=== PATIENT | male | born 1935 | race Caucasian/White ===

== ENCOUNTER 2016-11-05 15:43 | Inpatient (IN) | payer MEDICARE, BC ==
[2016-11-05] MEDS: Aztreonam/Dextrose-Water 1 GM in Premix Bag 1 BAG IV SCH (17:08)
[2016-11-05] MEDS: Pantoprazole 40 MG Vial IV SCH (17:43)
[2016-11-05] MEDS: Ampicillin/Sulbactam Na 3 GM in Sodium Chloride 0.9% 100 ML IV SCH (17:44)
[2016-11-05] MEDS ORDERED: Potassium Phosphates 20 MMOLE in Sodium Chloride 0.9% 250 ML IV SCH ×2 (18:45→21:45)
[2016-11-05] MEDS ORDERED: Doxazosin 4 MG Tab PO ONE (19:33)
[2016-11-05] MEDS ORDERED: Furosemide 20 MG/2 ML VIAL IVPUSH ONE (19:33)
[2016-11-05] MEDS: Donepezil 10 MG Tab PO SCH ×2 (20:01→21:16)
[2016-11-05] MEDS: Potassium Phosphates 20 MMOLE in Sodium Chloride 0.9% 250 ML IV SCH (21:05)
[2016-11-05] MEDS: Carbidopa/Levodopa 50-200 MG Tab.ER PO SCH (21:14)
[2016-11-05] MEDS: Potassium Chloride 20 MEQ Tab.ER PO SCH (21:15)
[2016-11-05] MEDS: Rosuvastatin 10 MG Tab PO SCH (21:17)
[2016-11-05] MEDS ORDERED: LORazepam 2 MG/ML MDV IVPUSH ONE ×2 (21:31→22:00)
[2016-11-05] MEDS: Morphine 2 MG/ML Syringe IVPUSH PRN (22:13)
[2016-11-06] MEDS: Ampicillin/Sulbactam Na 3 GM in Sodium Chloride 0.9% 100 ML IV SCH ×5 (00:06→23:46)
[2016-11-06] MEDS: Aztreonam/Dextrose-Water 1 GM in Premix Bag 1 BAG IV SCH ×3 (00:36→16:09)
[2016-11-06] MEDS ORDERED: Potassium Phosphates 20 MMOLE in Sodium Chloride 0.9% 250 ML IV SCH (00:45)
[2016-11-06] MEDS: Potassium Phosphates 20 MMOLE in Sodium Chloride 0.9% 250 ML IV SCH ×2 (01:16→04:20)
[2016-11-06] MEDS: Morphine 2 MG/ML Syringe IVPUSH PRN (05:03)
[2016-11-06] MEDS: Potassium Chloride 20 MEQ Tab.ER PO SCH ×4 (06:22→22:29)
[2016-11-06] MEDS ORDERED: Bupivacaine 0.5%/EPINEPHrine 1:200,000 50 ML MDV ONE (06:53)
[2016-11-06] MEDS ORDERED: Propofol 200 MG/20 ML SDV ONE (07:11)
[2016-11-06] MEDS ORDERED: fentaNYL 100 MCG/2 ML SDV ONE (07:11)
[2016-11-06] MEDS ORDERED: Rocuronium 50 MG/5 ML Vial ONE (07:11)
[2016-11-06] MEDS ORDERED: Ondansetron 4 MG/2 ML SDV ONE (07:11)
[2016-11-06] MEDS ORDERED: Neostigmine Methylsulfate 1 MG/ML 5 ML Syringe ONE (07:11)
[2016-11-06] MEDS ORDERED: Dexamethasone 4 MG/ML SDV ONE (07:11)
[2016-11-06] MEDS ORDERED: Glycopyrrolate 0.2 MG/ML 5 ML MDV ONE (07:11)
[2016-11-06] MEDS ORDERED: Succinylcholine 200 MG/10 ML MDV ONE (07:11)
[2016-11-06] MEDS ORDERED: HYDROmorphone/Normal Saline 15 MG/30 ML PCA IV PRN (08:01)
[2016-11-06] MEDS ORDERED: Naloxone 0.4 MG/ML SDV IV PRN (08:04)
--- NOTE | 2016-11-06 08:38 | HP ---
HISTORY OF PRESENT ILLNESS: Angelo is an 81-year-old male, who comes in because of abdominal pain. He said the abdominal pain started yesterday. It started as a vague type sensation in his lower right quadrant, and he did have an appetite. He has not had any surgery on the appendix. I saw him in the office this morning and then sent him over for a CT, which showed an acute appendicitis without rupture. I called Dr. Nixon Raphael, and he is going to perform surgery. REVIEW OF SYSTEMS: This gentleman has had increasing worsening weakness and trouble speaking. He suffers from parkinsonism, which has been an acute and progressive problem. He is seeing a Parkinson specialist in [place]. ALLERGIES: DONEPEZIL. CURRENT MEDICATIONS: 1. Amlodipine 5 mg once a day. 2. He has been taking aspirin 81 mg daily. 3. Benazepril 40 mg a day. 4. Carbidopa and levodopa CR taking 1 or 2 every night. 5. He has also been taking carbidopa and levodopa 25/100, takes 2 tablets by mouth 3 times a day. 6. Taking vitamin D 1 capsule a day. 7. Coenzyme Q10, 1 per day. 8. Vitamin B12, a 1000 mcg daily. 9. Doxazosin 8 mg q. day. 10.Started furosemide today at 20 mg. 11.Hydrochlorothiazide and spironolactone 25 mg daily. 12.One multivitamin per day. 13.[place]-3 fatty acid or fish oil, takes 1 capsule a day. 14.He is supposed to be taking potassium chloride 20 mEq 4 times a day. He was only taking it once a day. 15.He is also taking Azilect 1 mg q. day. 16.Taking Exelon 4.6 mg/24 hours transdermal patch. This was recently decreased, as he was not doing well when he was on a heavier dose. 17.Taking rosuvastatin or Crestor 5 mg a day. 18.Saw palmetto 160 mg daily. PAST MEDICAL HISTORY: He has a history of fatigue, constipation, Parkinson's disease, low back pain, hypertension, hyperlipidemia, depressive disorder, kidney stones, atherosclerotic heart disease, urinary incontinence recently, and he has also had episodes of hypotension, but recently hypertensive. SOCIAL HISTORY: He is . Does not smoke. Does not use tobacco or caffeine. He wears a seat belt. PAST SURGICAL HISTORY: He has had gallbladder and prostate surgery, and hernia repair. He has had the cataract extraction. FAMILY HISTORY: His mother at age 63. She had heart failure and she had cerebrovascular accidents. His father at age 49 from a brain tumor. He had a negative colonoscopy 10 years ago. PHYSICAL EXAMINATION: VITAL SIGNS: His blood pressure is 192/93 with a temperature of 97.9. He is 69 inches tall and weighs 189 pounds, and BMI is 27.9. HEENT: Reveals no acute pathology. NECK: Supple in all directions. HEART: Regular rate and rhythm. No thrills, no rubs, no murmurs. LUNGS: Clear to auscultation bilaterally. No rales, rhonchi, wheezes, or rubs. No dullness to percussion. ABDOMEN: Liver and spleen are not enlarged. Active bowel sounds. There is pain to palpation in the lower right quadrant area. No masses are found. EXTREMITIES: Femoral pulses are intact. LYMPHATICS: There are no cervical, axillary, or inguinal lymphadenopathy. IMPRESSION: 1. Acute appendix. 2. Parkinsonism. 3. Hypertension. 4. Hypokalemia. PLAN: CT of the abdomen was done this morning, which showed an acute appendicitis without rupture. The laboratory analysis done in the office showed sodium 146, potassium 2.9, and creatinine 1.2. His hemoglobin is 11.9. He is supposed to be taking 4 potassium a day. He was taking it once a day only. He does have significant edema in his lower extremities, as we had recently increased his medicine, allopurinol from 5 to 10 mg per day, which is what caused the edema. I did give him a prescription for Lasix this morning, and then we found out that he had acute appendicitis. Unfortunately, they went home and ate before we can get a hold of him to have them come back. Now he is admitted. I spoke with Dr. Nixon Raphael, and he will perform surgery. He does need special care, so I have admitted him to the ICU. Hesham Ann MD /[id number]
[2016-11-06] MEDS: DEXTROSE 5% IV SCH ×6 (09:49→14:54)
[2016-11-06] MEDS: POTASSIUM ACETATE IV SCH ×6 (09:49→14:54)
[2016-11-06] MEDS: WATER IV SCH ×6 (09:49→14:54)
[2016-11-06] MEDS: Dextrose 5%-Lactated Ringers 1,000 ML IV SCH ×2 (09:52→20:14)
[2016-11-06] MEDS ORDERED: Potassium Acetate 20 MEQ, Lidocaine 1% 2 ML in Sodium Chloride 0.9% 100 ML IV SCH (10:00)
[2016-11-06] MEDS: Labetalol 20 MG/4 ML Syringe IVPUSH PRN (10:56)
[2016-11-06] MEDS: Carbidopa/Levodopa 25-100 MG Tab PO SCH ×3 (13:14→19:28)
[2016-11-06] MEDS: RASAGILINE 1 MG PO SCH (15:13)
[2016-11-06] MEDS: Hydrochlorothiazide 25 MG Tab PO SCH (15:15)
[2016-11-06] MEDS: Spironolactone 25 MG Tab PO SCH (15:17)
[2016-11-06] MEDS: amLODIPine 5 MG Tab PO SCH (15:19)
[2016-11-06] MEDS: Doxazosin 4 MG Tab PO SCH (15:30)
[2016-11-06] MEDS: Pantoprazole 40 MG Vial IV SCH (16:48)
[2016-11-06] MEDS: Rosuvastatin 10 MG Tab PO SCH (20:16)
[2016-11-06] MEDS: Donepezil 10 MG Tab PO SCH (20:17)
[2016-11-06] MEDS: Carbidopa/Levodopa 50-200 MG Tab.ER PO SCH (22:29)
[2016-11-07] MEDS: Aztreonam/Dextrose-Water 1 GM in Premix Bag 1 BAG IV SCH ×3 (00:39→16:27)
[2016-11-07] MEDS: Ampicillin/Sulbactam Na 3 GM in Sodium Chloride 0.9% 100 ML IV SCH ×4 (05:13→23:34)
[2016-11-07] MEDS: Potassium Chloride 20 MEQ Tab.ER PO SCH ×4 (05:13→21:07)
[2016-11-07] MEDS: Labetalol 20 MG/4 ML Syringe IVPUSH PRN ×2 (06:16→16:19)
[2016-11-07] MEDS: Dextrose 5%-Lactated Ringers 1,000 ML IV SCH (07:29)
[2016-11-07] MEDS: Spironolactone 25 MG Tab PO SCH (08:17)
[2016-11-07] MEDS: Carbidopa/Levodopa 25-100 MG Tab PO SCH ×3 (08:17→18:09)
[2016-11-07] MEDS: RASAGILINE 1 MG PO SCH (08:17)
[2016-11-07] MEDS: Doxazosin 4 MG Tab PO SCH ×2 (08:17→17:15)
[2016-11-07] MEDS: amLODIPine 5 MG Tab PO SCH (08:18)
[2016-11-07] MEDS: Hydrochlorothiazide 25 MG Tab PO SCH (08:18)
[2016-11-07] MEDS: Potassium Phosphates 25 MMOLE in Sodium Chloride 0.9% 500 ML IV SCH ×3 (09:43→17:18)
[2016-11-07] MEDS: Ondansetron 4 MG/2 ML SDV IV PRN ×2 (09:53→15:54)
[2016-11-07] MEDS ORDERED: Magnesium Sulfate/Water 2 GM in Premix Bag 1 BAG IV SCH (10:00)
[2016-11-07] MEDS ORDERED: Furosemide 20 MG/2 ML VIAL IVPUSH ONE (10:15)
[2016-11-07] MEDS ORDERED: Dextrose 5%-Lactated Ringers 1,000 ML IV SCH (10:15)
--- NOTE | 2016-11-07 13:42 | OR ---
DATE OF PROCEDURE: 11/06/2016 PREOPERATIVE DIAGNOSIS: Acute appendicitis. POSTOPERATIVE DIAGNOSES: 1. Acute appendicitis with inflammation and edema extending onto the cecum. 2. Pericecal inflammatory fluid collection (possibly infected). OPERATIVE PROCEDURES: Diagnostic laparoscopy with: 1. Partial cecectomy with excision of attached overlying appendix (51605). 2. Drainage of pericecal inflammatory fluid collection, associated with localized peritonitis (87770). ANESTHESIA: General. NURSE CASE MANAGEMENT: Meri Long PA-C. INDICATION FOR PROCEDURE: This is an 81-year-old male presenting with an acute appendicitis based on clinical and CT findings. He has advanced Parkinson's disease, but the diagnosis nonetheless appears to be reasonably well established. The plan is to proceed with a laparoscopic or if necessary open appendectomy. The potential risks of the procedure including bleeding, infection, injury to underlying viscera, problems with leak from GI tract closures such as appendectomy stump, need for additional surgery beyond an appendectomy, depending on operative findings, as well as possibility of cardiopulmonary, septic, or hemorrhagic complications leading to were discussed, and the patient wishes to proceed. DETAILS OF PROCEDURE: The patient was taken to the operating room and placed in a supine position. After general endotracheal anesthesia was induced, the abdomen was prepped and draped. He does have a large amount of urine output, and I think there is incontinence; a Walton catheter had been placed in the hospital room site. Three fingerbreadths superior and to the left of xiphoid process, a transverse incision was made and the peritoneal cavity entered under direct vision with an Optiview trocar and inflated to 30 mmHg pressure with CO2. Laparoscope was then reinserted. No underlying trocar insertion site injuries were seen. Following this, a 12 mm trocar was placed in the left lower quadrant, as well as right upper quadrant, and the right lower quadrant examined. As the cecum was identified, the infundibulum was mobilized upward. The patient was noted to have an obvious acute appendicitis; photo documentation of this was obtained. It was notable that the degree of redness and edema extended perhaps a centimeter to a centimeter and a half on to the cecum. Based on that, it was felt best to proceed with a partial cecectomy to apply the florence in a nonedematous and minimally inflamed area. The mesoappendix was then initially divided with Harmonic scalpel down to the level of the junction with the cecum. Endo-ARIADNA faulkner load was then used, the cecum was pulled up to within the stapler, and the cecum was then excised in addition to the overlying appendix with a ARIADNA faulkner load. The specimen was then delivered through the left lower quadrant site. As one entered into the abdomen, there was a pericecal fluid collection. This ran along the pericolic gutter and somewhat into the pelvis. This was thinly purulent but was associated with a fairly marked peritonitis in that area with peritoneum being reddened and initially some petechiae with minimal manipulation. This had been evacuated and cultures obtained. At that point, no further problems were noted. The trocars were sequentially removed. The fascia at each of the sites was closed with 0 Vicryl stitch and the skin with 4-0 Vicryl skin stitch. Dressing applied. The patient was taken to the recovery room in satisfactory condition. Physician assistant cook, Meri Long played an essential role in assisting in this case, helping to position the patient, retract structures as needed, as well as suturing and cutting sutures as indicated. Her presence improved patient's safety and decreased the operative time. Nixon Raphael MD /[id number]
--- NOTE | 2016-11-07 14:42 | PN ---
DATE OF SERVICE: 11/07/2016 The patient has been afebrile with stable vital signs. Level of alertness is roughly status quo with the Parkinson's disease. His blood pressure has been quite high, and I will restart the Lotensin, which he had been off, and otherwise, he will go up to a regular diet today. IV will continue at 100 mL/hr. We will leave the Walton catheter in place, because he simply wets the bed, and from a management standpoint, it will be more satisfactory to keep that in for another day or so. Will continue the present antibiotics. Nixon Raphael MD /[id number]
[2016-11-07] MEDS ORDERED: Scopolamine 1.5 MG Transdermal Patch TRDERM PRN (16:41)
[2016-11-07] MEDS ORDERED: Metoclopramide 10 MG/2 ML SDV IVPUSH SCH (16:45)
[2016-11-07] MEDS: Pantoprazole 40 MG Vial IV SCH (16:55)
[2016-11-07] MEDS ORDERED: Prochlorperazine 10 MG in Sodium Chloride 0.9% 50 ML IV PRN (17:07)
[2016-11-07] MEDS ORDERED: hydrOXYzine HCl 100 MG/2 ML SDV IM PRN (17:09)
[2016-11-07] MEDS ORDERED: Prochlorperazine 10 MG/2 ML SDV IV PRN (17:12)
[2016-11-07] MEDS: Donepezil 10 MG Tab PO SCH (21:07)
[2016-11-07] MEDS: Rosuvastatin 10 MG Tab PO SCH (21:08)
[2016-11-07] MEDS: Carbidopa/Levodopa 50-200 MG Tab.ER PO SCH (21:08)
--- NOTE | 2016-11-07 21:36 | PCM.PN ---
- General Info Date of Service: 11/07/16 Functional Status: Reports: Pain Controlled - Review of Systems General: Reports: Weakness Pulmonary: Reports: No Symptoms Cardiovascular: Reports: No Symptoms Gastrointestinal: Reports: No Symptoms Psychiatric: Reports: Other (Hallucinations at night continuing.) - Patient Data Vitals - Most Recent: Last Vital Signs Temp 97.8 F 11/07/16 20:00 Pulse 70 11/07/16 05:00 Resp 17 11/07/16 20:00 BP 160/74 H 11/07/16 20:00 Pulse Ox 95 11/07/16 20:00 Weight - Most Recent: 187 lb 6.287 oz I&O - Last 24 Hours: Intake & Output 11/07/16 11/07/16 11/07/16 06:59 14:59 22:59 Intake Total 0388 453 5596 Output Total 800 1850 1000 Balance 464 -1450 1204 Lab Results Last 24 Hours: Laboratory Results - last 24 hr 11/07/16 11/07/16 Range/Units 04:30 04:30 WBC 9.2 (4.5-11.0) K/uL RBC 3.85 L (4.30-5.90) M/uL Hgb 12.7 (12.0-15.0) g/dL Hct 37.8 L (40.0-54.0) % MCV 98 (80-98) fL MCH 33 H (27-31) pg MCHC 34 (32-36) % Plt Count 165 (150-400) K/uL Sodium 148 (140-148) mmol/L Potassium 2.8 L* (3.6-5.2) mmol/L Chloride 110 H (100-108) mmol/L Carbon Dioxide 31 (21-32) mmol/L Anion Gap 9.8 (5.0-14.0) mmol/L BUN 15 (7-18) mg/dL Creatinine 1.3 (0.8-1.3) mg/dL Est Cr Clr Drug Dosing 45.35 mL/min Estimated GFR (MDRD) 53 L (>60) Glucose 117 H (74-106) mg/dL Calcium 8.6 (8.5-10.1) mg/dL Phosphorus 2.8 (2.5-4.9) mg/dL Magnesium 1.6 L (1.8-2.4) mg/dL Total Bilirubin 1.4 H (0.2-1.0) mg/dL AST 17 (15-37) U/L ALT 12 (12-78) U/L Alkaline Phosphatase 45 L (46-116) U/L Total Protein 6.2 L (6.4-8.2) g/dL Albumin 2.9 L (3.4-5.0) g/dL Globulin 3.3 (2.3-3.5) g/dL Albumin/Globulin Ratio 0.9 L (1.2-2.2) Thompson Results Last 24 Hours: Microbiology 11/06/16 08:00 Anaerobic Culture - Preliminary Appendix NO GROWTH AFTER 1 DAY 11/06/16 08:00 Gram Stain - Final Appendix Wound Culture - Preliminary Med Orders - Current: Current Medications Amlodipine Besylate (Norvasc) 5 mg PO DAILY REPLACED BY [facility] Last Admin: 11/07/16 08:18 Dose: 5 mg Benazepril HCl (Lotensin) 20 mg PO BID REPLACED BY [facility] Last Admin: 11/07/16 08:18 Dose: 20 mg Carbidopa/Levodopa (Sinemet 25-100 Mg) 2 tab PO 0800,1200,1700 REPLACED BY [facility] Last Admin: 11/07/16 18:09 Dose: 2 tab Carbidopa/Levodopa (Sinemet Cr 50-200 Mg) 1 tab PO BEDTIME REPLACED BY [facility] Last Admin: 11/06/16 22:29 Dose: 1 tab Donepezil HCl (Aricept) 10 mg PO BEDTIME REPLACED BY [facility] Last Admin: 11/06/16 20:17 Dose: 10 mg Doxazosin Mesylate (Cardura) 8 mg PO BID REPLACED BY [facility] Last Admin: 11/07/16 17:15 Dose: 8 mg Hydrochlorothiazide (Hydrochlorothiazide) 25 mg PO DAILY REPLACED BY [facility] Last Admin: 11/07/16 08:18 Dose: 25 mg Hydromorphone HCl (Dilaudid Basket Sorter 15 Mg In Ns 30 Ml) 0 mg IV ASDIRECTED PRN; Protocol PRN Reason: Pain Last Admin: 11/06/16 08:09 Dose: 15 mg Hydroxyzine HCl (Vistaril) 50 mg IM Q4H PRN PRN Reason: Nausea/Vomiting Aztreonam/Dextrose 1 gm/ (Premix) 50 mls @ 100 mls/hr IV Q8H REPLACED BY [facility] Last Admin: 11/07/16 16:27 Dose: 100 mls/hr Ampicillin Sodium/Sulbactam (Sodium 3 gm/ Sodium Chloride) 100 mls @ 200 mls/ hr IV Q6H REPLACED BY [facility] Last Admin: 11/07/16 17:38 Dose: 200 mls/hr Magnesium Sulfate 2 gm/ Sodium (Chloride) 54 mls @ 27 mls/hr IV Q6H REPLACED BY [facility] Stop: 11/09/16 05:59 Last Admin: 11/07/16 15:54 Dose: 27 mls/hr Dextrose/Lactated Ringer's (Dextrose 5%-Lactated Ringers) 1,000 mls @ 25 mls/ hr IV ASDIRECTED REPLACED BY [facility] Last Admin: 11/07/16 10:17 Dose: 25 mls/hr Labetalol HCl (Normodyne) 5 - 10 mg IVPUSH Q1H PRN; Protocol PRN Reason: Hypertension Last Admin: 11/07/16 16:19 Dose: 10 mg Naloxone HCl (Narcan) 0.1 mg IV ASDIRECTED PRN PRN Reason: decreased respiratory rate Verify Scop Patch 0 each TOP DAILY REPLACED BY [facility] Ondansetron HCl (Zofran) 4 mg IV Q4H PRN PRN Reason: N/V Last Admin: 11/07/16 15:54 Dose: 4 mg Pantoprazole Sodium (Protonix Iv) 40 mg IV Q24H REPLACED BY [facility] Last Admin: 11/07/16 16:55 Dose: 40 mg Potassium Chloride (Klor-Con M20) 20 meq PO QID REPLACED BY [facility] Last Admin: 11/07/16 16:17 Dose: Not Given Prochlorperazine Edisylate (Compazine) 10 mg IV Q6H PRN PRN Reason: N/V Rasagiline (Azilect) 1 mg PO DAILY REPLACED BY [facility] Last Admin: 11/07/16 08:17 Dose: 1 mg Rivastigmine (Exelon) 4.5 mg PO DAILY REPLACED BY [facility] Last Admin: 11/07/16 08:17 Dose: 4.5 mg Rosuvastatin Calcium (Crestor) 5 mg PO BEDTIME REPLACED BY [facility] Last Admin: 11/06/16 20:16 Dose: 5 mg Scopolamine (Transderm-Scop) 1.5 mg TRDERM Q72H PRN PRN Reason: Nausea/Vomiting Last Admin: 11/07/16 16:54 Dose: 1.5 mg Spironolactone (Aldactone) 25 mg PO DAILY REPLACED BY [facility] Last Admin: 11/07/16 08:17 Dose: 25 mg Discontinued Medications Bupivacaine HCl/Epinephrine Bitart (Marcaine 0.5%/Epinephrine 1:200,000) Confirm Administered Dose 50 ml .ROUTE .STK-MED ONE Stop: 11/06/16 06:54 Last Admin: 11/06/16 08:20 Dose: 15 ml Dexamethasone (Dexamethasone) Confirm Administered Dose 4 mg .ROUTE .STK-MED ONE Stop: 11/06/16 07:12 Doxazosin Mesylate (Cardura) 4 mg PO ONETIME ONE Stop: 11/05/16 19:34 Last Admin: 11/05/16 20:25 Dose: 4 mg Doxazosin Mesylate (Cardura) 8 mg PO DAILY REPLACED BY [facility] Last Admin: 11/07/16 08:17 Dose: 8 mg Fentanyl (Sublimaze) Confirm Administered Dose 200 mcg .ROUTE .STK-MED ONE Stop: 11/06/16 07:12 Furosemide (Lasix) 20 mg IVPUSH ONETIME ONE Stop: 11/05/16 19:34 Last Admin: 11/05/16 20:25 Dose: 20 mg Furosemide (Lasix) 20 mg IVPUSH ONETIME ONE Stop: 11/07/16 10:16 Last Admin: 11/07/16 10:17 Dose: 20 mg Glycopyrrolate (Robinul) Confirm Administered Dose 1 mg .ROUTE .STK-MED ONE Stop: 11/06/16 07:12 Dextrose/Lactated Ringer's (Dextrose 5%-Lactated Ringers) 1,000 mls @ 100 mls/ hr IV ASDIRECTED REPLACED BY [facility] Last Admin: 11/07/16 07:29 Dose: 100 mls/hr Potassium Phosphate 20 mmole/ (Sodium Chloride) 256.6667 mls @ 85.556 mls/hr IV ONETIME DANY Potassium Phosphate 20 mmole/ (Sodium Chloride) 256.6667 mls @ 85.556 mls/hr IV ONETIME DANY Potassium Phosphate 20 mmole/ (Sodium Chloride) 256.6667 mls @ 85.556 mls/hr IV ONETIME DANY Potassium Phosphate 20 mmole/ (Sodium Chloride) 256.6667 mls @ 85.556 mls/hr IV Q3H REPLACED BY [facility] Stop: 11/06/16 05:29 Last Admin: 11/06/16 04:20 Dose: 85.556 mls/hr Potassium Acetate 20 meq/ (Dextrose/Water) 260 mls @ 127 mls/hr IV Q2H REPLACED BY [facility] Stop: 11/06/16 16:29 Last Admin: 11/06/16 14:54 Dose: 127 mls/hr Magnesium Sulfate 2 gm/ Sodium (Chloride) 54 mls @ 27 mls/hr IV Q6H REPLACED BY [facility] Stop: 11/09/16 05:59 Potassium Phosphate 25 mmole/ (Sodium Chloride) 508.3333 mls @ 127 mls/hr IV Q4H REPLACED BY [facility] Stop: 11/07/16 21:29 Last Admin: 11/07/16 17:18 Dose: 127 mls/hr Magnesium Sulfate 2 gm/ Premix 50 mls @ 25 mls/hr IV Q6H REPLACED BY [facility] Stop: 11/09/16 05:59 Lorazepam (Ativan) 0.5 mg IVPUSH ONETIME ONE Stop: 11/05/16 21:32 Last Admin: 11/05/16 21:46 Dose: 0.5 mg Lorazepam (Ativan) 0.5 mg IVPUSH ONETIME ONE Stop: 11/05/16 22:01 Last Admin: 11/05/16 23:48 Dose: Not Given Morphine Sulfate (Morphine) 2 mg IVPUSH Q2H PRN PRN Reason: Pain Last Admin: 11/06/16 05:03 Dose: 2 mg Neostigmine Methylsulfate (Neostigmine) Confirm Administered Dose 5 mg .ROUTE .STK-MED ONE Stop: 11/06/16 07:12 Ondansetron HCl (Zofran) Confirm Administered Dose 4 mg .ROUTE .STK-MED ONE Stop: 11/06/16 07:12 Propofol (Diprivan 20 Ml) Confirm Administered Dose 200 mg .ROUTE .STK-MED ONE Stop: 11/06/16 07:12 Rocuronium [place] (Zemuron) Confirm Administered Dose 50 mg .ROUTE .STK-MED ONE Stop: 11/06/16 07:12 Succinylcholine Chloride (Quelicin) Confirm Administered Dose 200 mg .ROUTE .STK -MED ONE Stop: 11/06/16 07:12 - Exam General: Cooperative, Mild Distress Neck: Supple Lungs: Clear to Auscultation, Normal Respiratory Effort Cardiovascular: Regular Rate, Regular Rhythm Extremities: Pedal Edema Skin: Warm Neurological: No New Focal Deficit Psy/Mental Status: Hallucinations - Problem List Review Problem List Initiated/Reviewed/Updated: Yes - My Orders Last 24 Hours: My Active Orders 11/07/16 17:00 Doxazosin [Cardura] 8 mg PO BID - Assessment Assessment:: Assessment/Plan: #1. Hypertension: BP is not good control. Have increased Cardura to maximum dose #2. Hallucinations at night. This was a problem at home recently. #3. Parkinsonism: This has been a gradual progressive problem. Will need to continue with the Meds. He was on increased Exelon but was unable to tolerate the increased dosage so I decreased this the day before admission.
--- NOTE | 2016-11-07 21:42 | PCM.PN ---
- General Info Date of Service: 11/06/16 Functional Status: Reports: Pain Controlled - Review of Systems General: Reports: Weakness Pulmonary: Reports: No Symptoms Cardiovascular: Reports: No Symptoms Psychiatric: Reports: Confusion, Hallucinations - Patient Data Vitals - Most Recent: Last Vital Signs Temp 97.8 F 11/07/16 20:00 Pulse 70 11/07/16 05:00 Resp 17 11/07/16 20:00 BP 160/74 H 11/07/16 20:00 Pulse Ox 95 11/07/16 20:00 Weight - Most Recent: 187 lb 6.287 oz I&O - Last 24 Hours: Intake & Output 11/07/16 11/07/16 11/07/16 06:59 14:59 22:59 Intake Total 1655 615 0334 Output Total 800 1850 1000 Balance 464 -1450 1204 Lab Results Last 24 Hours: Laboratory Results - last 24 hr 11/07/16 11/07/16 Range/Units 04:30 04:30 WBC 9.2 (4.5-11.0) K/uL RBC 3.85 L (4.30-5.90) M/uL Hgb 12.7 (12.0-15.0) g/dL Hct 37.8 L (40.0-54.0) % MCV 98 (80-98) fL MCH 33 H (27-31) pg MCHC 34 (32-36) % Plt Count 165 (150-400) K/uL Sodium 148 (140-148) mmol/L Potassium 2.8 L* (3.6-5.2) mmol/L Chloride 110 H (100-108) mmol/L Carbon Dioxide 31 (21-32) mmol/L Anion Gap 9.8 (5.0-14.0) mmol/L BUN 15 (7-18) mg/dL Creatinine 1.3 (0.8-1.3) mg/dL Est Cr Clr Drug Dosing 45.35 mL/min Estimated GFR (MDRD) 53 L (>60) Glucose 117 H (74-106) mg/dL Calcium 8.6 (8.5-10.1) mg/dL Phosphorus 2.8 (2.5-4.9) mg/dL Magnesium 1.6 L (1.8-2.4) mg/dL Total Bilirubin 1.4 H (0.2-1.0) mg/dL AST 17 (15-37) U/L ALT 12 (12-78) U/L Alkaline Phosphatase 45 L (46-116) U/L Total Protein 6.2 L (6.4-8.2) g/dL Albumin 2.9 L (3.4-5.0) g/dL Globulin 3.3 (2.3-3.5) g/dL Albumin/Globulin Ratio 0.9 L (1.2-2.2) Thompson Results Last 24 Hours: Microbiology 11/06/16 08:00 Anaerobic Culture - Preliminary Appendix NO GROWTH AFTER 1 DAY 11/06/16 08:00 Gram Stain - Final Appendix Wound Culture - Preliminary Med Orders - Current: Current Medications Amlodipine Besylate (Norvasc) 5 mg PO DAILY [facility] Last Admin: 11/07/16 08:18 Dose: 5 mg Benazepril HCl (Lotensin) 20 mg PO BID [facility] Last Admin: 11/07/16 08:18 Dose: 20 mg Carbidopa/Levodopa (Sinemet 25-100 Mg) 2 tab PO 0800,1200,1700 [facility] Last Admin: 11/07/16 18:09 Dose: 2 tab Carbidopa/Levodopa (Sinemet Cr 50-200 Mg) 1 tab PO BEDTIME [facility] Last Admin: 11/06/16 22:29 Dose: 1 tab Donepezil HCl (Aricept) 10 mg PO BEDTIME [facility] Last Admin: 11/06/16 20:17 Dose: 10 mg Doxazosin Mesylate (Cardura) 8 mg PO BID [facility] Last Admin: 11/07/16 17:15 Dose: 8 mg Hydrochlorothiazide (Hydrochlorothiazide) 25 mg PO DAILY [facility] Last Admin: 11/07/16 08:18 Dose: 25 mg Hydromorphone HCl (Dilaudid Instructor Dancing 15 Mg In Ns 30 Ml) 0 mg IV ASDIRECTED PRN; Protocol PRN Reason: Pain Last Admin: 11/06/16 08:09 Dose: 15 mg Hydroxyzine HCl (Vistaril) 50 mg IM Q4H PRN PRN Reason: Nausea/Vomiting Aztreonam/Dextrose 1 gm/ (Premix) 50 mls @ 100 mls/hr IV Q8H [facility] Last Admin: 11/07/16 16:27 Dose: 100 mls/hr Ampicillin Sodium/Sulbactam (Sodium 3 gm/ Sodium Chloride) 100 mls @ 200 mls/ hr IV Q6H [facility] Last Admin: 11/07/16 17:38 Dose: 200 mls/hr Magnesium Sulfate 2 gm/ Sodium (Chloride) 54 mls @ 27 mls/hr IV Q6H [facility] Stop: 11/09/16 05:59 Last Admin: 11/07/16 15:54 Dose: 27 mls/hr Dextrose/Lactated Ringer's (Dextrose 5%-Lactated Ringers) 1,000 mls @ 25 mls/ hr IV ASDIRECTED [facility] Last Admin: 11/07/16 10:17 Dose: 25 mls/hr Labetalol HCl (Normodyne) 5 - 10 mg IVPUSH Q1H PRN; Protocol PRN Reason: Hypertension Last Admin: 11/07/16 16:19 Dose: 10 mg Naloxone HCl (Narcan) 0.1 mg IV ASDIRECTED PRN PRN Reason: decreased respiratory rate Verify Scop Patch 0 each TOP DAILY [facility] Ondansetron HCl (Zofran) 4 mg IV Q4H PRN PRN Reason: N/V Last Admin: 11/07/16 15:54 Dose: 4 mg Pantoprazole Sodium (Protonix Iv) 40 mg IV Q24H [facility] Last Admin: 11/07/16 16:55 Dose: 40 mg Potassium Chloride (Klor-Con M20) 20 meq PO QID [facility] Last Admin: 11/07/16 16:17 Dose: Not Given Prochlorperazine Edisylate (Compazine) 10 mg IV Q6H PRN PRN Reason: N/V Rasagiline (Azilect) 1 mg PO DAILY [facility] Last Admin: 11/07/16 08:17 Dose: 1 mg Rivastigmine (Exelon) 4.5 mg PO DAILY [facility] Last Admin: 11/07/16 08:17 Dose: 4.5 mg Rosuvastatin Calcium (Crestor) 5 mg PO BEDTIME [facility] Last Admin: 11/06/16 20:16 Dose: 5 mg Scopolamine (Transderm-Scop) 1.5 mg TRDERM Q72H PRN PRN Reason: Nausea/Vomiting Last Admin: 11/07/16 16:54 Dose: 1.5 mg Spironolactone (Aldactone) 25 mg PO DAILY [facility] Last Admin: 11/07/16 08:17 Dose: 25 mg Discontinued Medications Bupivacaine HCl/Epinephrine Bitart (Marcaine 0.5%/Epinephrine 1:200,000) Confirm Administered Dose 50 ml .ROUTE .STK-MED ONE Stop: 11/06/16 06:54 Last Admin: 11/06/16 08:20 Dose: 15 ml Dexamethasone (Dexamethasone) Confirm Administered Dose 4 mg .ROUTE .STK-MED ONE Stop: 11/06/16 07:12 Doxazosin Mesylate (Cardura) 4 mg PO ONETIME ONE Stop: 11/05/16 19:34 Last Admin: 11/05/16 20:25 Dose: 4 mg Doxazosin Mesylate (Cardura) 8 mg PO DAILY [facility] Last Admin: 11/07/16 08:17 Dose: 8 mg Fentanyl (Sublimaze) Confirm Administered Dose 200 mcg .ROUTE .STK-MED ONE Stop: 11/06/16 07:12 Furosemide (Lasix) 20 mg IVPUSH ONETIME ONE Stop: 11/05/16 19:34 Last Admin: 11/05/16 20:25 Dose: 20 mg Furosemide (Lasix) 20 mg IVPUSH ONETIME ONE Stop: 11/07/16 10:16 Last Admin: 11/07/16 10:17 Dose: 20 mg Glycopyrrolate (Robinul) Confirm Administered Dose 1 mg .ROUTE .STK-MED ONE Stop: 11/06/16 07:12 Dextrose/Lactated Ringer's (Dextrose 5%-Lactated Ringers) 1,000 mls @ 100 mls/ hr IV ASDIRECTED [facility] Last Admin: 11/07/16 07:29 Dose: 100 mls/hr Potassium Phosphate 20 mmole/ (Sodium Chloride) 256.6667 mls @ 85.556 mls/hr IV ONETIME [facility] Potassium Phosphate 20 mmole/ (Sodium Chloride) 256.6667 mls @ 85.556 mls/hr IV ONETIME [facility] Potassium Phosphate 20 mmole/ (Sodium Chloride) 256.6667 mls @ 85.556 mls/hr IV ONETIME [facility] Potassium Phosphate 20 mmole/ (Sodium Chloride) 256.6667 mls @ 85.556 mls/hr IV Q3H [facility] Stop: 11/06/16 05:29 Last Admin: 11/06/16 04:20 Dose: 85.556 mls/hr Potassium Acetate 20 meq/ (Dextrose/Water) 260 mls @ 127 mls/hr IV Q2H [facility] Stop: 11/06/16 16:29 Last Admin: 11/06/16 14:54 Dose: 127 mls/hr Magnesium Sulfate 2 gm/ Sodium (Chloride) 54 mls @ 27 mls/hr IV Q6H [facility] Stop: 11/09/16 05:59 Potassium Phosphate 25 mmole/ (Sodium Chloride) 508.3333 mls @ 127 mls/hr IV Q4H [facility] Stop: 11/07/16 21:29 Last Admin: 11/07/16 17:18 Dose: 127 mls/hr Magnesium Sulfate 2 gm/ Premix 50 mls @ 25 mls/hr IV Q6H [facility] Stop: 11/09/16 05:59 Lorazepam (Ativan) 0.5 mg IVPUSH ONETIME ONE Stop: 11/05/16 21:32 Last Admin: 11/05/16 21:46 Dose: 0.5 mg Lorazepam (Ativan) 0.5 mg IVPUSH ONETIME ONE Stop: 11/05/16 22:01 Last Admin: 11/05/16 23:48 Dose: Not Given Morphine Sulfate (Morphine) 2 mg IVPUSH Q2H PRN PRN Reason: Pain Last Admin: 11/06/16 05:03 Dose: 2 mg Neostigmine Methylsulfate (Neostigmine) Confirm Administered Dose 5 mg .ROUTE .STK-MED ONE Stop: 11/06/16 07:12 Ondansetron HCl (Zofran) Confirm Administered Dose 4 mg .ROUTE .STK-MED ONE Stop: 11/06/16 07:12 Propofol (Diprivan 20 Ml) Confirm Administered Dose 200 mg .ROUTE .STK-MED ONE Stop: 11/06/16 07:12 Rocuronium [place] (Zemuron) Confirm Administered Dose 50 mg .ROUTE .STK-MED ONE Stop: 11/06/16 07:12 Succinylcholine Chloride (Quelicin) Confirm Administered Dose 200 mg .ROUTE .STK -MED ONE Stop: 11/06/16 07:12 - Exam General: Cooperative, Moderate Distress Lungs: Clear to Auscultation, Normal Respiratory Effort Cardiovascular: Regular Rate, Regular Rhythm GI/Abdominal Exam: Normal Bowel Sounds, Soft, Non-Tender, No Organomegaly, No Distention, No Abnormal Bruit, No Mass, Pelvis Stable - Problem List Review Problem List Initiated/Reviewed/Updated: Yes - My Orders Last 24 Hours: My Active Orders 11/07/16 17:00 Doxazosin [Cardura] 8 mg PO BID - Assessment Assessment:: Assessment/Plan: #1. Confusion: Last night he because confused and responded to Ativan and Morphine. #2. Hypertension: BP is not good control. Have restarted all his medicine. #3. Hallucinations at night. This was a problem at home recently. #3. Parkinsonism: This has been a gradual progressive problem. Will need to continue with the Meds. He was on increased Exelon which I feel caused increase confusion. Have decreased the dosage.
[2016-11-07] MEDS ORDERED: VERIFY SCOP PATCH TOP SCH (22:00)
[2016-11-08] MEDS: Aztreonam/Dextrose-Water 1 GM in Premix Bag 1 BAG IV SCH (01:20)
[2016-11-08] MEDS: Ampicillin/Sulbactam Na 3 GM in Sodium Chloride 0.9% 100 ML IV SCH (05:21)
[2016-11-08] MEDS ORDERED: Potassium Chloride 20 MEQ, Lidocaine 1% 2 ML in Sodium Chloride 0.9% 100 ML IV SCH (06:30)
[2016-11-08] MEDS: Potassium Chloride 20 MEQ Tab.ER PO SCH ×4 (07:31→22:21)
[2016-11-08] MEDS: Carbidopa/Levodopa 25-100 MG Tab PO SCH ×3 (07:35→17:33)
[2016-11-08] MEDS: Potassium Chloride 20 MEQ, Lidocaine 1% 2 ML in Sodium Chloride 0.9% 100 ML IV SCH ×3 (07:50→12:49)
[2016-11-08] MEDS ORDERED: Acetaminophen 325 MG Tab PO PRN (07:59)
[2016-11-08] MEDS: RASAGILINE 1 MG PO SCH (08:50)
[2016-11-08] MEDS: Spironolactone 25 MG Tab PO SCH (08:50)
[2016-11-08] MEDS: Doxazosin 4 MG Tab PO SCH ×3 (08:51→22:45)
[2016-11-08] MEDS: Hydrochlorothiazide 25 MG Tab PO SCH (08:55)
[2016-11-08] MEDS: amLODIPine 5 MG Tab PO SCH (08:56)
[2016-11-08] MEDS ORDERED: Metoprolol Succinate 50 MG Tab.ER PO SCH (09:30)
--- NOTE | 2016-11-08 09:45 | PN ---
DATE OF SERVICE: 11/08/2016 SUBJECTIVE: Angelo is postop day 2 following an acute appendicitis. He had a diagnostic laparoscopy on 11/06/2016. He was admitted through the emergency room. Potassium this morning is 2.9, temp max 99.7, oral intake 900, urine output via Walton catheter was 3025. He did have a 200 mL emesis yesterday, was on IV Zofran and Compazine was added along with Vistaril and to give p.r.n. for nausea and this did resolve. He has had no further episodes of nausea since that time. He has been awake since 0200 hours and has been up sitting in a Nichelle chair, has been somewhat confused which nursing states is his normal status. He is comfortable and has had 2 bumps of his INDEPENDENT JEWELER from nursing staff to see if this would help him sleep and the pain was causing the issue of his wakefulness. REVIEW OF SYSTEMS: Remainder of review of systems negative for any pertinent positives and negatives. OBJECTIVE: GENERAL: Angelo Greenfield is an 81-year-old male. He is sitting in the Nichelle chair. VITAL SIGNS: TPR is 98.6, 76, 16, blood pressure 157/95. HEENT: Negative. NECK: Supple. HEART: Regular rate and rhythm. LUNGS: Clear. ABDOMEN: Dressings dry and intact. EXTREMITIES: Without peripheral edema and Walton catheter intact. ASSESSMENT: Diagnostic laparoscopy with partial cecectomy with excision of attached overlying appendix and drainage of pericecal inflammatory fluid collection associated with localized peritonitis. Date of surgery 11/06/2016. Postoperative diagnosis is acute appendicitis with inflammation and edema extending into the cecum and pericecal inflammatory fluid collection possibly infected. Date of surgery 11/06/2016. Surgeon Nixon Raphael MD. PLAN: 1. Transfer to [facility]. 2. Discontinue Walton catheter. 3. Discontinue IV antibiotics. 4. Discontinue telemetry, continuous pulse ox. 5. Discontinue INDEPENDENT JEWELER. 6. [place] 5/325 mg 1 tablet every 4 hours p.r.n. pain. 7. Tylenol 650 mg q.4 hours p.r.n. lesser pain. 8. Good pulmonary toilet encouraged. 9. We will evaluate p.r.n. or in a.m. 10.Check CBC and CMP in a.m. Meri Long PA-C /[id number]
[2016-11-08] MEDS: Pantoprazole 40 MG Tab.CR PO SCH (12:31)
[2016-11-08] MEDS: Acetaminophen/HYDROcodone 325-5 MG Tab PO PRN (15:03)
[2016-11-08] MEDS ORDERED: Docusate Sodium 100 MG Cap PO PRN (15:05)
--- NOTE | 2016-11-08 19:11 | PCM.PN ---
- General Info Date of Service: 11/08/16 Functional Status: Reports: Pain Controlled - Review of Systems General: Reports: Weakness HEENT: Reports: No Symptoms Pulmonary: Reports: No Symptoms Cardiovascular: Reports: No Symptoms Gastrointestinal: Reports: No Symptoms Genitourinary: Reports: No Symptoms Musculoskeletal: Reports: No Symptoms Skin: Reports: No Symptoms Neurological: Reports: Weakness - Patient Data Vitals - Most Recent: Last Vital Signs Temp 99.0 F 11/08/16 14:52 Pulse 80 11/08/16 14:52 Resp 16 11/08/16 14:52 BP 146/80 H 11/08/16 14:52 Pulse Ox 95 11/08/16 14:52 Weight - Most Recent: 187 lb 6.287 oz I&O - Last 24 Hours: Intake & Output 11/08/16 11/08/16 11/08/16 06:59 14:59 22:59 Intake Total 462 1212 625 Output Total 375 215 Balance 87 997 625 Lab Results Last 24 Hours: Laboratory Results - last 24 hr 11/08/16 Range/Units 04:39 Sodium 148 (140-148) mmol/L Potassium 2.9 L* (3.6-5.2) mmol/L Chloride 109 H (100-108) mmol/L Carbon Dioxide 33 H (21-32) mmol/L Anion Gap 8.9 (5.0-14.0) mmol/L BUN 13 (7-18) mg/dL Creatinine 1.1 (0.8-1.3) mg/dL Est Cr Clr Drug Dosing 53.59 mL/min Estimated GFR (MDRD) > 60 (>60) Glucose 100 (74-106) mg/dL Calcium 8.4 L (8.5-10.1) mg/dL Phosphorus 3.0 (2.5-4.9) mg/dL Thompson Results Last 24 Hours: Microbiology 11/06/16 08:00 Gram Stain - Final Appendix Wound Culture - Preliminary 11/06/16 08:00 Anaerobic Culture - Preliminary Appendix NO GROWTH AFTER 2 DAYS Med Orders - Current: Current Medications Acetaminophen (Tylenol) 650 mg PO Q4H PRN PRN Reason: Pain Hydrocodone Bitart/Acetaminophen ([place] 325-5 Mg) 1 tab PO Q4H PRN PRN Reason: Pain Last Admin: 11/08/16 15:03 Dose: 1 tab Amlodipine Besylate (Norvasc) 5 mg PO DAILY [facility] Last Admin: 11/08/16 08:56 Dose: 5 mg Benazepril HCl (Lotensin) 20 mg PO BID [facility] Last Admin: 11/08/16 08:55 Dose: 20 mg Carbidopa/Levodopa (Sinemet 25-100 Mg) 2 tab PO 0800,1200,1700 [facility] Last Admin: 11/08/16 17:33 Dose: 2 tab Carbidopa/Levodopa (Sinemet Cr 50-200 Mg) 1 tab PO BEDTIME [facility] Last Admin: 11/07/16 21:08 Dose: 1 tab Docusate Sodium (Colace) 100 mg PO BID PRN PRN Reason: Constipation Last Admin: 11/08/16 17:33 Dose: 100 mg Donepezil HCl (Aricept) 10 mg PO BEDTIME [facility] Last Admin: 11/07/16 21:07 Dose: 10 mg Doxazosin Mesylate (Cardura) 8 mg PO BID [facility] Last Admin: 11/08/16 08:54 Dose: 8 mg Hydrochlorothiazide (Hydrochlorothiazide) 25 mg PO DAILY [facility] Last Admin: 11/08/16 08:55 Dose: 25 mg Hydroxyzine HCl (Vistaril) 50 mg IM Q4H PRN PRN Reason: Nausea/Vomiting Magnesium Sulfate 2 gm/ Sodium (Chloride) 54 mls @ 27 mls/hr IV Q6H [facility] Stop: 11/09/16 05:59 Last Admin: 11/08/16 15:06 Dose: 27 mls/hr Dextrose/Lactated Ringer's (Dextrose 5%-Lactated Ringers) 1,000 mls @ 25 mls/ hr IV ASDIRECTED [facility] Last Admin: 11/07/16 10:17 Dose: 25 mls/hr Naloxone HCl (Narcan) 0.1 mg IV ASDIRECTED PRN PRN Reason: decreased respiratory rate Ondansetron HCl (Zofran) 4 mg IV Q4H PRN PRN Reason: N/V Last Admin: 11/07/16 15:54 Dose: 4 mg Pantoprazole Sodium (Protonix) 40 mg PO ACBREAKFAST [facility] Last Admin: 11/08/16 12:31 Dose: 40 mg Potassium Chloride (Klor-Con M20) 20 meq PO QID [facility] Last Admin: 11/08/16 15:06 Dose: 20 meq Prochlorperazine Edisylate (Compazine) 10 mg IV Q6H PRN PRN Reason: N/V Rasagiline (Azilect) 1 mg PO DAILY [facility] Last Admin: 11/08/16 08:50 Dose: 1 mg Rivastigmine (Exelon) 4.5 mg PO DAILY [facility] Last Admin: 11/08/16 08:54 Dose: 4.5 mg Rosuvastatin Calcium (Crestor) 5 mg PO BEDTIME [facility] Last Admin: 11/07/16 21:08 Dose: 5 mg Spironolactone (Aldactone) 25 mg PO DAILY [facility] Last Admin: 11/08/16 08:50 Dose: 25 mg Discontinued Medications Bupivacaine HCl/Epinephrine Bitart (Marcaine 0.5%/Epinephrine 1:200,000) Confirm Administered Dose 50 ml .ROUTE .STK-MED ONE Stop: 11/06/16 06:54 Last Admin: 11/06/16 08:20 Dose: 15 ml Dexamethasone (Dexamethasone) Confirm Administered Dose 4 mg .ROUTE .STK-MED ONE Stop: 11/06/16 07:12 Doxazosin Mesylate (Cardura) 4 mg PO ONETIME ONE Stop: 11/05/16 19:34 Last Admin: 11/05/16 20:25 Dose: 4 mg Doxazosin Mesylate (Cardura) 8 mg PO DAILY [facility] Last Admin: 11/08/16 08:51 Dose: 8 mg Fentanyl (Sublimaze) Confirm Administered Dose 200 mcg .ROUTE .STK-MED ONE Stop: 11/06/16 07:12 Furosemide (Lasix) 20 mg IVPUSH ONETIME ONE Stop: 11/05/16 19:34 Last Admin: 11/05/16 20:25 Dose: 20 mg Furosemide (Lasix) 20 mg IVPUSH ONETIME ONE Stop: 11/07/16 10:16 Last Admin: 11/07/16 10:17 Dose: 20 mg Glycopyrrolate (Robinul) Confirm Administered Dose 1 mg .ROUTE .STK-MED ONE Stop: 11/06/16 07:12 Hydromorphone HCl (Dilaudid Keyseater Operator 15 Mg In Ns 30 Ml) 0 mg IV ASDIRECTED PRN; Protocol PRN Reason: Pain Last Admin: 11/06/16 08:09 Dose: 15 mg Dextrose/Lactated Ringer's (Dextrose 5%-Lactated Ringers) 1,000 mls @ 100 mls/ hr IV ASDIRECTED [facility] Last Admin: 11/07/16 07:29 Dose: 100 mls/hr Aztreonam/Dextrose 1 gm/ (Premix) 50 mls @ 100 mls/hr IV Q8H [facility] Last Admin: 11/08/16 01:20 Dose: 100 mls/hr Ampicillin Sodium/Sulbactam (Sodium 3 gm/ Sodium Chloride) 100 mls @ 200 mls/ hr IV Q6H [facility] Last Admin: 11/08/16 05:21 Dose: 200 mls/hr Potassium Phosphate 20 mmole/ (Sodium Chloride) 256.6667 mls @ 85.556 mls/hr IV ONETIME [facility] Potassium Phosphate 20 mmole/ (Sodium Chloride) 256.6667 mls @ 85.556 mls/hr IV ONETIME [facility] Potassium Phosphate 20 mmole/ (Sodium Chloride) 256.6667 mls @ 85.556 mls/hr IV ONETIME [facility] Potassium Phosphate 20 mmole/ (Sodium Chloride) 256.6667 mls @ 85.556 mls/hr IV Q3H [facility] Stop: 11/06/16 05:29 Last Admin: 11/06/16 04:20 Dose: 85.556 mls/hr Potassium Acetate 20 meq/ (Dextrose/Water) 260 mls @ 127 mls/hr IV Q2H [facility] Stop: 11/06/16 16:29 Last Admin: 11/06/16 14:54 Dose: 127 mls/hr Magnesium Sulfate 2 gm/ Sodium (Chloride) 54 mls @ 27 mls/hr IV Q6H [facility] Stop: 11/09/16 05:59 Potassium Phosphate 25 mmole/ (Sodium Chloride) 508.3333 mls @ 127 mls/hr IV Q4H [facility] Stop: 11/07/16 21:29 Last Admin: 11/07/16 17:18 Dose: 127 mls/hr Magnesium Sulfate 2 gm/ Premix 50 mls @ 25 mls/hr IV Q6H [facility] Stop: 11/09/16 05:59 Potassium Chloride 20 meq/Lidocaine HCl 2 ml/ Sodium Chloride 112 mls @ 56 mls/ hr IV Q2H [facility] Stop: 11/08/16 14:29 Last Admin: 11/08/16 12:49 Dose: 56 mls/hr Labetalol HCl (Normodyne) 5 - 10 mg IVPUSH Q1H PRN; Protocol PRN Reason: Hypertension Last Admin: 11/07/16 16:19 Dose: 10 mg Lorazepam (Ativan) 0.5 mg IVPUSH ONETIME ONE Stop: 11/05/16 21:32 Last Admin: 11/05/16 21:46 Dose: 0.5 mg Lorazepam (Ativan) 0.5 mg IVPUSH ONETIME ONE Stop: 11/05/16 22:01 Last Admin: 11/05/16 23:48 Dose: Not Given Metoprolol Succinate (Toprol Xl) 50 mg PO DAILY [facility] Last Admin: 11/08/16 10:43 Dose: 50 mg Morphine Sulfate (Morphine) 2 mg IVPUSH Q2H PRN PRN Reason: Pain Last Admin: 11/06/16 05:03 Dose: 2 mg Neostigmine Methylsulfate (Neostigmine) Confirm Administered Dose 5 mg .ROUTE .STK-MED ONE Stop: 11/06/16 07:12 Verify Scop Patch 0 each TOP DAILY [facility] Last Admin: 11/07/16 23:35 Dose: Not Given Ondansetron HCl (Zofran) Confirm Administered Dose 4 mg .ROUTE .STK-MED ONE Stop: 11/06/16 07:12 Pantoprazole Sodium (Protonix Iv) 40 mg IV Q24H [facility] Last Admin: 11/07/16 16:55 Dose: 40 mg Propofol (Diprivan 20 Ml) Confirm Administered Dose 200 mg .ROUTE .STK-MED ONE Stop: 11/06/16 07:12 Rocuronium [place] (Zemuron) Confirm Administered Dose 50 mg .ROUTE .STK-MED ONE Stop: 11/06/16 07:12 Scopolamine (Transderm-Scop) 1.5 mg TRDERM Q72H PRN PRN Reason: Nausea/Vomiting Last Admin: 11/07/16 16:54 Dose: 1.5 mg Succinylcholine Chloride (Quelicin) Confirm Administered Dose 200 mg .ROUTE .STK -MED ONE Stop: 11/06/16 07:12 - Exam General: Cooperative Neck: Supple Lungs: Clear to Auscultation, Normal Respiratory Effort Cardiovascular: Regular Rate, Regular Rhythm Peripheral Pulses: 1+: Radial (L), Radial (R) Neurological: Other (No recent change) - Problem List Review Problem List Initiated/Reviewed/Updated: Yes - My Orders Last 24 Hours: My Active Orders 11/09/16 09:00 Metoprolol Succinate [Toprol XL] 100 mg PO DAILY - Assessment Assessment:: Assessment/Plan: #1. Confusion: confused responded to Ativan and Morphine. #2. Hypertension: BP is not good control. Have increased Metoprolol to 100mg daily. #3. Hallucinations at night. This was a problem at home recently. #3. Parkinsonism: This has been a gradual progressive problem. Will need to continue with the Meds. He was on increased Exelon which I feel caused increase confusion. Have decreased the dosage.
[2016-11-08] MEDS ORDERED: Haloperidol Lactate 5 MG/ML SDV IM PRN (21:04)
[2016-11-08] MEDS ORDERED: Haloperidol Lactate 5 MG/ML SDV IVPUSH PRN (21:44)
[2016-11-08] MEDS: Rosuvastatin 10 MG Tab PO SCH (22:21)
[2016-11-08] MEDS: Carbidopa/Levodopa 50-200 MG Tab.ER PO SCH (22:21)
[2016-11-08] MEDS: Donepezil 10 MG Tab PO SCH (22:45)
[2016-11-09] MEDS ORDERED: Ondansetron 4 MG Tab.DIS PO PRN (07:37)
[2016-11-09] MEDS: Carbidopa/Levodopa 25-100 MG Tab PO SCH ×4 (08:28→17:42)
[2016-11-09] MEDS: RASAGILINE 1 MG PO SCH ×2 (08:32→10:05)
[2016-11-09] MEDS: Metoprolol Succinate 50 MG Tab.ER PO SCH ×2 (08:33→09:57)
[2016-11-09] MEDS: Spironolactone 25 MG Tab PO SCH (08:44)
[2016-11-09] MEDS: Potassium Chloride 20 MEQ Tab.ER PO SCH ×5 (08:44→20:47)
[2016-11-09] MEDS: Pantoprazole 40 MG Tab.CR PO SCH (08:44)
[2016-11-09] MEDS: Hydrochlorothiazide 25 MG Tab PO SCH ×2 (08:45→10:03)
[2016-11-09] MEDS: amLODIPine 5 MG Tab PO SCH ×2 (08:45→10:04)
[2016-11-09] MEDS: Doxazosin 4 MG Tab PO SCH ×3 (08:45→20:46)
--- NOTE | 2016-11-09 08:50 | PN ---
DATE OF SERVICE: 11/09/2016 SUBJECTIVE: Angelo was transferred to [address] [place] [address] yesterday. He has become quite confused. Temp max of 100.4, incontinent of urine. Potassium this morning is 3.5, oral intake 900. He has had 100% of lunch and dinner. REVIEW OF SYSTEMS: Remainder of review of systems negative for any pertinent positives or negatives. OBJECTIVE: GENERAL: Angelo Greenfield is an 81-year-old male. He is quite confused. VITAL SIGNS: TPR a 98.6, 60, 18, blood pressure 172/86. HEENT: Negative. NECK: Supple. HEART: Regular rate and rhythm. LUNGS: Clear. ABDOMEN: He does have his abdominal binders on. He is in a Nichelle chair. Binder was not taken off. He was up most of the night, so I do not want to disturb him right now. EXTREMITIES: Without peripheral edema. ASSESSMENT: 1. Marked confusion. 2. Diagnostic laparoscopy with partial cecectomy with excision of attached overlying appendix and drainage of pericecal inflammatory fluid collection associated with localized peritonitis. Date of surgery 11/06/2016. 3. Acute appendicitis with inflammation and edema extending to the cecum and pericecal inflammatory fluid, possible infected. Date of surgery 11/06/2016. Surgeon Nixon Raphael MD. PLAN: 1. Discharge planning involved he does live at home and his takes care of him but with state of dementia and Parkinson's, discharge planning will assist in his discharge plans. 2. Discontinue IV and IV medications. Potassium was 3.5, so he will get 40 mEq of KCl today. We will evaluate p.r.n. or in a.m. Meri Long PA-C /[id number]
[2016-11-09] MEDS ORDERED: Potassium Chloride 20 MEQ Tab.ER PO ONE (09:00)
[2016-11-09] MEDS ORDERED: Potassium Chloride 10% 20 MEQ/15 ML Soln 15 ML UD Cup PO ONE (09:00)
--- NOTE | 2016-11-09 09:50 | PCM.PN ---
- General Info Date of Service: 11/09/16 Subjective Update: He wouldn't take his pills this morning. Last night he was confused and needed Haldol to control him. Functional Status: Reports: Pain Controlled - Review of Systems General: Reports: Weakness HEENT: Reports: No Symptoms Pulmonary: Reports: No Symptoms Cardiovascular: Reports: No Symptoms Gastrointestinal: Reports: No Symptoms Musculoskeletal: Reports: No Symptoms Skin: Reports: No Symptoms Neurological: Reports: No Symptoms Psychiatric: Reports: Confusion - Patient Data Vitals - Most Recent: Last Vital Signs Temp 98.6 F 11/09/16 07:00 Pulse 57 L 11/09/16 08:33 Resp 18 11/09/16 07:00 BP 172/86 H 11/09/16 08:33 Pulse Ox 93 L 11/09/16 07:00 Weight - Most Recent: 187 lb 6.287 oz I&O - Last 24 Hours: Intake & Output 11/08/16 11/09/16 11/09/16 22:59 06:59 14:59 Intake Total 625 50 Balance 625 50 Lab Results Last 24 Hours: Laboratory Results - last 24 hr 11/09/16 11/09/16 Range/Units 04:36 04:36 WBC 9.1 (4.5-11.0) K/uL RBC 3.87 L (4.30-5.90) M/uL Hgb 12.7 (12.0-15.0) g/dL Hct 38.3 L (40.0-54.0) % MCV 99 H (80-98) fL MCH 33 H (27-31) pg MCHC 33 (32-36) % Plt Count 158 (150-400) K/uL Sodium 145 (140-148) mmol/L Potassium 3.5 L (3.6-5.2) mmol/L Chloride 108 (100-108) mmol/L Carbon Dioxide 32 (21-32) mmol/L Anion Gap 8.5 (5.0-14.0) mmol/L BUN 24 H D (7-18) mg/dL Creatinine 1.1 (0.8-1.3) mg/dL Est Cr Clr Drug Dosing 53.59 mL/min Estimated GFR (MDRD) > 60 (>60) Glucose 88 (74-106) mg/dL Calcium 8.7 (8.5-10.1) mg/dL Total Bilirubin 1.5 H (0.2-1.0) mg/dL AST 19 (15-37) U/L ALT 14 (12-78) U/L Alkaline Phosphatase 53 (46-116) U/L Total Protein 6.5 (6.4-8.2) g/dL Albumin 3.1 L (3.4-5.0) g/dL Globulin 3.4 (2.3-3.5) g/dL Albumin/Globulin Ratio 0.9 L (1.2-2.2) Thompson Results Last 24 Hours: Microbiology 11/06/16 08:00 Anaerobic Culture - Final Appendix NO GROWTH AFTER 3 DAYS 11/06/16 08:00 Gram Stain - Final Appendix Wound Culture - Final Escherichia Coli Med Orders - Current: Current Medications Acetaminophen (Tylenol) 650 mg PO Q4H PRN PRN Reason: Pain Hydrocodone Bitart/Acetaminophen (Alborn 325-5 Mg) 1 tab PO Q4H PRN PRN Reason: Pain Last Admin: 11/08/16 15:03 Dose: 1 tab Amlodipine Besylate (Norvasc) 5 mg PO DAILY [facility] Last Admin: 11/09/16 08:45 Dose: Not Given Benazepril HCl (Lotensin) 20 mg PO BID [facility] Last Admin: 11/09/16 08:45 Dose: Not Given Carbidopa/Levodopa (Sinemet 25-100 Mg) 2 tab PO 0800,1200,1700 [facility] Last Admin: 11/09/16 08:28 Dose: Not Given Carbidopa/Levodopa (Sinemet Cr 50-200 Mg) 1 tab PO BEDTIME [facility] Last Admin: 11/08/16 22:21 Dose: Not Given Docusate Sodium (Colace) 100 mg PO BID PRN PRN Reason: Constipation Last Admin: 11/08/16 17:33 Dose: 100 mg Donepezil HCl (Aricept) 10 mg PO BEDTIME [facility] Last Admin: 11/08/16 22:45 Dose: Not Given Doxazosin Mesylate (Cardura) 8 mg PO BID [facility] Last Admin: 11/09/16 08:45 Dose: Not Given Haloperidol Lactate (Haldol) 2 mg IVPUSH Q4H PRN PRN Reason: Agitation Last Admin: 11/08/16 21:30 Dose: 2 mg Hydrochlorothiazide (Hydrochlorothiazide) 25 mg PO DAILY [facility] Last Admin: 11/09/16 08:45 Dose: Not Given Hydroxyzine HCl (Vistaril) 50 mg IM Q4H PRN PRN Reason: Nausea/Vomiting Metoprolol Succinate (Toprol Xl) 100 mg PO DAILY [facility] Last Admin: 11/09/16 08:33 Dose: Not Given Ondansetron HCl (Zofran Odt) 4 mg PO Q4H PRN PRN Reason: Nausea/Vomiting Pantoprazole Sodium (Protonix) 40 mg PO ACBREAKFAST [facility] Last Admin: 11/09/16 08:44 Dose: Not Given Potassium Chloride (Klor-Con M20) 20 meq PO WITHMEALSANDBED [facility] Last Admin: 11/09/16 08:44 Dose: Not Given Rasagiline (Azilect) 1 mg PO DAILY [facility] Last Admin: 11/09/16 08:32 Dose: Not Given Rivastigmine (Exelon) 4.5 mg PO DAILY [facility] Last Admin: 11/09/16 08:35 Dose: Not Given Rosuvastatin Calcium (Crestor) 5 mg PO BEDTIME [facility] Last Admin: 11/08/16 22:21 Dose: Not Given Spironolactone (Aldactone) 25 mg PO DAILY [facility] Last Admin: 11/09/16 08:44 Dose: Not Given Discontinued Medications Bupivacaine HCl/Epinephrine Bitart (Marcaine 0.5%/Epinephrine 1:200,000) Confirm Administered Dose 50 ml .ROUTE .STK-MED ONE Stop: 11/06/16 06:54 Last Admin: 11/06/16 08:20 Dose: 15 ml Dexamethasone (Dexamethasone) Confirm Administered Dose 4 mg .ROUTE .STK-MED ONE Stop: 11/06/16 07:12 Doxazosin Mesylate (Cardura) 4 mg PO ONETIME ONE Stop: 11/05/16 19:34 Last Admin: 11/05/16 20:25 Dose: 4 mg Doxazosin Mesylate (Cardura) 8 mg PO DAILY [facility] Last Admin: 11/08/16 08:51 Dose: 8 mg Fentanyl (Sublimaze) Confirm Administered Dose 200 mcg .ROUTE .STK-MED ONE Stop: 11/06/16 07:12 Furosemide (Lasix) 20 mg IVPUSH ONETIME ONE Stop: 11/05/16 19:34 Last Admin: 11/05/16 20:25 Dose: 20 mg Furosemide (Lasix) 20 mg IVPUSH ONETIME ONE Stop: 11/07/16 10:16 Last Admin: 11/07/16 10:17 Dose: 20 mg Glycopyrrolate (Robinul) Confirm Administered Dose 1 mg .ROUTE .STK-MED ONE Stop: 11/06/16 07:12 Haloperidol Lactate (Haldol) 2 mg IM Q4H PRN PRN Reason: Agitation Hydromorphone HCl (Dilaudid Bread Jockey 15 Mg In Ns 30 Ml) 0 mg IV ASDIRECTED PRN; Protocol PRN Reason: Pain Last Admin: 11/06/16 08:09 Dose: 15 mg Dextrose/Lactated Ringer's (Dextrose 5%-Lactated Ringers) 1,000 mls @ 100 mls/ hr IV ASDIRECTED DANY Last Admin: 11/07/16 07:29 Dose: 100 mls/hr Aztreonam/Dextrose 1 gm/ (Premix) 50 mls @ 100 mls/hr IV Q8H [facility] Last Admin: 11/08/16 01:20 Dose: 100 mls/hr Ampicillin Sodium/Sulbactam (Sodium 3 gm/ Sodium Chloride) 100 mls @ 200 mls/ hr IV Q6H [facility] Last Admin: 11/08/16 05:21 Dose: 200 mls/hr Potassium Phosphate 20 mmole/ (Sodium Chloride) 256.6667 mls @ 85.556 mls/hr IV ONETIME DANY Potassium Phosphate 20 mmole/ (Sodium Chloride) 256.6667 mls @ 85.556 mls/hr IV ONETIME DANY Potassium Phosphate 20 mmole/ (Sodium Chloride) 256.6667 mls @ 85.556 mls/hr IV ONETIME DANY Potassium Phosphate 20 mmole/ (Sodium Chloride) 256.6667 mls @ 85.556 mls/hr IV Q3H DANY Stop: 11/06/16 05:29 Last Admin: 11/06/16 04:20 Dose: 85.556 mls/hr Potassium Acetate 20 meq/ (Dextrose/Water) 260 mls @ 127 mls/hr IV Q2H [facility] Stop: 11/06/16 16:29 Last Admin: 11/06/16 14:54 Dose: 127 mls/hr Magnesium Sulfate 2 gm/ Sodium (Chloride) 54 mls @ 27 mls/hr IV Q6H [facility] Stop: 11/09/16 05:59 Potassium Phosphate 25 mmole/ (Sodium Chloride) 508.3333 mls @ 127 mls/hr IV Q4H [facility] Stop: 11/07/16 21:29 Last Admin: 11/07/16 17:18 Dose: 127 mls/hr Magnesium Sulfate 2 gm/ Premix 50 mls @ 25 mls/hr IV Q6H [facility] Stop: 11/09/16 05:59 Magnesium Sulfate 2 gm/ Sodium (Chloride) 54 mls @ 27 mls/hr IV Q6H [facility] Stop: 11/09/16 05:59 Last Admin: 11/09/16 04:31 Dose: 27 mls/hr Dextrose/Lactated Ringer's (Dextrose 5%-Lactated Ringers) 1,000 mls @ 25 mls/ hr IV ASDIRECTED [facility] Last Admin: 11/07/16 10:17 Dose: 25 mls/hr Potassium Chloride 20 meq/Lidocaine HCl 2 ml/ Sodium Chloride 112 mls @ 56 mls/ hr IV Q2H [facility] Stop: 11/08/16 14:29 Last Admin: 11/08/16 12:49 Dose: 56 mls/hr Labetalol HCl (Normodyne) 5 - 10 mg IVPUSH Q1H PRN; Protocol PRN Reason: Hypertension Last Admin: 11/07/16 16:19 Dose: 10 mg Lorazepam (Ativan) 0.5 mg IVPUSH ONETIME ONE Stop: 11/05/16 21:32 Last Admin: 11/05/16 21:46 Dose: 0.5 mg Lorazepam (Ativan) 0.5 mg IVPUSH ONETIME ONE Stop: 11/05/16 22:01 Last Admin: 11/05/16 23:48 Dose: Not Given Metoprolol Succinate (Toprol Xl) 50 mg PO DAILY [facility] Last Admin: 11/08/16 10:43 Dose: 50 mg Morphine Sulfate (Morphine) 2 mg IVPUSH Q2H PRN PRN Reason: Pain Last Admin: 11/06/16 05:03 Dose: 2 mg Naloxone HCl (Narcan) 0.1 mg IV ASDIRECTED PRN PRN Reason: decreased respiratory rate Neostigmine Methylsulfate (Neostigmine) Confirm Administered Dose 5 mg .ROUTE .STK-MED ONE Stop: 11/06/16 07:12 Verify Scop Patch 0 each TOP DAILY [facility] Last Admin: 11/07/16 23:35 Dose: Not Given Ondansetron HCl (Zofran) 4 mg IV Q4H PRN PRN Reason: N/V Last Admin: 11/07/16 15:54 Dose: 4 mg Ondansetron HCl (Zofran) Confirm Administered Dose 4 mg .ROUTE .STK-MED ONE Stop: 11/06/16 07:12 Pantoprazole Sodium (Protonix Iv) 40 mg IV Q24H [facility] Last Admin: 11/07/16 16:55 Dose: 40 mg Potassium Chloride (Klor-Con M20) 20 meq PO QID [facility] Last Admin: 11/08/16 22:21 Dose: Not Given Potassium Chloride (Potassium Chloride Solution) 40 meq PO ONETIME ONE Stop: 11/09/16 09:01 Potassium Chloride (Klor-Con M20) 40 meq PO ONETIME ONE Stop: 11/09/16 09:01 Last Admin: 11/09/16 08:45 Dose: Not Given Prochlorperazine Edisylate (Compazine) 10 mg IV Q6H PRN PRN Reason: N/V Propofol (Diprivan 20 Ml) Confirm Administered Dose 200 mg .ROUTE .STK-MED ONE Stop: 11/06/16 07:12 Rocuronium [place] (Zemuron) Confirm Administered Dose 50 mg .ROUTE .STK-MED ONE Stop: 11/06/16 07:12 Scopolamine (Transderm-Scop) 1.5 mg TRDERM Q72H PRN PRN Reason: Nausea/Vomiting Last Admin: 11/07/16 16:54 Dose: 1.5 mg Succinylcholine Chloride (Quelicin) Confirm Administered Dose 200 mg .ROUTE .STK -MED ONE Stop: 11/06/16 07:12 - Exam General: No Acute Distress, Lethargic Neck: Supple Lungs: Clear to Auscultation Cardiovascular: Regular Rate, Regular Rhythm GI/Abdominal Exam: Normal Bowel Sounds, Soft Peripheral Pulses: 1+: Radial (L), Radial (R) Skin: Warm, Dry, Intact - Problem List Review Problem List Initiated/Reviewed/Updated: Yes - My Orders Last 24 Hours: My Active Orders 11/09/16 08:00 Potassium Chloride [Klor-Con M20] 20 meq PO WITHMEALSANDBED 11/09/16 09:00 Metoprolol Succinate [Toprol XL] 100 mg PO DAILY - Assessment Assessment:: Assessment/Plan: #1. Confusion: Last night had haldol to control him. This morning he will not eat or take medicine. #2. Hypertension: BP is not good control. Have increased Metoprolol to 100mg daily. Not given as he refuses it. #3. Hallucinations at night. This was a problem at home recently. #3. Parkinsonism: This has been a gradual progressive problem. Will need to continue with the Meds.
[2016-11-09] MEDS ORDERED: Magnesium Hydroxide 400 MG/5 ML Susp 30 ML Cup PO ONE (10:30)
[2016-11-09] MEDS: Amoxicillin/Clavulanate K 400-57 MG/5 ML Susp 100 ML Bottle PO SCH ×2 (12:40→20:58)
[2016-11-09] MEDS: Acetaminophen/HYDROcodone 325-5 MG Tab PO PRN (14:19)
[2016-11-09] MEDS ORDERED: Haloperidol 1 MG Tab PO PRN (18:02)
[2016-11-09] MEDS: Donepezil 10 MG Tab PO SCH (20:46)
[2016-11-09] MEDS: Rosuvastatin 10 MG Tab PO SCH (20:47)
[2016-11-09] MEDS: Carbidopa/Levodopa 50-200 MG Tab.ER PO SCH (20:48)
[2016-11-09] MEDS: Melatonin 3 MG Tab PO SCH (20:57)
--- NOTE | 2016-11-10 08:41 | PN ---
DATE OF SERVICE: 11/10/2016 SUBJECTIVE: Angelo was more alert during the day. Yesterday, he did have a small bowel movement. Oral intake, 50% breakfast, 10% dinner; total oral intake 620. Potassium this morning was 3.1 and hemoglobin was 11.5. Bilirubin is 1.3, which is down from 1.4 and 1.5 respectively. Cultures did come back E. coli. He was started on Augmentin 875 mg b.i.d. yesterday. Melatonin 9 mg was given at bedtime and he slept well during the night. He did have per nursing staff 1 dose of Haldol earlier in the day. REVIEW OF SYSTEMS: Remainder of review of systems is negative for any pertinent positives or negatives. Of note, he was able to take his medications intact yesterday. Right now, he is sleeping soundly and I will not wake him during rounds. OBJECTIVE: GENERAL: Angelo Greenfield is an 81-year-old male, very soundly sleeping. VITAL SIGNS: TPR is 98.3, 56, 16. Blood pressure 152/77. HEART: Regular rate and rhythm. LUNGS: Clear. SKIN: In order not to wake him, staff states his incisions look good and sutures intact. ASSESSMENT: 1. Parkinson's. 2. Dementia. 3. Postoperative confusion but clearing. 4. Diagnostic laparoscopy with partial cecectomy with excision of attached overlying appendix and drainage of pericecal inflammatory fluid collection associated with localized peritonitis. Date of surgery 11/06/2016. 5. Acute appendicitis with inflammation and edema extending to the cecum and pericecal inflammatory fluid, possibly infected. Surgeon, Nixon Raphael M.D. PLAN: Increase potassium to 40 mEq p.o. b.i.d. Check labs in the a.m. Discharge per discharge planning. Vikki Escalona RN, case furnace caretaker is sending profiles to local alf for placement. We will evaluate p.r.n. or in the a.m. Meri Long PA-C /[id number]
--- NOTE | 2016-11-10 09:02 | PCM.PN ---
- General Info Date of Service: 11/10/16 Functional Status: Reports: Pain Controlled - Review of Systems General: Reports: Weakness HEENT: Reports: No Symptoms, Other (loss of hearing which is chronic.) Pulmonary: Reports: No Symptoms Cardiovascular: Reports: No Symptoms Gastrointestinal: Reports: No Symptoms Genitourinary: Reports: No Symptoms Musculoskeletal: Reports: Other (ambulation is difficult needs help.) Neurological: Reports: Difficulty Walking, Gait Disturbance Psychiatric: Reports: Confusion - Patient Data Vitals - Most Recent: Last Vital Signs Temp 98.2 F 11/10/16 08:32 Pulse 59 L 11/10/16 08:32 Resp 18 11/10/16 08:32 BP 168/76 H 11/10/16 08:32 Pulse Ox 95 11/10/16 08:32 Weight - Most Recent: 187 lb 6.287 oz I&O - Last 24 Hours: Intake & Output 11/09/16 11/10/16 11/10/16 22:59 06:59 14:59 Intake Total 500 Output Total 200 Balance 300 Lab Results Last 24 Hours: Laboratory Results - last 24 hr 11/10/16 11/10/16 Range/Units 05:15 05:15 WBC 7.8 (4.5-11.0) K/uL RBC 3.55 L (4.30-5.90) M/uL Hgb 11.5 L (12.0-15.0) g/dL Hct 34.9 L (40.0-54.0) % MCV 98 (80-98) fL MCH 32 H (27-31) pg MCHC 33 (32-36) % Plt Count 156 (150-400) K/uL Sodium 146 (140-148) mmol/L Potassium 3.1 L (3.6-5.2) mmol/L Chloride 110 H (100-108) mmol/L Carbon Dioxide 29 (21-32) mmol/L Anion Gap 10.1 (5.0-14.0) mmol/L BUN 28 H (7-18) mg/dL Creatinine 1.1 (0.8-1.3) mg/dL Est Cr Clr Drug Dosing 53.59 mL/min Estimated GFR (MDRD) > 60 (>60) Glucose 85 (74-106) mg/dL Calcium 8.5 (8.5-10.1) mg/dL Magnesium 1.9 (1.8-2.4) mg/dL Total Bilirubin 1.3 H (0.2-1.0) mg/dL AST 21 (15-37) U/L ALT 10 L (12-78) U/L Alkaline Phosphatase 47 (46-116) U/L Total Protein 5.9 L (6.4-8.2) g/dL Albumin 2.7 L (3.4-5.0) g/dL Globulin 3.2 (2.3-3.5) g/dL Albumin/Globulin Ratio 0.8 L (1.2-2.2) Thompson Results Last 24 Hours: Microbiology 11/06/16 08:00 Anaerobic Culture - Final Appendix NO GROWTH AFTER 3 DAYS 11/06/16 08:00 Gram Stain - Final Appendix Wound Culture - Final Escherichia Coli Med Orders - Current: Current Medications Acetaminophen (Tylenol) 650 mg PO Q4H PRN PRN Reason: Pain Hydrocodone Bitart/Acetaminophen ([place] 325-5 Mg) 1 tab PO Q4H PRN PRN Reason: Pain Last Admin: 11/09/16 14:19 Dose: 1 tab Amlodipine Besylate (Norvasc) 5 mg PO DAILY [facility] Last Admin: 11/09/16 10:04 Dose: 5 mg Amoxicillin/Clavulanate Potassium (Augmentin 400 Mg/5 Ml Susp) 875 mg PO BID [facility] Last Admin: 11/09/16 20:58 Dose: 875 mg Benazepril HCl (Lotensin) 20 mg PO BID [facility] Last Admin: 11/09/16 20:48 Dose: 20 mg Carbidopa/Levodopa (Sinemet 25-100 Mg) 2 tab PO 0800,1200,1700 DANY Last Admin: 11/09/16 17:42 Dose: 2 tab Carbidopa/Levodopa (Sinemet Cr 50-200 Mg) 1 tab PO BEDTIME [facility] Last Admin: 11/09/16 20:48 Dose: 1 tab Docusate Sodium (Colace) 100 mg PO BID PRN PRN Reason: Constipation Last Admin: 11/08/16 17:33 Dose: 100 mg Donepezil HCl (Aricept) 10 mg PO BEDTIME [facility] Last Admin: 11/09/16 20:46 Dose: 10 mg Doxazosin Mesylate (Cardura) 8 mg PO BID [facility] Last Admin: 11/09/16 20:46 Dose: 8 mg Haloperidol (Haldol) 2 mg PO Q12H PRN PRN Reason: Agitation Last Admin: 11/09/16 18:34 Dose: 2 mg Haloperidol Lactate (Haldol) 2 mg IVPUSH Q4H PRN PRN Reason: Agitation Last Admin: 11/08/16 21:30 Dose: 2 mg Hydrochlorothiazide (Hydrochlorothiazide) 25 mg PO DAILY [facility] Last Admin: 11/09/16 10:03 Dose: 25 mg Hydroxyzine HCl (Vistaril) 50 mg IM Q4H PRN PRN Reason: Nausea/Vomiting Melatonin (Melatonin) 9 mg PO BEDTIME [facility] Last Admin: 11/09/16 20:57 Dose: 9 mg Metoprolol Succinate (Toprol Xl) 100 mg PO DAILY [facility] Last Admin: 11/09/16 09:57 Dose: 100 mg Ondansetron HCl (Zofran Odt) 4 mg PO Q4H PRN PRN Reason: Nausea/Vomiting Pantoprazole Sodium (Protonix) 40 mg PO ACBREAKFAST [facility] Last Admin: 11/09/16 08:44 Dose: Not Given Potassium Chloride (Klor-Con M20) 40 meq PO WITHMEALSANDBED [facility] Rasagiline (Azilect) 1 mg PO DAILY [facility] Last Admin: 11/09/16 10:05 Dose: 1 mg Rivastigmine (Exelon) 4.5 mg PO DAILY [facility] Last Admin: 11/09/16 08:35 Dose: Not Given Rosuvastatin Calcium (Crestor) 5 mg PO BEDTIME [facility] Last Admin: 11/09/16 20:47 Dose: 5 mg Spironolactone (Aldactone) 25 mg PO DAILY [facility] Last Admin: 11/09/16 08:44 Dose: Not Given Discontinued Medications Bupivacaine HCl/Epinephrine Bitart (Marcaine 0.5%/Epinephrine 1:200,000) Confirm Administered Dose 50 ml .ROUTE .STK-MED ONE Stop: 11/06/16 06:54 Last Admin: 11/06/16 08:20 Dose: 15 ml Dexamethasone (Dexamethasone) Confirm Administered Dose 4 mg .ROUTE .STK-MED ONE Stop: 11/06/16 07:12 Doxazosin Mesylate (Cardura) 4 mg PO ONETIME ONE Stop: 11/05/16 19:34 Last Admin: 11/05/16 20:25 Dose: 4 mg Doxazosin Mesylate (Cardura) 8 mg PO DAILY [facility] Last Admin: 11/08/16 08:51 Dose: 8 mg Fentanyl (Sublimaze) Confirm Administered Dose 200 mcg .ROUTE .STK-MED ONE Stop: 11/06/16 07:12 Furosemide (Lasix) 20 mg IVPUSH ONETIME ONE Stop: 11/05/16 19:34 Last Admin: 11/05/16 20:25 Dose: 20 mg Furosemide (Lasix) 20 mg IVPUSH ONETIME ONE Stop: 11/07/16 10:16 Last Admin: 11/07/16 10:17 Dose: 20 mg Glycopyrrolate (Robinul) Confirm Administered Dose 1 mg .ROUTE .STK-MED ONE Stop: 11/06/16 07:12 Haloperidol Lactate (Haldol) 2 mg IM Q4H PRN PRN Reason: Agitation Hydromorphone HCl (Dilaudid Certified Veterinary Technician 15 Mg In Ns 30 Ml) 0 mg IV ASDIRECTED PRN; Protocol PRN Reason: Pain Last Admin: 11/06/16 08:09 Dose: 15 mg Dextrose/Lactated Ringer's (Dextrose 5%-Lactated Ringers) 1,000 mls @ 100 mls/ hr IV ASDIRECTED [facility] Last Admin: 11/07/16 07:29 Dose: 100 mls/hr Aztreonam/Dextrose 1 gm/ (Premix) 50 mls @ 100 mls/hr IV Q8H [facility] Last Admin: 11/08/16 01:20 Dose: 100 mls/hr Ampicillin Sodium/Sulbactam (Sodium 3 gm/ Sodium Chloride) 100 mls @ 200 mls/ hr IV Q6H [facility] Last Admin: 11/08/16 05:21 Dose: 200 mls/hr Potassium Phosphate 20 mmole/ (Sodium Chloride) 256.6667 mls @ 85.556 mls/hr IV ONETIME DANY Potassium Phosphate 20 mmole/ (Sodium Chloride) 256.6667 mls @ 85.556 mls/hr IV ONETIME DANY Potassium Phosphate 20 mmole/ (Sodium Chloride) 256.6667 mls @ 85.556 mls/hr IV ONETIME DANY Potassium Phosphate 20 mmole/ (Sodium Chloride) 256.6667 mls @ 85.556 mls/hr IV Q3H [facility] Stop: 11/06/16 05:29 Last Admin: 11/06/16 04:20 Dose: 85.556 mls/hr Potassium Acetate 20 meq/ (Dextrose/Water) 260 mls @ 127 mls/hr IV Q2H [facility] Stop: 11/06/16 16:29 Last Admin: 11/06/16 14:54 Dose: 127 mls/hr Magnesium Sulfate 2 gm/ Sodium (Chloride) 54 mls @ 27 mls/hr IV Q6H [facility] Stop: 11/09/16 05:59 Potassium Phosphate 25 mmole/ (Sodium Chloride) 508.3333 mls @ 127 mls/hr IV Q4H [facility] Stop: 11/07/16 21:29 Last Admin: 11/07/16 17:18 Dose: 127 mls/hr Magnesium Sulfate 2 gm/ Premix 50 mls @ 25 mls/hr IV Q6H [facility] Stop: 11/09/16 05:59 Magnesium Sulfate 2 gm/ Sodium (Chloride) 54 mls @ 27 mls/hr IV Q6H [facility] Stop: 11/09/16 05:59 Last Admin: 11/09/16 04:31 Dose: 27 mls/hr Dextrose/Lactated Ringer's (Dextrose 5%-Lactated Ringers) 1,000 mls @ 25 mls/ hr IV ASDIRECTED [facility] Last Admin: 11/07/16 10:17 Dose: 25 mls/hr Potassium Chloride 20 meq/Lidocaine HCl 2 ml/ Sodium Chloride 112 mls @ 56 mls/ hr IV Q2H [facility] Stop: 11/08/16 14:29 Last Admin: 11/08/16 12:49 Dose: 56 mls/hr Labetalol HCl (Normodyne) 5 - 10 mg IVPUSH Q1H PRN; Protocol PRN Reason: Hypertension Last Admin: 11/07/16 16:19 Dose: 10 mg Lorazepam (Ativan) 0.5 mg IVPUSH ONETIME ONE Stop: 11/05/16 21:32 Last Admin: 11/05/16 21:46 Dose: 0.5 mg Lorazepam (Ativan) 0.5 mg IVPUSH ONETIME ONE Stop: 11/05/16 22:01 Last Admin: 11/05/16 23:48 Dose: Not Given Magnesium Hydroxide (Milk Of Magnesia) 30 ml PO ONETIME ONE Stop: 11/09/16 10:31 Last Admin: 11/09/16 10:15 Dose: 30 ml Metoprolol Succinate (Toprol Xl) 50 mg PO DAILY [facility] Last Admin: 11/08/16 10:43 Dose: 50 mg Morphine Sulfate (Morphine) 2 mg IVPUSH Q2H PRN PRN Reason: Pain Last Admin: 11/06/16 05:03 Dose: 2 mg Naloxone HCl (Narcan) 0.1 mg IV ASDIRECTED PRN PRN Reason: decreased respiratory rate Neostigmine Methylsulfate (Neostigmine) Confirm Administered Dose 5 mg .ROUTE .STK-MED ONE Stop: 11/06/16 07:12 Verify Scop Patch 0 each TOP DAILY [facility] Last Admin: 11/07/16 23:35 Dose: Not Given Ondansetron HCl (Zofran) 4 mg IV Q4H PRN PRN Reason: N/V Last Admin: 11/07/16 15:54 Dose: 4 mg Ondansetron HCl (Zofran) Confirm Administered Dose 4 mg .ROUTE .STK-MED ONE Stop: 11/06/16 07:12 Pantoprazole Sodium (Protonix Iv) 40 mg IV Q24H [facility] Last Admin: 11/07/16 16:55 Dose: 40 mg Potassium Chloride (Klor-Con M20) 20 meq PO QID [facility] Last Admin: 11/08/16 22:21 Dose: Not Given Potassium Chloride (Klor-Con M20) 20 meq PO WITHMEALSANDBED [facility] Last Admin: 11/09/16 20:47 Dose: 20 meq Potassium Chloride (Potassium Chloride Solution) 40 meq PO ONETIME ONE Stop: 11/09/16 09:01 Potassium Chloride (Klor-Con M20) 40 meq PO ONETIME ONE Stop: 11/09/16 09:01 Last Admin: 11/09/16 08:45 Dose: Not Given Prochlorperazine Edisylate (Compazine) 10 mg IV Q6H PRN PRN Reason: N/V Propofol (Diprivan 20 Ml) Confirm Administered Dose 200 mg .ROUTE .STK-MED ONE Stop: 11/06/16 07:12 Rocuronium [place] (Zemuron) Confirm Administered Dose 50 mg .ROUTE .STK-MED ONE Stop: 11/06/16 07:12 Scopolamine (Transderm-Scop) 1.5 mg TRDERM Q72H PRN PRN Reason: Nausea/Vomiting Last Admin: 11/07/16 16:54 Dose: 1.5 mg Succinylcholine Chloride (Quelicin) Confirm Administered Dose 200 mg .ROUTE .STK -MED ONE Stop: 11/06/16 07:12 - Exam General: Alert, Oriented HEENT: Pupils Equal, Pupils Reactive, EOMI, Mucous Membr. Moist/Streeter Neck: Supple Lungs: Clear to Auscultation, Normal Respiratory Effort Cardiovascular: Regular Rate, Regular Rhythm GI/Abdominal Exam: Soft Extremities: Normal Inspection Peripheral Pulses: 1+: Radial (L), Radial (R) Skin: Warm, Dry Neurological: Other (lethergic) - Problem List Review Problem List Initiated/Reviewed/Updated: Yes - My Orders Last 24 Hours: My Active Orders 11/09/16 09:00 Metoprolol Succinate [Toprol XL] 100 mg PO DAILY 11/09/16 09:59 PT Evaluation and Treatment [CONS] Routine 11/09/16 18:02 Haloperidol [Haldol] 2 mg PO Q12H PRN 11/09/16 21:00 Melatonin 9 mg PO BEDTIME - Assessment Assessment:: Assessment/Plan: #1. Confusion: Last night had haldol to control him. This morning he will not eat or take medicine. I woke him up and he took his meds which he wouldn't do before. #2. Hypertension: BP is not good control. Have increased Metoprolol to 100mg daily. He jusdt took his meds. #3. Hallucinations at night. This was a problem at home recently. #3. Parkinsonism: This has been a gradual progressive problem. Will need to continue with the Meds.
[2016-11-10] MEDS: Potassium Chloride 20 MEQ Tab.ER PO SCH ×4 (10:04→20:01)
[2016-11-10] MEDS: Pantoprazole 40 MG Tab.CR PO SCH (10:04)
[2016-11-10] MEDS: Spironolactone 25 MG Tab PO SCH (10:05)
[2016-11-10] MEDS: Carbidopa/Levodopa 25-100 MG Tab PO SCH ×3 (10:05→17:19)
[2016-11-10] MEDS: RASAGILINE 1 MG PO SCH (10:06)
[2016-11-10] MEDS: Doxazosin 4 MG Tab PO SCH ×2 (10:07→20:00)
[2016-11-10] MEDS: Hydrochlorothiazide 25 MG Tab PO SCH (10:08)
[2016-11-10] MEDS: amLODIPine 5 MG Tab PO SCH (10:09)
[2016-11-10] MEDS: Metoprolol Succinate 50 MG Tab.ER PO SCH (10:09)
[2016-11-10] MEDS: Amoxicillin/Clavulanate K 400-57 MG/5 ML Susp 100 ML Bottle PO SCH ×2 (10:11→19:59)
[2016-11-10] MEDS: Melatonin 3 MG Tab PO SCH ×2 (19:36→22:35)
[2016-11-10] MEDS: Rosuvastatin 10 MG Tab PO SCH (20:00)
[2016-11-10] MEDS: Carbidopa/Levodopa 50-200 MG Tab.ER PO SCH (20:01)
[2016-11-10] MEDS: Donepezil 10 MG Tab PO SCH (20:01)
[2016-11-11] MEDS: Pantoprazole 40 MG Tab.CR PO SCH (07:22)
[2016-11-11] MEDS: Potassium Chloride 20 MEQ Tab.ER PO SCH ×4 (07:23→20:01)
[2016-11-11] MEDS: Carbidopa/Levodopa 25-100 MG Tab PO SCH ×3 (07:23→17:21)
--- NOTE | 2016-11-11 08:04 | PN ---
DATE OF SERVICE: 11/11/2016 SUBJECTIVE: Angelo is less confused. Magnesium this morning was 1.6. He ate 75% of his breakfast, 0 lunch, and nothing was documented for his supper. He slept well during the night. He is less confused as stated above. He can use his nurse's call lights when he needs something. He had 3 bowel movements. Temp max of 98.7. REVIEW OF SYSTEMS: Remainder of review of systems negative for any pertinent positives and negatives. OBJECTIVE: GENERAL: Angelo Greenfield is an 81-year-old male. He is sleeping soundly. TPR is 97.9, 55, 18. Blood pressure 178/83. HEART: Regular rate and rhythm. LUNGS: Clear. EXTREMITIES: Trace peripheral edema. ASSESSMENT: 1. Parkinson disease. 2. Dementia. 3. Diagnostic laparoscopy with partial cecectomy with excision of attached overlying appendix and drainage of pericecal inflammatory fluid collection associated with localized peritonitis. 4. Acute appendicitis with inflammation and edema extending to the cecum and pericecal inflammatory fluid. Date of surgery 11/06/2016, and surgeon is Nixon Raphael MD. 5. Wound culture, Escherichia coli. PLAN: Rx magnesium oxide 400 p.o. daily. Good pulmonary toilet. Maybe discharged pending discharge placement. Meri Long PA-C /[id number]
[2016-11-11] MEDS: Spironolactone 25 MG Tab PO SCH (09:14)
[2016-11-11] MEDS: amLODIPine 5 MG Tab PO SCH (09:14)
[2016-11-11] MEDS: Metoprolol Succinate 50 MG Tab.ER PO SCH (09:16)
[2016-11-11] MEDS: Hydrochlorothiazide 25 MG Tab PO SCH (09:17)
[2016-11-11] MEDS: Magnesium Oxide 400 MG Tab PO SCH (09:17)
[2016-11-11] MEDS: Doxazosin 4 MG Tab PO SCH ×2 (09:18→20:02)
[2016-11-11] MEDS: RASAGILINE 1 MG PO SCH (09:18)
[2016-11-11] MEDS: Amoxicillin/Clavulanate K 400-57 MG/5 ML Susp 100 ML Bottle PO SCH ×2 (09:23→20:00)
--- NOTE | 2016-11-11 13:07 | PCM.PN ---
- General Info Date of Service: 11/11/16 Functional Status: Reports: Pain Controlled - Review of Systems General: Reports: Weakness HEENT: Reports: No Symptoms Pulmonary: Reports: No Symptoms Cardiovascular: Reports: No Symptoms Gastrointestinal: Reports: No Symptoms Genitourinary: Reports: No Symptoms Musculoskeletal: Reports: No Symptoms Skin: Reports: No Symptoms Neurological: Reports: Confusion, Difficulty Walking, Gait Disturbance Psychiatric: Reports: Confusion - Patient Data Vitals - Most Recent: Last Vital Signs Temp 98.8 F 11/11/16 11:00 Pulse 57 L 11/11/16 11:00 Resp 18 11/11/16 11:00 BP 186/83 H 11/11/16 11:00 Pulse Ox 96 11/11/16 11:00 Weight - Most Recent: 187 lb 6.287 oz I&O - Last 24 Hours: Intake & Output 11/10/16 11/11/16 11/11/16 22:59 06:59 14:59 Intake Total 300 Output Total 100 Balance 200 Lab Results Last 24 Hours: Laboratory Results - last 24 hr 11/11/16 11/11/16 Range/Units 04:00 04:00 WBC 10.3 (4.5-11.0) K/uL RBC 3.75 L (4.30-5.90) M/uL Hgb 12.2 (12.0-15.0) g/dL Hct 36.5 L (40.0-54.0) % MCV 97 (80-98) fL MCH 33 H (27-31) pg MCHC 33 (32-36) % Plt Count 164 (150-400) K/uL Sodium 146 (140-148) mmol/L Potassium 3.7 (3.6-5.2) mmol/L Chloride 110 H (100-108) mmol/L Carbon Dioxide 28 (21-32) mmol/L Anion Gap 11.7 (5.0-14.0) mmol/L BUN 26 H (7-18) mg/dL Creatinine 1.0 (0.8-1.3) mg/dL Est Cr Clr Drug Dosing 58.95 mL/min Estimated GFR (MDRD) > 60 (>60) Glucose 98 (74-106) mg/dL Calcium 8.6 (8.5-10.1) mg/dL Phosphorus 2.5 (2.5-4.9) mg/dL Magnesium 1.6 L (1.8-2.4) mg/dL Total Bilirubin 1.1 H (0.2-1.0) mg/dL AST 18 (15-37) U/L ALT 9 L (12-78) U/L Alkaline Phosphatase 54 (46-116) U/L Total Protein 6.1 L (6.4-8.2) g/dL Albumin 2.7 L (3.4-5.0) g/dL Globulin 3.4 (2.3-3.5) g/dL Albumin/Globulin Ratio 0.8 L (1.2-2.2) Med Orders - Current: Current Medications Acetaminophen (Tylenol) 650 mg PO Q4H PRN PRN Reason: Pain Hydrocodone Bitart/Acetaminophen ([place] 325-5 Mg) 1 tab PO Q4H PRN PRN Reason: Pain Last Admin: 11/09/16 14:19 Dose: 1 tab Amlodipine Besylate (Norvasc) 5 mg PO DAILY [facility] Last Admin: 11/11/16 09:14 Dose: 5 mg Amoxicillin/Clavulanate Potassium (Augmentin 400 Mg/5 Ml Susp) 875 mg PO BID [facility] Last Admin: 11/11/16 09:23 Dose: 875 mg Benazepril HCl (Lotensin) 20 mg PO BID [facility] Last Admin: 11/11/16 09:14 Dose: 20 mg Carbidopa/Levodopa (Sinemet 25-100 Mg) 2 tab PO 0800,1200,1700 [facility] Last Admin: 11/11/16 12:56 Dose: 2 tab Carbidopa/Levodopa (Sinemet Cr 50-200 Mg) 1 tab PO BEDTIME [facility] Last Admin: 11/10/16 20:01 Dose: 1 tab Docusate Sodium (Colace) 100 mg PO BID PRN PRN Reason: Constipation Last Admin: 11/08/16 17:33 Dose: 100 mg Donepezil HCl (Aricept) 10 mg PO BEDTIME [facility] Last Admin: 11/10/16 20:01 Dose: 10 mg Doxazosin Mesylate (Cardura) 8 mg PO BID [facility] Last Admin: 11/11/16 09:18 Dose: 8 mg Haloperidol (Haldol) 2 mg PO Q12H PRN PRN Reason: Agitation Last Admin: 11/09/16 18:34 Dose: 2 mg Haloperidol Lactate (Haldol) 2 mg IVPUSH Q4H PRN PRN Reason: Agitation Last Admin: 11/08/16 21:30 Dose: 2 mg Hydrochlorothiazide (Hydrochlorothiazide) 25 mg PO DAILY [facility] Last Admin: 11/11/16 09:17 Dose: 25 mg Hydroxyzine HCl (Vistaril) 50 mg IM Q4H PRN PRN Reason: Nausea/Vomiting Magnesium Oxide (Magnesium Oxide) 400 mg PO DAILY [facility] Last Admin: 11/11/16 09:17 Dose: 400 mg Melatonin (Melatonin) 9 mg PO BEDTIME [facility] Last Admin: 11/10/16 22:35 Dose: Not Given Metoprolol Succinate (Toprol Xl) 200 mg PO DAILY [facility] Metoprolol Succinate (Toprol Xl) 100 mg PO ONETIME ONE Stop: 11/11/16 13:31 Ondansetron HCl (Zofran Odt) 4 mg PO Q4H PRN PRN Reason: Nausea/Vomiting Pantoprazole Sodium (Protonix) 40 mg PO ACBREAKFAST [facility] Last Admin: 11/11/16 07:22 Dose: 40 mg Potassium Chloride (Klor-Con M20) 40 meq PO WITHMEALSANDBED [facility] Last Admin: 11/11/16 12:55 Dose: 40 meq Rasagiline (Azilect) 1 mg PO DAILY [facility] Last Admin: 11/11/16 09:18 Dose: 1 mg Rivastigmine (Exelon) 4.5 mg PO DAILY [facility] Last Admin: 11/11/16 09:15 Dose: 4.5 mg Rosuvastatin Calcium (Crestor) 5 mg PO BEDTIME [facility] Last Admin: 11/10/16 20:00 Dose: 5 mg Spironolactone (Aldactone) 25 mg PO DAILY [facility] Last Admin: 11/11/16 09:14 Dose: 25 mg Discontinued Medications Bupivacaine HCl/Epinephrine Bitart ([place] 0.5%/Epinephrine 1:200,000) Confirm Administered Dose 50 ml .ROUTE .STK-MED ONE Stop: 11/06/16 06:54 Last Admin: 11/06/16 08:20 Dose: 15 ml Dexamethasone (Dexamethasone) Confirm Administered Dose 4 mg .ROUTE .STK-MED ONE Stop: 11/06/16 07:12 Doxazosin Mesylate (Cardura) 4 mg PO ONETIME ONE Stop: 11/05/16 19:34 Last Admin: 11/05/16 20:25 Dose: 4 mg Doxazosin Mesylate (Cardura) 8 mg PO DAILY [facility] Last Admin: 11/08/16 08:51 Dose: 8 mg Fentanyl (Sublimaze) Confirm Administered Dose 200 mcg .ROUTE .STK-MED ONE Stop: 11/06/16 07:12 Furosemide (Lasix) 20 mg IVPUSH ONETIME ONE Stop: 11/05/16 19:34 Last Admin: 11/05/16 20:25 Dose: 20 mg Furosemide (Lasix) 20 mg IVPUSH ONETIME ONE Stop: 11/07/16 10:16 Last Admin: 11/07/16 10:17 Dose: 20 mg Glycopyrrolate (Robinul) Confirm Administered Dose 1 mg .ROUTE .STK-MED ONE Stop: 11/06/16 07:12 Haloperidol Lactate (Haldol) 2 mg IM Q4H PRN PRN Reason: Agitation Hydromorphone HCl (Dilaudid Algebra Teacher 15 Mg In Ns 30 Ml) 0 mg IV ASDIRECTED PRN; Protocol PRN Reason: Pain Last Admin: 11/06/16 08:09 Dose: 15 mg Dextrose/Lactated Ringer's (Dextrose 5%-Lactated Ringers) 1,000 mls @ 100 mls/ hr IV ASDIRECTED [facility] Last Admin: 11/07/16 07:29 Dose: 100 mls/hr Aztreonam/Dextrose 1 gm/ (Premix) 50 mls @ 100 mls/hr IV Q8H [facility] Last Admin: 11/08/16 01:20 Dose: 100 mls/hr Ampicillin Sodium/Sulbactam (Sodium 3 gm/ Sodium Chloride) 100 mls @ 200 mls/ hr IV Q6H [facility] Last Admin: 11/08/16 05:21 Dose: 200 mls/hr Potassium Phosphate 20 mmole/ (Sodium Chloride) 256.6667 mls @ 85.556 mls/hr IV ONETIME [facility] Potassium Phosphate 20 mmole/ (Sodium Chloride) 256.6667 mls @ 85.556 mls/hr IV ONETIME [facility] Potassium Phosphate 20 mmole/ (Sodium Chloride) 256.6667 mls @ 85.556 mls/hr IV ONETIME [facility] Potassium Phosphate 20 mmole/ (Sodium Chloride) 256.6667 mls @ 85.556 mls/hr IV Q3H [facility] Stop: 11/06/16 05:29 Last Admin: 11/06/16 04:20 Dose: 85.556 mls/hr Potassium Acetate 20 meq/ (Dextrose/Water) 260 mls @ 127 mls/hr IV Q2H [facility] Stop: 11/06/16 16:29 Last Admin: 11/06/16 14:54 Dose: 127 mls/hr Magnesium Sulfate 2 gm/ Sodium (Chloride) 54 mls @ 27 mls/hr IV Q6H [facility] Stop: 11/09/16 05:59 Potassium Phosphate 25 mmole/ (Sodium Chloride) 508.3333 mls @ 127 mls/hr IV Q4H [facility] Stop: 11/07/16 21:29 Last Admin: 11/07/16 17:18 Dose: 127 mls/hr Magnesium Sulfate 2 gm/ Premix 50 mls @ 25 mls/hr IV Q6H [facility] Stop: 11/09/16 05:59 Magnesium Sulfate 2 gm/ Sodium (Chloride) 54 mls @ 27 mls/hr IV Q6H [facility] Stop: 11/09/16 05:59 Last Admin: 11/09/16 04:31 Dose: 27 mls/hr Dextrose/Lactated Ringer's (Dextrose 5%-Lactated Ringers) 1,000 mls @ 25 mls/ hr IV ASDIRECTED [facility] Last Admin: 11/07/16 10:17 Dose: 25 mls/hr Potassium Chloride 20 meq/Lidocaine HCl 2 ml/ Sodium Chloride 112 mls @ 56 mls/ hr IV Q2H [facility] Stop: 11/08/16 14:29 Last Admin: 11/08/16 12:49 Dose: 56 mls/hr Labetalol HCl (Normodyne) 5 - 10 mg IVPUSH Q1H PRN; Protocol PRN Reason: Hypertension Last Admin: 11/07/16 16:19 Dose: 10 mg Lorazepam (Ativan) 0.5 mg IVPUSH ONETIME ONE Stop: 11/05/16 21:32 Last Admin: 11/05/16 21:46 Dose: 0.5 mg Lorazepam (Ativan) 0.5 mg IVPUSH ONETIME ONE Stop: 11/05/16 22:01 Last Admin: 11/05/16 23:48 Dose: Not Given Magnesium Hydroxide (Milk Of Magnesia) 30 ml PO ONETIME ONE Stop: 11/09/16 10:31 Last Admin: 11/09/16 10:15 Dose: 30 ml Metoprolol Succinate (Toprol Xl) 50 mg PO DAILY [facility] Last Admin: 11/08/16 10:43 Dose: 50 mg Metoprolol Succinate (Toprol Xl) 100 mg PO DAILY [facility] Last Admin: 11/11/16 09:16 Dose: 100 mg Morphine Sulfate (Morphine) 2 mg IVPUSH Q2H PRN PRN Reason: Pain Last Admin: 11/06/16 05:03 Dose: 2 mg Naloxone HCl (Narcan) 0.1 mg IV ASDIRECTED PRN PRN Reason: decreased respiratory rate Neostigmine Methylsulfate (Neostigmine) Confirm Administered Dose 5 mg .ROUTE .STK-MED ONE Stop: 11/06/16 07:12 Verify Scop Patch 0 each TOP DAILY [facility] Last Admin: 11/07/16 23:35 Dose: Not Given Ondansetron HCl (Zofran) 4 mg IV Q4H PRN PRN Reason: N/V Last Admin: 11/07/16 15:54 Dose: 4 mg Ondansetron HCl (Zofran) Confirm Administered Dose 4 mg .ROUTE .STK-MED ONE Stop: 11/06/16 07:12 Pantoprazole Sodium (Protonix Iv) 40 mg IV Q24H [facility] Last Admin: 11/07/16 16:55 Dose: 40 mg Potassium Chloride (Klor-Con M20) 20 meq PO QID [facility] Last Admin: 11/08/16 22:21 Dose: Not Given Potassium Chloride (Klor-Con M20) 20 meq PO WITHMEALSANDBED [facility] Last Admin: 11/09/16 20:47 Dose: 20 meq Potassium Chloride (Potassium Chloride Solution) 40 meq PO ONETIME ONE Stop: 11/09/16 09:01 Potassium Chloride (Klor-Con M20) 40 meq PO ONETIME ONE Stop: 11/09/16 09:01 Last Admin: 11/09/16 08:45 Dose: Not Given Prochlorperazine Edisylate (Compazine) 10 mg IV Q6H PRN PRN Reason: N/V Propofol (Diprivan 20 Ml) Confirm Administered Dose 200 mg .ROUTE .STK-MED ONE Stop: 11/06/16 07:12 Rocuronium [place] (Zemuron) Confirm Administered Dose 50 mg .ROUTE .STK-MED ONE Stop: 11/06/16 07:12 Scopolamine (Transderm-Scop) 1.5 mg TRDERM Q72H PRN PRN Reason: Nausea/Vomiting Last Admin: 11/07/16 16:54 Dose: 1.5 mg Succinylcholine Chloride (Quelicin) Confirm Administered Dose 200 mg .ROUTE .STK -MED ONE Stop: 11/06/16 07:12 - Exam General: Cooperative, No Acute Distress HEENT: Pupils Equal, Pupils Reactive, EOMI, Mucous Membr. Moist/[place] Neck: Supple Lungs: Clear to Auscultation, Normal Respiratory Effort Cardiovascular: Regular Rate, Regular Rhythm GI/Abdominal Exam: Normal Bowel Sounds, Soft Extremities: Non-Tender Peripheral Pulses: 1+: Radial (L), Radial (R) Skin: Warm, Dry, Intact Psy/Mental Status: Hallucinations - Problem List Review Problem List Initiated/Reviewed/Updated: Yes - My Orders Last 24 Hours: My Active Orders 11/11/16 12:49 Metoprolol Succinate [Toprol XL] 200 mg PO DAILY 11/11/16 13:30 Metoprolol Succinate [Toprol XL] 100 mg PO ONETIME ONE - Assessment Assessment:: Assessment/Plan: #1. Confusion: Last night had haldol to control him. He is confused this morning not knowing where he is and talking about a bus ride that his said happened years ago. #2. Hypertension: BP is not good control. Have increased Metoprolol to 200mg daily. #3. Hallucinations at night. This was a problem at home recently. #3. Parkinsonism: This has been a gradual progressive problem. Will need to continue with the Meds. I got him up and watched him walk with a walker and he is not safe without a 2 person assess. He will be going to a residential tomorrow.
[2016-11-11] MEDS ORDERED: Metoprolol Succinate 50 MG Tab.ER PO ONE (13:30)
[2016-11-11] MEDS: Carbidopa/Levodopa 50-200 MG Tab.ER PO SCH (20:01)
[2016-11-11] MEDS: Rosuvastatin 10 MG Tab PO SCH (20:01)
[2016-11-11] MEDS: Melatonin 3 MG Tab PO SCH (20:01)
[2016-11-11] MEDS: Donepezil 10 MG Tab PO SCH (20:02)
[2016-11-12] MEDS: Potassium Chloride 20 MEQ Tab.ER PO SCH ×4 (08:44→20:34)
[2016-11-12] MEDS: Hydrochlorothiazide 25 MG Tab PO SCH (08:44)
[2016-11-12] MEDS: Pantoprazole 40 MG Tab.CR PO SCH (08:44)
[2016-11-12] MEDS: Spironolactone 25 MG Tab PO SCH (08:45)
[2016-11-12] MEDS: Carbidopa/Levodopa 25-100 MG Tab PO SCH ×3 (08:45→17:05)
[2016-11-12] MEDS: Magnesium Oxide 400 MG Tab PO SCH (08:48)
[2016-11-12] MEDS: Doxazosin 4 MG Tab PO SCH ×2 (08:48→20:39)
[2016-11-12] MEDS: amLODIPine 5 MG Tab PO SCH (08:48)
[2016-11-12] MEDS: RASAGILINE 1 MG PO SCH (08:49)
[2016-11-12] MEDS: Metoprolol Succinate 50 MG Tab.ER PO SCH (08:51)
[2016-11-12] MEDS: Amoxicillin/Clavulanate K 400-57 MG/5 ML Susp 100 ML Bottle PO SCH ×2 (09:02→21:26)
[2016-11-12] MEDS ORDERED: Spironolactone 25 MG Tab PO SCH (09:25)
[2016-11-12] MEDS ORDERED: Spironolactone 25 MG Tab PO ONE (09:25)
--- NOTE | 2016-11-12 10:35 | PN ---
DATE OF SERVICE: 11/12/2016 SUBJECTIVE: Angelo was more confused during the night. He sat up at the nurses' desk between 0300 to 0400. Oral intake was 400. He did have an emesis of 125 mL, thought to be the broth that he had eaten earlier. Otherwise, he has not been nauseated and no other associated signs and symptoms. REVIEW OF SYSTEMS: Remainder of review of systems negative for any pertinent positives and negatives. OBJECTIVE: GENERAL: Angelo Greenfield is an 81-year-old male. He is sleeping. He did open up his eyes, while I was listening to his heart. VITAL SIGNS: TPR is 97.3, 55, 14. Blood pressure 161/80. HEENT: Negative. NECK: Negative. HEART: Regular rate and rhythm. Remainder of exam deferred; nursing staff, with lack of sleep and confusion, requested that he not be awaken. ASSESSMENT: 1. Parkinson's disease. 2. Dementia. 3. Diagnostic laparoscopy with partial cecectomy with excision of attached overlying appendix and drainage of pericecal inflammatory fluid collection associated with local peritonitis for acute appendicitis with inflammation and edema extending to the cecum and pericecal inflammatory fluid, date of surgery 11/06/2016, surgeon, Nixon Raphael MD. PLAN: Continue to evaluate. Continue same orders. To be discharged when a custodial will be able to take him. Meri Long PA-C /[id number]
[2016-11-12] MEDS: Diltiazem 180 MG Cap.CD PO SCH ×2 (11:25→20:33)
--- NOTE | 2016-11-12 20:27 | PCM.PN ---
- General Info Date of Service: 11/12/16 Functional Status: Reports: Pain Controlled - Review of Systems General: Reports: Weakness HEENT: Reports: No Symptoms Pulmonary: Reports: No Symptoms Cardiovascular: Reports: No Symptoms Gastrointestinal: Reports: No Symptoms Genitourinary: Reports: No Symptoms Musculoskeletal: Reports: No Symptoms Skin: Reports: No Symptoms Neurological: Reports: Confusion, Difficulty Walking, Weakness Psychiatric: Reports: Confusion - Patient Data Vitals - Most Recent: Last Vital Signs Temp 99.0 F 11/12/16 15:25 Pulse 53 L 11/12/16 15:25 Resp 20 11/12/16 15:25 BP 144/77 H 11/12/16 15:25 Pulse Ox 95 11/12/16 15:25 Weight - Most Recent: 187 lb 6.287 oz I&O - Last 24 Hours: Intake & Output 11/12/16 11/12/16 11/12/16 06:59 14:59 22:59 Intake Total 1100 Balance 1100 Med Orders - Current: Current Medications Acetaminophen (Tylenol) 650 mg PO Q4H PRN PRN Reason: Pain Hydrocodone Bitart/Acetaminophen ([place] 325-5 Mg) 1 tab PO Q4H PRN PRN Reason: Pain Last Admin: 11/09/16 14:19 Dose: 1 tab Amoxicillin/Clavulanate Potassium (Augmentin 400 Mg/5 Ml Susp) 875 mg PO BID [facility] Last Admin: 11/12/16 09:02 Dose: 875 mg Benazepril HCl (Lotensin) 20 mg PO BID [facility] Last Admin: 11/12/16 08:45 Dose: 20 mg Carbidopa/Levodopa (Sinemet 25-100 Mg) 2 tab PO 0800,1200,1700 [facility] Last Admin: 11/12/16 17:05 Dose: 2 tab Carbidopa/Levodopa (Sinemet Cr 50-200 Mg) 1 tab PO BEDTIME [facility] Last Admin: 11/11/16 20:01 Dose: 1 tab Diltiazem HCl (Cardizem Cd) 180 mg PO BID [facility] Last Admin: 11/12/16 11:25 Dose: 180 mg Docusate Sodium (Colace) 100 mg PO BID PRN PRN Reason: Constipation Last Admin: 11/08/16 17:33 Dose: 100 mg Donepezil HCl (Aricept) 10 mg PO BEDTIME [facility] Last Admin: 11/11/16 20:02 Dose: 10 mg Doxazosin Mesylate (Cardura) 8 mg PO BID [facility] Last Admin: 11/12/16 08:48 Dose: 8 mg Haloperidol (Haldol) 2 mg PO Q12H PRN PRN Reason: Agitation Last Admin: 11/09/16 18:34 Dose: 2 mg Haloperidol Lactate (Haldol) 2 mg IVPUSH Q4H PRN PRN Reason: Agitation Last Admin: 11/08/16 21:30 Dose: 2 mg Hydrochlorothiazide (Hydrochlorothiazide) 25 mg PO DAILY [facility] Last Admin: 11/12/16 08:44 Dose: 25 mg Hydroxyzine HCl (Vistaril) 50 mg IM Q4H PRN PRN Reason: Nausea/Vomiting Magnesium Oxide (Magnesium Oxide) 400 mg PO DAILY [facility] Last Admin: 11/12/16 08:48 Dose: 400 mg Melatonin (Melatonin) 9 mg PO BEDTIME [facility] Last Admin: 11/11/16 20:01 Dose: 9 mg Metoprolol Succinate (Toprol Xl) 200 mg PO DAILY [facility] Last Admin: 11/12/16 08:51 Dose: 200 mg Ondansetron HCl (Zofran Odt) 4 mg PO Q4H PRN PRN Reason: Nausea/Vomiting Last Admin: 11/11/16 16:40 Dose: 4 mg Pantoprazole Sodium (Protonix) 40 mg PO ACBREAKFAST [facility] Last Admin: 11/12/16 08:44 Dose: 40 mg Potassium Chloride (Klor-Con M20) 40 meq PO WITHMEALSANDBED [facility] Last Admin: 11/12/16 17:05 Dose: 40 meq Rasagiline (Azilect) 1 mg PO DAILY [facility] Last Admin: 11/12/16 08:49 Dose: 1 mg Rivastigmine (Exelon) 4.5 mg PO DAILY [facility] Last Admin: 11/12/16 08:46 Dose: 4.5 mg Rosuvastatin Calcium (Crestor) 5 mg PO BEDTIME [facility] Last Admin: 11/11/16 20:01 Dose: 5 mg Spironolactone (Aldactone) 50 mg PO DAILY [facility] Discontinued Medications Amlodipine Besylate (Norvasc) 5 mg PO DAILY [facility] Last Admin: 11/12/16 08:48 Dose: 5 mg Bupivacaine HCl/Epinephrine Bitart (Marcaine 0.5%/Epinephrine 1:200,000) Confirm Administered Dose 50 ml .ROUTE .STK-MED ONE Stop: 11/06/16 06:54 Last Admin: 11/06/16 08:20 Dose: 15 ml Dexamethasone (Dexamethasone) Confirm Administered Dose 4 mg .ROUTE .STK-MED ONE Stop: 11/06/16 07:12 Doxazosin Mesylate (Cardura) 4 mg PO ONETIME ONE Stop: 11/05/16 19:34 Last Admin: 11/05/16 20:25 Dose: 4 mg Doxazosin Mesylate (Cardura) 8 mg PO DAILY [facility] Last Admin: 11/08/16 08:51 Dose: 8 mg Fentanyl (Sublimaze) Confirm Administered Dose 200 mcg .ROUTE .STK-MED ONE Stop: 11/06/16 07:12 Furosemide (Lasix) 20 mg IVPUSH ONETIME ONE Stop: 11/05/16 19:34 Last Admin: 11/05/16 20:25 Dose: 20 mg Furosemide (Lasix) 20 mg IVPUSH ONETIME ONE Stop: 11/07/16 10:16 Last Admin: 11/07/16 10:17 Dose: 20 mg Glycopyrrolate (Robinul) Confirm Administered Dose 1 mg .ROUTE .STK-MED ONE Stop: 11/06/16 07:12 Haloperidol Lactate (Haldol) 2 mg IM Q4H PRN PRN Reason: Agitation Hydromorphone HCl (Dilaudid Oil Pipeline Operator 15 Mg In Ns 30 Ml) 0 mg IV ASDIRECTED PRN; Protocol PRN Reason: Pain Last Admin: 11/06/16 08:09 Dose: 15 mg Dextrose/Lactated Ringer's (Dextrose 5%-Lactated Ringers) 1,000 mls @ 100 mls/ hr IV ASDIRECTED [facility] Last Admin: 11/07/16 07:29 Dose: 100 mls/hr Aztreonam/Dextrose 1 gm/ (Premix) 50 mls @ 100 mls/hr IV Q8H [facility] Last Admin: 11/08/16 01:20 Dose: 100 mls/hr Ampicillin Sodium/Sulbactam (Sodium 3 gm/ Sodium Chloride) 100 mls @ 200 mls/ hr IV Q6H [facility] Last Admin: 11/08/16 05:21 Dose: 200 mls/hr Potassium Phosphate 20 mmole/ (Sodium Chloride) 256.6667 mls @ 85.556 mls/hr IV ONETIME [facility] Potassium Phosphate 20 mmole/ (Sodium Chloride) 256.6667 mls @ 85.556 mls/hr IV ONETIME [facility] Potassium Phosphate 20 mmole/ (Sodium Chloride) 256.6667 mls @ 85.556 mls/hr IV ONETIME [facility] Potassium Phosphate 20 mmole/ (Sodium Chloride) 256.6667 mls @ 85.556 mls/hr IV Q3H [facility] Stop: 11/06/16 05:29 Last Admin: 11/06/16 04:20 Dose: 85.556 mls/hr Potassium Acetate 20 meq/ (Dextrose/Water) 260 mls @ 127 mls/hr IV Q2H [facility] Stop: 11/06/16 16:29 Last Admin: 11/06/16 14:54 Dose: 127 mls/hr Magnesium Sulfate 2 gm/ Sodium (Chloride) 54 mls @ 27 mls/hr IV Q6H [facility] Stop: 11/09/16 05:59 Potassium Phosphate 25 mmole/ (Sodium Chloride) 508.3333 mls @ 127 mls/hr IV Q4H [facility] Stop: 11/07/16 21:29 Last Admin: 11/07/16 17:18 Dose: 127 mls/hr Magnesium Sulfate 2 gm/ Premix 50 mls @ 25 mls/hr IV Q6H [facility] Stop: 11/09/16 05:59 Magnesium Sulfate 2 gm/ Sodium (Chloride) 54 mls @ 27 mls/hr IV Q6H [facility] Stop: 11/09/16 05:59 Last Admin: 11/09/16 04:31 Dose: 27 mls/hr Dextrose/Lactated Ringer's (Dextrose 5%-Lactated Ringers) 1,000 mls @ 25 mls/ hr IV ASDIRECTED [facility] Last Admin: 11/07/16 10:17 Dose: 25 mls/hr Potassium Chloride 20 meq/Lidocaine HCl 2 ml/ Sodium Chloride 112 mls @ 56 mls/ hr IV Q2H [facility] Stop: 11/08/16 14:29 Last Admin: 11/08/16 12:49 Dose: 56 mls/hr Labetalol HCl (Normodyne) 5 - 10 mg IVPUSH Q1H PRN; Protocol PRN Reason: Hypertension Last Admin: 11/07/16 16:19 Dose: 10 mg Lorazepam (Ativan) 0.5 mg IVPUSH ONETIME ONE Stop: 11/05/16 21:32 Last Admin: 11/05/16 21:46 Dose: 0.5 mg Lorazepam (Ativan) 0.5 mg IVPUSH ONETIME ONE Stop: 11/05/16 22:01 Last Admin: 11/05/16 23:48 Dose: Not Given Magnesium Hydroxide (Milk Of Magnesia) 30 ml PO ONETIME ONE Stop: 11/09/16 10:31 Last Admin: 11/09/16 10:15 Dose: 30 ml Metoprolol Succinate (Toprol Xl) 50 mg PO DAILY [facility] Last Admin: 11/08/16 10:43 Dose: 50 mg Metoprolol Succinate (Toprol Xl) 100 mg PO DAILY [facility] Last Admin: 11/11/16 09:16 Dose: 100 mg Metoprolol Succinate (Toprol Xl) 100 mg PO ONETIME ONE Stop: 11/11/16 13:31 Last Admin: 11/11/16 13:57 Dose: 100 mg Morphine Sulfate (Morphine) 2 mg IVPUSH Q2H PRN PRN Reason: Pain Last Admin: 11/06/16 05:03 Dose: 2 mg Naloxone HCl (Narcan) 0.1 mg IV ASDIRECTED PRN PRN Reason: decreased respiratory rate Neostigmine Methylsulfate (Neostigmine) Confirm Administered Dose 5 mg .ROUTE .STK-MED ONE Stop: 11/06/16 07:12 Verify Scop Patch 0 each TOP DAILY [facility] Last Admin: 11/07/16 23:35 Dose: Not Given Ondansetron HCl (Zofran) 4 mg IV Q4H PRN PRN Reason: N/V Last Admin: 11/07/16 15:54 Dose: 4 mg Ondansetron HCl (Zofran) Confirm Administered Dose 4 mg .ROUTE .STK-MED ONE Stop: 11/06/16 07:12 Pantoprazole Sodium (Protonix Iv) 40 mg IV Q24H [facility] Last Admin: 11/07/16 16:55 Dose: 40 mg Potassium Chloride (Klor-Con M20) 20 meq PO QID [facility] Last Admin: 11/08/16 22:21 Dose: Not Given Potassium Chloride (Klor-Con M20) 20 meq PO WITHMEALSANDBED [facility] Last Admin: 11/09/16 20:47 Dose: 20 meq Potassium Chloride (Potassium Chloride Solution) 40 meq PO ONETIME ONE Stop: 11/09/16 09:01 Potassium Chloride (Klor-Con M20) 40 meq PO ONETIME ONE Stop: 11/09/16 09:01 Last Admin: 11/09/16 08:45 Dose: Not Given Prochlorperazine Edisylate (Compazine) 10 mg IV Q6H PRN PRN Reason: N/V Propofol (Diprivan 20 Ml) Confirm Administered Dose 200 mg .ROUTE .STK-MED ONE Stop: 11/06/16 07:12 Rocuronium [place] (Zemuron) Confirm Administered Dose 50 mg .ROUTE .STK-MED ONE Stop: 11/06/16 07:12 Scopolamine (Transderm-Scop) 1.5 mg TRDERM Q72H PRN PRN Reason: Nausea/Vomiting Last Admin: 11/07/16 16:54 Dose: 1.5 mg Spironolactone (Aldactone) 25 mg PO DAILY [facility] Last Admin: 11/12/16 08:45 Dose: 25 mg Spironolactone (Aldactone) 50 mg PO DAILY [facility] Spironolactone (Aldactone) 25 mg PO ONETIME ONE Stop: 11/12/16 09:26 Last Admin: 11/12/16 11:26 Dose: 25 mg Succinylcholine Chloride (Quelicin) Confirm Administered Dose 200 mg .ROUTE .STK -MED ONE Stop: 11/06/16 07:12 - Exam General: Cooperative, Mild Distress HEENT: Pupils Equal, Pupils Reactive, EOMI, Mucous Membr. Moist/[place] Neck: Supple Lungs: Clear to Auscultation, Normal Respiratory Effort Cardiovascular: Regular Rate, Regular Rhythm GI/Abdominal Exam: Soft Peripheral Pulses: 1+: Radial (L), Radial (R) Skin: Warm, Dry, Intact Neurological: No New Focal Deficit Psy/Mental Status: Anxious - Problem List Review Problem List Initiated/Reviewed/Updated: Yes - My Orders Last 24 Hours: My Active Orders 11/12/16 09:00 Metoprolol Succinate [Toprol XL] 200 mg PO DAILY 11/12/16 09:30 Diltiazem [Cardizem CD] 180 mg PO BID 11/13/16 09:00 Spironolactone [Aldactone] 50 mg PO DAILY - Assessment Assessment:: Assessment/Plan: #1. Confusion: Last night had haldol to control him. Haldol has been working well. #2. Hypertension: BP is not good control. Have increased DC'd the Amlodipine and changed to Cardizam and will adjust according to the BP control. Have also increased the spironolactone. He still has edema in the legs.K has improved. #3. Hallucinations at night. This was a problem at home recently. #3. Parkinsonism: This has been a gradual progressive problem. Will need to continue with the Meds. He is walking a little better but still needs assistance.
[2016-11-12] MEDS: Donepezil 10 MG Tab PO SCH (20:32)
[2016-11-12] MEDS: Rosuvastatin 10 MG Tab PO SCH (20:33)
[2016-11-12] MEDS: Melatonin 3 MG Tab PO SCH (20:35)
[2016-11-12] MEDS: Carbidopa/Levodopa 50-200 MG Tab.ER PO SCH (20:36)
[2016-11-13 08:04] VITALS: BP 102/52
[2016-11-13] MEDS: Carbidopa/Levodopa 25-100 MG Tab PO SCH (08:06)
[2016-11-13] MEDS: Potassium Chloride 20 MEQ Tab.ER PO SCH (08:07)
[2016-11-13] MEDS: Pantoprazole 40 MG Tab.CR PO SCH (08:07)
[2016-11-13] MEDS: RASAGILINE 1 MG PO SCH (08:08)
[2016-11-13] MEDS ORDERED: Spironolactone 25 MG Tab PO SCH (09:00)
--- NOTE | 2016-11-13 09:21 | PCM.PN ---
- General Info Date of Service: 11/13/16 Functional Status: Reports: Pain Controlled - Review of Systems General: Reports: Weakness HEENT: Reports: No Symptoms Pulmonary: Reports: No Symptoms Cardiovascular: Reports: No Symptoms Gastrointestinal: Reports: No Symptoms Genitourinary: Reports: No Symptoms Musculoskeletal: Reports: No Symptoms Skin: Reports: No Symptoms Neurological: Reports: Difficulty Walking, Weakness - Patient Data Vitals - Most Recent: Last Vital Signs Temp 98.6 F 11/13/16 08:01 Pulse 49 L 11/13/16 08:01 Resp 16 11/13/16 08:01 BP 102/52 L 11/13/16 08:01 Pulse Ox 95 11/13/16 08:01 Weight - Most Recent: 187 lb 6.287 oz Med Orders - Current: Current Medications Acetaminophen (Tylenol) 650 mg PO Q4H PRN PRN Reason: Pain Hydrocodone Bitart/Acetaminophen ([place] 325-5 Mg) 1 tab PO Q4H PRN PRN Reason: Pain Last Admin: 11/09/16 14:19 Dose: 1 tab Amoxicillin/Clavulanate Potassium (Augmentin 400 Mg/5 Ml Susp) 875 mg PO BID [facility] Last Admin: 11/12/16 21:26 Dose: 875 mg Benazepril HCl (Lotensin) 20 mg PO BID [facility] Last Admin: 11/12/16 20:39 Dose: 20 mg Carbidopa/Levodopa (Sinemet 25-100 Mg) 2 tab PO 0800,1200,1700 [facility] Last Admin: 11/13/16 08:06 Dose: 2 tab Carbidopa/Levodopa (Sinemet Cr 50-200 Mg) 1 tab PO BEDTIME [facility] Last Admin: 11/12/16 20:36 Dose: 1 tab Diltiazem HCl (Cardizem Cd) 180 mg PO BID [facility] Last Admin: 11/12/16 20:33 Dose: 180 mg Docusate Sodium (Colace) 100 mg PO BID PRN PRN Reason: Constipation Last Admin: 11/08/16 17:33 Dose: 100 mg Donepezil HCl (Aricept) 10 mg PO BEDTIME [facility] Last Admin: 11/12/16 20:32 Dose: 10 mg Doxazosin Mesylate (Cardura) 8 mg PO BID [facility] Last Admin: 11/12/16 20:39 Dose: 8 mg Haloperidol (Haldol) 2 mg PO Q12H PRN PRN Reason: Agitation Last Admin: 11/09/16 18:34 Dose: 2 mg Haloperidol Lactate (Haldol) 2 mg IVPUSH Q4H PRN PRN Reason: Agitation Last Admin: 11/08/16 21:30 Dose: 2 mg Hydrochlorothiazide (Hydrochlorothiazide) 25 mg PO DAILY [facility] Last Admin: 11/12/16 08:44 Dose: 25 mg Hydroxyzine HCl (Vistaril) 50 mg IM Q4H PRN PRN Reason: Nausea/Vomiting Magnesium Oxide (Magnesium Oxide) 400 mg PO DAILY [facility] Last Admin: 11/12/16 08:48 Dose: 400 mg Melatonin (Melatonin) 9 mg PO BEDTIME [facility] Last Admin: 11/12/16 20:35 Dose: 9 mg Metoprolol Succinate (Toprol Xl) 200 mg PO DAILY [facility] Last Admin: 11/12/16 08:51 Dose: 200 mg Ondansetron HCl (Zofran Odt) 4 mg PO Q4H PRN PRN Reason: Nausea/Vomiting Last Admin: 11/11/16 16:40 Dose: 4 mg Pantoprazole Sodium (Protonix) 40 mg PO ACBREAKFAST [facility] Last Admin: 11/13/16 08:07 Dose: 40 mg Potassium Chloride (Klor-Con M20) 40 meq PO WITHMEALSANDBED [facility] Last Admin: 11/13/16 08:07 Dose: 40 meq Rasagiline (Azilect) 1 mg PO DAILY [facility] Last Admin: 11/13/16 08:08 Dose: 1 mg Rivastigmine (Exelon) 4.5 mg PO DAILY [facility] Last Admin: 11/13/16 08:05 Dose: 4.5 mg Rosuvastatin Calcium (Crestor) 5 mg PO BEDTIME [facility] Last Admin: 11/12/16 20:33 Dose: 5 mg Spironolactone (Aldactone) 50 mg PO DAILY [facility] Discontinued Medications Amlodipine Besylate (Norvasc) 5 mg PO DAILY [facility] Last Admin: 11/12/16 08:48 Dose: 5 mg Bupivacaine HCl/Epinephrine Bitart (Marcaine 0.5%/Epinephrine 1:200,000) Confirm Administered Dose 50 ml .ROUTE .[facility]-MED ONE Stop: 11/06/16 06:54 Last Admin: 11/06/16 08:20 Dose: 15 ml Dexamethasone (Dexamethasone) Confirm Administered Dose 4 mg .ROUTE .ST[facility]-MED ONE Stop: 11/06/16 07:12 Doxazosin Mesylate (Cardura) 4 mg PO ONETIME ONE Stop: 11/05/16 19:34 Last Admin: 11/05/16 20:25 Dose: 4 mg Doxazosin Mesylate (Cardura) 8 mg PO DAILY [facility] Last Admin: 11/08/16 08:51 Dose: 8 mg Fentanyl (Sublimaze) Confirm Administered Dose 200 mcg .ROUTE .STK-MED ONE Stop: 11/06/16 07:12 Furosemide (Lasix) 20 mg IVPUSH ONETIME ONE Stop: 11/05/16 19:34 Last Admin: 11/05/16 20:25 Dose: 20 mg Furosemide (Lasix) 20 mg IVPUSH ONETIME ONE Stop: 11/07/16 10:16 Last Admin: 11/07/16 10:17 Dose: 20 mg Glycopyrrolate (Robinul) Confirm Administered Dose 1 mg .ROUTE .STK-MED ONE Stop: 11/06/16 07:12 Haloperidol Lactate (Haldol) 2 mg IM Q4H PRN PRN Reason: Agitation Hydromorphone HCl (Dilaudid Handling Tech 15 Mg In Ns 30 Ml) 0 mg IV ASDIRECTED PRN; Protocol PRN Reason: Pain Last Admin: 11/06/16 08:09 Dose: 15 mg Dextrose/Lactated Ringer's (Dextrose 5%-Lactated Ringers) 1,000 mls @ 100 mls/ hr IV ASDIRECTED [facility] Last Admin: 11/07/16 07:29 Dose: 100 mls/hr Aztreonam/Dextrose 1 gm/ (Premix) 50 mls @ 100 mls/hr IV Q8H [facility] Last Admin: 11/08/16 01:20 Dose: 100 mls/hr Ampicillin Sodium/Sulbactam (Sodium 3 gm/ Sodium Chloride) 100 mls @ 200 mls/ hr IV Q6H [facility] Last Admin: 11/08/16 05:21 Dose: 200 mls/hr Potassium Phosphate 20 mmole/ (Sodium Chloride) 256.6667 mls @ 85.556 mls/hr IV ONETIME [facility] Potassium Phosphate 20 mmole/ (Sodium Chloride) 256.6667 mls @ 85.556 mls/hr IV ONETIME [facility] Potassium Phosphate 20 mmole/ (Sodium Chloride) 256.6667 mls @ 85.556 mls/hr IV ONETIME [facility] Potassium Phosphate 20 mmole/ (Sodium Chloride) 256.6667 mls @ 85.556 mls/hr IV Q3H [facility] Stop: 11/06/16 05:29 Last Admin: 11/06/16 04:20 Dose: 85.556 mls/hr Potassium Acetate 20 meq/ (Dextrose/Water) 260 mls @ 127 mls/hr IV Q2H [facility] Stop: 11/06/16 16:29 Last Admin: 11/06/16 14:54 Dose: 127 mls/hr Magnesium Sulfate 2 gm/ Sodium (Chloride) 54 mls @ 27 mls/hr IV Q6H [facility] Stop: 11/09/16 05:59 Potassium Phosphate 25 mmole/ (Sodium Chloride) 508.3333 mls @ 127 mls/hr IV Q4H [facility] Stop: 11/07/16 21:29 Last Admin: 11/07/16 17:18 Dose: 127 mls/hr Magnesium Sulfate 2 gm/ Premix 50 mls @ 25 mls/hr IV Q6H [facility] Stop: 11/09/16 05:59 Magnesium Sulfate 2 gm/ Sodium (Chloride) 54 mls @ 27 mls/hr IV Q6H [facility] Stop: 11/09/16 05:59 Last Admin: 11/09/16 04:31 Dose: 27 mls/hr Dextrose/Lactated Ringer's (Dextrose 5%-Lactated Ringers) 1,000 mls @ 25 mls/ hr IV ASDIRECTED [facility] Last Admin: 11/07/16 10:17 Dose: 25 mls/hr Potassium Chloride 20 meq/Lidocaine HCl 2 ml/ Sodium Chloride 112 mls @ 56 mls/ hr IV Q2H [facility] Stop: 11/08/16 14:29 Last Admin: 11/08/16 12:49 Dose: 56 mls/hr Labetalol HCl (Normodyne) 5 - 10 mg IVPUSH Q1H PRN; Protocol PRN Reason: Hypertension Last Admin: 11/07/16 16:19 Dose: 10 mg Lorazepam (Ativan) 0.5 mg IVPUSH ONETIME ONE Stop: 11/05/16 21:32 Last Admin: 11/05/16 21:46 Dose: 0.5 mg Lorazepam (Ativan) 0.5 mg IVPUSH ONETIME ONE Stop: 11/05/16 22:01 Last Admin: 11/05/16 23:48 Dose: Not Given Magnesium Hydroxide (Milk Of Magnesia) 30 ml PO ONETIME ONE Stop: 11/09/16 10:31 Last Admin: 11/09/16 10:15 Dose: 30 ml Metoprolol Succinate (Toprol Xl) 50 mg PO DAILY [facility] Last Admin: 11/08/16 10:43 Dose: 50 mg Metoprolol Succinate (Toprol Xl) 100 mg PO DAILY [facility] Last Admin: 11/11/16 09:16 Dose: 100 mg Metoprolol Succinate (Toprol Xl) 100 mg PO ONETIME ONE Stop: 11/11/16 13:31 Last Admin: 11/11/16 13:57 Dose: 100 mg Morphine Sulfate (Morphine) 2 mg IVPUSH Q2H PRN PRN Reason: Pain Last Admin: 11/06/16 05:03 Dose: 2 mg Naloxone HCl (Narcan) 0.1 mg IV ASDIRECTED PRN PRN Reason: decreased respiratory rate Neostigmine Methylsulfate (Neostigmine) Confirm Administered Dose 5 mg .ROUTE .STK-MED ONE Stop: 11/06/16 07:12 Verify Scop Patch 0 each TOP DAILY [facility] Last Admin: 11/07/16 23:35 Dose: Not Given Ondansetron HCl (Zofran) 4 mg IV Q4H PRN PRN Reason: N/V Last Admin: 11/07/16 15:54 Dose: 4 mg Ondansetron HCl (Zofran) Confirm Administered Dose 4 mg .ROUTE .STK-MED ONE Stop: 11/06/16 07:12 Pantoprazole Sodium (Protonix Iv) 40 mg IV Q24H [facility] Last Admin: 11/07/16 16:55 Dose: 40 mg Potassium Chloride (Klor-Con M20) 20 meq PO QID [facility] Last Admin: 11/08/16 22:21 Dose: Not Given Potassium Chloride (Klor-Con M20) 20 meq PO WITHMEALSANDBED [facility] Last Admin: 11/09/16 20:47 Dose: 20 meq Potassium Chloride (Potassium Chloride Solution) 40 meq PO ONETIME ONE Stop: 11/09/16 09:01 Potassium Chloride (Klor-Con M20) 40 meq PO ONETIME ONE Stop: 11/09/16 09:01 Last Admin: 11/09/16 08:45 Dose: Not Given Prochlorperazine Edisylate (Compazine) 10 mg IV Q6H PRN PRN Reason: N/V Propofol (Diprivan 20 Ml) Confirm Administered Dose 200 mg .ROUTE .STK-MED ONE Stop: 11/06/16 07:12 Rocuronium [place] (Zemuron) Confirm Administered Dose 50 mg .ROUTE .STK-MED ONE Stop: 11/06/16 07:12 Scopolamine (Transderm-Scop) 1.5 mg TRDERM Q72H PRN PRN Reason: Nausea/Vomiting Last Admin: 11/07/16 16:54 Dose: 1.5 mg Spironolactone (Aldactone) 25 mg PO DAILY [facility] Last Admin: 11/12/16 08:45 Dose: 25 mg Spironolactone (Aldactone) 50 mg PO DAILY [facility] Spironolactone (Aldactone) 25 mg PO ONETIME ONE Stop: 11/12/16 09:26 Last Admin: 11/12/16 11:26 Dose: 25 mg Succinylcholine Chloride (Quelicin) Confirm Administered Dose 200 mg .ROUTE .STK -MED ONE Stop: 11/06/16 07:12 - Exam General: Cooperative, No Acute Distress HEENT: Pupils Equal, Pupils Reactive, EOMI, Mucous Membr. Moist/[place] Neck: Supple Lungs: Clear to Auscultation, Normal Respiratory Effort Cardiovascular: Regular Rate, Regular Rhythm GI/Abdominal Exam: Normal Bowel Sounds, Soft, Non-Tender, No Organomegaly, No Distention, No Abnormal Bruit, No Mass, Pelvis Stable Extremities: Pedal Edema Peripheral Pulses: 1+: Radial (L), Radial (R) Skin: Warm, Dry, Intact Psy/Mental Status: Labile Mood - Problem List Review Problem List Initiated/Reviewed/Updated: Yes - My Orders Last 24 Hours: My Active Orders 11/12/16 09:00 Metoprolol Succinate [Toprol XL] 200 mg PO DAILY 11/12/16 09:30 Diltiazem [Cardizem CD] 180 mg PO BID 11/13/16 09:00 Spironolactone [Aldactone] 50 mg PO DAILY - Assessment Assessment:: Assessment/Plan: #1. Confusion: Last night had haldol to control him. Haldol has been working well. #2. Hypertension: BP is good control. Will go back with his admission meds and change as needed according to his BP's #3. Hallucinations at night. This was a problem at home recently. #3. Parkinsonism: This has been a gradual progressive problem. Will need to continue with the Meds. He is walking a little better but still needs assistance. Will be going to the NH today.
[2016-11-13] MEDS: Metoprolol Succinate 50 MG Tab.ER PO SCH (10:11)
[2016-11-13] MEDS: Magnesium Oxide 400 MG Tab PO SCH (10:12)
[2016-11-13] MEDS: Diltiazem 180 MG Cap.CD PO SCH (10:13)
[2016-11-13] MEDS: Hydrochlorothiazide 25 MG Tab PO SCH (10:13)
[2016-11-13] MEDS: Doxazosin 4 MG Tab PO SCH (10:13)
--- NOTE | 2016-12-11 19:21 | PCM.DCSUM1 ---
Discharge Summary - Hospital Course Brief History: Admitted from the office with an acute apendix diag. ny CT of the Abd. He had been having pain forn>12 hrs without an appetite. - Discharge Data Discharge Date: 11/13/16 Discharge Disposition: DC/Tfer to [facility] Condition: Stable - Patient Summary/Data Consults: Consultations 11/09/16 09:59 PT Evaluation and Treatment [CONS] Routine Please Evaluate and Treat. PT Reason for Consult: Strengthening Pending Discharge: Yes This query below is only for informational purposes and is not editable. Hospital Course: He had surgery and the appendix was not ruptured. While in the hospital was initially confused but that cleared. He suffers from Parkinsonism and has been progressive. He is be going to a prison as his is unable to care for him and he needs care. - Patient Instructions Diet: Usual Diet as Tolerated, Drink 8-10+ Glasses/Day, GI Soft/Low Residue/Low Fiber Activity: As Tolerated, No Lifting Over 10 Pounds Driving: Do Not Drive Showering/Bathing: May Shower Wound/Incision Care: Keep Operative Site/Wound Site Clean and Dry Notify Provider of: Fever, Increased Pain, Nausea and/or Vomiting Other/Special Instructions: Use Incentive Inspirometer 10 times in a row every hour while awake for 1 week. - Discharge Plan Home Medications: Home Meds Benazepril [Lotensin] 20 mg PO BID 11/05/16 [History] Carbidopa/Levodopa [Carbidopa-Levo ER 50-200] 1 tab PO BEDTIME 11/05/16 [History ] Carbidopa/Levodopa [Carbidopa-Levodopa 25-100 Tab] 2 tab PO TID 11/05/16 [ History] Donepezil HCl [Aricept] 10 mg PO BEDTIME 11/05/16 [History] Doxazosin Mesylate [Cardura] 4 mg PO DAILY 11/05/16 [History] Potassium Chloride [Klor-Con M20] 20 meq PO QID 11/05/16 [History] Rasagiline [Azilect] 1 mg PO DAILY 11/05/16 [History] Rivastigmine [Exelon] 4.6 mg TD DAILY 11/05/16 [History] Rosuvastatin [Crestor] 5 mg PO BEDTIME 11/05/16 [History] Spironolact/Hydrochlorothiazid [Aldactazide 25-25] 1 tab PO DAILY 11/05/16 [ History] amLODIPine [Norvasc] 5 mg PO DAILY 11/05/16 [History] Patient Handouts: Preventing Constipation After Surgery Referrals: Meri Long PA-C [Physician Circulation Representative] - 11/16/16 11:00 am - Discharge Summary/Plan Comment Discharge Summary/Plan Comment: Parkinson disease, HTN - Patient Data Vitals - Most Recent: Last Vital Signs Temp 98.6 F 11/13/16 08:01 Pulse 49 L 11/13/16 10:11 Resp 16 11/13/16 08:01 BP 102/52 L 11/13/16 10:13 Pulse Ox 95 11/13/16 08:01 Weight - Most Recent: 187 lb 6.287 oz Med Orders - Current: Current Medications Discontinued Medications Acetaminophen (Tylenol) 650 mg PO Q4H PRN PRN Reason: Pain Hydrocodone Bitart/Acetaminophen ([place] 325-5 Mg) 1 tab PO Q4H PRN PRN Reason: Pain Last Admin: 11/09/16 14:19 Dose: 1 tab Amlodipine Besylate (Norvasc) 5 mg PO DAILY [facility] Last Admin: 11/12/16 08:48 Dose: 5 mg Amoxicillin/Clavulanate Potassium (Augmentin 400 Mg/5 Ml Susp) 875 mg PO BID [facility] Last Admin: 11/12/16 21:26 Dose: 875 mg Benazepril HCl (Lotensin) 20 mg PO BID [facility] Last Admin: 11/13/16 10:12 Dose: Not Given Bupivacaine HCl/Epinephrine Bitart (Marcaine 0.5%/Epinephrine 1:200,000) Confirm Administered Dose 50 ml .ROUTE .STK-MED ONE Stop: 11/06/16 06:54 Last Admin: 11/06/16 08:20 Dose: 15 ml Carbidopa/Levodopa (Sinemet 25-100 Mg) 2 tab PO 0800,1200,1700 [facility] Last Admin: 11/13/16 08:06 Dose: 2 tab Carbidopa/Levodopa (Sinemet Cr 50-200 Mg) 1 tab PO BEDTIME [facility] Last Admin: 11/12/16 20:36 Dose: 1 tab Dexamethasone (Dexamethasone) Confirm Administered Dose 4 mg .ROUTE .STK-MED ONE Stop: 11/06/16 07:12 Diltiazem HCl (Cardizem Cd) 180 mg PO BID [facility] Last Admin: 11/13/16 10:13 Dose: Not Given Docusate Sodium (Colace) 100 mg PO BID PRN PRN Reason: Constipation Last Admin: 11/08/16 17:33 Dose: 100 mg Donepezil HCl (Aricept) 10 mg PO BEDTIME [facility] Last Admin: 11/12/16 20:32 Dose: 10 mg Doxazosin Mesylate (Cardura) 4 mg PO ONETIME ONE Stop: 11/05/16 19:34 Last Admin: 11/05/16 20:25 Dose: 4 mg Doxazosin Mesylate (Cardura) 8 mg PO DAILY [facility] Last Admin: 11/08/16 08:51 Dose: 8 mg Doxazosin Mesylate (Cardura) 8 mg PO BID [facility] Last Admin: 11/13/16 10:13 Dose: Not Given Fentanyl (Sublimaze) Confirm Administered Dose 200 mcg .ROUTE .STK-MED ONE Stop: 11/06/16 07:12 Furosemide (Lasix) 20 mg IVPUSH ONETIME ONE Stop: 11/05/16 19:34 Last Admin: 11/05/16 20:25 Dose: 20 mg Furosemide (Lasix) 20 mg IVPUSH ONETIME ONE Stop: 11/07/16 10:16 Last Admin: 11/07/16 10:17 Dose: 20 mg Glycopyrrolate (Robinul) Confirm Administered Dose 1 mg .ROUTE .STK-MED ONE Stop: 11/06/16 07:12 Haloperidol (Haldol) 2 mg PO Q12H PRN PRN Reason: Agitation Last Admin: 11/09/16 18:34 Dose: 2 mg Haloperidol Lactate (Haldol) 2 mg IM Q4H PRN PRN Reason: Agitation Haloperidol Lactate (Haldol) 2 mg IVPUSH Q4H PRN PRN Reason: Agitation Last Admin: 11/08/16 21:30 Dose: 2 mg Hydrochlorothiazide (Hydrochlorothiazide) 25 mg PO DAILY [facility] Last Admin: 11/13/16 10:13 Dose: Not Given Hydromorphone HCl (Dilaudid Director Of Public Works 15 Mg In Ns 30 Ml) 0 mg IV ASDIRECTED PRN; Protocol PRN Reason: Pain Last Admin: 11/06/16 08:09 Dose: 15 mg Hydroxyzine HCl (Vistaril) 50 mg IM Q4H PRN PRN Reason: Nausea/Vomiting Dextrose/Lactated Ringer's (Dextrose 5%-Lactated Ringers) 1,000 mls @ 100 mls/ hr IV ASDIRECTED [facility] Last Admin: 11/07/16 07:29 Dose: 100 mls/hr Aztreonam/Dextrose 1 gm/ (Premix) 50 mls @ 100 mls/hr IV Q8H [facility] Last Admin: 11/08/16 01:20 Dose: 100 mls/hr Ampicillin Sodium/Sulbactam (Sodium 3 gm/ Sodium Chloride) 100 mls @ 200 mls/ hr IV Q6H [facility] Last Admin: 11/08/16 05:21 Dose: 200 mls/hr Potassium Phosphate 20 mmole/ (Sodium Chloride) 256.6667 mls @ 85.556 mls/hr IV ONETIME [facility] Potassium Phosphate 20 mmole/ (Sodium Chloride) 256.6667 mls @ 85.556 mls/hr IV ONETIME [facility] Potassium Phosphate 20 mmole/ (Sodium Chloride) 256.6667 mls @ 85.556 mls/hr IV ONETIME [facility] Potassium Phosphate 20 mmole/ (Sodium Chloride) 256.6667 mls @ 85.556 mls/hr IV Q3H [facility] Stop: 11/06/16 05:29 Last Admin: 11/06/16 04:20 Dose: 85.556 mls/hr Potassium Acetate 20 meq/ (Dextrose/Water) 260 mls @ 127 mls/hr IV Q2H [facility] Stop: 11/06/16 16:29 Last Admin: 11/06/16 14:54 Dose: 127 mls/hr Magnesium Sulfate 2 gm/ Sodium (Chloride) 54 mls @ 27 mls/hr IV Q6H [facility] Stop: 11/09/16 05:59 Potassium Phosphate 25 mmole/ (Sodium Chloride) 508.3333 mls @ 127 mls/hr IV Q4H [facility] Stop: 11/07/16 21:29 Last Admin: 11/07/16 17:18 Dose: 127 mls/hr Magnesium Sulfate 2 gm/ Premix 50 mls @ 25 mls/hr IV Q6H [facility] Stop: 11/09/16 05:59 Magnesium Sulfate 2 gm/ Sodium (Chloride) 54 mls @ 27 mls/hr IV Q6H [facility] Stop: 11/09/16 05:59 Last Admin: 11/09/16 04:31 Dose: 27 mls/hr Dextrose/Lactated Ringer's (Dextrose 5%-Lactated Ringers) 1,000 mls @ 25 mls/ hr IV ASDIRECTED [facility] Last Admin: 11/07/16 10:17 Dose: 25 mls/hr Potassium Chloride 20 meq/Lidocaine HCl 2 ml/ Sodium Chloride 112 mls @ 56 mls/ hr IV Q2H [facility] Stop: 11/08/16 14:29 Last Admin: 11/08/16 12:49 Dose: 56 mls/hr Labetalol HCl (Normodyne) 5 - 10 mg IVPUSH Q1H PRN; Protocol PRN Reason: Hypertension Last Admin: 11/07/16 16:19 Dose: 10 mg Lorazepam (Ativan) 0.5 mg IVPUSH ONETIME ONE Stop: 11/05/16 21:32 Last Admin: 11/05/16 21:46 Dose: 0.5 mg Lorazepam (Ativan) 0.5 mg IVPUSH ONETIME ONE Stop: 11/05/16 22:01 Last Admin: 11/05/16 23:48 Dose: Not Given Magnesium Hydroxide (Milk Of Magnesia) 30 ml PO ONETIME ONE Stop: 11/09/16 10:31 Last Admin: 11/09/16 10:15 Dose: 30 ml Magnesium Oxide (Magnesium Oxide) 400 mg PO DAILY [facility] Last Admin: 11/13/16 10:12 Dose: Not Given Melatonin (Melatonin) 9 mg PO BEDTIME [facility] Last Admin: 11/12/16 20:35 Dose: 9 mg Metoprolol Succinate (Toprol Xl) 50 mg PO DAILY [facility] Last Admin: 11/08/16 10:43 Dose: 50 mg Metoprolol Succinate (Toprol Xl) 100 mg PO DAILY [facility] Last Admin: 11/11/16 09:16 Dose: 100 mg Metoprolol Succinate (Toprol Xl) 200 mg PO DAILY [facility] Last Admin: 11/13/16 10:11 Dose: Not Given Metoprolol Succinate (Toprol Xl) 100 mg PO ONETIME ONE Stop: 11/11/16 13:31 Last Admin: 11/11/16 13:57 Dose: 100 mg Morphine Sulfate (Morphine) 2 mg IVPUSH Q2H PRN PRN Reason: Pain Last Admin: 11/06/16 05:03 Dose: 2 mg Naloxone HCl (Narcan) 0.1 mg IV ASDIRECTED PRN PRN Reason: decreased respiratory rate Neostigmine Methylsulfate (Neostigmine) Confirm Administered Dose 5 mg .ROUTE .STK-MED ONE Stop: 11/06/16 07:12 Verify Scop Patch 0 each TOP DAILY [facility] Last Admin: 11/07/16 23:35 Dose: Not Given Ondansetron HCl (Zofran) 4 mg IV Q4H PRN PRN Reason: N/V Last Admin: 11/07/16 15:54 Dose: 4 mg Ondansetron HCl (Zofran) Confirm Administered Dose 4 mg .ROUTE .STK-MED ONE Stop: 11/06/16 07:12 Ondansetron HCl (Zofran Odt) 4 mg PO Q4H PRN PRN Reason: Nausea/Vomiting Last Admin: 11/11/16 16:40 Dose: 4 mg Pantoprazole Sodium (Protonix Iv) 40 mg IV Q24H [facility] Last Admin: 11/07/16 16:55 Dose: 40 mg Pantoprazole Sodium (Protonix) 40 mg PO ACBREAKFAST [facility] Last Admin: 11/13/16 08:07 Dose: 40 mg Potassium Chloride (Klor-Con M20) 20 meq PO QID [facility] Last Admin: 11/08/16 22:21 Dose: Not Given Potassium Chloride (Klor-Con M20) 20 meq PO WITHMEALSANDBED [facility] Last Admin: 11/09/16 20:47 Dose: 20 meq Potassium Chloride (Potassium Chloride Solution) 40 meq PO ONETIME ONE Stop: 11/09/16 09:01 Potassium Chloride (Klor-Con M20) 40 meq PO ONETIME ONE Stop: 11/09/16 09:01 Last Admin: 11/09/16 08:45 Dose: Not Given Potassium Chloride (Klor-Con M20) 40 meq PO WITHMEALSANDBED [facility] Last Admin: 11/13/16 08:07 Dose: 40 meq Prochlorperazine Edisylate (Compazine) 10 mg IV Q6H PRN PRN Reason: N/V Propofol (Diprivan 20 Ml) Confirm Administered Dose 200 mg .ROUTE .STK-MED ONE Stop: 11/06/16 07:12 Rasagiline (Azilect) 1 mg PO DAILY [facility] Last Admin: 11/13/16 08:08 Dose: 1 mg Rivastigmine (Exelon) 4.5 mg PO DAILY [facility] Last Admin: 11/13/16 08:05 Dose: 4.5 mg Rocuronium [place] (Zemuron) Confirm Administered Dose 50 mg .ROUTE .STK-MED ONE Stop: 11/06/16 07:12 Rosuvastatin Calcium (Crestor) 5 mg PO BEDTIME [facility] Last Admin: 11/12/16 20:33 Dose: 5 mg Scopolamine (Transderm-Scop) 1.5 mg TRDERM Q72H PRN PRN Reason: Nausea/Vomiting Last Admin: 11/07/16 16:54 Dose: 1.5 mg Spironolactone (Aldactone) 25 mg PO DAILY [facility] Last Admin: 11/12/16 08:45 Dose: 25 mg Spironolactone (Aldactone) 50 mg PO DAILY [facility] Spironolactone (Aldactone) 25 mg PO ONETIME ONE Stop: 11/12/16 09:26 Last Admin: 11/12/16 11:26 Dose: 25 mg Spironolactone (Aldactone) 50 mg PO DAILY [facility] Last Admin: 11/13/16 10:13 Dose: Not Given Succinylcholine Chloride (Quelicin) Confirm Administered Dose 200 mg .ROUTE .STK -MED ONE Stop: 11/06/16 07:12 *Q Meaningful Use (DIS) - VTE *Q VTE Criteria *Q: - Stroke *Q Stroke Criteria *Q: - AMI *Q AMI Criteria *Q:
== END 2016-11-13 11:10 | DRG 330 ==
LOC: JP.ICU 15:43 → JP.MS 11-08 09:59
PROVIDERS: ADMIT Internal Medicine; ATTEND Surgery
PROC: 0DTJ4ZZ Resection of Appendix, Percutaneous Endoscopic Approach (ICD-10-PCS; principal; 2016-11-06)
PROC: 0DBH4ZZ Excision of Cecum, Percutaneous Endoscopic Approach (ICD-10-PCS; principal; 2016-11-06)
PROC: 0D9W4ZX Drainage of Peritoneum, Percutaneous Endoscopic Approach, Diagnostic (ICD-10-PCS; principal; 2016-11-06)
DX: K35.3 Acute appendicitis with localized peritonitis (principal); R44.3 Hallucinations, unspecified; I10 Essential (primary) hypertension; E87.6 Hypokalemia; E78.5 Hyperlipidemia, unspecified; I25.10 Atherosclerotic heart disease of native coronary artery without angina pectoris; R32 Unspecified urinary incontinence; G20 Parkinson's disease; F02.80 Dementia in other diseases classified elsewhere, unspecified severity, without behavioral disturbance, psychotic disturbance, mood disturbance, and anxiety; R41.0 Disorientation, unspecified
CPT/HCPCS: 36415; 80048; 80053; 83735; 83880; 84100; 85025; 85027; 87070; 87075; 87077; 87186; 87205; 88304; 97110-GP; 97116-GP; 97162-GP; 97530-GP; A9270-GY; C9113; J0295; J0330; J1100; J1170; J1630; J1940; J2060; J2270; J2405; J2704; J2710; J3010; J3475; J3480; J3490; J7030; J7040; J7042; J7050; J7060

== ENCOUNTER 2017-04-13 16:40 | Emergency (ER) | payer MEDICARE, BC ==
[2017-04-13 19:07] VITALS: BP 179/105
--- NOTE | 2017-04-13 19:59 | EDM.PDOC ---
ED HPI GENERAL MEDICAL PROBLEM - General Chief Complaint: Behavioral/Psych Stated Complaint: SENT BY [facility] Time Seen by Provider: 04/13/17 19:19 Source of Information: Reports: Family, Other (Dr. Ann) History Limitations: Reports: Altered Mental Status - History of Present Illness INITIAL COMMENTS - FREE TEXT/NARRATIVE: This patient is brought in by his for some problems with hallucination and confusion and so forth at the request of Dr. Ann. says that has Parkinson's disease and he has some hallucinations and delusions about people who aren't there and so forth and suddenly has progressed. Earlier today he apparently walked out of the house and that was unusual for him he's also been incontinent of urine for a long time. Overall it seems to be a a pretty rapid deterioration over just a few days. Dr. Ann said that just a week or so ago he was able to drive a car. There's been no history of any head injuries Hip Pain Score (Numeric/FACES): 5 - Related Data Allergies Allergy/AdvReac Type Severity Reaction Status Date / Time No Known Allergies Allergy Verified 04/13/17 19:09 Home Meds: Home Meds Benazepril [Lotensin] 20 mg PO BID 11/05/16 [History] Carbidopa/Levodopa [Carbidopa-Levo ER 50-200] 1 tab PO BEDTIME 11/05/16 [History ] Carbidopa/Levodopa [Carbidopa-Levodopa 25-100 Tab] 2 tab PO TID 11/05/16 [ History] Donepezil HCl [Aricept] 10 mg PO BEDTIME 11/05/16 [History] Doxazosin Mesylate [Cardura] 4 mg PO DAILY 11/05/16 [History] Potassium Chloride [Klor-Con M20] 20 meq PO QID 11/05/16 [History] Rasagiline [Azilect] 1 mg PO DAILY 11/05/16 [History] Rivastigmine [Exelon] 4.5 mg TD DAILY 11/05/16 [History] Rosuvastatin [Crestor] 5 mg PO BEDTIME 11/05/16 [History] Spironolact/Hydrochlorothiazid [Aldactazide 25-25] 25 mg PO DAILY 11/05/16 [ History] amLODIPine [Norvasc] 5 mg PO DAILY 11/05/16 [History] Aspirin 81 mg PO DAILY 04/13/17 [History] Benazepril HCl [Lotensin] 20 mg PO BID 04/13/17 [History] Calcium Carbonate [Tums] 300 mg PO Q4H PRN 04/13/17 [History] Cholecalciferol (Vitamin D3) [Vitamin D3] 1,000 unit PO DAILY 04/13/17 [History] Ondansetron HCl [Zofran] 4 mg PO Q6H PRN 04/13/17 [History] Ranitidine HCl [Zantac] 150 mg PO DAILY 04/13/17 [History] Temazepam [Restoril] 15 mg PO BEDTIME PRN 04/13/17 [History] Past Medical History HEENT History: Reports: Other (See Below) Other HEENT History: LIME Cardiovascular History: Reports: Hypertension Neurological History: Reports: Parkinson's Oncologic (Cancer) History: Reports: Malignant Melanoma Other Oncologic History: 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 - Infectious Disease History Infectious Disease History: Reports: Chicken Pox, Measles - Past Surgical History HEENT Surgical History: Reports: Tonsillectomy GI Surgical History: Reports: Hernia Repair/Other Social & Family History - Tobacco Use Smoking Status *Q: Never Smoker Second Hand Smoke Exposure: No - Caffeine Use Caffeine Use: Reports: Coffee - Recreational Drug Use Recreational Drug Use: No ED ROS GENERAL - Review of Systems Review Of Systems: See Below Constitutional: Reports: No Symptoms HEENT: Reports: No Symptoms Respiratory: Reports: No Symptoms Cardiovascular: Reports: No Symptoms Endocrine: Reports: No Symptoms GI/Abdominal: Reports: No Symptoms : Reports: Incontinence (Chronic) Musculoskeletal: Reports: No Symptoms Skin: Reports: No Symptoms Neurological: Reports: Confusion Psychiatric: Reports: Hallucinations ( says these hallucinations are just a variety of things) Hematologic/Lymphatic: Reports: No Symptoms Immunologic: Reports: No Symptoms ED EXAM, NEURO - Physical Exam Exam: See Below Exam Limited By: Altered Mental Status General Appearance: Other (Initially he is asleep but awakens easily. I really couldn't get much history from him TO is given by his ) Eye Exam: Bilateral Eye: PERRL Throat/Mouth: Normal Inspection Head Exam: Atraumatic Respiratory/Chest: Lungs Clear Cardiovascular: Regular Rate, Rhythm GI/Abdominal: Non-Tender Course - Vital Signs Last Recorded V/S: Last Vital Signs Temp 37.1 C 04/13/17 19:04 Pulse 81 04/13/17 19:04 Resp 16 04/13/17 19:04 BP 179/105 H 04/13/17 19:04 Pulse Ox 99 04/13/17 19:04 - Orders/Labs/Meds Orders: Active Orders 24 hr Category Date Time Status Head wo Cont [CT] Stat Exams 04/13/17 19:55 Taken Labs: Laboratory Tests 04/13/17 04/13/17 04/13/17 Range/Units 20:07 20:07 21:51 WBC 8.9 (4.5-11.0) K/uL RBC 4.14 L (4.30-5.90) M/uL Hgb 13.2 (12.0-15.0) g/dL Hct 39.8 L (40.0-54.0) % MCV 96 (80-98) fL MCH 32 H (27-31) pg MCHC 33 (32-36) % Plt Count 192 (150-400) K/uL Neut % (Auto) 65 (36-66) % Lymph % (Auto) 22 L (24-44) % [place] % (Auto) 12 H (2-6) % Eos % (Auto) 2 (2-4) % Baso % (Auto) 0 (0-1) % Sodium 143 (140-148) mmol/L Potassium 3.2 L (3.6-5.2) mmol/L Chloride 106 (100-108) mmol/L Carbon Dioxide 29 (21-32) mmol/L Anion Gap 11.2 (5.0-14.0) mmol/L BUN 32 H (7-18) mg/dL Creatinine 1.5 H (0.8-1.3) mg/dL Est Cr Clr Drug Dosing 39.20 mL/min Estimated GFR (MDRD) 45 L (>60) Glucose 101 (74-106) mg/dL Calcium 9.2 (8.5-10.1) mg/dL Total Bilirubin 1.4 H (0.2-1.0) mg/dL AST 20 (15-37) U/L ALT 9 L (12-78) U/L Alkaline Phosphatase 53 (46-116) U/L Total Protein 6.0 L (6.4-8.2) g/dL Albumin 3.5 (3.4-5.0) g/dL Globulin 2.5 (2.3-3.5) g/dL Albumin/Globulin Ratio 1.4 (1.2-2.2) Urine Color Yellow Urine Appearance Clear Urine pH 6.0 (4.5-8.0) Ur Specific [place] 1.015 (1.008-1.030) Urine Protein Negative (NEGATIVE) mg/dL Urine Glucose (UA) Normal (NEGATIVE) mg/dL Urine Ketones Negative (NEGATIVE) mg/dL Urine Occult Blood Negative (NEGATIVE) Urine Nitrite Negative (NEGAITVE) Urine Bilirubin Negative (NEGATIVE) Urine Urobilinogen Normal (NORMAL) mg/dL Ur Leukocyte Esterase Negative (NEGATIVE) Urine RBC 0-5 (0-5) Urine WBC 0-5 (0-5) Ur Epithelial Cells Rare Amorphous Sediment Not seen Urine Bacteria Few Urine Mucus Few - Radiology Interpretation Free Text/Narrative:: Head CT showed no acute intracranial abnormality - Re-Assessments/Exams Free Text/Narrative Re-Assessment/Exam: 04/13/17 22:28 Labs were reviewed with his his potassium was a little bit low but that's been a problem in the past and he's on 40 correction 80 mEq of potassium daily. They have an appointment with Dr. Ann on Saturday and they will discuss that with him. On the final exam patient is fairly awake and alert and converses with me a little bit about potassium and follow-up and so forth Departure - Departure Time of Disposition: 22:30 Disposition: Home, Self-Care 01 Condition: Fair Clinical Impression: Hallucinations, Parkinsons disease - Discharge Information Referrals: Hesham Ann Sr, MD [Primary Care Provider] - Forms: ED Department Discharge Additional Instructions: Continue the same medications. Follow-up with Dr. Ann on Saturday as planned. Feel free to return to the ER at any time if needed - My Orders Last 24 Hours: My Active Orders 04/13/17 19:55 Head wo Cont [CT] Stat - Assessment/Plan Last 24 Hours: My Active Orders 04/13/17 19:55 Head wo Cont [CT] Stat
== END 2017-04-13 22:47 | disposition home or self-care (01) ==
LOC: JP.ED 16:40
DX: R44.3 Hallucinations, unspecified (principal); G20 Parkinson's disease; I10 Essential (primary) hypertension; Z79.899 Other long term (current) drug therapy; Z79.82 Long term (current) use of aspirin
CPT/HCPCS: 36415; 70450; 80053; 81001; 85025; 99284; 99285-25

== ENCOUNTER 2017-04-18 22:09 | Observation (INO) | payer MEDICARE, BC ==
--- NOTE | 2017-04-18 23:00 | EDM.PDOC ---
ED HPI GENERAL MEDICAL PROBLEM - General Chief Complaint: Behavioral/Psych Stated Complaint: MEDICAL Time Seen by Provider: 04/18/17 22:55 Source of Information: Reports: Provider, RN Notes Reviewed History Limitations: Reports: Physical Impairment - History of Present Illness INITIAL COMMENTS - FREE TEXT/NARRATIVE: 81-year-old gentleman presents via EMS services today or behavioral issues, he has a known history of Parkinson's disease recently he has developed some delusion with hallucinations and aggressive behavior was recently placed in the [place] [facility] new medication of Seroquel was started he has received 2 doses. By report from EMS staff he became aggressive at the [place] had soiled himself and threatened nursing staff. EMS was called because of his agitated behavior they gave 2 mg Ativan, 50 mg Benadryl and 5 mg Haldol IV by the time he arrives to the emergency department he is heavily sedated but arousable minimally therefore no history or review of systems is obtained the majority this is taken from discussion with his primary care provider and chart review - Related Data Allergies Allergy/AdvReac Type Severity Reaction Status Date / Time No Known Allergies Allergy Verified 04/13/17 19:09 Home Meds: Home Meds Carbidopa/Levodopa [Carbidopa-Levo ER 50-200] 1 tab PO BEDTIME 11/05/16 [History ] Doxazosin Mesylate [Cardura] 4 mg PO DAILY 11/05/16 [History] Potassium Chloride [Klor-Con M20] 20 meq PO QID 11/05/16 [History] Rasagiline [Azilect] 1 mg PO DAILY 11/05/16 [History] Rosuvastatin [Crestor] 5 mg PO BEDTIME 11/05/16 [History] Spironolact/Hydrochlorothiazid [Aldactazide 25-25] 25 mg PO DAILY 11/05/16 [ History] amLODIPine [Norvasc] 5 mg PO DAILY 11/05/16 [History] Aspirin 81 mg PO DAILY 04/13/17 [History] Benazepril HCl [Lotensin] 20 mg PO BID 04/13/17 [History] Calcium Carbonate [Tums] 300 mg PO Q4H PRN 04/13/17 [History] Cholecalciferol (Vitamin D3) [Vitamin D3] 1,000 unit PO DAILY 04/13/17 [History] Ondansetron HCl [Zofran] 4 mg PO Q6H PRN 04/13/17 [History] Ranitidine HCl [Zantac] 150 mg PO DAILY 04/13/17 [History] Dextromethorphan/guaiFENesin [Robitussin DM] 10 ml PO Q4H PRN 04/18/17 [History] Magnesium Hydroxide [Milk of Magnesia] 30 ml PO ASDIRECTED PRN 04/18/17 [History ] QUEtiapine Fumarate [Quetiapine Fumarate] 12.5 mg PO BEDTIME 04/18/17 [History] Rivastigmine Tartrate [Rivastigmine] 4.5 mg PO BID 04/18/17 [History] Past Medical History HEENT History: Reports: Other (See Below) Other HEENT History: [place] Cardiovascular History: Reports: Hypertension Neurological History: Reports: Parkinson's, Other (See Below) Other Neuro History: dementia Psychiatric History: Reports: Dementia Oncologic (Cancer) History: Reports: Malignant Melanoma Other Oncologic History: 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 - Infectious Disease History Infectious Disease History: Reports: Chicken Pox, Measles - Past Surgical History HEENT Surgical History: Reports: Tonsillectomy GI Surgical History: Reports: Hernia Repair/Other Social & Family History - Family History Family Medical History: Noncontributory - Tobacco Use Smoking Status *Q: Unknown Ever Smoked Second Hand Smoke Exposure: No - Caffeine Use Caffeine Use: Reports: None - Recreational Drug Use Recreational Drug Use: No ED ROS PEDIATRIC - Review of Systems Review Of Systems: Unable To Obtain ED EXAM, GENERAL (PEDS) - Physical Exam Exam: See Below Exam Limited By: Physical Impairment General Appearance: Other (Heavily sedated) Eyes: Bilateral: Normal Appearance Respiratory/Chest: No Respiratory Distress, Lungs Clear, Normal Breath Sounds, No Accessory Muscle Use Cardiovascular: Regular Rate, Rhythm, No Murmur Course - Vital Signs Last Recorded V/S: Last Vital Signs Temp 98.8 F 04/18/17 22:15 Pulse 87 04/18/17 22:15 Resp 17 04/18/17 22:15 BP 123/68 04/18/17 22:15 Pulse Ox 95 04/18/17 22:15 Departure - Departure Time of Disposition: 22:59 Disposition: Admitted As Inpatient 65 Condition: Poor Clinical Impression: Hallucinations, Parkinson disease - Discharge Information Referrals: Hesham Ann Sr, MD [Primary Care Provider] - - Assessment/Plan Plan: Assessment Acuity = acute Site and laterality = hallucinations, delusions, aggressive behavior complicated patient with known history of Parkinson's syndrome including dementia Etiology = probable progression of disease Manifestations = none Location of injury = Home Lab values = recently was in the emergency department 5 days prior extensive blood work and CT scan performed no new evaluation studies were performed today Plan Discussed case with his primary care Dr. Ann elected to admit to the hospital and reevaluate in the morning with possible new placement This note was dictated using [employer] voice recognition software please call with any questions on syntax or melina.
[2017-04-18] MEDS ORDERED: Sodium Chloride 0.9% 10 ML Syringe FLUSH PRN (23:01)
[2017-04-18] MEDS ORDERED: LORazepam 2 MG/ML MDV IVPUSH PRN (23:04)
[2017-04-18] MEDS ORDERED: Magnesium Hydroxide 400 MG/5 ML Susp 30 ML Cup PO PRN (23:04)
[2017-04-18] MEDS ORDERED: Calcium Carbonate 500 MG Tab.Chew PO PRN (23:04)
[2017-04-18] MEDS ORDERED: guaiFENesin/Dextromethorphan 100-10 MG/5 ML Soln 10 ML Cup PO PRN (23:04)
[2017-04-18] MEDS ORDERED: Ondansetron 4 MG Tab.DIS PO PRN (23:04)
[2017-04-19] MEDS ORDERED: [UNRECOGNIZED DRUG - OTHER] PO SCH (09:00)
[2017-04-19] MEDS: Doxazosin 4 MG Tab PO SCH ×2 (10:38→20:15)
[2017-04-19] MEDS: Spironolactone 25 MG Tab PO SCH (10:38)
[2017-04-19] MEDS: Hydrochlorothiazide 25 MG Tab PO SCH (10:38)
[2017-04-19] MEDS: Aspirin 81 MG Tab.EC PO SCH (10:38)
[2017-04-19] MEDS: Potassium Chloride 20 MEQ Tab.ER PO SCH ×2 (10:38→16:58)
[2017-04-19] MEDS: amLODIPine 5 MG Tab PO SCH (10:39)
[2017-04-19] MEDS: Cholecalciferol (Vitamin D3) 1,000 Unit Tab PO SCH (10:39)
--- NOTE | 2017-04-19 16:27 | PCM.HP ---
H&P History of Present Illness - General Date of Service: 04/18/17 Admit Problem/Dx: Admission Diagnosis/Problem Admission Diagnosis/Problem Hallucinations Source of Information: EMS, EMS Notes Reviewed, Family History Limitations: Reports: Altered Mental Status - History of Present Illness Initial Comments - Free Text/Narative: Charlotte is a 81 year old male with a history of Parkinson disease who has been gradually decreaseing in strength and having hallucinations. He became hostile this evening after being transferred to the [facility] and was brought to the ER and I admitted him. Onset of Symptoms: Reports: Gradual Duration of Symptoms: Reports: Week(s): Associated Symptoms: Reports: Confusion - Related Data Allergies/Adverse Reactions: Allergies Allergy/AdvReac Type Severity Reaction Status Date / Time No Known Allergies Allergy Verified 04/13/17 19:09 Home Medications: Home Meds Carbidopa/Levodopa [Carbidopa-Levo ER 50-200] 1 tab PO BEDTIME 11/05/16 [History ] Doxazosin Mesylate [Cardura] 4 mg PO BID 11/05/16 [History] Potassium Chloride [Klor-Con M20] 20 meq PO BID 11/05/16 [History] Rasagiline [Azilect] 1 mg PO DAILY 11/05/16 [History] Rosuvastatin [Crestor] 5 mg PO BEDTIME 11/05/16 [History] Spironolact/Hydrochlorothiazid [Aldactazide 25-25] 25 mg PO DAILY 11/05/16 [ History] amLODIPine [Norvasc] 5 mg PO DAILY 11/05/16 [History] Aspirin 81 mg PO DAILY 04/13/17 [History] Benazepril HCl [Lotensin] 20 mg PO BID 04/13/17 [History] Calcium Carbonate [Tums] 300 mg PO Q4H PRN 04/13/17 [History] Cholecalciferol (Vitamin D3) [Vitamin D3] 1,000 unit PO DAILY 04/13/17 [History] Ondansetron HCl [Zofran] 4 mg PO Q4H PRN 04/13/17 [History] Ranitidine HCl [Zantac] 150 mg PO DAILY 04/13/17 [History] Dextromethorphan/guaiFENesin [Robitussin DM] 10 ml PO Q4H PRN 04/18/17 [History] Magnesium Hydroxide [Milk of Magnesia] 30 ml PO ASDIRECTED PRN 04/18/17 [History ] QUEtiapine Fumarate [Quetiapine Fumarate] 12.5 mg PO BEDTIME 04/18/17 [History] Rivastigmine Tartrate [Rivastigmine] 4.5 mg PO BID 04/18/17 [History] Past Medical History HEENT History: Reports: Other (See Below) Other HEENT History: [place] Cardiovascular History: Reports: Hypertension Gastrointestinal History: Reports: Chronic Constipation, GERD Neurological History: Reports: Parkinson's, Other (See Below) Other Neuro History: dementia Psychiatric History: Reports: Dementia Oncologic (Cancer) History: Reports: Malignant Melanoma Other Oncologic History: 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 - Infectious Disease History Infectious Disease History: Reports: Chicken Pox, Measles - Past Surgical History HEENT Surgical History: Reports: Tonsillectomy GI Surgical History: Reports: Hernia Repair/Other Social & Family History - Family History Family Medical History: Noncontributory - Tobacco Use Smoking Status *Q: Unknown Ever Smoked Second Hand Smoke Exposure: No - Caffeine Use Caffeine Use: Reports: None - Recreational Drug Use Recreational Drug Use: No H&P Review of Systems - Review of Systems: Review Of Systems: See Below General: Reports: Weakness, Weight Loss Pulmonary: Reports: No Symptoms Cardiovascular: Reports: No Symptoms Gastrointestinal: Reports: No Symptoms Genitourinary: Reports: No Symptoms Musculoskeletal: Reports: Other (ambulation difficult as per Parkinson disease.) Psychiatric: Reports: Anxiety Neurological: Reports: Confusion, Difficulty Walking, Weakness Exam - Exam Exam: See Below - Vital Signs Vital Signs: Last Vital Signs Temp 98.2 F 04/19/17 14:30 Pulse 67 04/19/17 14:30 Resp 18 04/19/17 14:30 BP 155/73 H 04/19/17 14:30 Pulse Ox 93 L 04/19/17 14:30 Weight: 184 lb - Exam General: Lethargic HEENT: PERRLA, Hearing Intact, Mucosa Moist & [place], Nares Patent, Normal Nasal Septum, Posterior Pharynx Clear, Conjunctiva Clear, EOMI, EACs Clear, TMs Clear Neck: Supple, Trachea Midline, 2 Lungs: Clear to Auscultation Cardiovascular: Regular Rate, Regular Rhythm GI/Abdominal Exam: Soft Extremities: Non-Tender Peripheral Pulses: 1+: Radial (L), Radial (R) Skin: Warm, Dry, Intact Neuro Extensive - Mental Status: Other (Unresponsive secondary to meds given by EMS) Neuro Extensive - Motor, Sensory, Reflexes: Ataxia Psychiatric: Hallucinations *Q Meaningful Use (ADM) - VTE *Q VTE Criteria *Q: - Stroke *Q Stroke Criteria *Q: - AMI *Q AMI Criteria *Q: Problem List Initiated/Reviewed/Updated: Yes Orders Last 24hrs: Active Orders 24 hr Category Date Time Status Aspirin [Halfprin] Med 04/19/17 09:00 Active 81 mg PO DAILY Benazepril [Lotensin] Med 04/19/17 09:00 Active 20 mg PO BID Calcium Carbonate [Tums] Med 04/18/17 23:04 Active 300 mg PO Q4H PRN Carbidopa/Levodopa [Sinemet Cr 50-200 mg] Med 04/19/17 21:00 Active 1 tab PO BEDTIME Cholecalciferol (Vitamin D3) [Vitamin D3] Med 04/19/17 09:00 Active 1,000 units PO DAILY Dextromethorphan/guaiFENesin [Robitussin DM] Med 04/18/17 23:04 Active 10 ml PO Q4H PRN Doxazosin [Cardura] Med 04/19/17 09:00 Active 4 mg PO BID Hydrochlorothiazide Med 04/19/17 09:00 Active 25 mg PO DAILY LORazepam [Ativan] Med 04/18/17 23:04 Active 1 mg IVPUSH Q4H PRN Magnesium Hydroxide [Milk of Magnesia] Med 04/18/17 23:04 Active 30 ml PO ASDIRECTED PRN Ondansetron [Zofran ODT] Med 04/18/17 23:04 Active 4 mg PO Q4H PRN Potassium Chloride [Klor-Con M20] Med 04/19/17 08:00 Active 20 meq PO BIDMEALS QUEtiapine [SEROquel] Med 04/19/17 21:00 Active 12.5 mg PO BEDTIME Ranitidine [Zantac] Med 04/19/17 09:00 Active 150 mg PO DAILY Rasagiline [Azilect] Med 04/19/17 09:00 Active 1 mg PO DAILY Rivastigmine [Exelon] Med 04/19/17 08:00 Active 4.5 mg PO BIDMEALS Rosuvastatin [Crestor] Med 04/19/17 21:00 Active 5 mg PO BEDTIME Spironolactone [Aldactone] Med 04/19/17 09:00 Active 25 mg PO DAILY amLODIPine [Norvasc] Med 04/19/17 09:00 Active 5 mg PO DAILY Medication Orders Amlodipine Besylate (Norvasc) 5 mg PO DAILY [facility] Last Admin: 04/19/17 10:39 Dose: Not Given Aspirin (Halfprin) 81 mg PO DAILY [facility] Last Admin: 04/19/17 10:38 Dose: Not Given Benazepril HCl (Lotensin) 20 mg PO BID [facility] Last Admin: 04/19/17 10:38 Dose: Not Given Calcium Carbonate/Glycine (Tums) 300 mg PO Q4H PRN PRN Reason: Gas Carbidopa/Levodopa (Sinemet Cr 50-200 Mg) 1 tab PO BEDTIME [facility] Cholecalciferol (Vitamin D3) 1,000 units PO DAILY [facility] Last Admin: 04/19/17 10:39 Dose: Not Given Doxazosin Mesylate (Cardura) 4 mg PO BID [facility] Last Admin: 04/19/17 10:38 Dose: Not Given Guaifenesin/Dextromethorphan (Robitussin Dm) 10 ml PO Q4H PRN PRN Reason: Cough Hydrochlorothiazide (Hydrochlorothiazide) 25 mg PO DAILY [facility] Last Admin: 04/19/17 10:38 Dose: Not Given Lorazepam (Ativan) 1 mg IVPUSH Q4H PRN PRN Reason: Agitation Magnesium Hydroxide (Milk Of Magnesia) 30 ml PO ASDIRECTED PRN PRN Reason: Constipation Ondansetron HCl (Zofran Odt) 4 mg PO Q4H PRN PRN Reason: Nausea Potassium Chloride (Klor-Con M20) 20 meq PO BIDMEALS [facility] Last Admin: 04/19/17 10:38 Dose: Not Given Quetiapine Fumarate (Seroquel) 12.5 mg PO BEDTIME [facility] Ranitidine HCl (Zantac) 150 mg PO DAILY [facility] Last Admin: 04/19/17 10:39 Dose: Not Given Rasagiline (Azilect) 1 mg PO DAILY [facility] Last Admin: 04/19/17 10:38 Dose: Not Given Rivastigmine (Exelon) 4.5 mg PO BIDMEALS [facility] Last Admin: 04/19/17 10:38 Dose: Not Given Rosuvastatin Calcium (Crestor) 5 mg PO BEDTIME [facility] Sodium Chloride (Saline Flush) 10 ml FLUSH ASDIRECTED PRN PRN Reason: Keep Vein Open Spironolactone (Aldactone) 25 mg PO DAILY [facility] Last Admin: 04/19/17 10:38 Dose: Not Given Assessment/Plan Comment:: Assessment/Plan: #1. Parkinson disease #2. Hallucinations: Recently started on Seroquel #3. Insomnia: Chronic #4. HTN: Has been stable on meds. #5. Depression: Chronic.
--- NOTE | 2017-04-19 16:36 | PCM.PN ---
- General Info Date of Service: 04/19/17 Subjective Update: Still lethargic. this morning still unable to wake up this afternoon falling asleep while talking to him. His was with him this PM Functional Status: Reports: Pain Controlled - Review of Systems General: Reports: Weakness, Fatigue HEENT: Reports: No Symptoms Pulmonary: Reports: No Symptoms Cardiovascular: Reports: No Symptoms Gastrointestinal: Reports: No Symptoms Genitourinary: Reports: No Symptoms Skin: Reports: No Symptoms Neurological: Reports: Confusion, Difficulty Walking, Weakness Psychiatric: Reports: Depression - Patient Data Vitals - Most Recent: Last Vital Signs Temp 98.2 F 04/19/17 14:30 Pulse 67 04/19/17 14:30 Resp 18 04/19/17 14:30 BP 155/73 H 04/19/17 14:30 Pulse Ox 93 L 04/19/17 14:30 Weight - Most Recent: 184 lb Med Orders - Current: Current Medications Amlodipine Besylate (Norvasc) 5 mg PO DAILY [facility] Last Admin: 04/19/17 10:39 Dose: Not Given Aspirin (Halfprin) 81 mg PO DAILY [facility] Last Admin: 04/19/17 10:38 Dose: Not Given Benazepril HCl (Lotensin) 20 mg PO BID [facility] Last Admin: 04/19/17 10:38 Dose: Not Given Calcium Carbonate/Glycine (Tums) 300 mg PO Q4H PRN PRN Reason: Gas Carbidopa/Levodopa (Sinemet Cr 50-200 Mg) 1 tab PO BEDTIME [facility] Cholecalciferol (Vitamin D3) 1,000 units PO DAILY [facility] Last Admin: 04/19/17 10:39 Dose: Not Given Doxazosin Mesylate (Cardura) 4 mg PO BID [facility] Last Admin: 04/19/17 10:38 Dose: Not Given Guaifenesin/Dextromethorphan (Robitussin Dm) 10 ml PO Q4H PRN PRN Reason: Cough Hydrochlorothiazide (Hydrochlorothiazide) 25 mg PO DAILY [facility] Last Admin: 04/19/17 10:38 Dose: Not Given Lorazepam (Ativan) 1 mg IVPUSH Q4H PRN PRN Reason: Agitation Magnesium Hydroxide (Milk Of Magnesia) 30 ml PO ASDIRECTED PRN PRN Reason: Constipation Ondansetron HCl (Zofran Odt) 4 mg PO Q4H PRN PRN Reason: Nausea Potassium Chloride (Klor-Con M20) 20 meq PO BIDMEALS [facility] Last Admin: 04/19/17 10:38 Dose: Not Given Quetiapine Fumarate (Seroquel) 12.5 mg PO BEDTIME [facility] Ranitidine HCl (Zantac) 150 mg PO DAILY [facility] Last Admin: 04/19/17 10:39 Dose: Not Given Rasagiline (Azilect) 1 mg PO DAILY [facility] Last Admin: 04/19/17 10:38 Dose: Not Given Rivastigmine (Exelon) 4.5 mg PO BIDMEALS [facility] Last Admin: 04/19/17 10:38 Dose: Not Given Rosuvastatin Calcium (Crestor) 5 mg PO BEDTIME [facility] Sodium Chloride (Saline Flush) 10 ml FLUSH ASDIRECTED PRN PRN Reason: Keep Vein Open Spironolactone (Aldactone) 25 mg PO DAILY [facility] Last Admin: 04/19/17 10:38 Dose: Not Given - Exam General: Lethargic HEENT: Pupils Equal, Pupils Reactive, EOMI, Mucous Membr. Moist/[place] Neck: Supple Lungs: Clear to Auscultation, Normal Respiratory Effort Cardiovascular: Regular Rate, Regular Rhythm GI/Abdominal Exam: Normal Bowel Sounds, Soft, Non-Tender, No Organomegaly, No Distention, No Abnormal Bruit, No Mass, Pelvis Stable Peripheral Pulses: 1+: Radial (L), Radial (R) Skin: Warm Psy/Mental Status: Labile Mood - Problem List Review Problem List Initiated/Reviewed/Updated: Yes - Plan Plan:: Assessment/Plan: #1. Parkinson disease. Continue with meds for Parkinson #2. Hallucinations: Recently started on Seroquel. Will increase tonight depending on his recovery from last night. #3. Insomnia: Chronic #4. HTN: Has been stable on meds. #5. Depression: Chronic.
[2017-04-19] MEDS ORDERED: Carbidopa/Levodopa 50-200 MG Tab.ER PO SCH (21:00)
[2017-04-19] MEDS ORDERED: QUEtiapine 25 MG Tab PO SCH (21:00)
[2017-04-19] MEDS ORDERED: Rosuvastatin 10 MG Tab PO SCH (21:00)
[2017-04-20] MEDS: Potassium Chloride 20 MEQ Tab.ER PO SCH (08:06)
[2017-04-20] MEDS: Spironolactone 25 MG Tab PO SCH (09:27)
[2017-04-20] MEDS: Cholecalciferol (Vitamin D3) 1,000 Unit Tab PO SCH (09:28)
[2017-04-20] MEDS: Hydrochlorothiazide 25 MG Tab PO SCH (09:28)
[2017-04-20] MEDS: Aspirin 81 MG Tab.EC PO SCH (09:28)
[2017-04-20] MEDS: Doxazosin 4 MG Tab PO SCH (09:28)
[2017-04-20] MEDS: amLODIPine 5 MG Tab PO SCH (09:29)
[2017-04-20 11:46] VITALS: BP 131/95
--- NOTE | 2017-04-20 14:06 | PCM.PN ---
- General Info Date of Service: 04/20/17 Subjective Update: Feeling OK. He has no complaints. - Review of Systems General: Reports: Weakness Pulmonary: Reports: No Symptoms Cardiovascular: Reports: No Symptoms Gastrointestinal: Reports: No Symptoms Genitourinary: Reports: No Symptoms Musculoskeletal: Reports: No Symptoms Psychiatric: Reports: No Symptoms - Patient Data Vitals - Most Recent: Last Vital Signs Temp 97.5 F 04/20/17 11:53 Pulse 70 04/20/17 11:41 Resp 18 04/20/17 11:41 BP 131/95 H 04/20/17 11:41 Pulse Ox 97 04/20/17 11:41 Weight - Most Recent: 184 lb I&O - Last 24 Hours: Intake & Output 04/19/17 04/20/17 04/20/17 22:59 06:59 14:59 Intake Total 240 120 200 Balance 240 120 200 Med Orders - Current: Current Medications Amlodipine Besylate (Norvasc) 5 mg PO DAILY [facility] Last Admin: 04/20/17 09:29 Dose: 5 mg Aspirin (Halfprin) 81 mg PO DAILY [facility] Last Admin: 04/20/17 09:28 Dose: 81 mg Benazepril HCl (Lotensin) 20 mg PO BID [facility] Last Admin: 04/20/17 09:28 Dose: 20 mg Calcium Carbonate/Glycine (Tums) 300 mg PO Q4H PRN PRN Reason: Gas Carbidopa/Levodopa (Sinemet Cr 50-200 Mg) 1 tab PO BEDTIME [facility] Last Admin: 04/19/17 20:15 Dose: 1 tab Cholecalciferol (Vitamin D3) 1,000 units PO DAILY [facility] Last Admin: 04/20/17 09:28 Dose: 1,000 units Doxazosin Mesylate (Cardura) 4 mg PO BID [facility] Last Admin: 04/20/17 09:28 Dose: 4 mg Guaifenesin/Dextromethorphan (Robitussin Dm) 10 ml PO Q4H PRN PRN Reason: Cough Hydrochlorothiazide (Hydrochlorothiazide) 25 mg PO DAILY [facility] Last Admin: 04/20/17 09:28 Dose: 25 mg Lorazepam (Ativan) 1 mg IVPUSH Q4H PRN PRN Reason: Agitation Magnesium Hydroxide (Milk Of Magnesia) 30 ml PO ASDIRECTED PRN PRN Reason: Constipation Ondansetron HCl (Zofran Odt) 4 mg PO Q4H PRN PRN Reason: Nausea Potassium Chloride (Klor-Con M20) 20 meq PO BIDMEALS [facility] Last Admin: 04/20/17 08:06 Dose: 20 meq Quetiapine Fumarate (Seroquel) 12.5 mg PO BEDTIME [facility] Last Admin: 04/19/17 20:20 Dose: 12.5 mg Ranitidine HCl (Zantac) 150 mg PO DAILY [facility] Last Admin: 04/20/17 09:29 Dose: 150 mg Rasagiline (Azilect) 1 mg PO DAILY [facility] Last Admin: 04/20/17 09:28 Dose: 1 mg Rivastigmine (Exelon) 4.5 mg PO BIDMEALS [facility] Last Admin: 04/20/17 08:06 Dose: 4.5 mg Rosuvastatin Calcium (Crestor) 5 mg PO BEDTIME [facility] Last Admin: 04/19/17 20:14 Dose: 5 mg Sodium Chloride (Saline Flush) 10 ml FLUSH ASDIRECTED PRN PRN Reason: Keep Vein Open Spironolactone (Aldactone) 25 mg PO DAILY [facility] Last Admin: 04/20/17 09:27 Dose: 25 mg - Exam General: Oriented, Cooperative, No Acute Distress HEENT: Pupils Equal, Pupils Reactive, EOMI, Mucous Membr. Moist/[place] Neck: Supple Lungs: Clear to Auscultation, Normal Respiratory Effort Cardiovascular: Regular Rate, Regular Rhythm GI/Abdominal Exam: Normal Bowel Sounds, Soft, Non-Tender, No Organomegaly, No Distention, No Abnormal Bruit, No Mass, Pelvis Stable Extremities: Normal Inspection, Normal Range of Motion, Non-Tender, No Pedal Edema, Normal Capillary Refill Skin: Warm Neurological: No New Focal Deficit Psy/Mental Status: Alert, Normal Affect, Normal Mood - Problem List Review Problem List Initiated/Reviewed/Updated: Yes - My Orders Last 24 Hours: My Active Orders 04/20/17 13:59 CBC WITH AUTO DIFF [HEME] Routine COMPREHENSIVE METABOLIC PN,CMP [CHEM] Routine - Plan Plan:: Assessment/Plan: #1. Parkinson disease. Continue with meds for Parkinson #2. Hallucinations: Recently started on Seroquel. Will continue with seroquel at 125 mg q h.s.. #3. Insomnia: Chronic #4. HTN: Has been stable on meds. #5. Depression: Chronic.
--- NOTE | 2017-04-20 14:10 | PCM.DCSUM1 ---
Discharge Summary - Hospital Course Brief History: Admitted after an eposode of confusion and hostility at the [facility]. He was given Ativan by EMS and he was not resposive to verbal stimuli but breathing by himself. - Discharge Data Discharge Date: 04/20/17 Discharge Disposition: Home, Self-Care 01 Condition: Fair - Patient Summary/Data Hospital Course: He woke up after 18 hrs and back to his original mental condition with Parkinsonism state. No acute problems were found while in the hospital. Labs pending at the time of DC. - Discharge Plan Prescriptions/Med Rec: QUEtiapine [SEROquel] 25 mg PO BEDTIME 30 Days #30 tab Home Medications: Home Meds Carbidopa/Levodopa [Carbidopa-Levo ER 50-200] 1 tab PO BEDTIME 11/05/16 [History ] Doxazosin Mesylate [Cardura] 4 mg PO BID 11/05/16 [History] Potassium Chloride [Klor-Con M20] 20 meq PO BID 11/05/16 [History] Rasagiline [Azilect] 1 mg PO DAILY 11/05/16 [History] Rosuvastatin [Crestor] 5 mg PO BEDTIME 11/05/16 [History] Spironolact/Hydrochlorothiazid [Aldactazide 25-25] 25 mg PO DAILY 11/05/16 [ History] amLODIPine [Norvasc] 5 mg PO DAILY 11/05/16 [History] Aspirin 81 mg PO DAILY 04/13/17 [History] Benazepril HCl [Lotensin] 20 mg PO BID 04/13/17 [History] Calcium Carbonate [Tums] 300 mg PO Q4H PRN 04/13/17 [History] Cholecalciferol (Vitamin D3) [Vitamin D3] 1,000 unit PO DAILY 04/13/17 [History] Ondansetron HCl [Zofran] 4 mg PO Q4H PRN 04/13/17 [History] Ranitidine HCl [Zantac] 150 mg PO DAILY 04/13/17 [History] Dextromethorphan/guaiFENesin [Robitussin DM] 10 ml PO Q4H PRN 04/18/17 [History] Magnesium Hydroxide [Milk of Magnesia] 30 ml PO ASDIRECTED PRN 04/18/17 [History ] QUEtiapine Fumarate [Quetiapine Fumarate] 12.5 mg PO BEDTIME 04/18/17 [History] Rivastigmine Tartrate [Rivastigmine] 4.5 mg PO BID 04/18/17 [History] QUEtiapine [SEROquel] 25 mg PO BEDTIME 30 Days #30 tab 04/20/17 [Rx] Spironolactone [Aldactone] 25 mg PO DAILY tablet 04/20/17 [Rx] Forms: ED Department Discharge Referrals: Hesham Ann Sr, MD [Primary Care Provider] - - Discharge Summary/Plan Comment Discharge Summary/Plan Comment: Assessment/Plan: #1. Parkinson disease. Continue with meds for Parkinson #2. Hallucinations: Recently started on Seroquel. Will continue with seroquel at 125 mg q h.s.. #3. Insomnia: Chronic #4. HTN: Has been stable on meds. #5. Depression: Chronic. Home today at the [facility] - Review of Systems General: Reports: Weakness, Fatigue HEENT: Reports: No Symptoms Pulmonary: Reports: No Symptoms Cardiovascular: Reports: No Symptoms Gastrointestinal: Reports: No Symptoms Genitourinary: Reports: No Symptoms Musculoskeletal: Reports: No Symptoms Skin: Reports: No Symptoms Neurological: Reports: Trouble Speaking, Difficulty Walking, Weakness, Gait Disturbance Psychiatric: Reports: Depression - Patient Data Vitals - Most Recent: Last Vital Signs Temp 97.5 F 04/20/17 11:53 Pulse 70 04/20/17 11:41 Resp 18 04/20/17 11:41 BP 131/95 H 04/20/17 11:41 Pulse Ox 97 04/20/17 11:41 Weight - Most Recent: 184 lb I&O - Last 24 hours: Intake & Output 04/19/17 04/20/17 04/20/17 22:59 06:59 14:59 Intake Total 240 120 200 Balance 240 120 200 Med Orders - Current: Current Medications Amlodipine Besylate (Norvasc) 5 mg PO DAILY [facility] Last Admin: 04/20/17 09:29 Dose: 5 mg Aspirin (Halfprin) 81 mg PO DAILY [facility] Last Admin: 04/20/17 09:28 Dose: 81 mg Benazepril HCl (Lotensin) 20 mg PO BID [facility] Last Admin: 04/20/17 09:28 Dose: 20 mg Calcium Carbonate/Glycine (Tums) 300 mg PO Q4H PRN PRN Reason: Gas Carbidopa/Levodopa (Sinemet Cr 50-200 Mg) 1 tab PO BEDTIME [facility] Last Admin: 04/19/17 20:15 Dose: 1 tab Cholecalciferol (Vitamin D3) 1,000 units PO DAILY [facility] Last Admin: 04/20/17 09:28 Dose: 1,000 units Doxazosin Mesylate (Cardura) 4 mg PO BID [facility] Last Admin: 04/20/17 09:28 Dose: 4 mg Guaifenesin/Dextromethorphan (Robitussin Dm) 10 ml PO Q4H PRN PRN Reason: Cough Hydrochlorothiazide (Hydrochlorothiazide) 25 mg PO DAILY [facility] Last Admin: 04/20/17 09:28 Dose: 25 mg Lorazepam (Ativan) 1 mg IVPUSH Q4H PRN PRN Reason: Agitation Magnesium Hydroxide (Milk Of Magnesia) 30 ml PO ASDIRECTED PRN PRN Reason: Constipation Ondansetron HCl (Zofran Odt) 4 mg PO Q4H PRN PRN Reason: Nausea Potassium Chloride (Klor-Con M20) 20 meq PO BIDMEALS [facility] Last Admin: 04/20/17 08:06 Dose: 20 meq Quetiapine Fumarate (Seroquel) 12.5 mg PO BEDTIME [facility] Last Admin: 04/19/17 20:20 Dose: 12.5 mg Ranitidine HCl (Zantac) 150 mg PO DAILY [facility] Last Admin: 04/20/17 09:29 Dose: 150 mg Rasagiline (Azilect) 1 mg PO DAILY [facility] Last Admin: 04/20/17 09:28 Dose: 1 mg Rivastigmine (Exelon) 4.5 mg PO BIDMEALS [facility] Last Admin: 04/20/17 08:06 Dose: 4.5 mg Rosuvastatin Calcium (Crestor) 5 mg PO BEDTIME [facility] Last Admin: 04/19/17 20:14 Dose: 5 mg Sodium Chloride (Saline Flush) 10 ml FLUSH ASDIRECTED PRN PRN Reason: Keep Vein Open Spironolactone (Aldactone) 25 mg PO DAILY [facility] Last Admin: 04/20/17 09:27 Dose: 25 mg - Exam General: Reports: Oriented, No Acute Distress HEENT: Reports: Pupils Equal Neck: Reports: Supple Lungs: Reports: Clear to Auscultation, Normal Respiratory Effort Cardiovascular: Reports: Regular Rate GI/Abdominal Exam: Normal Bowel Sounds, Soft, Non-Tender, No Organomegaly, No Distention, No Abnormal Bruit, No Mass, Pelvis Stable Skin: Reports: Warm, Dry, Intact Neurological: Reports: Other (Parkinsonism gait) Psy/Mental Status: Reports: Alert, Normal Affect *Q Meaningful Use (DIS) - VTE *Q VTE Criteria *Q: - Stroke *Q Stroke Criteria *Q: - AMI *Q AMI Criteria *Q:
== END 2017-04-20 14:50 ==
LOC: JP.ED 22:09 → JP.MS 23:01
PROVIDERS: ADMIT Internal Medicine; ATTEND Internal Medicine
DX: G20 Parkinson's disease (principal); F02.80 Dementia in other diseases classified elsewhere, unspecified severity, without behavioral disturbance, psychotic disturbance, mood disturbance, and anxiety; R44.3 Hallucinations, unspecified; F51.04 Psychophysiologic insomnia; I10 Essential (primary) hypertension; F32.9 Major depressive disorder, single episode, unspecified; K21.9 Gastro-esophageal reflux disease without esophagitis; K59.09 Other constipation; Z79.82 Long term (current) use of aspirin; Z79.899 Other long term (current) drug therapy
CPT/HCPCS: 36415; 80053; 85025; 99285; A9270

== ENCOUNTER 2018-09-30 17:50 | Inpatient (IN) | payer MEDICARE, BC ==
[2018-09-30] MEDS ORDERED: Sodium Chloride 0.9% 10 ML Syringe FLUSH PRN (18:16)
[2018-09-30] MEDS ORDERED: Metoclopramide 10 MG/2 ML SDV IVPUSH ONE (18:18)
--- NOTE | 2018-09-30 18:29 | EDM.PDOC ---
ED HPI GENERAL MEDICAL PROBLEM - General Chief Complaint: Gastrointestinal Problem Stated Complaint: MEDICAL VIA [facility] Time Seen by Provider: 09/30/18 18:15 Source of Information: Reports: EMS, Family, Old Records, RN. Denies: Patient History Limitations: Reports: Other (patient not able to provide useful info) - History of Present Illness INITIAL COMMENTS - FREE TEXT/NARRATIVE: 83 yo male [facility] patient with some dementia vomited coffee ground emesis this afternoon. [facility] staff noted his BP to be running higher than usual. No fever. Onset: Today Onset Date: 09/30/18 Onset Time: 14:00 Duration: Hour(s): Location: Reports: Abdomen Quality: Reports: Other (unknown, not able to describe) Severity: Moderate Improves with: Reports: None Worsens with: Reports: Other (? time) Context: Reports: Other (See HPI) Associated Symptoms: Reports: Confusion (chronic), Nausea/Vomiting. Denies: Cough, Fever/Chills, Rash, Shortness of Breath Treatments [employer]: Reports: Other (see below) (none) - Related Data Allergies Allergy/AdvReac Type Severity Reaction Status Date / Time No Known Allergies Allergy Verified 09/30/18 18:19 Home Meds: Home Meds Carbidopa/Levodopa [Carbidopa-Levo ER 50-200] 1 tab PO BEDTIME 11/05/16 [History ] Doxazosin Mesylate [Cardura] 4 mg PO BEDTIME 11/05/16 [History] Potassium Chloride [Klor-Con M20] 40 meq PO BID 11/05/16 [History] Rasagiline [Azilect] 1 mg PO DAILY 11/05/16 [History] Spironolact/Hydrochlorothiazid [Aldactazide 25-25] 25 mg PO DAILY 11/05/16 [ History] amLODIPine [Norvasc] 5 mg PO DAILY 11/05/16 [History] Aspirin 81 mg PO DAILY 04/13/17 [History] Benazepril HCl [Lotensin] 20 mg PO BID 04/13/17 [History] Calcium Carbonate [Tums] 300 mg PO Q4H PRN 04/13/17 [History] Cholecalciferol (Vitamin D3) [Vitamin D3] 1,000 unit PO DAILY 04/13/17 [History] Ondansetron HCl [Zofran] 4 mg PO Q4H PRN 04/13/17 [History] Dextromethorphan/guaiFENesin [Robitussin DM] 10 ml PO Q4H PRN 04/18/17 [History] Magnesium Hydroxide [Milk of Magnesia] 30 ml PO ASDIRECTED PRN 04/18/17 [History ] QUEtiapine Fumarate [Quetiapine Fumarate] 25 mg PO BEDTIME 04/18/17 [History] Rivastigmine Tartrate [Rivastigmine] 4.5 mg PO BID 04/18/17 [History] Spironolactone [Aldactone] 25 mg PO DAILY tablet 04/20/17 [Rx] Carbidopa/Levodopa [Carbidopa-Levodopa 25-100 Tab] 1 each PO QID 09/30/18 [ History] Oxybutynin 5 mg PO TID 09/30/18 [History] Potassium Chloride 20 meq PO DAILY 09/30/18 [History] QUEtiapine [SEROquel] 6.25 mg PO DAILY 09/30/18 [History] Trospium Chloride 20 mg PO BID 09/30/18 [History] Past Medical History HEENT History: Reports: Other (See Below) Other HEENT History: [place] Cardiovascular History: Reports: High Cholesterol, Hypertension, Other (See Below) Other Cardiovascular History: edema Gastrointestinal History: Reports: Chronic Constipation, GERD, Other (See Below) Other Gastrointestinal History: reflux Genitourinary History: Reports: Urinary Incontinence Neurological History: Reports: Parkinson's, Other (See Below) Other Neuro History: dementia Psychiatric History: Reports: Dementia, Other (See Below) Other Psychiatric History: delusional disorder Hematologic History: Reports: Other (See Below) Other Hematologic History: hypokalemia vit d deficiency Oncologic (Cancer) History: Reports: Malignant Melanoma Other Oncologic History: 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 - Infectious Disease History Infectious Disease History: Reports: Chicken Pox, Measles - Past Surgical History HEENT Surgical History: Reports: Tonsillectomy GI Surgical History: Reports: Hernia Repair/Other Social & Family History - Family History Family Medical History: Noncontributory - Tobacco Use Smoking Status *Q: Never Smoker Second Hand Smoke Exposure: No - Caffeine Use Caffeine Use: Reports: Coffee, Soda - Recreational Drug Use Recreational Drug Use: No ED ROS GENERAL - Review of Systems Review Of Systems: See Below Constitutional: Reports: No Symptoms HEENT: Reports: No Symptoms Respiratory: Reports: No Symptoms Cardiovascular: Reports: No Symptoms Endocrine: Reports: No Symptoms GI/Abdominal: Reports: Distension, Hematemesis (coffee ground emesis), Vomiting. Denies: Black Stool, Bloody Stool, Flatus, Hematochezia, Melena : Reports: No Symptoms Musculoskeletal: Reports: No Symptoms Skin: Reports: No Symptoms Neurological: Reports: Confusion (chronic), Tremors (chronic) Psychiatric: Reports: Agitation (more fidgety than normal today) ED EXAM, GI/ABD - Physical Exam Exam: See Below Exam Limited By: No Limitations General Appearance: Alert, WD/WN, Mild Distress (restless) Eyes: Bilateral: Normal Appearance Ears: Normal External Exam, Normal Canal, Normal TMs Nose: Normal Inspection, No Blood Throat/Mouth: Normal Inspection, Normal Lips, Normal Oropharynx, Normal Voice, No Airway Compromise Head: Atraumatic, Normocephalic Neck: Normal Inspection Respiratory/Chest: No Respiratory Distress, Lungs Clear, Normal Breath Sounds, No Accessory Muscle Use Cardiovascular: Regular Rate, Rhythm, No Edema GI/Abdominal Exam: Distended, Tender, Abnormal Bowel Sounds (decreased). No: Normal Bowel Sounds, No Distention Back Exam: Normal Inspection. No: CVA Tenderness (R), CVA Tenderness (L) Extremities: Normal Inspection, Normal Range of Motion, Non-Tender, No Pedal Edema Neurological: Alert, CN II-XII Intact, No Motor/Sensory Deficits, Inattentive Psychiatric: Normal Mood, Flat Affect Skin Exam: Warm, Dry, Intact, Normal Color, No Rash Course - Vital Signs Text/Narrative:: Dr. Ann here to admit. Last Recorded V/S: Last Vital Signs Temp 37.1 C 09/30/18 18:14 Pulse 97 09/30/18 20:04 Resp 17 09/30/18 20:04 BP 122/83 09/30/18 20:04 Pulse Ox 96 09/30/18 20:04 - Orders/Labs/Meds Orders: Active Orders 24 hr Category Date Time Status UA W/MICROSCOPIC [URIN] Stat Lab 09/30/18 18:17 Ordered Iopamidol [Isovue-300 (61%)] Med 09/30/18 19:30 Active 100 ml IV . DIRECTED Lactated Ringers [Ringers, Lactated] 1,000 ml Med 09/30/18 19:15 Active IV ASDIRECTED Sodium Chloride 0.9% [Normal Saline] 80 ml Med 09/30/18 19:30 Active IV ASDIRECTED Sodium Chloride 0.9% [Saline Flush] Med 09/30/18 18:16 Active 10 ml FLUSH ASDIRECTED PRN Saline Lock Insert [OM.PC] Routine Oth 09/30/18 18:16 Ordered Medication Orders Lactated Ringer's (Ringers, Lactated) 1,000 mls @ 250 mls/hr IV ASDIRECTED DANY Last Admin: 09/30/18 19:52 Dose: 250 mls/hr Sodium Chloride (Normal Saline) 80 mls @ 3 mls/sec IV ASDIRECTED DANY Last Admin: 09/30/18 19:33 Dose: 3 mls/sec Iopamidol (Isovue-300 (61%)) 100 ml IV . DIRECTED DANY Last Admin: 09/30/18 19:33 Dose: 100 ml Sodium Chloride (Saline Flush) 10 ml FLUSH ASDIRECTED PRN PRN Reason: Keep Vein Open Last Admin: 09/30/18 18:28 Dose: 10 ml Labs: Laboratory Tests 09/30/18 09/30/18 Range/Units 18:31 18:31 WBC 12.6 H (4.5-11.0) K/uL RBC 4.53 (4.30-5.90) M/uL Hgb 14.6 (12.0-15.0) g/dL Hct 44.8 (40.0-54.0) % MCV 99 H (80-98) fL MCH 32 H (27-31) pg MCHC 33 (32-36) % Plt Count 234 (150-400) K/uL Sodium 146 (140-148) mmol/L Potassium 4.0 (3.6-5.2) mmol/L Chloride 109 H (100-108) mmol/L Carbon Dioxide 30 (21-32) mmol/L Anion Gap 11.0 (5.0-14.0) mmol/L BUN 40 H (7-18) mg/dL Creatinine 1.5 H (0.8-1.3) mg/dL Est Cr Clr Drug Dosing 35.28 mL/min Estimated GFR (MDRD) 45 L (>60) Glucose 129 H (74-106) mg/dL Calcium 9.9 (8.5-10.1) mg/dL Troponin I < 0.017 (0.000-0.056) ng/mL Meds: Medications Generic Name Dose Route Start Last Admin Trade Name Freq PRN Reason Stop Dose Admin Lactated Ringer's 1,000 mls @ 250 mls/hr 09/30/18 19:15 09/30/18 19:52 Ringers, Lactated IV 250 mls/hr ASDIRECTED DANY Administration Sodium Chloride 80 mls @ 3 mls/sec 09/30/18 19:30 09/30/18 19:33 Normal Saline IV 3 mls/sec ASDIRECTED DANY Administration Iopamidol 100 ml 09/30/18 19:30 09/30/18 19:33 Isovue-300 (61%) IV 100 ml . DIRECTED DANY Administration Sodium Chloride 10 ml 09/30/18 18:16 09/30/18 18:28 Saline Flush FLUSH 10 ml ASDIRECTED PRN Administration Keep Vein Open Discontinued Medications Generic Name Dose Route Start Last Admin Trade Name Dejuan PRN Reason Stop Dose Admin Metoclopramide HCl 10 mg 09/30/18 18:18 09/30/18 19:07 Reglan IVPUSH 09/30/18 18:19 10 mg ONETIME ONE Administration - Radiology Interpretation Free Text/Narrative:: Upright abdominal X-ray-lots of air, no definite air-fluid levels CT abd/pelvis with IV contrast-SBO CT Results Date: 09/30/18 CT Results Time: 20:10 Departure - Departure Time of Disposition: 20:20 Disposition: Admitted As Inpatient 65 Condition: Fair Clinical Impression: SBO (small bowel obstruction) - Discharge Information *PRESCRIPTION DRUG MONITORING PROGRAM REVIEWED*: No *COPY OF PRESCRIPTION DRUG MONITORING REPORT IN PATIENT TONG: No Referrals: Hesham Ann Sr, MD [Primary Care Provider] - Forms: ED Department Discharge - My Orders Last 24 Hours: My Active Orders 09/30/18 18:16 Sodium Chloride 0.9% [Saline Flush] 10 ml FLUSH ASDIRECTED PRN Saline Lock Insert [OM.PC] Routine 09/30/18 18:17 UA W/MICROSCOPIC [URIN] Stat 09/30/18 19:15 Lactated Ringers [Ringers, Lactated] 1,000 ml IV ASDIRECTED 09/30/18 19:30 Iopamidol [Isovue-300 (61%)] 100 ml IV . DIRECTED Sodium Chloride 0.9% [Normal Saline] 80 ml IV ASDIRECTED - Assessment/Plan Last 24 Hours: My Active Orders 09/30/18 18:16 Sodium Chloride 0.9% [Saline Flush] 10 ml FLUSH ASDIRECTED PRN Saline Lock Insert [OM.PC] Routine 09/30/18 18:17 UA W/MICROSCOPIC [URIN] Stat 09/30/18 19:15 Lactated Ringers [Ringers, Lactated] 1,000 ml IV ASDIRECTED 09/30/18 19:30 Iopamidol [Isovue-300 (61%)] 100 ml IV . DIRECTED Sodium Chloride 0.9% [Normal Saline] 80 ml IV ASDIRECTED
--- NOTE | 2018-09-30 18:58 | CRLCR ---
HISTORY: Vomiting COMPARISON: None available. FINDINGS: A single AP portable erect view of the lower chest and abdomen was obtained at 1832 hours. The pelvis is excluded from today`s examination. The bowel gas pattern is unremarkable with nothing seen to suggest obstruction or ileus. There is no sign of dilatation of the small bowel or colon. There is no free air. Clips are seen in the right upper quadrant consistent with cholecystectomy Soft tissue planes are preserved and there is no sign of a mass. No calcifications of concern are identified. The osseous structures are normal in appearance for the patient`s age. The lung bases are clear. IMPRESSION: Normal portable examination of the abdomen status post cholecystectomy, single view. Dictated by Tima Thompson MD @ Sep 30 2018 6:55PM Signed by Dr. Tima Thompson @ Sep 30 2018 6:57PM
[2018-09-30] MEDS ORDERED: Lactated Ringers 1,000 ML IV SCH ×2 (19:15→22:15)
[2018-09-30] MEDS ORDERED: Sodium Chloride 0.9% 80 ML IV SCH (19:30)
[2018-09-30] MEDS ORDERED: Iopamidol 612 MG/ML 100 ML Bottle IV SCH (19:30)
--- NOTE | 2018-09-30 20:06 | CRLCT ---
INDICATION: Abdominal distention, vomiting and coffee-ground material TECHNIQUE: CT abdomen and pelvis acquired with 100 cc Isovue-300 IV contrast. COMPARISON: [facility] September 30, 2018, CT abdomen pelvis November 05, 2016 FINDINGS: Lower chest: Cardiomegaly. There is fluid within the distal esophagus and a small hiatal hernia. Liver: Simple cyst in the right hepatic lobe. Spleen: Unremarkable. Pancreas: Unremarkable. Gallbladder and bile ducts: S/p cholecystectomy. Adrenal glands: Unremarkable. Kidneys: Severe left hydronephrosis versus extensive parapelvic cysts. The left ureter is not dilated. There are simple cysts on both kidneys. GI tract: Moderate distention of the stomach with air and fluid. Multiple loops of dilated, air and fluid-filled small bowel reach a maximum diameter of 3.7 cm. A definite transition zone is not seen the colon is decompressed. Appendix is surgically absent. Vascular structures: Moderate atherosclerotic disease. Lymph nodes: Unremarkable. Miscellaneous: Status post right inguinal herniorrhaphy. No free air or significant free fluid. Pelvic Organs: Unremarkable. Bones: Unremarkable for age. IMPRESSION: Small-bowel obstruction. A definite transition zone is not seen. Severe left hydronephrosis versus extensive left parapelvic cysts, unchanged. The left ureter is not dilated. Recommend ultrasound for further evaluation. Cardiomegaly. Status post right inguinal herniorrhaphy, cholecystectomy, and appendectomy. Please note that all CT scans at this facility use dose modulation, iterative reconstruction, and/or weight-based dosing when appropriate to reduce radiation dose to as low as reasonably achievable. Dictated by Rand Berger MD @ Sep 30 2018 8:04PM Signed by Dr. Rand Berger @ Sep 30 2018 8:04PM
--- NOTE | 2018-09-30 20:21 | PCM.HP ---
H&P History of Present Illness - General Date of Service: 09/30/18 Source of Information: EMS, Family History Limitations: Reports: Other (No verbal response) - History of Present Illness Initial Comments - Free Text/Narative: Started vomiting about 2 PM today and had elevation of his blood pressure. I had him brought in from the [place] fo evaluation. He has a history of Parkinsonism. Onset of Symptoms: Reports: Today Duration of Symptoms: Reports: Hour(s): - Related Data Allergies/Adverse Reactions: Allergies Allergy/AdvReac Type Severity Reaction Status Date / Time No Known Allergies Allergy Verified 09/30/18 18:19 Home Medications: Home Meds Carbidopa/Levodopa [Carbidopa-Levo ER 50-200] 1 tab PO BEDTIME 11/05/16 [History ] Doxazosin Mesylate [Cardura] 4 mg PO BEDTIME 11/05/16 [History] Potassium Chloride [Klor-Con M20] 40 meq PO BID 11/05/16 [History] Rasagiline [Azilect] 1 mg PO DAILY 11/05/16 [History] Spironolact/Hydrochlorothiazid [Aldactazide 25-25] 25 mg PO DAILY 11/05/16 [ History] amLODIPine [Norvasc] 5 mg PO DAILY 11/05/16 [History] Aspirin 81 mg PO DAILY 04/13/17 [History] Benazepril HCl [Lotensin] 20 mg PO BID 04/13/17 [History] Calcium Carbonate [Tums] 300 mg PO Q4H PRN 04/13/17 [History] Cholecalciferol (Vitamin D3) [Vitamin D3] 1,000 unit PO DAILY 04/13/17 [History] Ondansetron HCl [Zofran] 4 mg PO Q4H PRN 04/13/17 [History] Dextromethorphan/guaiFENesin [Robitussin DM] 10 ml PO Q4H PRN 04/18/17 [History] Magnesium Hydroxide [Milk of Magnesia] 30 ml PO ASDIRECTED PRN 04/18/17 [History ] QUEtiapine Fumarate [Quetiapine Fumarate] 25 mg PO BEDTIME 04/18/17 [History] Rivastigmine Tartrate [Rivastigmine] 4.5 mg PO BID 04/18/17 [History] Spironolactone [Aldactone] 25 mg PO DAILY tablet 04/20/17 [Rx] Carbidopa/Levodopa [Carbidopa-Levodopa 25-100 Tab] 1 each PO QID 09/30/18 [ History] Oxybutynin 5 mg PO TID 09/30/18 [History] Potassium Chloride 20 meq PO DAILY 09/30/18 [History] QUEtiapine [SEROquel] 6.25 mg PO DAILY 09/30/18 [History] Trospium Chloride 20 mg PO BID 09/30/18 [History] Past Medical History HEENT History: Reports: Other (See Below) Other HEENT History: [place] Cardiovascular History: Reports: High Cholesterol, Hypertension, Other (See Below) Other Cardiovascular History: edema Gastrointestinal History: Reports: Chronic Constipation, GERD, Other (See Below) Other Gastrointestinal History: reflux Genitourinary History: Reports: Urinary Incontinence Neurological History: Reports: Parkinson's, Other (See Below) Other Neuro History: dementia Psychiatric History: Reports: Dementia, Other (See Below) Other Psychiatric History: delusional disorder Hematologic History: Reports: Other (See Below) Other Hematologic History: hypokalemia vit d deficiency Oncologic (Cancer) History: Reports: Malignant Melanoma Other Oncologic History: 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 - Infectious Disease History Infectious Disease History: Reports: Chicken Pox, Measles - Past Surgical History HEENT Surgical History: Reports: Tonsillectomy GI Surgical History: Reports: Hernia Repair/Other Social & Family History - Family History Family Medical History: Noncontributory - Tobacco Use Smoking Status *Q: Never Smoker Second Hand Smoke Exposure: No - Caffeine Use Caffeine Use: Reports: Coffee, Soda - Recreational Drug Use Recreational Drug Use: No H&P Review of Systems - Review of Systems: Review Of Systems: See Below General: Reports: Other (No verbal response and generalized weakness.) Pulmonary: Reports: No Symptoms Cardiovascular: Reports: No Symptoms Gastrointestinal: Reports: Nausea, Vomiting Genitourinary: Reports: No Symptoms Psychiatric: Reports: Confusion Neurological: Reports: Trouble Speaking, Weakness Exam - Exam Exam: See Below - Vital Signs Vital Signs: Last Vital Signs Temp 98.8 F 09/30/18 18:14 Pulse 97 09/30/18 20:04 Resp 17 09/30/18 20:04 BP 122/83 09/30/18 20:04 Pulse Ox 96 09/30/18 20:04 Weight: 150 lb - Exam General: Moderate Distress, Lethargic HEENT: Other (unable to examine the eyes) Neck: Supple, Trachea Midline, 2 Lungs: Clear to Auscultation, Normal Respiratory Effort Cardiovascular: Regular Rate, Regular Rhythm GI/Abdominal Exam: Abnormal Bowel Sounds, Other (decreased bowel sounds and high pitched.) Peripheral Pulses: 1+: Radial (L), Radial (R) Skin: Warm, Dry, Intact Neuro Extensive - Mental Status: Inattentive - Patient Data Lab Results Last 24 hrs: Laboratory Results - last 24 hr 09/30/18 09/30/18 Range/Units 18:31 18:31 WBC 12.6 H (4.5-11.0) K/uL RBC 4.53 (4.30-5.90) M/uL Hgb 14.6 (12.0-15.0) g/dL Hct 44.8 (40.0-54.0) % MCV 99 H (80-98) fL MCH 32 H (27-31) pg MCHC 33 (32-36) % Plt Count 234 (150-400) K/uL Sodium 146 (140-148) mmol/L Potassium 4.0 (3.6-5.2) mmol/L Chloride 109 H (100-108) mmol/L Carbon Dioxide 30 (21-32) mmol/L Anion Gap 11.0 (5.0-14.0) mmol/L BUN 40 H (7-18) mg/dL Creatinine 1.5 H (0.8-1.3) mg/dL Est Cr Clr Drug Dosing 35.28 mL/min Estimated GFR (MDRD) 45 L (>60) Glucose 129 H (74-106) mg/dL Calcium 9.9 (8.5-10.1) mg/dL Troponin I < 0.017 (0.000-0.056) ng/mL Result Diagrams: 09/30/18 18:31 09/30/18 18:31 Problem List Initiated/Reviewed/Updated: Yes Orders Last 24hrs: Active Orders 24 hr Category Date Time Status UA W/MICROSCOPIC [URIN] Stat Lab 09/30/18 18:17 Ordered Iopamidol [Isovue-300 (61%)] Med 09/30/18 19:30 Active 100 ml IV . DIRECTED Lactated Ringers [Ringers, Lactated] 1,000 ml Med 09/30/18 19:15 Active IV ASDIRECTED Sodium Chloride 0.9% [Normal Saline] 80 ml Med 09/30/18 19:30 Active IV ASDIRECTED Sodium Chloride 0.9% [Saline Flush] Med 09/30/18 18:16 Active 10 ml FLUSH ASDIRECTED PRN Saline Lock Insert [OM.PC] Routine Oth 09/30/18 18:16 Ordered Medication Orders Lactated Ringer's (Ringers, Lactated) 1,000 mls @ 250 mls/hr IV ASDIRECTED [facility] Last Admin: 09/30/18 19:52 Dose: 250 mls/hr Sodium Chloride (Normal Saline) 80 mls @ 3 mls/sec IV ASDIRECTED [facility] Last Admin: 09/30/18 19:33 Dose: 3 mls/sec Iopamidol (Isovue-300 (61%)) 100 ml IV . DIRECTED [facility] Last Admin: 09/30/18 19:33 Dose: 100 ml Sodium Chloride (Saline Flush) 10 ml FLUSH ASDIRECTED PRN PRN Reason: Keep Vein Open Last Admin: 09/30/18 18:28 Dose: 10 ml Assessment/Plan Comment:: Assessment/Plan: #1. Small bowel obstruction. CT of the abd confirmed a small bowel obstruction. Also Severe Left Hydronephrosis versus extensive left parapelvic cysts, unchanged. The left ureter is not dilated. He is unable to tolerate a NG tube without tieing his hands. Will hold NPO and check in the morning.. #2. Left Hydronephrosis. Will get a untrasound in the morning. #3. Parkinsonism: Will continure with the meds. #4. Hypertension: Continue with meds as BP is good control. 122/83 Admit to the floor MS and consult Surgery in the morning.
[2018-09-30] MEDS ORDERED: Ondansetron 4 MG/2 ML SDV IVPUSH PRN (20:46)
[2018-09-30] MEDS ORDERED: Haloperidol Lactate 5 MG/ML SDV IVPUSH PRN (20:55)
--- NOTE | 2018-10-01 06:29 | CRLCR ---
INDICATION: Bowel obstruction COMPARISON: CT abdomen and pelvis dated 09/30/2018 TECHNIQUE: Portable two view abdomen performed at 6:10 a.m. FINDINGS: There is no evidence of free intraperitoneal air. A nasogastric decompression tube has been advanced into the upper gastric body. The degree of small bowel dilatation appears slightly improved. There is air outlining the transverse colon and proximal descending colon which appear normal in size. There is no evidence of soft tissue mass effect. There is residual excreted contrast material accumulating within a dilated left renal pelvis. IMPRESSION: Slight improvement in the small bowel dilatation when compared to yesterday`s CT exam. No evidence of perforation. Dictated by Barrie Aguirre MD @ 10/01/2018 6:26:55 AM Dictated by: Barrie Aguirre MD @ 10/01/2018 06:27:03 (Electronically Signed)
[2018-10-01] MEDS ORDERED: Lactated Ringers 1,000 ML IV ONE (08:15)
--- NOTE | 2018-10-01 08:34 | PCM.PN ---
- General Info Date of Service: 10/01/18 Functional Status: Reports: Pain Controlled - Review of Systems General: Reports: Other (No verbal response) HEENT: Reports: No Symptoms Pulmonary: Reports: No Symptoms Cardiovascular: Reports: No Symptoms Gastrointestinal: Reports: Other (decreased bowel sounds) Psychiatric: Reports: Confusion - Patient Data Vitals - Most Recent: Last Vital Signs Temp 96.0 F 10/01/18 03:00 Pulse 79 10/01/18 03:00 Resp 16 10/01/18 03:00 BP 145/86 H 10/01/18 03:00 Pulse Ox 96 10/01/18 03:00 Weight - Most Recent: 150 lb I&O - Last 24 Hours: Intake & Output 09/30/18 10/01/18 10/01/18 22:59 06:59 14:59 Intake Total 946 Output Total 650 900 Balance -650 46 Lab Results Last 24 Hours: Laboratory Results - last 24 hr 09/30/18 09/30/18 09/30/18 Range/Units 18:31 18:31 23:00 WBC 12.6 H (4.5-11.0) K/uL RBC 4.53 (4.30-5.90) M/uL Hgb 14.6 (12.0-15.0) g/dL Hct 44.8 (40.0-54.0) % MCV 99 H (80-98) fL MCH 32 H (27-31) pg MCHC 33 (32-36) % Plt Count 234 (150-400) K/uL Neut % (Auto) (36-66) % Lymph % (Auto) (24-44) % [place] % (Auto) (2-6) % Eos % (Auto) (2-4) % Baso % (Auto) (0-1) % Sodium 146 (140-148) mmol/L Potassium 4.0 (3.6-5.2) mmol/L Chloride 109 H (100-108) mmol/L Carbon Dioxide 30 (21-32) mmol/L Anion Gap 11.0 (5.0-14.0) mmol/L BUN 40 H (7-18) mg/dL Creatinine 1.5 H (0.8-1.3) mg/dL Est Cr Clr Drug Dosing 35.28 mL/min Estimated GFR (MDRD) 45 L (>60) Glucose 129 H (74-106) mg/dL Calcium 9.9 (8.5-10.1) mg/dL Troponin I < 0.017 (0.000-0.056) ng/mL Urine Color Yellow (YELLOW) Urine Appearance Clear (CLEAR) Urine pH 5.5 (5.0-8.0) Ur Specific [place] 1.020 (1.008-1.030) Urine Protein Negative (NEGATIVE) mg/dL Urine Glucose (UA) Negative (NEGATIVE) mg/dL Urine Ketones Trace H (NEGATIVE) mg/dL Urine Occult Blood Trace-intact H (NEGATIVE) Urine Nitrite Negative (NEGATIVE) Urine Bilirubin Negative (NEGATIVE) Urine Urobilinogen 0.2 (0.2-1.0) EU/dL Ur Leukocyte Esterase Negative (NEGATIVE) Urine RBC 5-10 H (0-5) Urine WBC 0-5 (0-5) Ur Epithelial Cells Few Amorphous Sediment Not seen Urine Bacteria Not seen Urine Mucus Few 10/01/18 10/01/18 Range/Units 04:45 04:45 WBC 8.4 (4.5-11.0) K/uL RBC 4.10 L (4.30-5.90) M/uL Hgb 13.5 (12.0-15.0) g/dL Hct 40.7 (40.0-54.0) % MCV 99 H (80-98) fL MCH 33 H (27-31) pg MCHC 33 (32-36) % Plt Count 219 (150-400) K/uL Neut % (Auto) 80 H (36-66) % Lymph % (Auto) 12 L (24-44) % [place] % (Auto) 7 H (2-6) % Eos % (Auto) 1 L (2-4) % Baso % (Auto) 0 (0-1) % Sodium 147 (140-148) mmol/L Potassium 3.2 L (3.6-5.2) mmol/L Chloride 109 H (100-108) mmol/L Carbon Dioxide 29 (21-32) mmol/L Anion Gap 12.2 (5.0-14.0) mmol/L BUN 38 H (7-18) mg/dL Creatinine 1.3 (0.8-1.3) mg/dL Est Cr Clr Drug Dosing 40.71 mL/min Estimated GFR (MDRD) 53 L (>60) Glucose 112 H (74-106) mg/dL Calcium 9.0 (8.5-10.1) mg/dL Troponin I (0.000-0.056) ng/mL Urine Color (YELLOW) Urine Appearance (CLEAR) Urine pH (5.0-8.0) Ur Specific [place] (1.008-1.030) Urine Protein (NEGATIVE) mg/dL Urine Glucose (UA) (NEGATIVE) mg/dL Urine Ketones (NEGATIVE) mg/dL Urine Occult Blood (NEGATIVE) Urine Nitrite (NEGATIVE) Urine Bilirubin (NEGATIVE) Urine Urobilinogen (0.2-1.0) EU/dL Ur Leukocyte Esterase (NEGATIVE) Urine RBC (0-5) Urine WBC (0-5) Ur Epithelial Cells Amorphous Sediment Urine Bacteria Urine Mucus Med Orders - Current: Current Medications Ropivacaine 34 ml/Dexamethasone 8 mg/Epinephrine HCl 0.4 mg/ Sodium Chloride 43.6 ml 0 ml NERVRT ASDIRECTED [facility] Haloperidol Lactate (Haldol) 2.5 mg IVPUSH Q2H PRN PRN Reason: Agitation Lactated Ringer's (Ringers, Lactated) 1,000 mls @ 250 mls/hr IV ONETIME ONE Stop: 10/01/18 12:14 Dextrose/Lactated Ringer's (Dextrose 5%-Lactated Ringers) 1,000 mls @ 125 mls/ hr IV ASDIRECTED [facility] Cefoxitin Sodium 2 gm/ Sodium (Chloride) 50 mls @ 100 mls/hr IV ONCALL ONE Stop: 10/01/18 13:59 Potassium Acetate 20 meq/ (Sodium Chloride) 110 mls @ 55 mls/hr IV Q2H DANY Stop: 10/01/18 15:29 Ondansetron HCl (Zofran) 4 mg IVPUSH Q4H PRN PRN Reason: Nausea/Vomiting Pantoprazole Sodium (Protonix Iv) 40 mg IV Q24H [facility] Sodium Chloride (Saline Flush) 10 ml FLUSH ASDIRECTED PRN PRN Reason: Keep Vein Open Last Admin: 09/30/18 18:28 Dose: 10 ml Discontinued Medications Lactated Ringer's (Ringers, Lactated) 1,000 mls @ 250 mls/hr IV ASDIRECTED [facility] Last Admin: 09/30/18 19:52 Dose: 250 mls/hr Sodium Chloride (Normal Saline) 80 mls @ 3 mls/sec IV ASDIRECTED [facility] Last Admin: 09/30/18 19:33 Dose: 3 mls/sec Lactated Ringer's (Ringers, Lactated) 1,000 mls @ 125 mls/hr IV ASDIRECTED [facility] Last Admin: 10/01/18 01:54 Dose: 125 mls/hr Iopamidol (Isovue-300 (61%)) 100 ml IV . DIRECTED [facility] Last Admin: 09/30/18 19:33 Dose: 100 ml Metoclopramide HCl (Reglan) 10 mg IVPUSH ONETIME ONE Stop: 09/30/18 18:19 Last Admin: 09/30/18 19:07 Dose: 10 mg - Exam General: Sedated Neck: Supple Lungs: Clear to Auscultation, Normal Respiratory Effort Cardiovascular: Regular Rate, Regular Rhythm GI/Abdominal Exam: No Distention, Abnormal Bowel Sounds Back Exam: Normal Inspection, Full Range of Motion Extremities: Normal Inspection, Normal Range of Motion, Non-Tender, No Pedal Edema, Normal Capillary Refill Peripheral Pulses: 1+: Radial (L), Radial (R) - Problem List Review Problem List Initiated/Reviewed/Updated: Yes - My Orders Last 24 Hours: My Active Orders 09/30/18 20:31 Patient Status [ADT] Routine Height and Weight [RC] DAILY Oxygen Therapy [RC] PRN VTE/DVT Education [RC] Per Unit Routine Vital Signs [RC] Q4H Resuscitation Status Routine 09/30/18 20:37 Intake and Output [RC] QSHIFT 09/30/18 20:46 Ondansetron [Zofran] 4 mg IVPUSH Q4H PRN 09/30/18 20:47 Notify Provider Consults [RC] ASDIRECTED 09/30/18 20:53 NG [Nasogastric Orogastric Tube Insertion] [OM.PC] Routine 09/30/18 20:54 Cardiac Monitoring [RC] Q6H 09/30/18 20:55 Haloperidol Lactate [Haldol] 2.5 mg IVPUSH Q2H PRN 09/30/18 22:03 Nrsg Assess Restraint Init/Mon [RC] Q1H 09/30/18 22:15 Initiate/Renew Non-Violent Restraints (All Ages) Q24H 10/01/18 22:15 Initiate/Renew Non-Violent Restraints (All Ages) Q24H 10/02/18 22:15 Initiate/Renew Non-Violent Restraints (All Ages) Q24H 10/03/18 22:15 Initiate/Renew Non-Violent Restraints (All Ages) Q24H - Plan Plan:: Assessment/Plan: #1. Small bowel obstruction. CT of the abd confirmed a small bowel obstruction. Also Severe Left Hydronephrosis versus extensive left parapelvic cysts, unchanged. The left ureter is not dilated. Seen by Dr. Raphael who feels that the small bowel obstruction needs to be resolved. Will be going to surgery this morning. A large amount of fluid was removed by the NG tube last night. WBC improved 8.4 and Hb stable 13.5. #2. Left Hydronephrosis. Will get a untrasound in the morning. #3. Parkinsonism: Will continue with the meds. #4. Hypertension: Continue with meds as BP is good control. 145/86.
[2018-10-01] MEDS: Pantoprazole 40 MG Vial IV SCH (08:49)
[2018-10-01] MEDS ORDERED: Dextrose 5%-Lactated Ringers 1,000 ML IV SCH ×2 (12:00→15:45)
[2018-10-01] MEDS ORDERED: Meropenem 500 MG SDV ONE (12:14)
[2018-10-01] MEDS ORDERED: Bupivacaine 0.5% 50 ML MDV ONE (12:14)
[2018-10-01] MEDS ORDERED: Lidocaine 1% with EPINEPHrine 1:100,000 50 ML MDV ONE (12:15)
[2018-10-01] MEDS ORDERED: Rocuronium 50 MG/5 ML Vial ONE (13:22)
[2018-10-01] MEDS ORDERED: Glycopyrrolate 0.2 MG/ML 5 ML MDV ONE (13:22)
[2018-10-01] MEDS ORDERED: Ondansetron 4 MG/2 ML SDV ONE (13:22)
[2018-10-01] MEDS ORDERED: Neostigmine Methylsulfate 1 MG/ML 5 ML Syringe ONE (13:22)
[2018-10-01] MEDS ORDERED: fentaNYL 250 MCG/5 ML SDV ONE ×2 (13:22→14:04)
[2018-10-01] MEDS ORDERED: Propofol 200 MG/20 ML SDV ONE (13:22)
[2018-10-01] MEDS ORDERED: Dexamethasone 4 MG/ML SDV ONE (13:22)
[2018-10-01] MEDS ORDERED: Succinylcholine 200 MG/10 ML MDV ONE (13:22)
[2018-10-01] MEDS ORDERED: Ropivacaine 34 ML, dexAMETHasone 8 MG, EPINEPHrine 0.4 MG, Sodium Chloride 0.9% 43.6 ML NERVRT SCH ×4 (13:30)
[2018-10-01] MEDS ORDERED: cefOXitin 2 GM in Sodium Chloride 0.9% 50 ML IV ONE (13:30)
[2018-10-01] MEDS ORDERED: Lactated Ringers 1,000 ML ONE (15:00)
[2018-10-01] MEDS ORDERED: Labetalol 20 MG/4 ML Syringe ONE (15:15)
[2018-10-01] MEDS ORDERED: Labetalol 20 MG/4 ML Syringe IVPUSH ONE ×2 (15:39→15:56)
[2018-10-01] MEDS ORDERED: Naloxone 0.4 MG/ML SDV IV PRN (15:58)
[2018-10-01] MEDS ORDERED: HYDROmorphone/Normal Saline 15 MG/30 ML PCA IV PRN (15:58)
[2018-10-01] MEDS: Carbidopa/Levodopa 25-100 MG Tab PO SCH (17:38)
[2018-10-01] MEDS: cefOXitin 2 GM in Sodium Chloride 0.9% 50 ML IV SCH (18:31)
[2018-10-01] MEDS: Trospium 20 MG Tab PO SCH (21:33)
[2018-10-01] MEDS: Oxybutynin 5 MG Tab PO SCH (21:33)
[2018-10-01] MEDS: Doxazosin 4 MG Tab PO SCH (21:33)
[2018-10-01] MEDS: QUEtiapine 25 MG Tab PO SCH (21:33)
[2018-10-01] MEDS: Carbidopa/Levodopa 50-200 MG Tab.ER PO SCH (21:34)
[2018-10-02] MEDS: cefOXitin 2 GM in Sodium Chloride 0.9% 50 ML IV SCH ×4 (00:17→17:20)
[2018-10-02] MEDS ORDERED: LORazepam 2 MG/ML SDV IVPUSH PRN (01:25)
[2018-10-02] MEDS: hydrOXYzine HCl 100 MG/2 ML SDV IM PRN ×2 (01:30→14:28)
[2018-10-02] MEDS: HYDROmorphone 1 MG/ML Syringe IVPUSH PRN ×2 (01:38→05:49)
[2018-10-02] MEDS: Carbidopa/Levodopa 25-100 MG Tab PO SCH ×4 (06:13→17:50)
[2018-10-02] MEDS ORDERED: Spironolactone 25 MG Tab PO SCH (09:00)
[2018-10-02] MEDS ORDERED: Enoxaparin 40 MG/0.4 ML Syringe SUBCUT SCH (09:00)
--- NOTE | 2018-10-02 11:12 | PN ---
DATE OF SERVICE: 10/02/2018 SUBJECTIVE: Angelo is postop day #1. He had surgery yesterday afternoon. He did around midnight take off all his dressings, tele, pulse ox, Aquacel, abdominal binder, and was quite restless. He did leave his IV in and his Walton catheter. Nursing staff thought his restlessness was due to pain. 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 An order of IV Dilaudid was given and this seemed to settle him down quite a bit. He is quite comfortable this morning. Vital signs have remained stable. He is n.p.o. REVIEW OF SYSTEMS: Remainder of review of systems negative for any pertinent positives and negatives. OBJECTIVE: GENERAL: Angelo Greenfield is an 83-year-old male. He is resting comfortably in bed. VITAL SIGNS: TPR is 99.3, 85, 16. Blood pressure 158/75. HEENT: Negative. NECK: Supple. HEART: Regular rate and rhythm. LUNGS: Clear. ABDOMEN: Dressings dry and intact. Abdominal binder is on. EXTREMITIES: Without peripheral edema. His urine output via Walton catheter was 875. ASSESSMENT: Exploratory laparotomy with: 1. Resolution of small bowel volvulus and closure of internal hernia. 2. Rectosigmoid resection with coloproctostomy. 3. Tube decompression of small and large bowel. 4. Placement of Interceed mesh for extensive intraabdominal lesions, small bowel volvulus via internal hernia at adhesion site, closure of intermittent sigmoid volvulus, marked distention of small and large bowel. Date of surgery 10/01/2018. Surgeon, Nixon Raphael MD. PLAN: 1. Discontinue SALESMAN/OWNER. 2. Continue with IV Dilaudid. 3. Decrease IV to 100 mL per hour at noon. 4. Good pulmonary toilet. 5. Encourage oral intake with sips of water. Otherwise, he is to remain n.p.o. 6. Bowel stimulation will not be started until postop day #3, Saturday, due to the extensive surgery on his bowels. 7. We will evaluate p.r.n. or in a.m. Meri Long PA-C /[id number]
[2018-10-02] MEDS: Dextrose 5%-Lactated Ringers 1,000 ML IV SCH ×2 (11:45→21:12)
[2018-10-02] MEDS: amLODIPine 5 MG Tab PO SCH (13:29)
[2018-10-02] MEDS: Oxybutynin 5 MG Tab PO SCH ×3 (13:29→21:28)
[2018-10-02] MEDS: Spironolactone 25 MG Tab PO SCH (13:29)
[2018-10-02] MEDS: Hydrochlorothiazide 25 MG Tab PO SCH (13:29)
[2018-10-02] MEDS: QUEtiapine 25 MG Tab PO SCH ×2 (13:30→21:28)
[2018-10-02] MEDS: Trospium 20 MG Tab PO SCH ×2 (13:30→21:28)
[2018-10-02] MEDS: Pantoprazole 40 MG Vial IV SCH (13:30)
[2018-10-02] MEDS: Acetaminophen 1,000 MG in Premix Bag 1 BAG IV SCH ×2 (15:02→21:29)
[2018-10-02] MEDS: Enoxaparin 40 MG/0.4 ML Syringe SUBCUT SCH (17:20)
--- NOTE | 2018-10-02 17:46 | PCM.PN ---
- General Info Date of Service: 10/02/18 Functional Status: Reports: Pain Controlled - Review of Systems General: Reports: Weakness Pulmonary: Reports: No Symptoms Cardiovascular: Reports: No Symptoms Gastrointestinal: Reports: No Symptoms Skin: Reports: No Symptoms Neurological: Reports: Confusion Psychiatric: Reports: Other (semi comatose) - Patient Data Vitals - Most Recent: Last Vital Signs Temp 99.7 F 10/02/18 14:51 Pulse 90 10/02/18 14:51 Resp 20 10/02/18 14:51 BP 171/87 H 10/02/18 11:00 Pulse Ox 91 L 10/02/18 14:51 Weight - Most Recent: 186 lb 3.2 oz I&O - Last 24 Hours: Intake & Output 10/02/18 10/02/18 10/02/18 06:59 14:59 22:59 Intake Total 20061 Output Total 360 150 250 Balance 1647 -150 1111 Med Orders - Current: Current Medications Amlodipine Besylate (Norvasc) 5 mg PO DAILY [facility] Last Admin: 10/02/18 13:29 Dose: Not Given Benazepril HCl (Lotensin) 20 mg PO BID [facility] Last Admin: 10/02/18 13:29 Dose: Not Given Carbidopa/Levodopa (Sinemet Cr 50-200 Mg) 1 tab PO BEDTIME [facility] Last Admin: 10/01/18 21:34 Dose: Not Given Carbidopa/Levodopa (Sinemet 25-100 Mg) 1 tab PO 0600,1000,1400,1800 [facility] Last Admin: 10/02/18 15:09 Dose: Not Given Doxazosin Mesylate (Cardura) 4 mg PO BEDTIME [facility] Last Admin: 10/01/18 21:33 Dose: Not Given Enoxaparin Sodium (Lovenox) 40 mg SUBCUT DAILY@1800 [facility] Last Admin: 10/02/18 17:20 Dose: 40 mg Hydrochlorothiazide (Hydrochlorothiazide) 25 mg PO DAILY [facility] Last Admin: 10/02/18 13:29 Dose: Not Given Hydroxyzine HCl (Vistaril) 100 mg IM Q4H PRN PRN Reason: pain Last Admin: 10/02/18 14:28 Dose: 100 mg Cefoxitin Sodium 2 gm/ Sodium (Chloride) 50 mls @ 100 mls/hr IV Q6H [facility] Stop: 10/02/18 18:29 Last Admin: 10/02/18 17:20 Dose: 100 mls/hr Dextrose/Lactated Ringer's (Dextrose 5%-Lactated Ringers) 1,000 mls @ 100 mls/ hr IV ASDIRECTED [facility] Last Admin: 10/02/18 11:45 Dose: 100 mls/hr Acetaminophen 1,000 mg/ Premix 100 mls @ 400 mls/hr IV Q6H [facility] Stop: 10/03/18 09:14 Last Admin: 10/02/18 15:02 Dose: 400 mls/hr Naloxone HCl (Narcan) 0.1 mg IV ASDIRECTED PRN PRN Reason: decreased respiratory rate Ondansetron HCl (Zofran) 4 mg IVPUSH Q4H PRN PRN Reason: Nausea/Vomiting Oxybutynin Chloride (Oxybutynin) 5 mg PO TID [facility] Last Admin: 10/02/18 15:09 Dose: Not Given Pantoprazole Sodium (Protonix Iv) 40 mg IV Q24H [facility] Last Admin: 10/02/18 13:30 Dose: Not Given Quetiapine Fumarate (Seroquel) 25 mg PO BEDTIME [facility] Last Admin: 10/01/18 21:33 Dose: Not Given Quetiapine Fumarate (Seroquel) 6.25 mg PO DAILY [facility] Last Admin: 10/02/18 13:30 Dose: Not Given Rasagiline (Azilect) 1 mg PO DAILY [facility] Last Admin: 10/02/18 13:29 Dose: Not Given Rivastigmine (Exelon) 4.5 mg PO BID [facility] Last Admin: 10/02/18 13:29 Dose: Not Given Spironolactone (Aldactone) 25 mg PO DAILY [facility] Last Admin: 10/02/18 13:29 Dose: Not Given Trospium (Sanctura) 20 mg PO BID [facility] Last Admin: 10/02/18 13:30 Dose: Not Given Discontinued Medications Bupivacaine HCl (Marcaine 0.5%) Confirm Administered Dose 50 ml .ROUTE .STK-MED ONE Stop: 10/01/18 12:15 Last Admin: 10/01/18 15:02 Dose: 25 ml Ropivacaine 34 ml/Dexamethasone 8 mg/Epinephrine HCl 0.4 mg/ Sodium Chloride 43.6 ml 0 ml NERVRT ASDIRECTED [facility] Last Admin: 10/01/18 14:00 Dose: 80 syringe Dexamethasone (Dexamethasone) Confirm Administered Dose 4 mg .ROUTE .STK-MED ONE Stop: 10/01/18 13:23 Enoxaparin Sodium (Lovenox) 40 mg SUBCUT DAILY [facility] Last Admin: 10/02/18 13:29 Dose: Not Given Fentanyl (Sublimaze) Confirm Administered Dose 250 mcg .ROUTE .STK-MED ONE Stop: 10/01/18 13:23 Fentanyl (Sublimaze) Confirm Administered Dose 250 mcg .ROUTE .STK-MED ONE Stop: 10/01/18 14:05 Glycopyrrolate (Robinul) Confirm Administered Dose 1 mg .ROUTE .STK-MED ONE Stop: 10/01/18 13:23 Haloperidol Lactate (Haldol) 2.5 mg IVPUSH Q2H PRN PRN Reason: Agitation Last Admin: 10/01/18 11:58 Dose: 2.5 mg Hydromorphone HCl (Dilaudid Wireless Engineer 15 Mg In Ns 30 Ml) 0 mg IV ASDIRECTED PRN; Protocol PRN Reason: CODING TECHNICIAN PAIN CONTROL Last Admin: 10/01/18 17:57 Dose: 15 mg Hydromorphone HCl (Dilaudid) 1 mg IVPUSH Q2H PRN PRN Reason: Pain Last Admin: 10/02/18 05:49 Dose: 1 mg Lactated Ringer's (Ringers, Lactated) 1,000 mls @ 250 mls/hr IV ASDIRECTED [facility] Last Admin: 09/30/18 19:52 Dose: 250 mls/hr Sodium Chloride (Normal Saline) 80 mls @ 3 mls/sec IV ASDIRECTED [facility] Last Admin: 09/30/18 19:33 Dose: 3 mls/sec Lactated Ringer's (Ringers, Lactated) 1,000 mls @ 125 mls/hr IV ASDIRECTED [facility] Last Admin: 10/01/18 01:54 Dose: 125 mls/hr Lactated Ringer's (Ringers, Lactated) 1,000 mls @ 250 mls/hr IV ONETIME ONE Stop: 10/01/18 12:14 Last Admin: 10/01/18 08:54 Dose: 250 mls/hr Dextrose/Lactated Ringer's (Dextrose 5%-Lactated Ringers) 1,000 mls @ 125 mls/ hr IV ASDIRECTED [facility] Cefoxitin Sodium 2 gm/ Sodium (Chloride) 50 mls @ 100 mls/hr IV ONCALL ONE Stop: 10/01/18 13:59 Last Admin: 10/01/18 12:49 Dose: 100 mls/hr Potassium Acetate 20 meq/ (Sodium Chloride) 110 mls @ 55 mls/hr IV Q2H [facility] Stop: 10/01/18 15:29 Last Admin: 10/01/18 16:33 Dose: 55 mls/hr Lactated Ringer's (Ringers, Lactated) Confirm Administered Dose 1,000 mls @ as directed .ROUTE .STK-MED ONE Stop: 10/01/18 15:01 Dextrose/Lactated Ringer's (Dextrose 5%-Lactated Ringers) 1,000 mls @ 175 mls/ hr IV ASDIRECTED [facility] Last Admin: 10/01/18 21:10 Dose: 175 mls/hr Iopamidol (Isovue-300 (61%)) 100 ml IV . DIRECTED [facility] Last Admin: 09/30/18 19:33 Dose: 100 ml Labetalol HCl (Normodyne) Confirm Administered Dose 20 mg .ROUTE .STK-MED ONE Stop: 10/01/18 15:16 Labetalol HCl (Normodyne) 5 mg IVPUSH ONETIME ONE; Protocol Stop: 10/01/18 15:40 Last Admin: 10/01/18 15:48 Dose: 5 mg Labetalol HCl (Normodyne) 5 mg IVPUSH ONETIME ONE; Protocol Stop: 10/01/18 15:57 Last Admin: 10/01/18 16:01 Dose: 5 mg Lidocaine/Epinephrine (Xylocaine 1% With Epinephrine 1:100,000) Confirm Administered Dose 50 ml .ROUTE .STK-MED ONE Stop: 10/01/18 12:16 Last Admin: 10/01/18 15:02 Dose: 25 ml Lorazepam (Ativan) 0.25 mg IVPUSH Q2H PRN PRN Reason: Anxiety Meropenem (Merrem) Confirm Administered Dose 500 mg .ROUTE .STK-MED ONE Stop: 10/01/18 12:15 Last Admin: 10/01/18 14:09 Dose: 500 mg Metoclopramide HCl (Reglan) 10 mg IVPUSH ONETIME ONE Stop: 09/30/18 18:19 Last Admin: 09/30/18 19:07 Dose: 10 mg Neostigmine Methylsulfate (Neostigmine) Confirm Administered Dose 5 mg .ROUTE .STK-MED ONE Stop: 10/01/18 13:23 Ondansetron HCl (Zofran) Confirm Administered Dose 4 mg .ROUTE .STK-MED ONE Stop: 10/01/18 13:23 Propofol (Diprivan 20 Ml) Confirm Administered Dose 200 mg .ROUTE .STK-MED ONE Stop: 10/01/18 13:23 Rocuronium [place] (Zemuron) Confirm Administered Dose 50 mg .ROUTE .STK-MED ONE Stop: 10/01/18 13:23 Sodium Chloride (Saline Flush) 10 ml FLUSH ASDIRECTED PRN PRN Reason: Keep Vein Open Last Admin: 09/30/18 18:28 Dose: 10 ml Succinylcholine Chloride (Quelicin) Confirm Administered Dose 200 mg .ROUTE .STK -MED ONE Stop: 10/01/18 13:23 - Exam General: Sedated HEENT: Pupils Equal, Pupils Reactive, EOMI, Mucous Membr. Moist/Globe Neck: Supple Lungs: Clear to Auscultation, Normal Respiratory Effort Cardiovascular: Regular Rate, Regular Rhythm GI/Abdominal Exam: Soft Back Exam: Normal Inspection, Full Range of Motion Peripheral Pulses: 1+: Radial (L), Radial (R) Skin: Warm, Dry, Intact Psy/Mental Status: Other (Minimal responsive) - Problem List Review Problem List Initiated/Reviewed/Updated: Yes - My Orders Last 24 Hours: My Active Orders 10/01/18 22:15 Initiate/Renew Non-Violent Restraints (All Ages) Q24H 10/02/18 22:15 Initiate/Renew Non-Violent Restraints (All Ages) Q24H 10/03/18 22:15 Initiate/Renew Non-Violent Restraints (All Ages) Q24H - Plan Plan:: Assessment/Plan: #1. Small bowel obstruction. S/P surgery and had Dilaudid last night. #2. Left Hydronephrosis. 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 I have stopped all Narcotics and will start on Paracope as soon as it is available and also start Exelon Patch when available tomorrow. Narcotics should not be given. They lethargy is due to withdraw of Meds. #4. Hypertension: Continue with meds as BP is good control. 169/84. Will restart meds as soon as he can swallow. PM rounds he is much more alert but still not safe to swallow.
[2018-10-02] MEDS: Doxazosin 4 MG Tab PO SCH (21:27)
[2018-10-02] MEDS: Carbidopa/Levodopa 50-200 MG Tab.ER PO SCH (21:28)
[2018-10-03] MEDS: hydrOXYzine HCl 100 MG/2 ML SDV IM PRN ×3 (04:21→23:37)
[2018-10-03] MEDS: Acetaminophen 1,000 MG in Premix Bag 1 BAG IV SCH ×4 (05:41→23:34)
[2018-10-03] MEDS: Carbidopa/Levodopa 25-100 MG Tab PO SCH ×2 (06:29→10:06)
--- NOTE | 2018-10-03 08:00 | PCM.PN ---
- General Info Date of Service: 10/03/18 Subjective Update: He is less responsive this morning and has pain in the bl.adder area - Review of Systems General: Reports: Other (Minimual verbal response) Pulmonary: Reports: No Symptoms Cardiovascular: Reports: No Symptoms Gastrointestinal: Reports: Abdominal Pain Genitourinary: Reports: Pain Musculoskeletal: Reports: No Symptoms Skin: Reports: No Symptoms Neurological: Reports: Weakness Psychiatric: Reports: Agitation - Patient Data Vitals - Most Recent: Last Vital Signs Temp 99.1 F 10/03/18 07:00 Pulse 62 10/03/18 07:00 Resp 20 10/03/18 07:00 BP 176/80 H 10/03/18 07:00 Pulse Ox 94 L 10/03/18 07:00 Weight - Most Recent: 185 lb 4 oz I&O - Last 24 Hours: Intake & Output 10/02/18 10/03/18 10/03/18 22:59 06:59 14:59 Intake Total 1361 1089 Output Total 325 800 Balance 1036 289 Med Orders - Current: Current Medications Amlodipine Besylate (Norvasc) 5 mg PO DAILY [facility] Last Admin: 10/02/18 13:29 Dose: Not Given Benazepril HCl (Lotensin) 20 mg PO BID [facility] Last Admin: 10/02/18 21:27 Dose: Not Given Carbidopa/Levodopa (Sinemet Cr 50-200 Mg) 1 tab PO BEDTIME [facility] Last Admin: 10/02/18 21:28 Dose: Not Given Carbidopa/Levodopa (Sinemet 25-100 Mg) 1 tab PO 0600,1000,1400,1800 [facility] Last Admin: 10/03/18 06:29 Dose: Not Given Doxazosin Mesylate (Cardura) 4 mg PO BEDTIME [facility] Last Admin: 10/02/18 21:27 Dose: Not Given Enoxaparin Sodium (Lovenox) 40 mg SUBCUT DAILY@1800 [facility] Last Admin: 10/02/18 17:20 Dose: 40 mg Hydrochlorothiazide (Hydrochlorothiazide) 25 mg PO DAILY [facility] Last Admin: 10/02/18 13:29 Dose: Not Given Hydroxyzine HCl (Vistaril) 100 mg IM Q4H PRN PRN Reason: pain Last Admin: 10/03/18 04:21 Dose: 100 mg Dextrose/Lactated Ringer's (Dextrose 5%-Lactated Ringers) 1,000 mls @ 100 mls/ hr IV ASDIRECTED [facility] Last Admin: 10/02/18 21:12 Dose: 100 mls/hr Acetaminophen 1,000 mg/ Premix 100 mls @ 400 mls/hr IV Q6H [facility] Stop: 10/04/18 11:31 Naloxone HCl (Narcan) 0.1 mg IV ASDIRECTED PRN PRN Reason: decreased respiratory rate Ondansetron HCl (Zofran) 4 mg IVPUSH Q4H PRN PRN Reason: Nausea/Vomiting Oxybutynin Chloride (Oxybutynin) 5 mg PO TID [facility] Last Admin: 10/02/18 21:28 Dose: Not Given Pantoprazole Sodium (Protonix Iv) 40 mg IV Q24H [facility] Last Admin: 10/02/18 13:30 Dose: Not Given Quetiapine Fumarate (Seroquel) 25 mg PO BEDTIME [facility] Last Admin: 10/02/18 21:28 Dose: Not Given Quetiapine Fumarate (Seroquel) 6.25 mg PO DAILY [facility] Last Admin: 10/02/18 13:30 Dose: Not Given Rasagiline (Azilect) 1 mg PO DAILY [facility] Last Admin: 10/02/18 13:29 Dose: Not Given Rivastigmine (Exelon) 4.5 mg PO BID [facility] Last Admin: 10/02/18 21:27 Dose: Not Given Spironolactone (Aldactone) 25 mg PO DAILY [facility] Last Admin: 10/02/18 13:29 Dose: Not Given Trospium (Sanctura) 20 mg PO BID [facility] Last Admin: 10/02/18 21:28 Dose: Not Given Discontinued Medications Bupivacaine HCl (Marcaine 0.5%) Confirm Administered Dose 50 ml .ROUTE .STK-MED ONE Stop: 10/01/18 12:15 Last Admin: 10/01/18 15:02 Dose: 25 ml Ropivacaine 34 ml/Dexamethasone 8 mg/Epinephrine HCl 0.4 mg/ Sodium Chloride 43.6 ml 0 ml NERVRT ASDIRECTED [facility] Last Admin: 10/01/18 14:00 Dose: 80 syringe Dexamethasone (Dexamethasone) Confirm Administered Dose 4 mg .ROUTE .STK-MED ONE Stop: 10/01/18 13:23 Enoxaparin Sodium (Lovenox) 40 mg SUBCUT DAILY [facility] Last Admin: 10/02/18 13:29 Dose: Not Given Fentanyl (Sublimaze) Confirm Administered Dose 250 mcg .ROUTE .STK-MED ONE Stop: 10/01/18 13:23 Fentanyl (Sublimaze) Confirm Administered Dose 250 mcg .ROUTE .STK-MED ONE Stop: 10/01/18 14:05 Glycopyrrolate (Robinul) Confirm Administered Dose 1 mg .ROUTE .STK-MED ONE Stop: 10/01/18 13:23 Haloperidol Lactate (Haldol) 2.5 mg IVPUSH Q2H PRN PRN Reason: Agitation Last Admin: 10/01/18 11:58 Dose: 2.5 mg Hydromorphone HCl (Dilaudid [employer] Bookkeeper 15 Mg In Ns 30 Ml) 0 mg IV ASDIRECTED PRN; Protocol PRN Reason: ORCHID SUPERINTENDENT PAIN CONTROL Last Admin: 10/01/18 17:57 Dose: 15 mg Hydromorphone HCl (Dilaudid) 1 mg IVPUSH Q2H PRN PRN Reason: Pain Last Admin: 10/02/18 05:49 Dose: 1 mg Lactated Ringer's (Ringers, Lactated) 1,000 mls @ 250 mls/hr IV ASDIRECTED [facility] Last Admin: 09/30/18 19:52 Dose: 250 mls/hr Sodium Chloride (Normal Saline) 80 mls @ 3 mls/sec IV ASDIRECTED [facility] Last Admin: 09/30/18 19:33 Dose: 3 mls/sec Lactated Ringer's (Ringers, Lactated) 1,000 mls @ 125 mls/hr IV ASDIRECTED [facility] Last Admin: 10/01/18 01:54 Dose: 125 mls/hr Lactated Ringer's (Ringers, Lactated) 1,000 mls @ 250 mls/hr IV ONETIME ONE Stop: 10/01/18 12:14 Last Admin: 10/01/18 08:54 Dose: 250 mls/hr Dextrose/Lactated Ringer's (Dextrose 5%-Lactated Ringers) 1,000 mls @ 125 mls/ hr IV ASDIRECTED [facility] Cefoxitin Sodium 2 gm/ Sodium (Chloride) 50 mls @ 100 mls/hr IV ONCALL ONE Stop: 10/01/18 13:59 Last Admin: 10/01/18 12:49 Dose: 100 mls/hr Potassium Acetate 20 meq/ (Sodium Chloride) 110 mls @ 55 mls/hr IV Q2H [facility] Stop: 10/01/18 15:29 Last Admin: 10/01/18 16:33 Dose: 55 mls/hr Lactated Ringer's (Ringers, Lactated) Confirm Administered Dose 1,000 mls @ as directed .ROUTE .STK-MED ONE Stop: 10/01/18 15:01 Dextrose/Lactated Ringer's (Dextrose 5%-Lactated Ringers) 1,000 mls @ 175 mls/ hr IV ASDIRECTED [facility] Last Admin: 10/01/18 21:10 Dose: 175 mls/hr Cefoxitin Sodium 2 gm/ Sodium (Chloride) 50 mls @ 100 mls/hr IV Q6H [facility] Stop: 10/02/18 18:29 Last Admin: 10/02/18 17:20 Dose: 100 mls/hr Acetaminophen 1,000 mg/ Premix 100 mls @ 400 mls/hr IV Q6H [facility] Stop: 10/03/18 09:14 Last Admin: 10/03/18 05:41 Dose: 400 mls/hr Iopamidol (Isovue-300 (61%)) 100 ml IV . DIRECTED [facility] Last Admin: 09/30/18 19:33 Dose: 100 ml Labetalol HCl (Normodyne) Confirm Administered Dose 20 mg .ROUTE .STK-MED ONE Stop: 10/01/18 15:16 Labetalol HCl (Normodyne) 5 mg IVPUSH ONETIME ONE; Protocol Stop: 10/01/18 15:40 Last Admin: 10/01/18 15:48 Dose: 5 mg Labetalol HCl (Normodyne) 5 mg IVPUSH ONETIME ONE; Protocol Stop: 10/01/18 15:57 Last Admin: 10/01/18 16:01 Dose: 5 mg Lidocaine/Epinephrine (Xylocaine 1% With Epinephrine 1:100,000) Confirm Administered Dose 50 ml .ROUTE .STK-MED ONE Stop: 10/01/18 12:16 Last Admin: 10/01/18 15:02 Dose: 25 ml Lorazepam (Ativan) 0.25 mg IVPUSH Q2H PRN PRN Reason: Anxiety Meropenem (Merrem) Confirm Administered Dose 500 mg .ROUTE .STK-MED ONE Stop: 10/01/18 12:15 Last Admin: 10/01/18 14:09 Dose: 500 mg Metoclopramide HCl (Reglan) 10 mg IVPUSH ONETIME ONE Stop: 09/30/18 18:19 Last Admin: 09/30/18 19:07 Dose: 10 mg Neostigmine Methylsulfate (Neostigmine) Confirm Administered Dose 5 mg .ROUTE .STK-MED ONE Stop: 10/01/18 13:23 Ondansetron HCl (Zofran) Confirm Administered Dose 4 mg .ROUTE .STK-MED ONE Stop: 10/01/18 13:23 Propofol (Diprivan 20 Ml) Confirm Administered Dose 200 mg .ROUTE .STK-MED ONE Stop: 10/01/18 13:23 Rocuronium [place] (Zemuron) Confirm Administered Dose 50 mg .ROUTE .STK-MED ONE Stop: 10/01/18 13:23 Sodium Chloride (Saline Flush) 10 ml FLUSH ASDIRECTED PRN PRN Reason: Keep Vein Open Last Admin: 09/30/18 18:28 Dose: 10 ml Succinylcholine Chloride (Quelicin) Confirm Administered Dose 200 mg .ROUTE .STK -MED ONE Stop: 10/01/18 13:23 - Exam General: Moderate Distress HEENT: Pupils Equal Neck: Supple Lungs: Clear to Auscultation Cardiovascular: Regular Rate GI/Abdominal Exam: Soft, Tender Extremities: Non-Tender Peripheral Pulses: 1+: Radial (L), Radial (R) Skin: Warm, Dry, Intact Neurological: No New Focal Deficit Psy/Mental Status: Agitated - Problem List Review Problem List Initiated/Reviewed/Updated: Yes - My Orders Last 24 Hours: My Active Orders 10/02/18 22:15 Initiate/Renew Non-Violent Restraints (All Ages) Q24H 10/03/18 07:46 CBC WITH AUTO DIFF [HEME] Routine COMPREHENSIVE METABOLIC PN,CMP [CHEM] Routine 10/03/18 07:51 Urinary Catheter Assessment [RC] ASDIRECTED 10/03/18 08:00 Insert Benson Catheter [Insert Urinary Catheter] [OM.PC] Q24H 10/03/18 22:15 Initiate/Renew Non-Violent Restraints (All Ages) Q24H - Plan Plan:: Assessment/Plan: #1. Small bowel obstruction. S/P surgery and had Dilaudid last night. #2. Left Hydronephrosis. He does have pain to light palpation over the bladder. I needs a benson cath. 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 I have stopped all Narcotics and will start on Parocopa ODT as soon as it is available and also start Exelon Patch when available tomorrow. Narcotics should not be given. They lethargy is due to withdraw of Meds. #4. Hypertension: Continue with meds as BP is good control. 176/80. Will restart meds as soon as he can swallow. CBC and CMP pending this morning.
--- NOTE | 2018-10-03 08:41 | PN ---
DATE OF SERVICE: 10/03/2018 SUBJECTIVE: Angelo has been very sleepy. Dr. Ann thought his lethargy was due to withdrawal of Parkinson's medications, narcotics discontinued. He remains to be on IV Tylenol. Angelo IV was infiltrated, during the night, it was restarted. He did pull it out and after that it has been restarted again. His Walton catheter has been removed. He has removed his dressing, so Aquacel was replaced once, but will be left off now. He is currently resting comfortably. Vital signs have been stable. Temperature max of 99.1. OBJECTIVE: GENERAL: Angelo Greenfield is an 83-year-old male. He does open up his eyes and look at me. VITAL SIGNS: TPR is 99.1, 62, 20, and blood pressure 176/80. HEENT: Negative. NECK: Supple. HEART: Regular rate and rhythm. LUNGS: Clear. ABDOMEN: Incision was not looked out. Per nursing staff, florence were intact and looks good. Abdominal binder is on. EXTREMITIES: Without peripheral edema. ASSESSMENT: Exploratory laparotomy with: 1. Resolution of small bowel volvulus and closure of internal hernia. 2. Rectosigmoid resection with coloproctostomy. 3. Tube decompression of small and large bowel. 4. Placement of Interceed mesh for extensive intraabdominal adhesions, small bowel volvulus via internal hernia at adhesion site, closure of intermittent sigmoid volvulus, marked distention of small and large bowel. Date of surgery 10/01/2018. Surgeon, Nixon Raphael MD. PLAN: 1. Continue with IV Tylenol 1 g q.6 hours. 2. Check CBC, CMP, mag, phos in a.m. 3. We will evaluate p.r.n. or in a.m. 4. Dr. Hesham Ann managing his other home medications. Meri Long PA-C /[id number]
[2018-10-03] MEDS: Dextrose 5%-Lactated Ringers 1,000 ML IV SCH ×2 (09:36→19:50)
[2018-10-03] MEDS: Oxybutynin 5 MG Tab PO SCH ×3 (09:40→21:32)
[2018-10-03] MEDS: Spironolactone 25 MG Tab PO SCH (09:42)
[2018-10-03] MEDS: Hydrochlorothiazide 25 MG Tab PO SCH (09:44)
[2018-10-03] MEDS: Pantoprazole 40 MG Vial IV SCH (09:48)
[2018-10-03] MEDS: QUEtiapine 25 MG Tab PO SCH ×2 (09:54→21:32)
[2018-10-03] MEDS ORDERED: Rivastigmine 9.5 MG/24 HR Transdermal Patch TOP SCH (10:00)
[2018-10-03] MEDS: amLODIPine 5 MG Tab PO SCH (10:00)
[2018-10-03] MEDS: Trospium 20 MG Tab PO SCH ×2 (10:01→21:33)
[2018-10-03] MEDS: Rivastigmine 9.5 MG/24 HR Transdermal Patch TOP SCH (10:10)
[2018-10-03] MEDS: Carbidopa/Levodopa 25-100 MG Tab.DIS PO SCH ×3 (10:22→17:48)
--- NOTE | 2018-10-03 10:54 | CRLCR ---
HISTORY: Abdominal pain. TECHNIQUE: Portable supine and upright frontal views of the abdomen. COMPARISON: Abdominal radiographs 10/01/2018. FINDINGS: Skin florence. Surgical fasteners in the right lower quadrant. Surgical clips in the right upper quadrant. NG tube has been removed. No free intraperitoneal gas. Gas and stool in nondilated colon. Small bowel dilation has improved. Few gas-filled nondilated loops of small bowel. FINDINGS: Improved small bowel dilation. No free intraperitoneal gas. Dictated by Ean Garcia MD @ Oct 03 2018 10:51AM Signed by Dr. Ean Garcia @ Oct 03 2018 10:54AM
[2018-10-03] MEDS: Enoxaparin 40 MG/0.4 ML Syringe SUBCUT SCH (17:48)
[2018-10-03] MEDS: Doxazosin 4 MG Tab PO SCH (21:32)
[2018-10-03] MEDS: Carbidopa/Levodopa 50-200 MG Tab.ER PO SCH (21:34)
[2018-10-04] MEDS: Carbidopa/Levodopa 25-100 MG Tab.DIS PO SCH ×4 (05:15→17:22)
[2018-10-04] MEDS: Acetaminophen 1,000 MG in Premix Bag 1 BAG IV SCH (05:27)
[2018-10-04] MEDS: hydrOXYzine HCl 100 MG/2 ML SDV IM PRN ×2 (05:31→12:45)
[2018-10-04] MEDS: Dextrose 5%-Lactated Ringers 1,000 ML IV SCH (06:11)
[2018-10-04] MEDS: Magnesium Sulfate/Water 2 GM in Premix Bag 1 BAG IV SCH ×3 (08:40→20:26)
[2018-10-04] MEDS: Docusate Sodium 100 MG Cap PO SCH ×2 (08:43→21:21)
[2018-10-04] MEDS: Bisacodyl 5 MG Tab PO SCH ×2 (08:43→21:22)
[2018-10-04] MEDS: amLODIPine 5 MG Tab PO SCH (08:44)
[2018-10-04] MEDS: Oxybutynin 5 MG Tab PO SCH ×3 (08:44→21:23)
[2018-10-04] MEDS: Trospium 20 MG Tab PO SCH ×2 (08:45→21:23)
[2018-10-04] MEDS: Spironolactone 25 MG Tab PO SCH (08:45)
[2018-10-04] MEDS: Hydrochlorothiazide 25 MG Tab PO SCH (08:46)
[2018-10-04] MEDS: Pantoprazole 40 MG Vial IV SCH (08:47)
[2018-10-04] MEDS: QUEtiapine 25 MG Tab PO SCH ×2 (08:59→21:23)
[2018-10-04] MEDS: Rivastigmine 9.5 MG/24 HR Transdermal Patch TOP SCH (08:59)
--- NOTE | 2018-10-04 09:00 | PCM.PN ---
- General Info Date of Service: 10/04/18 Functional Status: Reports: Pain Controlled - Review of Systems General: Reports: Weakness HEENT: Reports: No Symptoms Pulmonary: Reports: No Symptoms Cardiovascular: Reports: No Symptoms Gastrointestinal: Reports: Difficulty Swallowing Musculoskeletal: Reports: No Symptoms Neurological: Reports: Difficulty Walking, Gait Disturbance Psychiatric: Reports: Confusion - Patient Data Vitals - Most Recent: Last Vital Signs Temp 98.5 F 10/04/18 07:00 Pulse 61 10/04/18 07:00 Resp 22 H 10/04/18 07:00 BP 148/71 H 10/04/18 08:45 Pulse Ox 91 L 10/04/18 07:00 Weight - Most Recent: 185 lb 4 oz I&O - Last 24 Hours: Intake & Output 10/03/18 10/04/18 10/04/18 22:59 06:59 14:59 Intake Total 1259 1309 Balance 1259 1309 Lab Results Last 24 Hours: Laboratory Results - last 24 hr 10/04/18 10/04/18 Range/Units 04:15 04:15 WBC 8.3 (4.5-11.0) K/uL RBC 3.65 L (4.30-5.90) M/uL Hgb 11.7 L (12.0-15.0) g/dL Hct 36.6 L (40.0-54.0) % MCV 100 H (80-98) fL MCH 32 H (27-31) pg MCHC 32 (32-36) % Plt Count 179 (150-400) K/uL Sodium 148 (140-148) mmol/L Potassium 3.1 L (3.6-5.2) mmol/L Chloride 110 H (100-108) mmol/L Carbon Dioxide 32 (21-32) mmol/L Anion Gap 9.1 (5.0-14.0) mmol/L BUN 23 H (7-18) mg/dL Creatinine 1.2 (0.8-1.3) mg/dL Est Cr Clr Drug Dosing 47.43 mL/min Estimated GFR (MDRD) 58 L (>60) Glucose 91 (74-106) mg/dL Calcium 8.7 (8.5-10.1) mg/dL Phosphorus 2.3 L (2.5-4.9) mg/dL Magnesium 1.6 L (1.8-2.4) mg/dL Total Bilirubin 2.0 H (0.2-1.0) mg/dL AST 39 H (15-37) U/L ALT 10 L (12-78) U/L Alkaline Phosphatase 51 (46-116) U/L Total Protein 5.4 L (6.4-8.2) g/dL Albumin 2.6 L (3.4-5.0) g/dL Globulin 2.8 (2.3-3.5) g/dL Albumin/Globulin Ratio 0.9 L (1.2-2.2) Med Orders - Current: Current Medications Acetaminophen (Tylenol) 650 mg PO Q6H [facility] Amlodipine Besylate (Norvasc) 5 mg PO DAILY [facility] Last Admin: 10/04/18 08:44 Dose: 5 mg Benazepril HCl (Lotensin) 20 mg PO BID [facility] Last Admin: 10/04/18 08:45 Dose: 20 mg Bisacodyl (Dulcolax) 10 mg PO BID [facility] Last Admin: 10/04/18 08:43 Dose: 10 mg Carbidopa/Levodopa (Sinemet Cr 50-200 Mg) 1 tab PO BEDTIME [facility] Last Admin: 10/03/18 21:34 Dose: 1 tab Carbidopa/Levodopa (Parcopa 25-100 Mg Odt) 1 tab PO 0600,1000,1400,1800 [facility] Last Admin: 10/04/18 05:15 Dose: 1 tab Docusate Sodium (Colace) 100 mg PO BID [facility] Last Admin: 10/04/18 08:43 Dose: 100 mg Doxazosin Mesylate (Cardura) 4 mg PO BEDTIME [facility] Last Admin: 10/03/18 21:32 Dose: 4 mg Enoxaparin Sodium (Lovenox) 40 mg SUBCUT DAILY@1800 [facility] Last Admin: 10/03/18 17:48 Dose: 40 mg Hydrochlorothiazide (Hydrochlorothiazide) 25 mg PO DAILY [facility] Last Admin: 10/04/18 08:46 Dose: 25 mg Hydroxyzine HCl (Vistaril) 100 mg IM Q4H PRN PRN Reason: pain Last Admin: 10/04/18 05:31 Dose: 100 mg Dextrose/Lactated Ringer's (Dextrose 5%-Lactated Ringers) 1,000 mls @ 100 mls/ hr IV ASDIRECTED [facility] Last Admin: 10/04/18 06:11 Dose: 100 mls/hr Magnesium Sulfate 2 gm/ Premix 50 mls @ 25 mls/hr IV Q6H [facility] Stop: 10/07/18 03:59 Last Admin: 10/04/18 08:40 Dose: 25 mls/hr Potassium Chloride 20 meq/Lidocaine HCl 2 ml/ Sodium Chloride 112 mls @ 56 mls/ hr IV ONETIME ONE Stop: 10/04/18 11:59 Potassium Phosphate 20 mmole/ (Sodium Chloride) 256.6667 mls @ 86 mls/hr IV Q3H [facility] Stop: 10/04/18 17:59 Naloxone HCl (Narcan) 0.1 mg IV ASDIRECTED PRN PRN Reason: decreased respiratory rate Ondansetron HCl (Zofran) 4 mg IVPUSH Q4H PRN PRN Reason: Nausea/Vomiting Oxybutynin Chloride (Oxybutynin) 5 mg PO TID [facility] Last Admin: 10/04/18 08:44 Dose: 5 mg Pantoprazole Sodium (Protonix Iv) 40 mg IV Q24H [facility] Last Admin: 10/04/18 08:47 Dose: 40 mg Quetiapine Fumarate (Seroquel) 25 mg PO BEDTIME [facility] Last Admin: 10/03/18 21:32 Dose: 25 mg Quetiapine Fumarate (Seroquel) 6.25 mg PO DAILY [facility] Last Admin: 10/03/18 09:54 Dose: 6.25 mg Rasagiline (Azilect) 1 mg PO DAILY [facility] Last Admin: 10/04/18 08:47 Dose: 1 mg Rivastigmine (Exelon) 9.5 mg TOP Q24H [facility] Last Admin: 10/03/18 10:10 Dose: 9.5 mg Spironolactone (Aldactone) 25 mg PO DAILY [facility] Last Admin: 10/04/18 08:45 Dose: 25 mg Trospium (Sanctura) 20 mg PO BID [facility] Last Admin: 10/04/18 08:45 Dose: 20 mg Discontinued Medications Bupivacaine HCl (Marcaine 0.5%) Confirm Administered Dose 50 ml .ROUTE .STK-MED ONE Stop: 10/01/18 12:15 Last Admin: 10/01/18 15:02 Dose: 25 ml Carbidopa/Levodopa (Sinemet 25-100 Mg) 1 tab PO 0600,1000,1400,1800 [facility] Last Admin: 10/03/18 06:29 Dose: Not Given Ropivacaine 34 ml/Dexamethasone 8 mg/Epinephrine HCl 0.4 mg/ Sodium Chloride 43.6 ml 0 ml NERVRT ASDIRECTED [facility] Last Admin: 10/01/18 14:00 Dose: 80 syringe Dexamethasone (Dexamethasone) Confirm Administered Dose 4 mg .ROUTE .STK-MED ONE Stop: 10/01/18 13:23 Enoxaparin Sodium (Lovenox) 40 mg SUBCUT DAILY [facility] Last Admin: 10/02/18 13:29 Dose: Not Given Fentanyl (Sublimaze) Confirm Administered Dose 250 mcg .ROUTE .STK-MED ONE Stop: 10/01/18 13:23 Fentanyl (Sublimaze) Confirm Administered Dose 250 mcg .ROUTE .STK-MED ONE Stop: 10/01/18 14:05 Glycopyrrolate (Robinul) Confirm Administered Dose 1 mg .ROUTE .STK-MED ONE Stop: 10/01/18 13:23 Haloperidol Lactate (Haldol) 2.5 mg IVPUSH Q2H PRN PRN Reason: Agitation Last Admin: 10/01/18 11:58 Dose: 2.5 mg Hydromorphone HCl (Dilaudid Sales Lead 15 Mg In Ns 30 Ml) 0 mg IV ASDIRECTED PRN; Protocol PRN Reason: DRY [employer] PAIN CONTROL Last Admin: 10/01/18 17:57 Dose: 15 mg Hydromorphone HCl (Dilaudid) 1 mg IVPUSH Q2H PRN PRN Reason: Pain Last Admin: 10/02/18 05:49 Dose: 1 mg Lactated Ringer's (Ringers, Lactated) 1,000 mls @ 250 mls/hr IV ASDIRECTED [facility] Last Admin: 09/30/18 19:52 Dose: 250 mls/hr Sodium Chloride (Normal Saline) 80 mls @ 3 mls/sec IV ASDIRECTED [facility] Last Admin: 09/30/18 19:33 Dose: 3 mls/sec Lactated Ringer's (Ringers, Lactated) 1,000 mls @ 125 mls/hr IV ASDIRECTED [facility] Last Admin: 10/01/18 01:54 Dose: 125 mls/hr Lactated Ringer's (Ringers, Lactated) 1,000 mls @ 250 mls/hr IV ONETIME ONE Stop: 10/01/18 12:14 Last Admin: 10/01/18 08:54 Dose: 250 mls/hr Dextrose/Lactated Ringer's (Dextrose 5%-Lactated Ringers) 1,000 mls @ 125 mls/ hr IV ASDIRECTED [facility] Cefoxitin Sodium 2 gm/ Sodium (Chloride) 50 mls @ 100 mls/hr IV ONCALL ONE Stop: 10/01/18 13:59 Last Admin: 10/01/18 12:49 Dose: 100 mls/hr Potassium Acetate 20 meq/ (Sodium Chloride) 110 mls @ 55 mls/hr IV Q2H [facility] Stop: 10/01/18 15:29 Last Admin: 10/01/18 16:33 Dose: 55 mls/hr Lactated Ringer's (Ringers, Lactated) Confirm Administered Dose 1,000 mls @ as directed .ROUTE .STK-MED ONE Stop: 10/01/18 15:01 Dextrose/Lactated Ringer's (Dextrose 5%-Lactated Ringers) 1,000 mls @ 175 mls/ hr IV ASDIRECTED [facility] Last Admin: 10/01/18 21:10 Dose: 175 mls/hr Cefoxitin Sodium 2 gm/ Sodium (Chloride) 50 mls @ 100 mls/hr IV Q6H [facility] Stop: 10/02/18 18:29 Last Admin: 10/02/18 17:20 Dose: 100 mls/hr Acetaminophen 1,000 mg/ Premix 100 mls @ 400 mls/hr IV Q6H [facility] Stop: 10/03/18 09:14 Last Admin: 10/03/18 05:41 Dose: 400 mls/hr Acetaminophen 1,000 mg/ Premix 100 mls @ 400 mls/hr IV Q6H [facility] Stop: 10/04/18 11:31 Last Admin: 10/04/18 05:27 Dose: 400 mls/hr Iopamidol (Isovue-300 (61%)) 100 ml IV . DIRECTED [facility] Last Admin: 09/30/18 19:33 Dose: 100 ml Labetalol HCl (Normodyne) Confirm Administered Dose 20 mg .ROUTE .STK-MED ONE Stop: 10/01/18 15:16 Labetalol HCl (Normodyne) 5 mg IVPUSH ONETIME ONE; Protocol Stop: 10/01/18 15:40 Last Admin: 10/01/18 15:48 Dose: 5 mg Labetalol HCl (Normodyne) 5 mg IVPUSH ONETIME ONE; Protocol Stop: 10/01/18 15:57 Last Admin: 10/01/18 16:01 Dose: 5 mg Lidocaine/Epinephrine (Xylocaine 1% With Epinephrine 1:100,000) Confirm Administered Dose 50 ml .ROUTE .STK-MED ONE Stop: 10/01/18 12:16 Last Admin: 10/01/18 15:02 Dose: 25 ml Lorazepam (Ativan) 0.25 mg IVPUSH Q2H PRN PRN Reason: Anxiety Meropenem (Merrem) Confirm Administered Dose 500 mg .ROUTE .STK-MED ONE Stop: 10/01/18 12:15 Last Admin: 10/01/18 14:09 Dose: 500 mg Metoclopramide HCl (Reglan) 10 mg IVPUSH ONETIME ONE Stop: 09/30/18 18:19 Last Admin: 09/30/18 19:07 Dose: 10 mg Neostigmine Methylsulfate (Neostigmine) Confirm Administered Dose 5 mg .ROUTE .STK-MED ONE Stop: 10/01/18 13:23 Ondansetron HCl (Zofran) Confirm Administered Dose 4 mg .ROUTE .STK-MED ONE Stop: 10/01/18 13:23 Propofol (Diprivan 20 Ml) Confirm Administered Dose 200 mg .ROUTE .STK-MED ONE Stop: 10/01/18 13:23 Rivastigmine (Exelon) 4.5 mg PO BID [facility] Last Admin: 10/03/18 10:08 Dose: Not Given Rocuronium [place] (Zemuron) Confirm Administered Dose 50 mg .ROUTE .STK-MED ONE Stop: 10/01/18 13:23 Sodium Chloride (Saline Flush) 10 ml FLUSH ASDIRECTED PRN PRN Reason: Keep Vein Open Last Admin: 09/30/18 18:28 Dose: 10 ml Succinylcholine Chloride (Quelicin) Confirm Administered Dose 200 mg .ROUTE .STK -MED ONE Stop: 10/01/18 13:23 - Exam General: Cooperative, Mild Distress HEENT: Pupils Equal, Pupils Reactive, EOMI, Mucous Membr. Moist/[place] Neck: Supple Lungs: Clear to Auscultation, Normal Respiratory Effort Cardiovascular: Regular Rate Peripheral Pulses: 1+: Radial (L), Radial (R) Skin: Warm, Dry, Intact Wound/Incisions: Healing Well Psy/Mental Status: Anxious - Problem List Review Problem List Initiated/Reviewed/Updated: Yes - My Orders Last 24 Hours: My Active Orders 10/03/18 08:00 Insert [place] Catheter [Insert Urinary Catheter] [OM.PC] Q24H 10/03/18 22:15 Initiate/Renew Non-Violent Restraints (All Ages) Q24H - Plan Plan:: Assessment/Plan: #1. Small bowel obstruction. stable #2. Left Hydronephrosis. He does have pain to light palpation over the bladder. #3. Parkinsonism: Much improved wtih restarting the parkinsonism medicine. Sitting in a chair and swallowing. #4. Hypertension: Continue with meds as BP is good control. 148/71. Will restart meds as soon as he can swallow. CBC stable. K low supplementation in progress.
[2018-10-04] MEDS ORDERED: Potassium Chloride 20 MEQ, Lidocaine 1% 2 ML in Sodium Chloride 0.9% 100 ML IV ONE (10:00)
--- NOTE | 2018-10-04 10:16 | PN ---
DATE OF SERVICE: 10/04/2018 SUBJECTIVE: Angelo will be done with the IV Tylenol and will be switched to oral Tylenol. He is voiding. He ambulated in the booth yesterday. Vital signs have been stable. He is getting Vistaril in addition to Tylenol for pain. REVIEW OF SYSTEMS: Remainder of review of systems negative for any pertinent positives and negatives. OBJECTIVE: GENERAL: Angelo Greenfield is an 83-year-old male. He is lying in bed. His eyes are open. He does look at me. VITAL SIGNS: TPR is 98.5, 61, 22, blood pressure is 148/71. HEART: Regular rate and rhythm. LUNGS: Clear. ABDOMEN: Incision looks good. Abdominal binder is on. EXTREMITIES: Without peripheral edema. LABORATORY DATA: Labs today: Hemoglobin 11.7, potassium 3.1, phosphorus 2.3, magnesium is 1.6, total bilirubin is 2, AST 39, ALT 10. ASSESSMENT: 1. Low magnesium, low phosphorus, and low potassium. 2. Exploratory laparotomy with: a. Resolution of small bowel volvulus and closure of internal hernia. b. Rectosigmoid resection with coloproctostomy. c. Tube decompression of the small and large bowel. d. Placement of Interceed mesh. 3. Postoperative diagnoses: a. Extensive intraabdominal adhesions. b. Small bowel volvulus via internal hernia at adhesion site. c. Closure of intermittent sigmoid volvulus. d. Marked distention of small and large bowel. Date of surgery 10/01/2018. Surgeon, Nixon Raphael MD. PLAN: 1. Tylenol 650 mg q.6 hours scheduled orally. 2. Clear liquid diet. 3. Dulcolax tabs 10 mg b.i.d. until the patient has bowel movement, then discontinue. 4. KCl with lidocaine 20 mg 1 time. 5. K-Phos 40 millimoles IV 1 time. 6. Check CBC, CMP, and phos in a.m. 7. May shower. 8. Colace 100 mg b.i.d. 9. We will evaluate p.r.n. or in a.m. Meri Long PA-C /[id number]
[2018-10-04] MEDS: Acetaminophen 325 MG Tab PO SCH ×3 (10:40→23:03)
[2018-10-04] MEDS: Potassium Phosphates 20 MMOLE in Sodium Chloride 0.9% 250 ML IV SCH ×2 (12:02→16:04)
[2018-10-04] MEDS: Piperacillin/Tazobactam/Dext 3.375 GM in Premix Bag 1 BAG IV SCH ×2 (15:30→22:21)
--- NOTE | 2018-10-04 16:29 | PCM.PN ---
- General Info Date of Service: 10/04/18 Admission Dx/Problem (Free Text): Having increased confusion and abd. pain with a feve. Functional Status: Reports: New Symptoms - Review of Systems General: Reports: Fever, Weakness HEENT: Reports: No Symptoms Pulmonary: Reports: No Symptoms Cardiovascular: Reports: No Symptoms Gastrointestinal: Reports: Abdominal Pain, Difficulty Swallowing Psychiatric: Reports: Confusion - Patient Data Vitals - Most Recent: Last Vital Signs Temp 100.1 F 10/04/18 14:44 Pulse 78 10/04/18 14:44 Resp 22 H 10/04/18 14:44 BP 149/86 H 10/04/18 14:44 Pulse Ox 93 L 10/04/18 14:44 Weight - Most Recent: 185 lb 4 oz I&O - Last 24 Hours: Intake & Output 10/04/18 10/04/18 10/04/18 06:59 14:59 22:59 Intake Total 1309 50 Balance 1309 50 Lab Results Last 24 Hours: Laboratory Results - last 24 hr 10/04/18 10/04/18 Range/Units 04:15 04:15 WBC 8.3 (4.5-11.0) K/uL RBC 3.65 L (4.30-5.90) M/uL Hgb 11.7 L (12.0-15.0) g/dL Hct 36.6 L (40.0-54.0) % MCV 100 H (80-98) fL MCH 32 H (27-31) pg MCHC 32 (32-36) % Plt Count 179 (150-400) K/uL Sodium 148 (140-148) mmol/L Potassium 3.1 L (3.6-5.2) mmol/L Chloride 110 H (100-108) mmol/L Carbon Dioxide 32 (21-32) mmol/L Anion Gap 9.1 (5.0-14.0) mmol/L BUN 23 H (7-18) mg/dL Creatinine 1.2 (0.8-1.3) mg/dL Est Cr Clr Drug Dosing 47.43 mL/min Estimated GFR (MDRD) 58 L (>60) Glucose 91 (74-106) mg/dL Calcium 8.7 (8.5-10.1) mg/dL Phosphorus 2.3 L (2.5-4.9) mg/dL Magnesium 1.6 L (1.8-2.4) mg/dL Total Bilirubin 2.0 H (0.2-1.0) mg/dL AST 39 H (15-37) U/L ALT 10 L (12-78) U/L Alkaline Phosphatase 51 (46-116) U/L Total Protein 5.4 L (6.4-8.2) g/dL Albumin 2.6 L (3.4-5.0) g/dL Globulin 2.8 (2.3-3.5) g/dL Albumin/Globulin Ratio 0.9 L (1.2-2.2) Med Orders - Current: Current Medications Acetaminophen (Tylenol) 650 mg PO Q6H [facility] Last Admin: 10/04/18 10:40 Dose: 650 mg Amlodipine Besylate (Norvasc) 5 mg PO DAILY [facility] Last Admin: 10/04/18 08:44 Dose: 5 mg Benazepril HCl (Lotensin) 20 mg PO BID [facility] Last Admin: 10/04/18 08:45 Dose: 20 mg Bisacodyl (Dulcolax) 10 mg PO BID [facility] Last Admin: 10/04/18 08:43 Dose: 10 mg Carbidopa/Levodopa (Sinemet Cr 50-200 Mg) 1 tab PO BEDTIME [facility] Last Admin: 10/03/18 21:34 Dose: 1 tab Carbidopa/Levodopa (Parcopa 25-100 Mg Odt) 1 tab PO 0600,1000,1400,1800 [facility] Last Admin: 10/04/18 14:20 Dose: Not Given Docusate Sodium (Colace) 100 mg PO BID [facility] Last Admin: 10/04/18 08:43 Dose: 100 mg Doxazosin Mesylate (Cardura) 4 mg PO BEDTIME [facility] Last Admin: 10/03/18 21:32 Dose: 4 mg Enoxaparin Sodium (Lovenox) 40 mg SUBCUT DAILY@1800 [facility] Last Admin: 10/03/18 17:48 Dose: 40 mg Hydrochlorothiazide (Hydrochlorothiazide) 25 mg PO DAILY [facility] Last Admin: 10/04/18 08:46 Dose: 25 mg Hydromorphone HCl (Dilaudid) 1 - 2 mg IVPUSH Q4H PRN PRN Reason: Pain Hydroxyzine HCl (Vistaril) 100 mg IM Q4H PRN PRN Reason: pain Last Admin: 10/04/18 12:45 Dose: 100 mg Dextrose/Lactated Ringer's (Dextrose 5%-Lactated Ringers) 1,000 mls @ 100 mls/ hr IV ASDIRECTED [facility] Last Admin: 10/04/18 06:11 Dose: 100 mls/hr Magnesium Sulfate 2 gm/ Premix 50 mls @ 25 mls/hr IV Q6H [facility] Stop: 10/07/18 03:59 Last Admin: 10/04/18 16:02 Dose: 25 mls/hr Potassium Phosphate 20 mmole/ (Sodium Chloride) 256.6667 mls @ 86 mls/hr IV Q3H [facility] Stop: 10/04/18 17:59 Last Admin: 10/04/18 16:04 Dose: 86 mls/hr Piperacillin/Tazobactam/ (Dextrose 3.375 gm/ Premix) 50 mls @ 100 mls/hr IV Q6H [facility] Last Admin: 10/04/18 15:30 Dose: 100 mls/hr Ondansetron HCl (Zofran) 4 mg IVPUSH Q4H PRN PRN Reason: Nausea/Vomiting Oxybutynin Chloride (Oxybutynin) 5 mg PO TID [facility] Last Admin: 10/04/18 14:20 Dose: Not Given Pantoprazole Sodium (Protonix Iv) 40 mg IV Q24H [facility] Last Admin: 10/04/18 08:47 Dose: 40 mg Quetiapine Fumarate (Seroquel) 25 mg PO BEDTIME [facility] Last Admin: 10/03/18 21:32 Dose: 25 mg Quetiapine Fumarate (Seroquel) 6.25 mg PO DAILY [facility] Last Admin: 10/04/18 08:59 Dose: 6.25 mg Rasagiline (Azilect) 1 mg PO DAILY [facility] Last Admin: 10/04/18 08:47 Dose: 1 mg Rivastigmine (Exelon) 9.5 mg TOP Q24H [facility] Last Admin: 10/04/18 08:59 Dose: 9.5 mg Spironolactone (Aldactone) 25 mg PO DAILY [facility] Last Admin: 10/04/18 08:45 Dose: 25 mg Trospium (Sanctura) 20 mg PO BID [facility] Last Admin: 10/04/18 08:45 Dose: 20 mg Discontinued Medications Bupivacaine HCl (Marcaine 0.5%) Confirm Administered Dose 50 ml .ROUTE .STK-MED ONE Stop: 10/01/18 12:15 Last Admin: 10/01/18 15:02 Dose: 25 ml Carbidopa/Levodopa (Sinemet 25-100 Mg) 1 tab PO 0600,1000,1400,1800 [facility] Last Admin: 10/03/18 06:29 Dose: Not Given Ropivacaine 34 ml/Dexamethasone 8 mg/Epinephrine HCl 0.4 mg/ Sodium Chloride 43.6 ml 0 ml NERVRT ASDIRECTED [facility] Last Admin: 10/01/18 14:00 Dose: 80 syringe Dexamethasone (Dexamethasone) Confirm Administered Dose 4 mg .ROUTE .STLynk-MED ONE Stop: 10/01/18 13:23 Enoxaparin Sodium (Lovenox) 40 mg SUBCUT DAILY [facility] Last Admin: 10/02/18 13:29 Dose: Not Given Fentanyl (Sublimaze) Confirm Administered Dose 250 mcg .ROUTE .STLynk-MED ONE Stop: 10/01/18 13:23 Fentanyl (Sublimaze) Confirm Administered Dose 250 mcg .ROUTE .STLynk-MED ONE Stop: 10/01/18 14:05 Glycopyrrolate (Robinul) Confirm Administered Dose 1 mg .ROUTE .STLynk-MED ONE Stop: 10/01/18 13:23 Haloperidol Lactate (Haldol) 2.5 mg IVPUSH Q2H PRN PRN Reason: Agitation Last Admin: 10/01/18 11:58 Dose: 2.5 mg Hydromorphone HCl (Dilaudid Nib Inspector 15 Mg In Ns 30 Ml) 0 mg IV ASDIRECTED PRN; Protocol PRN Reason: [employer]ENT[employer] PAIN CONTROL Last Admin: 10/01/18 17:57 Dose: 15 mg Hydromorphone HCl (Dilaudid) 1 mg IVPUSH Q2H PRN PRN Reason: Pain Last Admin: 10/02/18 05:49 Dose: 1 mg Lactated Ringer's (Ringers, Lactated) 1,000 mls @ 250 mls/hr IV ASDIRECTED [facility] Last Admin: 09/30/18 19:52 Dose: 250 mls/hr Sodium Chloride (Normal Saline) 80 mls @ 3 mls/sec IV ASDIRECTED [facility] Last Admin: 09/30/18 19:33 Dose: 3 mls/sec Lactated Ringer's (Ringers, Lactated) 1,000 mls @ 125 mls/hr IV ASDIRECTED [facility] Last Admin: 10/01/18 01:54 Dose: 125 mls/hr Lactated Ringer's (Ringers, Lactated) 1,000 mls @ 250 mls/hr IV ONETIME ONE Stop: 10/01/18 12:14 Last Admin: 10/01/18 08:54 Dose: 250 mls/hr Dextrose/Lactated Ringer's (Dextrose 5%-Lactated Ringers) 1,000 mls @ 125 mls/ hr IV ASDIRECTED [facility] Cefoxitin Sodium 2 gm/ Sodium (Chloride) 50 mls @ 100 mls/hr IV ONCALL ONE Stop: 10/01/18 13:59 Last Admin: 10/01/18 12:49 Dose: 100 mls/hr Potassium Acetate 20 meq/ (Sodium Chloride) 110 mls @ 55 mls/hr IV Q2H [facility] Stop: 10/01/18 15:29 Last Admin: 10/01/18 16:33 Dose: 55 mls/hr Lactated Ringer's (Ringers, Lactated) Confirm Administered Dose 1,000 mls @ as directed .ROUTE .STK-MED ONE Stop: 10/01/18 15:01 Dextrose/Lactated Ringer's (Dextrose 5%-Lactated Ringers) 1,000 mls @ 175 mls/ hr IV ASDIRECTED [facility] Last Admin: 10/01/18 21:10 Dose: 175 mls/hr Cefoxitin Sodium 2 gm/ Sodium (Chloride) 50 mls @ 100 mls/hr IV Q6H [facility] Stop: 10/02/18 18:29 Last Admin: 10/02/18 17:20 Dose: 100 mls/hr Acetaminophen 1,000 mg/ Premix 100 mls @ 400 mls/hr IV Q6H [facility] Stop: 10/03/18 09:14 Last Admin: 10/03/18 05:41 Dose: 400 mls/hr Acetaminophen 1,000 mg/ Premix 100 mls @ 400 mls/hr IV Q6H [facility] Stop: 10/04/18 11:31 Last Admin: 10/04/18 05:27 Dose: 400 mls/hr Potassium Chloride 20 meq/Lidocaine HCl 2 ml/ Sodium Chloride 112 mls @ 56 mls/ hr IV ONETIME ONE Stop: 10/04/18 11:59 Last Admin: 10/04/18 10:42 Dose: 56 mls/hr Iopamidol (Isovue-300 (61%)) 100 ml IV . DIRECTED [facility] Last Admin: 09/30/18 19:33 Dose: 100 ml Labetalol HCl (Normodyne) Confirm Administered Dose 20 mg .ROUTE .STK-MED ONE Stop: 10/01/18 15:16 Labetalol HCl (Normodyne) 5 mg IVPUSH ONETIME ONE; Protocol Stop: 10/01/18 15:40 Last Admin: 10/01/18 15:48 Dose: 5 mg Labetalol HCl (Normodyne) 5 mg IVPUSH ONETIME ONE; Protocol Stop: 10/01/18 15:57 Last Admin: 10/01/18 16:01 Dose: 5 mg Lidocaine/Epinephrine (Xylocaine 1% With Epinephrine 1:100,000) Confirm Administered Dose 50 ml .ROUTE .STK-MED ONE Stop: 10/01/18 12:16 Last Admin: 10/01/18 15:02 Dose: 25 ml Lorazepam (Ativan) 0.25 mg IVPUSH Q2H PRN PRN Reason: Anxiety Meropenem (Merrem) Confirm Administered Dose 500 mg .ROUTE .STK-MED ONE Stop: 10/01/18 12:15 Last Admin: 10/01/18 14:09 Dose: 500 mg Metoclopramide HCl (Reglan) 10 mg IVPUSH ONETIME ONE Stop: 09/30/18 18:19 Last Admin: 09/30/18 19:07 Dose: 10 mg Naloxone HCl (Narcan) 0.1 mg IV ASDIRECTED PRN PRN Reason: decreased respiratory rate Neostigmine Methylsulfate (Neostigmine) Confirm Administered Dose 5 mg .ROUTE .STK-MED ONE Stop: 10/01/18 13:23 Ondansetron HCl (Zofran) Confirm Administered Dose 4 mg .ROUTE .STK-MED ONE Stop: 10/01/18 13:23 Propofol (Diprivan 20 Ml) Confirm Administered Dose 200 mg .ROUTE .STK-MED ONE Stop: 10/01/18 13:23 Rivastigmine (Exelon) 4.5 mg PO BID [facility] Last Admin: 10/03/18 10:08 Dose: Not Given Rocuronium [place] (Zemuron) Confirm Administered Dose 50 mg .ROUTE .STK-MED ONE Stop: 10/01/18 13:23 Sodium Chloride (Saline Flush) 10 ml FLUSH ASDIRECTED PRN PRN Reason: Keep Vein Open Last Admin: 09/30/18 18:28 Dose: 10 ml Succinylcholine Chloride (Quelicin) Confirm Administered Dose 200 mg .ROUTE .STK -MED ONE Stop: 10/01/18 13:23 - Exam General: Moderate Distress, Other (Change in mental condition with fever 102) Neck: Supple Lungs: Clear to Auscultation, Normal Respiratory Effort Cardiovascular: Regular Rate, Regular Rhythm GI/Abdominal Exam: Distended, Guarding, Rebound, Tender Extremities: Normal Inspection Peripheral Pulses: 1+: Radial (L), Radial (R) Skin: Warm, Dry, Intact Wound/Incisions: Healing Well Neurological: No New Focal Deficit Psy/Mental Status: Agitated - Problem List Review Problem List Initiated/Reviewed/Updated: Yes - My Orders Last 24 Hours: My Active Orders 10/03/18 22:15 Initiate/Renew Non-Violent Restraints (All Ages) Q24H 10/04/18 14:57 Blood Culture x2 Reflex Set [OM.PC] Urgent 10/04/18 15:00 Dietary Supplements [RC] BIDMEALS CULTURE BLOOD [BC] Urgent 10/04/18 15:02 CULTURE URINE [RM] Routine 10/04/18 15:05 CULTURE BLOOD [BC] Urgent 10/04/18 16:00 Piperacillin/Tazobactam/Dext [Zosyn in Dextrose Iso-Osmotic 3.375 GM] 3.375 gm Premix Bag 1 bag IV Q6H 10/04/18 16:13 CBC WITH AUTO DIFF [HEME] Routine 10/04/18 16:14 Abdomen 2V AP Flat Upright [CR] Routine 10/04/18 16:16 HYDROmorphone [Dilaudid] 1 - 2 mg IVPUSH Q4H PRN - Plan Plan:: Assessment/Plan: #1. Small bowel obstruction. Major change from this morning. Has abd pain and fever 102. Blood cultures are pending and CBC with diff. I have also started on Zosyn 3.375 mg q 6 hrs #2. Left Hydronephrosis. He does have pain to light palpation over the bladder. #3. Parkinsonism: Much improved wtih restarting the parkinsonism medicine. #4. Hypertension: Continue with meds as BP is good control. 148/71. . CBC stable. K low supplementation in progress.
[2018-10-04] MEDS: HYDROmorphone 1 MG/ML Syringe IVPUSH PRN (16:35)
--- NOTE | 2018-10-04 17:11 | CRLCR ---
HISTORY: Postoperative fever. TECHNIQUE: One view of the chest. COMPARISON: No prior. FINDINGS: Low lung volumes with bibasilar atelectasis. Mid to upper lung zones clear. No pneumothorax. No moderate or large pleural effusion. Cardiac size is exaggerated by the portable technique and low lung volumes. Abdominal radiographs reported separately. IMPRESSION: Low lung volumes with bibasilar atelectasis. Dictated by Jeffrey Lugo MD @ 10/04/2018 5:10:32 PM Dictated by: Jeffrey Lugo MD @ 10/04/2018 17:10:35 (Electronically Signed)
--- NOTE | 2018-10-04 17:15 | CRLCR ---
HISTORY: Recent abdominal surgery. Fever. TECHNIQUE: Flat and semi upright abdominal radiographs. COMPARISON: 10/03/2018. FINDINGS: Abdominal wall florence. Surgical clips in the right upper quadrant. Gas within small bowel and colon likely indicating a postoperative ileus. No significant free intraperitoneal air seen on semi-upright abdominal radiograph. Degenerative changes of the spine. IMPRESSION: 1. Gas within small bowel and colon as before likely indicating a postoperative ileus. 2. No definite free air on the semi upright abdominal radiograph. Dictated by Jeffrey Lugo MD @ 10/04/2018 5:13:25 PM Dictated by: Jeffrey Lugo MD @ 10/04/2018 17:13:31 (Electronically Signed)
[2018-10-04] MEDS: Enoxaparin 40 MG/0.4 ML Syringe SUBCUT SCH (17:22)
[2018-10-04] MEDS: Doxazosin 4 MG Tab PO SCH (21:20)
[2018-10-04] MEDS: Carbidopa/Levodopa 50-200 MG Tab.ER PO SCH (21:24)
[2018-10-05] MEDS: Magnesium Sulfate/Water 2 GM in Premix Bag 1 BAG IV SCH ×4 (01:45→21:10)
[2018-10-05] MEDS: Dextrose 5%-Lactated Ringers 1,000 ML IV SCH ×2 (02:31→13:44)
[2018-10-05] MEDS: Piperacillin/Tazobactam/Dext 3.375 GM in Premix Bag 1 BAG IV SCH ×4 (04:21→22:58)
[2018-10-05] MEDS: Carbidopa/Levodopa 25-100 MG Tab.DIS PO SCH ×4 (05:41→17:57)
[2018-10-05] MEDS: Acetaminophen 325 MG Tab PO SCH (05:41)
--- NOTE | 2018-10-05 07:52 | PCM.PN ---
- General Info Date of Service: 10/05/18 Functional Status: Reports: Pain Controlled - Review of Systems General: Reports: Weakness HEENT: Reports: No Symptoms Pulmonary: Reports: No Symptoms Cardiovascular: Reports: No Symptoms Gastrointestinal: Reports: Abdominal Pain Genitourinary: Reports: Incontinence Musculoskeletal: Reports: No Symptoms Skin: Reports: No Symptoms Neurological: Reports: Confusion, Weakness Psychiatric: Reports: Confusion, Agitation - Patient Data Vitals - Most Recent: Last Vital Signs Temp 98.1 F 10/05/18 07:00 Pulse 65 10/05/18 07:00 Resp 16 10/05/18 07:00 BP 124/65 10/05/18 07:00 Pulse Ox 95 10/05/18 07:00 Weight - Most Recent: 185 lb 4 oz I&O - Last 24 Hours: Intake & Output 10/04/18 10/05/18 10/05/18 22:59 06:59 14:59 Intake Total 370 100 Balance 370 100 Lab Results Last 24 Hours: Laboratory Results - last 24 hr 10/04/18 10/05/18 10/05/18 Range/Units 16:31 04:12 04:12 WBC 9.1 9.5 (4.5-11.0) K/uL RBC 3.73 L 3.60 L (4.30-5.90) M/uL Hgb 12.6 11.4 L (12.0-15.0) g/dL Hct 36.9 L 35.8 L (40.0-54.0) % MCV 99 H 99 H (80-98) fL MCH 34 H 32 H (27-31) pg MCHC 34 32 (32-36) % Plt Count 183 199 (150-400) K/uL Neut % (Auto) 81 H (36-66) % Lymph % (Auto) 10 L (24-44) % [place] % (Auto) 6 (2-6) % Eos % (Auto) 2 (2-4) % Baso % (Auto) 0 (0-1) % Sodium 145 (140-148) mmol/L Potassium 3.1 L (3.6-5.2) mmol/L Chloride 109 H (100-108) mmol/L Carbon Dioxide 30 (21-32) mmol/L Anion Gap 9.1 (5.0-14.0) mmol/L BUN 25 H (7-18) mg/dL Creatinine 1.2 (0.8-1.3) mg/dL Est Cr Clr Drug Dosing 47.43 mL/min Estimated GFR (MDRD) 58 L (>60) Glucose 117 H (74-106) mg/dL Calcium 8.4 L (8.5-10.1) mg/dL Phosphorus 3.9 (2.5-4.9) mg/dL Total Bilirubin 1.8 H (0.2-1.0) mg/dL AST 31 (15-37) U/L ALT 11 L (12-78) U/L Alkaline Phosphatase 51 (46-116) U/L Total Protein 5.3 L (6.4-8.2) g/dL Albumin 2.4 L (3.4-5.0) g/dL Globulin 2.9 (2.3-3.5) g/dL Albumin/Globulin Ratio 0.8 L (1.2-2.2) Med Orders - Current: Current Medications Albuterol/Ipratropium (Duoneb 3.0-0.5 Mg/3 Ml) 3 ml NEB QIDRT [facility] Amlodipine Besylate (Norvasc) 5 mg PO DAILY [facility] Last Admin: 10/04/18 08:44 Dose: 5 mg Benazepril HCl (Lotensin) 20 mg PO BID [facility] Last Admin: 10/04/18 21:22 Dose: 20 mg Carbidopa/Levodopa (Parcopa 25-100 Mg Odt) 1 tab PO 0600,1000,1400,1800 [facility] Last Admin: 10/05/18 05:41 Dose: 1 tab Doxazosin Mesylate (Cardura) 4 mg PO BEDTIME [facility] Last Admin: 10/04/18 21:20 Dose: 4 mg Enoxaparin Sodium (Lovenox) 40 mg SUBCUT DAILY@1800 [facility] Last Admin: 10/04/18 17:22 Dose: 40 mg Hydromorphone HCl (Dilaudid) 1 - 2 mg IVPUSH Q4H PRN PRN Reason: Pain Last Admin: 10/04/18 16:35 Dose: 2 mg Dextrose/Lactated Ringer's (Dextrose 5%-Lactated Ringers) 1,000 mls @ 100 mls/ hr IV ASDIRECTED [facility] Last Admin: 10/05/18 02:31 Dose: 100 mls/hr Magnesium Sulfate 2 gm/ Premix 50 mls @ 25 mls/hr IV Q6H [facility] Stop: 10/07/18 03:59 Last Admin: 10/05/18 01:45 Dose: 25 mls/hr Piperacillin/Tazobactam/ (Dextrose 3.375 gm/ Premix) 50 mls @ 100 mls/hr IV Q6H [facility] Last Admin: 10/05/18 04:21 Dose: 100 mls/hr Potassium Chloride 20 meq/Lidocaine HCl 2 ml/ Sodium Chloride 112 mls @ 50 mls/ hr IV Q2H [facility] Stop: 10/05/18 13:29 Ondansetron HCl (Zofran) 4 mg IVPUSH Q4H PRN PRN Reason: Nausea/Vomiting Pantoprazole Sodium (Protonix Iv) 40 mg IV Q24H [facility] Last Admin: 10/04/18 08:47 Dose: 40 mg Quetiapine Fumarate (Seroquel) 25 mg PO BEDTIME [facility] Last Admin: 10/04/18 21:23 Dose: 25 mg Quetiapine Fumarate (Seroquel) 6.25 mg PO DAILY [facility] Last Admin: 10/04/18 08:59 Dose: 6.25 mg Rasagiline (Azilect) 1 mg PO DAILY [facility] Last Admin: 10/04/18 08:47 Dose: 1 mg Rivastigmine (Exelon) 9.5 mg TOP Q24H [facility] Last Admin: 10/04/18 08:59 Dose: 9.5 mg Spironolactone (Aldactone) 25 mg PO DAILY [facility] Last Admin: 10/04/18 08:45 Dose: 25 mg Discontinued Medications Acetaminophen (Tylenol) 650 mg PO Q6H [facility] Last Admin: 10/05/18 05:41 Dose: 650 mg Bisacodyl (Dulcolax) 10 mg PO BID [facility] Last Admin: 10/04/18 21:22 Dose: 10 mg Bupivacaine HCl (Marcaine 0.5%) Confirm Administered Dose 50 ml .ROUTE .STK-MED ONE Stop: 10/01/18 12:15 Last Admin: 10/01/18 15:02 Dose: 25 ml Carbidopa/Levodopa (Sinemet Cr 50-200 Mg) 1 tab PO BEDTIME [facility] Last Admin: 10/04/18 21:24 Dose: 1 tab Carbidopa/Levodopa (Sinemet 25-100 Mg) 1 tab PO 0600,1000,1400,1800 [facility] Last Admin: 10/03/18 06:29 Dose: Not Given Ropivacaine 34 ml/Dexamethasone 8 mg/Epinephrine HCl 0.4 mg/ Sodium Chloride 43.6 ml 0 ml NERVRT ASDIRECTED [facility] Last Admin: 10/01/18 14:00 Dose: 80 syringe Dexamethasone (Dexamethasone) Confirm Administered Dose 4 mg .ROUTE .STK-MED ONE Stop: 10/01/18 13:23 Docusate Sodium (Colace) 100 mg PO BID [facility] Last Admin: 10/04/18 21:21 Dose: 100 mg Enoxaparin Sodium (Lovenox) 40 mg SUBCUT DAILY [facility] Last Admin: 10/02/18 13:29 Dose: Not Given Fentanyl (Sublimaze) Confirm Administered Dose 250 mcg .ROUTE .STK-MED ONE Stop: 10/01/18 13:23 Fentanyl (Sublimaze) Confirm Administered Dose 250 mcg .ROUTE .[employer]-MED ONE Stop: 10/01/18 14:05 Glycopyrrolate (Robinul) Confirm Administered Dose 1 mg .ROUTE .STK-MED ONE Stop: 10/01/18 13:23 Haloperidol Lactate (Haldol) 2.5 mg IVPUSH Q2H PRN PRN Reason: Agitation Last Admin: 10/01/18 11:58 Dose: 2.5 mg Hydrochlorothiazide (Hydrochlorothiazide) 25 mg PO DAILY [facility] Last Admin: 10/04/18 08:46 Dose: 25 mg Hydromorphone HCl (Dilaudid [employer] 15 Mg In Ns 30 Ml) 0 mg IV ASDIRECTED PRN; Protocol 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 Last Admin: 10/01/18 17:57 Dose: 15 mg Hydromorphone HCl (Dilaudid) 1 mg IVPUSH Q2H PRN PRN Reason: Pain Last Admin: 10/02/18 05:49 Dose: 1 mg Hydroxyzine HCl (Vistaril) 100 mg IM Q4H PRN PRN Reason: pain Last Admin: 10/04/18 12:45 Dose: 100 mg Lactated Ringer's (Ringers, Lactated) 1,000 mls @ 250 mls/hr IV ASDIRECTED [facility] Last Admin: 09/30/18 19:52 Dose: 250 mls/hr Sodium Chloride (Normal Saline) 80 mls @ 3 mls/sec IV ASDIRECTED [facility] Last Admin: 09/30/18 19:33 Dose: 3 mls/sec Lactated Ringer's (Ringers, Lactated) 1,000 mls @ 125 mls/hr IV ASDIRECTED [facility] Last Admin: 10/01/18 01:54 Dose: 125 mls/hr Lactated Ringer's (Ringers, Lactated) 1,000 mls @ 250 mls/hr IV ONETIME ONE Stop: 10/01/18 12:14 Last Admin: 10/01/18 08:54 Dose: 250 mls/hr Dextrose/Lactated Ringer's (Dextrose 5%-Lactated Ringers) 1,000 mls @ 125 mls/ hr IV ASDIRECTED [facility] Cefoxitin Sodium 2 gm/ Sodium (Chloride) 50 mls @ 100 mls/hr IV ONCALL ONE Stop: 10/01/18 13:59 Last Admin: 10/01/18 12:49 Dose: 100 mls/hr Potassium Acetate 20 meq/ (Sodium Chloride) 110 mls @ 55 mls/hr IV Q2H [facility] Stop: 10/01/18 15:29 Last Admin: 10/01/18 16:33 Dose: 55 mls/hr Lactated Ringer's (Ringers, Lactated) Confirm Administered Dose 1,000 mls @ as directed .ROUTE .STK-MED ONE Stop: 10/01/18 15:01 Dextrose/Lactated Ringer's (Dextrose 5%-Lactated Ringers) 1,000 mls @ 175 mls/ hr IV ASDIRECTED [facility] Last Admin: 10/01/18 21:10 Dose: 175 mls/hr Cefoxitin Sodium 2 gm/ Sodium (Chloride) 50 mls @ 100 mls/hr IV Q6H [facility] Stop: 10/02/18 18:29 Last Admin: 10/02/18 17:20 Dose: 100 mls/hr Acetaminophen 1,000 mg/ Premix 100 mls @ 400 mls/hr IV Q6H [facility] Stop: 10/03/18 09:14 Last Admin: 10/03/18 05:41 Dose: 400 mls/hr Acetaminophen 1,000 mg/ Premix 100 mls @ 400 mls/hr IV Q6H [facility] Stop: 10/04/18 11:31 Last Admin: 10/04/18 05:27 Dose: 400 mls/hr Potassium Chloride 20 meq/Lidocaine HCl 2 ml/ Sodium Chloride 112 mls @ 56 mls/ hr IV ONETIME ONE Stop: 10/04/18 11:59 Last Admin: 10/04/18 10:42 Dose: 56 mls/hr Potassium Phosphate 20 mmole/ (Sodium Chloride) 256.6667 mls @ 86 mls/hr IV Q3H [facility] Stop: 10/04/18 17:59 Last Admin: 10/04/18 16:04 Dose: 86 mls/hr Iopamidol (Isovue-300 (61%)) 100 ml IV . DIRECTED [facility] Last Admin: 09/30/18 19:33 Dose: 100 ml Labetalol HCl (Normodyne) Confirm Administered Dose 20 mg .ROUTE .STK-MED ONE Stop: 10/01/18 15:16 Labetalol HCl (Normodyne) 5 mg IVPUSH ONETIME ONE; Protocol Stop: 10/01/18 15:40 Last Admin: 10/01/18 15:48 Dose: 5 mg Labetalol HCl (Normodyne) 5 mg IVPUSH ONETIME ONE; Protocol Stop: 10/01/18 15:57 Last Admin: 10/01/18 16:01 Dose: 5 mg Lidocaine/Epinephrine (Xylocaine 1% With Epinephrine 1:100,000) Confirm Administered Dose 50 ml .ROUTE .STK-MED ONE Stop: 10/01/18 12:16 Last Admin: 10/01/18 15:02 Dose: 25 ml Lorazepam (Ativan) 0.25 mg IVPUSH Q2H PRN PRN Reason: Anxiety Meropenem (Merrem) Confirm Administered Dose 500 mg .ROUTE .STK-MED ONE Stop: 10/01/18 12:15 Last Admin: 10/01/18 14:09 Dose: 500 mg Metoclopramide HCl (Reglan) 10 mg IVPUSH ONETIME ONE Stop: 09/30/18 18:19 Last Admin: 09/30/18 19:07 Dose: 10 mg Naloxone HCl (Narcan) 0.1 mg IV ASDIRECTED PRN PRN Reason: decreased respiratory rate Neostigmine Methylsulfate (Neostigmine) Confirm Administered Dose 5 mg .ROUTE .STK-MED ONE Stop: 10/01/18 13:23 Ondansetron HCl (Zofran) Confirm Administered Dose 4 mg .ROUTE .STK-MED ONE Stop: 10/01/18 13:23 Oxybutynin Chloride (Oxybutynin) 5 mg PO TID [facility] Last Admin: 10/04/18 21:23 Dose: 5 mg Propofol (Diprivan 20 Ml) Confirm Administered Dose 200 mg .ROUTE .STK-MED ONE Stop: 10/01/18 13:23 Rivastigmine (Exelon) 4.5 mg PO BID [facility] Last Admin: 10/03/18 10:08 Dose: Not Given Rocuronium [place] (Zemuron) Confirm Administered Dose 50 mg .ROUTE .STK-MED ONE Stop: 10/01/18 13:23 Sodium Chloride (Saline Flush) 10 ml FLUSH ASDIRECTED PRN PRN Reason: Keep Vein Open Last Admin: 09/30/18 18:28 Dose: 10 ml Succinylcholine Chloride (Quelicin) Confirm Administered Dose 200 mg .ROUTE .STK -MED ONE Stop: 10/01/18 13:23 Trospium (Sanctura) 20 mg PO BID [facility] Last Admin: 10/04/18 21:23 Dose: 20 mg - Exam General: Moderate Distress HEENT: Pupils Equal, Pupils Reactive, EOMI, Mucous Membr. Moist/[place] Neck: Supple Lungs: Clear to Auscultation, Normal Respiratory Effort Cardiovascular: Regular Rate, Regular Rhythm GI/Abdominal Exam: Normal Bowel Sounds, Soft, Tender Extremities: Normal Inspection Peripheral Pulses: 1+: Radial (L), Radial (R) Skin: Warm, Dry, Intact Wound/Incisions: Healing Well Psy/Mental Status: Agitated - Problem List Review Problem List Initiated/Reviewed/Updated: Yes - My Orders Last 24 Hours: My Active Orders 10/04/18 14:57 Blood Culture x2 Reflex Set [OM.PC] Urgent 10/04/18 15:00 Dietary Supplements [RC] BIDMEALS CULTURE BLOOD [BC] Urgent 10/04/18 15:02 CULTURE URINE [RM] Routine 10/04/18 15:05 CULTURE BLOOD [BC] Urgent 10/04/18 16:00 Piperacillin/Tazobactam/Dext [Zosyn in Dextrose Iso-Osmotic 3.375 GM] 3.375 gm Premix Bag 1 bag IV Q6H 10/04/18 16:16 HYDROmorphone [Dilaudid] 1 - 2 mg IVPUSH Q4H PRN - Plan Plan:: Assessment/Plan: #1. Small bowel obstruction. Afebrile this morning and normal WBC. I did give him Dilaudid after the fever spike yesterday. Also started him on Zosyn. I see no evidence of a septic problem presently. 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 Left Hydronephrosis. He does have pain to light palpation over the bladder. #3. Parkinsonism: Much improved will continue with the ODT parkinsonism medicine. #4. Hypertension: Continue with meds as BP is good control. 124/65. . CBC stable. K low supplementation in progress.
[2018-10-05] MEDS: Pantoprazole 40 MG Vial IV SCH (09:09)
[2018-10-05] MEDS: Potassium Chloride 20 MEQ, Lidocaine 1% 2 ML in Sodium Chloride 0.9% 100 ML IV SCH ×3 (09:12→13:23)
[2018-10-05] MEDS: Rivastigmine 9.5 MG/24 HR Transdermal Patch TOP SCH (09:16)
[2018-10-05] MEDS: Spironolactone 25 MG Tab PO SCH (09:19)
[2018-10-05] MEDS: amLODIPine 5 MG Tab PO SCH (09:21)
[2018-10-05] MEDS: QUEtiapine 25 MG Tab PO SCH ×2 (09:21→21:14)
--- NOTE | 2018-10-05 09:29 | CRLCR ---
INDICATION: Postop ileus. COMPARISON: Abdominal x-ray dated 04 October 2018. FINDINGS: Three views of the abdomen show air-filled loops of colon. A few mildly dilated loops of small bowel in the mid abdomen are improved. No evidence of free intraperitoneal air. Surgical clips in the mid abdomen. Degenerate changes of the spine. IMPRESSION: Improving ileus versus small-bowel obstruction. Dictated by Matti Evans MD @ 10/05/2018 9:27:42 AM Dictated by: Matti Evans MD @ 10/05/2018 09:27:49 (Electronically Signed)
--- NOTE | 2018-10-05 09:49 | PN ---
DATE OF SERVICE: 10/05/2018 SUBJECTIVE: Nursing staff reported this morning that Angelo developed a postop ileus, spiked a temp of 100.1. He had increasing confusion and abdominal pain. Dr. Hesham Ann was notified. He was ordered blood cultures; 2 views of abdomen, flat and upright; Dilaudid IV; and was started on Zosyn 3.375 g q.6 hours. He has slept well during the night. He did take his oral medications with a small container of Jell-O. This morning, temp is 98.1, and during the night, his temp was 99.2 and 98.4. REVIEW OF SYSTEMS: Remainder of review of systems negative for any pertinent positives or negatives. Oral intake 220. He is incontinent. LABORATORY DATA: Hemoglobin 11.4. Potassium 3.1. OBJECTIVE: GENERAL: Angelo Greenfield is an 83-year-old male. He is quite sleepy. VITAL SIGNS: TPR is 98.1, 65, 16. Blood pressure 124/65. HEART: Regular rate and rhythm. LUNGS: Clear. ABDOMEN: Not distended this morning, it is soft, and he grimaces with pain with light palpation. EXTREMITIES: Without peripheral edema. ASSESSMENT: 1. Postop ileus, hypokalemia. 2. Exploratory laparotomy with: a. Resolution of small bowel volvulus and closure of internal hernia. b. Rectosigmoid resection with coloproctostomy. c. Tube decompression of small and large bowel. d. Placement of Interceed mesh. Postoperative diagnoses: 1. a. Extensive abdominal adhesions. b. Small bowel volvulus via internal hernia at adhesion site. c. Closure of intermittent sigmoid volvulus. d. Marked distention of small and large bowel. Date of surgery, 10/01/2018. Surgeon, Nixon Raphael M.D. PLAN: 1. KCl 60 mEq in 3 divided doses with lidocaine. 2. Check CBC, CMP, and phos in a.m. 3. Abdominal flat and upright series starting today x4 days. 4. DuoNebs q.i.d. and p.r.n. 5. Ambulation encouraged. He does have Parkinson's, so staff will do the best that they can. 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 6. Colace and Dulcolax tabs were discontinued, last dose last evening. Dr. Hesham Ann was rounding and we reviewed medications together. 1. Recommend discontinuing carbidopa-levodopa, Sinemet CR 50/200 mg 1 tablet p.o. at bedtime; he is getting at bedtime. He is remaining to get the Parcopa 25/100 mg ODT 1 tablet at 0600 hours, 1000 hours, 1400 hours, and 1800 hours scheduled. 2. Discontinue hydrochlorothiazide 25 mg daily. 3. Discontinue Vistaril 100 mg IM every 4 hours p.r.n. 4. Discontinue Sanctura (trospium) 20 mg p.o. b.i.d. 5. Discontinue oxybutynin 5 mg p.o. t.i.d. scheduled. 6. The remainder of the medications are to be given with sips of water. Otherwise, he is to be n.p.o. We will evaluate p.r.n. or in a.m. Meri Long PA-C /[id number]
[2018-10-05] MEDS: Albuterol/Ipratropium 3.0-0.5 MG/3 ML Neb Soln NEB SCH ×3 (10:27→21:23)
[2018-10-05] MEDS: HYDROmorphone 1 MG/ML Syringe IVPUSH PRN ×3 (12:48→21:26)
[2018-10-05] MEDS: Enoxaparin 40 MG/0.4 ML Syringe SUBCUT SCH (17:55)
[2018-10-05] MEDS: Doxazosin 4 MG Tab PO SCH (21:15)
[2018-10-06] MEDS ORDERED: Lidocaine 2% Jelly 10 ML Urojet MUCMEM ONE (02:18)
[2018-10-06] MEDS: Magnesium Sulfate/Water 2 GM in Premix Bag 1 BAG IV SCH ×4 (02:25→19:37)
[2018-10-06] MEDS: Dextrose 5%-Lactated Ringers 1,000 ML IV SCH (02:51)
[2018-10-06] MEDS: Piperacillin/Tazobactam/Dext 3.375 GM in Premix Bag 1 BAG IV SCH ×4 (04:33→21:47)
--- NOTE | 2018-10-06 05:05 | CRLCR ---
INDICATION: Post operative ileus TECHNIQUE: Abdominal radiograph 3 views COMPARISON: 10/05/2018 FINDINGS: Bowel: [id number] gases distention of small-bowel loops and colon noted without significant interval change. Soft tissue: No evidence of pneumoperitoneum present. No suspicious calcifications noted. Midline skin stables are present. Surgical clips are noted in the right upper quadrant from prior cholecystectomy. Bone: Unremarkable for age. Miscellaneous: Bibasilar atelectasis and small bilateral pleural effusions are noted. IMPRESSION: 1. [id number] gases distention of small-bowel loops and colon noted without significant interval change. Dictated by Lb Brady MD @ 10/06/2018 5:03:03 AM Dictated by: Lb Brady MD @ 10/06/2018 05:03:07 (Electronically Signed)
--- NOTE | 2018-10-06 06:55 | PCM.PN ---
- General Info Date of Service: 10/06/18 Functional Status: Reports: Pain Controlled - Review of Systems General: Reports: Weakness HEENT: Reports: No Symptoms Pulmonary: Reports: No Symptoms Cardiovascular: Reports: No Symptoms Gastrointestinal: Reports: Abdominal Pain, Other Musculoskeletal: Reports: No Symptoms Skin: Reports: No Symptoms Neurological: Reports: Weakness Psychiatric: Reports: Confusion - Patient Data Vitals - Most Recent: Last Vital Signs Temp 96.5 F 10/06/18 02:52 Pulse 69 10/06/18 02:52 Resp 16 10/06/18 02:52 BP 140/73 10/06/18 02:52 Pulse Ox 92 L 10/06/18 02:52 Weight - Most Recent: 185 lb 4 oz I&O - Last 24 Hours: Intake & Output 10/05/18 10/05/18 10/06/18 14:59 22:59 06:59 Intake Total 3350 436 1064 Output Total 900 Balance 3350 436 164 Lab Results Last 24 Hours: Laboratory Results - last 24 hr 10/06/18 10/06/18 10/06/18 Range/Units 02:47 04:22 04:22 WBC 10.0 (4.5-11.0) K/uL RBC 3.79 L (4.30-5.90) M/uL Hgb 12.3 (12.0-15.0) g/dL Hct 37.5 L (40.0-54.0) % MCV 99 H (80-98) fL MCH 33 H (27-31) pg MCHC 33 (32-36) % Plt Count 205 (150-400) K/uL Sodium 144 (140-148) mmol/L Potassium 3.2 L (3.6-5.2) mmol/L Chloride 109 H (100-108) mmol/L Carbon Dioxide 29 (21-32) mmol/L Anion Gap 9.2 (5.0-14.0) mmol/L BUN 25 H (7-18) mg/dL Creatinine 1.3 (0.8-1.3) mg/dL Est Cr Clr Drug Dosing 43.78 mL/min Estimated GFR (MDRD) 53 L (>60) Glucose 133 H (74-106) mg/dL Calcium 8.3 L (8.5-10.1) mg/dL Phosphorus 2.9 (2.5-4.9) mg/dL Total Bilirubin 1.5 H (0.2-1.0) mg/dL AST 31 (15-37) U/L ALT 14 (12-78) U/L Alkaline Phosphatase 58 (46-116) U/L Total Protein 5.3 L (6.4-8.2) g/dL Albumin 2.3 L (3.4-5.0) g/dL Globulin 3.0 (2.3-3.5) g/dL Albumin/Globulin Ratio 0.8 L (1.2-2.2) Urine Color Yellow (YELLOW) Urine Appearance Clear (CLEAR) Urine pH 6.5 (5.0-8.0) Ur Specific [place] 1.030 (1.008-1.030) Urine Protein Negative (NEGATIVE) mg/dL Urine Glucose (UA) Normal (NEGATIVE) mg/dL Urine Ketones Negative (NEGATIVE) mg/dL Urine Occult Blood Negative (NEGATIVE) Urine Nitrite Negative (NEGATIVE) Urine Bilirubin Negative (NEGATIVE) Urine Urobilinogen 0.2 (0.2-1.0) EU/dL Ur Leukocyte Esterase Negative (NEGATIVE) Urine RBC 0-5 (0-5) Urine WBC 0-5 (0-5) Ur Epithelial Cells Rare Amorphous Sediment Not seen Urine Bacteria Rare Urine Mucus Not seen [place] Results Last 24 Hours: Microbiology 10/04/18 15:00 Aerobic Blood Culture - Preliminary Blood - Arm, Left Gram Positive Cocci Anaerobic Blood Culture - Preliminary 10/04/18 15:05 Aerobic Blood Culture - Preliminary Blood - Arm, Left NO GROWTH AFTER 1 DAY Anaerobic Blood Culture - Preliminary NO GROWTH AFTER 1 DAY Med Orders - Current: Current Medications Albuterol/Ipratropium (Duoneb 3.0-0.5 Mg/3 Ml) 3 ml NEB QIDRT [facility] Last Admin: 10/05/18 21:23 Dose: 3 ml Amlodipine Besylate (Norvasc) 5 mg PO DAILY [facility] Last Admin: 10/05/18 09:21 Dose: 5 mg Benazepril HCl (Lotensin) 20 mg PO BID [facility] Last Admin: 10/05/18 21:14 Dose: 20 mg Carbidopa/Levodopa (Parcopa 25-100 Mg Odt) 1 tab PO 0600,1000,1400,1800 [facility] Last Admin: 10/05/18 17:57 Dose: 1 tab Doxazosin Mesylate (Cardura) 4 mg PO BEDTIME [facility] Last Admin: 10/05/18 21:15 Dose: 4 mg Enoxaparin Sodium (Lovenox) 40 mg SUBCUT DAILY@1800 [facility] Last Admin: 10/05/18 17:55 Dose: 40 mg Haloperidol Lactate (Haldol) 2.5 mg IVPUSH Q2H PRN PRN Reason: Agitation Hydromorphone HCl (Dilaudid) 1 - 2 mg IVPUSH Q4H PRN PRN Reason: Pain Last Admin: 10/05/18 21:26 Dose: 1 mg Dextrose/Lactated Ringer's (Dextrose 5%-Lactated Ringers) 1,000 mls @ 100 mls/ hr IV ASDIRECTED [facility] Last Admin: 10/06/18 02:51 Dose: 100 mls/hr Magnesium Sulfate 2 gm/ Premix 50 mls @ 25 mls/hr IV Q6H [facility] Stop: 10/07/18 03:59 Last Admin: 10/06/18 02:25 Dose: 25 mls/hr Piperacillin/Tazobactam/ (Dextrose 3.375 gm/ Premix) 50 mls @ 100 mls/hr IV Q6H [facility] Last Admin: 10/06/18 04:33 Dose: 100 mls/hr Ondansetron HCl (Zofran) 4 mg IVPUSH Q4H PRN PRN Reason: Nausea/Vomiting Pantoprazole Sodium (Protonix Iv) 40 mg IV Q24H [facility] Last Admin: 10/05/18 09:09 Dose: 40 mg Quetiapine Fumarate (Seroquel) 25 mg PO BEDTIME [facility] Last Admin: 10/05/18 21:14 Dose: 25 mg Quetiapine Fumarate (Seroquel) 6.25 mg PO DAILY [facility] Last Admin: 10/05/18 09:21 Dose: 6.25 mg Rasagiline (Azilect) 1 mg PO DAILY [facility] Last Admin: 10/05/18 09:19 Dose: 1 mg Rivastigmine (Exelon) 9.5 mg TOP Q24H [facility] Last Admin: 10/05/18 09:16 Dose: 9.5 mg Spironolactone (Aldactone) 25 mg PO DAILY [facility] Last Admin: 10/05/18 09:19 Dose: 25 mg Discontinued Medications Acetaminophen (Tylenol) 650 mg PO Q6H [facility] Last Admin: 10/05/18 05:41 Dose: 650 mg Bisacodyl (Dulcolax) 10 mg PO BID [facility] Last Admin: 10/04/18 21:22 Dose: 10 mg Bupivacaine HCl (Marcaine 0.5%) Confirm Administered Dose 50 ml .ROUTE .STK-MED ONE Stop: 10/01/18 12:15 Last Admin: 10/01/18 15:02 Dose: 25 ml Carbidopa/Levodopa (Sinemet Cr 50-200 Mg) 1 tab PO BEDTIME [facility] Last Admin: 10/04/18 21:24 Dose: 1 tab Carbidopa/Levodopa (Sinemet 25-100 Mg) 1 tab PO 0600,1000,1400,1800 [facility] Last Admin: 10/03/18 06:29 Dose: Not Given Ropivacaine 34 ml/Dexamethasone 8 mg/Epinephrine HCl 0.4 mg/ Sodium Chloride 43.6 ml 0 ml NERVRT ASDIRECTED [facility] Last Admin: 10/01/18 14:00 Dose: 80 syringe Dexamethasone (Dexamethasone) Confirm Administered Dose 4 mg .ROUTE .STK-MED ONE Stop: 10/01/18 13:23 Docusate Sodium (Colace) 100 mg PO BID [facility] Last Admin: 10/04/18 21:21 Dose: 100 mg Enoxaparin Sodium (Lovenox) 40 mg SUBCUT DAILY [facility] Last Admin: 10/02/18 13:29 Dose: Not Given Fentanyl (Sublimaze) Confirm Administered Dose 250 mcg .ROUTE .STK-MED ONE Stop: 10/01/18 13:23 Fentanyl (Sublimaze) Confirm Administered Dose 250 mcg .ROUTE .STK-MED ONE Stop: 10/01/18 14:05 Glycopyrrolate (Robinul) Confirm Administered Dose 1 mg .ROUTE .STK-MED ONE Stop: 10/01/18 13:23 Haloperidol Lactate (Haldol) 2.5 mg IVPUSH Q2H PRN PRN Reason: Agitation Last Admin: 10/01/18 11:58 Dose: 2.5 mg Hydrochlorothiazide (Hydrochlorothiazide) 25 mg PO DAILY [facility] Last Admin: 10/04/18 08:46 Dose: 25 mg Hydromorphone HCl (Dilaudid [employer] 15 Mg In Ns 30 Ml) 0 mg IV ASDIRECTED PRN; Protocol PRN Reason: [employer] PAIN CONTROL Last Admin: 10/01/18 17:57 Dose: 15 mg Hydromorphone HCl (Dilaudid) 1 mg IVPUSH Q2H PRN PRN Reason: Pain Last Admin: 10/02/18 05:49 Dose: 1 mg Hydroxyzine HCl (Vistaril) 100 mg IM Q4H PRN PRN Reason: pain Last Admin: 10/04/18 12:45 Dose: 100 mg Lactated Ringer's (Ringers, Lactated) 1,000 mls @ 250 mls/hr IV ASDIRECTED [facility] Last Admin: 09/30/18 19:52 Dose: 250 mls/hr Sodium Chloride (Normal Saline) 80 mls @ 3 mls/sec IV ASDIRECTED [facility] Last Admin: 09/30/18 19:33 Dose: 3 mls/sec Lactated Ringer's (Ringers, Lactated) 1,000 mls @ 125 mls/hr IV ASDIRECTED [facility] Last Admin: 10/01/18 01:54 Dose: 125 mls/hr Lactated Ringer's (Ringers, Lactated) 1,000 mls @ 250 mls/hr IV ONETIME ONE Stop: 10/01/18 12:14 Last Admin: 10/01/18 08:54 Dose: 250 mls/hr Dextrose/Lactated Ringer's (Dextrose 5%-Lactated Ringers) 1,000 mls @ 125 mls/ hr IV ASDIRECTED [facility] Cefoxitin Sodium 2 gm/ Sodium (Chloride) 50 mls @ 100 mls/hr IV ONCALL ONE Stop: 10/01/18 13:59 Last Admin: 10/01/18 12:49 Dose: 100 mls/hr Potassium Acetate 20 meq/ (Sodium Chloride) 110 mls @ 55 mls/hr IV Q2H [facility] Stop: 10/01/18 15:29 Last Admin: 10/01/18 16:33 Dose: 55 mls/hr Lactated Ringer's (Ringers, Lactated) Confirm Administered Dose 1,000 mls @ as directed .ROUTE .STK-MED ONE Stop: 10/01/18 15:01 Dextrose/Lactated Ringer's (Dextrose 5%-Lactated Ringers) 1,000 mls @ 175 mls/ hr IV ASDIRECTED [facility] Last Admin: 10/01/18 21:10 Dose: 175 mls/hr Cefoxitin Sodium 2 gm/ Sodium (Chloride) 50 mls @ 100 mls/hr IV Q6H [facility] Stop: 10/02/18 18:29 Last Admin: 10/02/18 17:20 Dose: 100 mls/hr Acetaminophen 1,000 mg/ Premix 100 mls @ 400 mls/hr IV Q6H [facility] Stop: 10/03/18 09:14 Last Admin: 10/03/18 05:41 Dose: 400 mls/hr Acetaminophen 1,000 mg/ Premix 100 mls @ 400 mls/hr IV Q6H [facility] Stop: 10/04/18 11:31 Last Admin: 10/04/18 05:27 Dose: 400 mls/hr Potassium Chloride 20 meq/Lidocaine HCl 2 ml/ Sodium Chloride 112 mls @ 56 mls/ hr IV ONETIME ONE Stop: 10/04/18 11:59 Last Admin: 10/04/18 10:42 Dose: 56 mls/hr Potassium Phosphate 20 mmole/ (Sodium Chloride) 256.6667 mls @ 86 mls/hr IV Q3H [facility] Stop: 10/04/18 17:59 Last Admin: 10/04/18 16:04 Dose: 86 mls/hr Potassium Chloride 20 meq/Lidocaine HCl 2 ml/ Sodium Chloride 112 mls @ 56 mls/ hr IV Q2H [facility] Stop: 10/05/18 14:59 Last Admin: 10/05/18 13:23 Dose: 56 mls/hr Iopamidol (Isovue-300 (61%)) 100 ml IV . DIRECTED [facility] Last Admin: 09/30/18 19:33 Dose: 100 ml Labetalol HCl (Normodyne) Confirm Administered Dose 20 mg .ROUTE .STK-MED ONE Stop: 10/01/18 15:16 Labetalol HCl (Normodyne) 5 mg IVPUSH ONETIME ONE; Protocol Stop: 10/01/18 15:40 Last Admin: 10/01/18 15:48 Dose: 5 mg Labetalol HCl (Normodyne) 5 mg IVPUSH ONETIME ONE; Protocol Stop: 10/01/18 15:57 Last Admin: 10/01/18 16:01 Dose: 5 mg Lidocaine HCl (Xylocaine 2% Jelly) 10 ml MUCMEM ONETIME ONE Stop: 10/06/18 02:19 Last Admin: 10/06/18 02:26 Dose: 10 ml Lidocaine/Epinephrine (Xylocaine 1% With Epinephrine 1:100,000) Confirm Administered Dose 50 ml .ROUTE .STK-MED ONE Stop: 10/01/18 12:16 Last Admin: 10/01/18 15:02 Dose: 25 ml Lorazepam (Ativan) 0.25 mg IVPUSH Q2H PRN PRN Reason: Anxiety Meropenem (Merrem) Confirm Administered Dose 500 mg .ROUTE .STK-MED ONE Stop: 10/01/18 12:15 Last Admin: 10/01/18 14:09 Dose: 500 mg Metoclopramide HCl (Reglan) 10 mg IVPUSH ONETIME ONE Stop: 09/30/18 18:19 Last Admin: 09/30/18 19:07 Dose: 10 mg Naloxone HCl (Narcan) 0.1 mg IV ASDIRECTED PRN PRN Reason: decreased respiratory rate Neostigmine Methylsulfate (Neostigmine) Confirm Administered Dose 5 mg .ROUTE .STK-MED ONE Stop: 10/01/18 13:23 Ondansetron HCl (Zofran) Confirm Administered Dose 4 mg .ROUTE .STK-MED ONE Stop: 10/01/18 13:23 Oxybutynin Chloride (Oxybutynin) 5 mg PO TID [facility] Last Admin: 10/04/18 21:23 Dose: 5 mg Propofol (Diprivan 20 Ml) Confirm Administered Dose 200 mg .ROUTE .STK-MED ONE Stop: 10/01/18 13:23 Rivastigmine (Exelon) 4.5 mg PO BID [facility] Last Admin: 10/03/18 10:08 Dose: Not Given Rocuronium Mertzon (Zemuron) Confirm Administered Dose 50 mg .ROUTE .STK-MED ONE Stop: 10/01/18 13:23 Sodium Chloride (Saline Flush) 10 ml FLUSH ASDIRECTED PRN PRN Reason: Keep Vein Open Last Admin: 09/30/18 18:28 Dose: 10 ml Succinylcholine Chloride (Quelicin) Confirm Administered Dose 200 mg .ROUTE .STK -MED ONE Stop: 10/01/18 13:23 Trospium (Sanctura) 20 mg PO BID [facility] Last Admin: 10/04/18 21:23 Dose: 20 mg - Exam General: Mild Distress HEENT: Pupils Equal, Pupils Reactive, EOMI, Mucous Membr. Moist/[place] Neck: Supple Lungs: Clear to Auscultation, Normal Respiratory Effort Cardiovascular: Regular Rate, Regular Rhythm Extremities: Normal Inspection, Normal Range of Motion, Non-Tender, No Pedal Edema, Normal Capillary Refill Peripheral Pulses: 1+: Radial (L), Radial (R) Skin: Warm, Dry, Intact Wound/Incisions: Healing Well Neurological: No New Focal Deficit Psy/Mental Status: Alert, Normal Affect, Normal Mood - Problem List Review Problem List Initiated/Reviewed/Updated: Yes - My Orders Last 24 Hours: My Active Orders 10/05/18 19:22 Haloperidol Lactate [Haldol] 2.5 mg IVPUSH Q2H PRN 10/05/18 19:23 Cardiac Monitoring [RC] .As Directed - Plan Plan:: Assessment/Plan: #1. Small bowel obstruction. Afebrile this morning and normal WBC. I did give him Dilaudid after the fever spike yesterday. Also started him on Zosyn. I see no evidence of a septic problem presently. Improving mentally #2. Left Hydronephrosis. Walton in bladder retention last night.. #3. Parkinsonism: Much improved will continue with the ODT parkinsonism medicine. #4. Hypertension: Continue with meds as BP is good control. 140/73. CBC stable. K low supplementation in progress.
[2018-10-06] MEDS ORDERED: Dextrose 5%-Lactated Ringers 1,000 ML IV SCH (07:30)
[2018-10-06] MEDS: Albuterol/Ipratropium 3.0-0.5 MG/3 ML Neb Soln NEB SCH ×4 (07:44→20:43)
[2018-10-06] MEDS: HYDROmorphone 2 MG Tab PO PRN ×3 (09:47→20:34)
[2018-10-06] MEDS: Carbidopa/Levodopa 25-100 MG Tab.DIS PO SCH ×4 (09:51→18:16)
[2018-10-06] MEDS: Spironolactone 25 MG Tab PO SCH (09:52)
[2018-10-06] MEDS: Bisacodyl 5 MG Tab PO SCH ×2 (09:53→20:38)
[2018-10-06] MEDS: Tamsulosin 0.4 MG Cap.ER PO SCH ×2 (09:55→20:36)
[2018-10-06] MEDS: amLODIPine 5 MG Tab PO SCH (10:00)
[2018-10-06] MEDS: Pantoprazole 40 MG Vial IV SCH (10:01)
[2018-10-06] MEDS: Acetaminophen 325 MG Tab PO SCH ×3 (10:02→21:47)
[2018-10-06] MEDS: Rivastigmine 9.5 MG/24 HR Transdermal Patch TOP SCH (10:03)
[2018-10-06] MEDS: Potassium Phosphates 22.5 MMOLE in Sodium Chloride 0.9% 250 ML IV SCH ×2 (10:29→13:37)
[2018-10-06] MEDS: QUEtiapine 25 MG Tab PO SCH ×2 (12:21→20:37)
--- NOTE | 2018-10-06 13:05 | OR ---
DATE OF PROCEDURE: 10/01/2018 PREOPERATIVE DIAGNOSIS: Small bowel obstruction. POSTOPERATIVE DIAGNOSES: 1. Small bowel obstruction associated with extensive intraabdominal adhesions and a small bowel volvulus via the internal hernia at a point of adhesion in the right upper quadrant. 2. Marked distention of distal small bowel and large bowel. 3. Chronic intermittent sigmoid volvulus. OPERATIVE PROCEDURES: Exploratory laparotomy with lysis of adhesions and: 1. Reduction of small bowel volvulus and closure of internal hernia (82451). 2. Tube decompression of distended proximal small bowel and large bowel (98355). 3. Rectosigmoid resection with coloproctostomy (44452). 4. Placement of Interceed mesh to limit recurrent adhesion formation between pelvic and abdominal wall and underlying viscera (00036). ANESTHESIA: General. INDICATION FOR PROCEDURE: Please see progress note dated earlier today. DETAILS OF PROCEDURE: The patient was taken to the operating room, and after general endotracheal anesthesia was induced, a Walton catheter was inserted. The patient had a previous nasogastric tube. The abdomen was then prepped and draped. The upper midline incision was made from the umbilicus roughly 2/3 up towards the xiphoid and carried through the full thickness of the abdominal wall. Upon entering the peritoneal cavity, a small amount of clear ascitic fluid was present. The patient's small bowel was noted to be strikingly distended diffusely. As one traced out the small bowel, it became apparent that the point of obstruction was at a point of the small bowel passing around an adhesion in the right upper quadrant. The patient did not have previous overt history of abdominal surgery, but he did apparently have a cholecystectomy in the past which was not reported and had some adhesions between the omentum and the anterior abdominal wall, that location around which the small bowel had rotated creating a volvulus. The omental adhesions were then taken down and then tacked down such as that there would be no remaining potential for a volvulus with the mesenteric defect having been corrected by means of the division of the omentum. On further examination, the patient had what appeared to be chronic intermittent sigmoid volvulus. The sigmoid colon was strikingly distended and was rotated on itself. There was a crease at the base of the sigmoid colon mesentery where the bowel was divided, it was apparently rotated on itself. At this point, an opening was made in the small bowel near the ileum and Gonzales sump tube was passed. A large amount of fluid and air from the small bowel were evacuated. The tube was also then directed somewhat through the ileocecal valve and a large amount of fluid and air were all evacuated from the right colon. Following this decompression, the Gonzales sump tube was removed and the opening of the small bowel was closed with a transversely oriented ARIADNA faulkner load firing and then reinforced with some 3-0 Vicryl seromuscular stitch as well. At this point, the decision was made to proceed with a rectosigmoid resection. The junction of the sigmoid colon and the rectum was encircled and the upper rectum then divided with the ARIADNA stapler as was the proximal sigmoid colon. A [id number] coloproctostomy was then accomplished with 2 internal firings of the Endo-ARIADNA 60 mm faulkner load, it was then closed transversely with purple load and the angles anastomosed and mesenteric defect closed with some 3-0 Vicryl stitch and this anastomosis was then reinforced with 4 mL of fibrin sealant as well. The abdomen was then irrigated with antibiotic-containing saline solution and it was felt that no drain was necessary. The midline fascia was then approximated with #2 Vicryl stitch. The resection at this point had been thoroughly cleaned, and after changing the gloves and instruments, the subcutaneous tissue was closed with a layer of 3-0 Vicryl stitch deep and then florence for the skin and dressing was applied. The patient was taken to the recovery room in satisfactory condition. There were no evident complications. Nixon Raphael MD /[id number]
[2018-10-06] MEDS: Haloperidol Lactate 5 MG/ML SDV IVPUSH PRN ×2 (14:11→16:11)
--- NOTE | 2018-10-06 14:40 | PN ---
DATE OF SERVICE: 10/06/2018 The patient has been afebrile with stable vital signs. He did move his bowels yesterday, and abdominal x-rays show fair bit of air in the small bowel, but also quite a bit in the large bowel and is probably resolving. Did retain urine and we will start some Flomax, try getting his Walton catheter out tomorrow. His potassium phosphate in the marginal levels, it will be supplemented today. We will go over to oral pain medication. We will give him scheduled Tylenol and p.r.n. Dilaudid and then recheck some labs in the morning along with abdominal x-rays. We will start a full liquid diet today, but not push oral intake as of yet, continue his ongoing bowel stimulation. Nixon aRphael MD /[id number]
[2018-10-06] MEDS: Enoxaparin 40 MG/0.4 ML Syringe SUBCUT SCH (18:15)
[2018-10-06] MEDS: Doxazosin 4 MG Tab PO SCH (20:36)
[2018-10-07] MEDS: Haloperidol Lactate 5 MG/ML SDV IVPUSH PRN ×4 (01:11→17:39)
[2018-10-07] MEDS: Magnesium Sulfate/Water 2 GM in Premix Bag 1 BAG IV SCH (01:11)
[2018-10-07] MEDS: Piperacillin/Tazobactam/Dext 3.375 GM in Premix Bag 1 BAG IV SCH ×3 (04:27→15:30)
[2018-10-07] MEDS: Acetaminophen 325 MG Tab PO SCH ×4 (04:27→21:47)
[2018-10-07] MEDS: Carbidopa/Levodopa 25-100 MG Tab.DIS PO SCH ×4 (06:33→17:30)
--- NOTE | 2018-10-07 06:45 | CRLCR ---
INDICATION: Postoperative ileus. COMPARISON: 10/06/2018. TECHNIQUE: Three portable views of the abdomen, including semi upright and supine views. FINDINGS: Midline skin florence are again noted. Diffuse gaseous distended loops of small large bowel are again present, similar to prior. No pneumatosis is identified on these portable views. Degenerative changes again noted in the imaged osseous structures. IMPRESSION: Gaseous distended small large bowel loops, similar to prior. Dictated by Jose Traylor MD @ Oct 07 2018 6:42AM Signed by Dr. Jose Traylor @ Oct 07 2018 6:44AM
[2018-10-07] MEDS: Albuterol/Ipratropium 3.0-0.5 MG/3 ML Neb Soln NEB SCH ×4 (07:08→20:39)
[2018-10-07] MEDS ORDERED: Dextrose 5%-Lactated Ringers 1,000 ML IV SCH (08:15)
--- NOTE | 2018-10-07 08:15 | PN ---
DATE OF SERVICE: 10/01/2018 SUBJECTIVE: This is an 83-year-old admitted overnight with a picture of small bowel obstruction. He has had no previous abdominal surgeries or obvious causes for a small bowel obstruction. Overnight, he had an NG tube placed with a very large volume being removed. His stomach on his initial CT scan was very strikingly distended. He has had some gas passing and a small bowel movement. An abdominal x-ray this morning suggests some potential resolution of the bowel obstruction with more air in the colon and rectum, but there is still quite a bit in the way of distended small bowel loops. OBJECTIVE: VITAL SIGNS: The patient is afebrile with stable vital signs. GENERAL: He is alert and appropriately communicative. ABDOMEN: Shows some continued distention and some mild discomfort more or less diffusely. At this point, the patient appeared to have a new onset of small bowel obstruction. Without any previous history of abdominal surgeries, I think we probably need to proceed with an exploratory laparotomy, as there is no obvious resolvable cause for the bowel obstruction. He also probably has some degree of chronicity, given the amount of gastric distention that he had, indicative of some underlying problem. Plan to proceed with exploratory laparotomy with bowel resection if indicated. Potential risks including bleeding, infection, leaks from various GI tract closures, and possible recurrence of the problem over time were reviewed, along with the possibility of cardiopulmonary, septic, or hemorrhagic complications leading to , and the patient wishes to proceed. The surgery will be undertaken later on today. Nixon Raphael MD /[id number]
[2018-10-07] MEDS: Spironolactone 25 MG Tab PO SCH (08:45)
[2018-10-07] MEDS: Bisacodyl 5 MG Tab PO SCH ×3 (08:45→21:46)
[2018-10-07] MEDS: Pantoprazole 40 MG Vial IV SCH (08:45)
[2018-10-07] MEDS: QUEtiapine 25 MG Tab PO SCH ×3 (08:46→21:47)
[2018-10-07] MEDS: amLODIPine 5 MG Tab PO SCH (08:46)
[2018-10-07] MEDS: Potassium Phosphates 22.5 MMOLE in Sodium Chloride 0.9% 250 ML IV SCH ×2 (09:02→13:58)
[2018-10-07] MEDS: Rivastigmine 9.5 MG/24 HR Transdermal Patch TOP SCH (09:02)
[2018-10-07] MEDS: HYDROmorphone 2 MG Tab PO PRN (09:34)
[2018-10-07] MEDS: Sodium Chloride 0.9% 1,000 ML IV SCH (12:56)
[2018-10-07] MEDS ORDERED: Azithromycin 250 MG Tab PO ONE (17:30)
[2018-10-07] MEDS: Enoxaparin 40 MG/0.4 ML Syringe SUBCUT SCH (17:30)
--- NOTE | 2018-10-07 18:14 | PCM.PN ---
- General Info Date of Service: 10/07/18 Admission Dx/Problem (Free Text): Sitting in a chair without significant problem. He is very hard of hearing. He was eating. Functional Status: Reports: Pain Controlled - Review of Systems General: Reports: Weakness HEENT: Reports: No Symptoms Pulmonary: Reports: No Symptoms Cardiovascular: Reports: No Symptoms Gastrointestinal: Reports: Abdominal Pain Genitourinary: Reports: No Symptoms Musculoskeletal: Reports: No Symptoms Skin: Reports: No Symptoms Neurological: Reports: No Symptoms Psychiatric: Reports: Confusion - Patient Data Vitals - Most Recent: Last Vital Signs Temp 98.8 F 10/07/18 14:42 Pulse 83 10/07/18 14:42 Resp 16 10/07/18 14:42 BP 90/51 L 10/07/18 14:42 Pulse Ox 93 L 10/07/18 14:42 Weight - Most Recent: 196 lb 12.8 oz I&O - Last 24 Hours: Intake & Output 10/07/18 10/07/18 10/07/18 06:59 14:59 22:59 Intake Total 150 1045 55 Output Total 450 Balance -300 1045 55 Lab Results Last 24 Hours: Laboratory Results - last 24 hr 10/07/18 10/07/18 Range/Units 04:00 04:00 WBC 9.7 (4.5-11.0) K/uL RBC 3.83 L (4.30-5.90) M/uL Hgb 12.3 (12.0-15.0) g/dL Hct 38.2 L (40.0-54.0) % MCV 100 H (80-98) fL MCH 32 H (27-31) pg MCHC 32 (32-36) % Plt Count 214 (150-400) K/uL Sodium 145 (140-148) mmol/L Potassium 3.4 L (3.6-5.2) mmol/L Chloride 110 H (100-108) mmol/L Carbon Dioxide 30 (21-32) mmol/L Anion Gap 8.4 (5.0-14.0) mmol/L BUN 25 H (7-18) mg/dL Creatinine 1.2 (0.8-1.3) mg/dL Est Cr Clr Drug Dosing 47.43 mL/min Estimated GFR (MDRD) 58 L (>60) Glucose 119 H (74-106) mg/dL Calcium 8.0 L (8.5-10.1) mg/dL Phosphorus 3.1 (2.5-4.9) mg/dL Magnesium 3.4 H (1.8-2.4) mg/dL Total Bilirubin 1.3 H (0.2-1.0) mg/dL AST 31 (15-37) U/L ALT 21 (12-78) U/L Alkaline Phosphatase 57 (46-116) U/L NT-Pro-B Natriuret Pep 507 H (5-450) pg/mL Total Protein 5.2 L (6.4-8.2) g/dL Albumin 2.2 L (3.4-5.0) g/dL Globulin 3.0 (2.3-3.5) g/dL Albumin/Globulin Ratio 0.7 L (1.2-2.2) Thompson Results Last 24 Hours: Microbiology 10/04/18 15:05 Aerobic Blood Culture - Preliminary Blood - Arm, Left NO GROWTH AFTER 3 DAYS Anaerobic Blood Culture - Preliminary NO GROWTH AFTER 3 DAYS 10/04/18 15:00 Aerobic Blood Culture - Final Blood - Arm, Left Staphylococcus Epidermidis Anaerobic Blood Culture - Preliminary 10/06/18 02:40 Urine Culture - Preliminary Urine, Voided NO GROWTH AFTER 1 DAY Med Orders - Current: Current Medications Acetaminophen (Tylenol) 650 mg PO Q6H [facility] Last Admin: 10/07/18 15:28 Dose: 650 mg Albuterol/Ipratropium (Duoneb 3.0-0.5 Mg/3 Ml) 3 ml NEB QIDRT [facility] Last Admin: 10/07/18 14:34 Dose: 3 ml Amlodipine Besylate (Norvasc) 5 mg PO DAILY [facility] Last Admin: 10/07/18 08:46 Dose: 5 mg Azithromycin (Zithromax) 250 mg PO DAILY [facility] Stop: 10/11/18 09:01 Benazepril HCl (Lotensin) 20 mg PO BID [facility] Last Admin: 10/07/18 08:47 Dose: 20 mg Bisacodyl (Dulcolax) 10 mg PO BID [facility] Last Admin: 10/07/18 08:45 Dose: 10 mg Carbidopa/Levodopa (Parcopa 25-100 Mg Odt) 1 tab PO 0600,1000,1400,1800 [facility] Last Admin: 10/07/18 17:30 Dose: 1 tab Doxazosin Mesylate (Cardura) 4 mg PO BEDTIME [facility] Last Admin: 10/06/18 20:36 Dose: 4 mg Enoxaparin Sodium (Lovenox) 40 mg SUBCUT DAILY@1800 [facility] Last Admin: 10/07/18 17:30 Dose: 40 mg Haloperidol Lactate (Haldol) 2.5 mg IVPUSH Q2H PRN PRN Reason: Agitation Last Admin: 10/07/18 17:39 Dose: 2.5 mg Hydromorphone HCl (Dilaudid) 2 mg PO Q4H PRN PRN Reason: PAIN Last Admin: 10/07/18 09:34 Dose: 2 mg Sodium Chloride (Normal Saline) 1,000 mls @ 60 mls/hr IV ASDIRECTED [facility] Last Admin: 10/07/18 12:56 Dose: 60 mls/hr Ondansetron HCl (Zofran) 4 mg IVPUSH Q4H PRN PRN Reason: Nausea/Vomiting Pantoprazole Sodium (Protonix) 40 mg PO ACBREAKFAST [facility] Quetiapine Fumarate (Seroquel) 25 mg PO BEDTIME [facility] Last Admin: 10/06/18 20:37 Dose: 25 mg Quetiapine Fumarate (Seroquel) 6.25 mg PO DAILY [facility] Last Admin: 10/07/18 08:46 Dose: 6.25 mg Rasagiline (Azilect) 1 mg PO DAILY [facility] Last Admin: 10/07/18 08:46 Dose: 1 mg Rivastigmine (Exelon) 9.5 mg TOP Q24H [facility] Last Admin: 10/07/18 09:02 Dose: 9.5 mg Spironolactone (Aldactone) 25 mg PO DAILY [facility] Last Admin: 10/07/18 08:45 Dose: 25 mg Tamsulosin HCl (Flomax) 0.4 mg PO BEDTIME [facility] Last Admin: 10/06/18 20:36 Dose: 0.4 mg Discontinued Medications Acetaminophen (Tylenol) 650 mg PO Q6H [facility] Last Admin: 10/05/18 05:41 Dose: 650 mg Azithromycin (Zithromax) 500 mg PO ONETIME ONE Stop: 10/07/18 17:31 Last Admin: 10/07/18 17:30 Dose: 500 mg Bisacodyl (Dulcolax) 10 mg PO BID [facility] Last Admin: 10/04/18 21:22 Dose: 10 mg Bupivacaine HCl (Marcaine 0.5%) Confirm Administered Dose 50 ml .ROUTE .STK-MED ONE Stop: 10/01/18 12:15 Last Admin: 10/01/18 15:02 Dose: 25 ml Carbidopa/Levodopa (Sinemet Cr 50-200 Mg) 1 tab PO BEDTIME [facility] Last Admin: 10/04/18 21:24 Dose: 1 tab Carbidopa/Levodopa (Sinemet 25-100 Mg) 1 tab PO 0600,1000,1400,1800 [facility] Last Admin: 10/03/18 06:29 Dose: Not Given Ropivacaine 34 ml/Dexamethasone 8 mg/Epinephrine HCl 0.4 mg/ Sodium Chloride 43.6 ml 0 ml NERVRT ASDIRECTED [facility] Last Admin: 10/01/18 14:00 Dose: 80 syringe Dexamethasone (Dexamethasone) Confirm Administered Dose 4 mg .ROUTE .STK-MED ONE Stop: 10/01/18 13:23 Docusate Sodium (Colace) 100 mg PO BID [facility] Last Admin: 10/04/18 21:21 Dose: 100 mg Enoxaparin Sodium (Lovenox) 40 mg SUBCUT DAILY [facility] Last Admin: 10/02/18 13:29 Dose: Not Given Fentanyl (Sublimaze) Confirm Administered Dose 250 mcg .ROUTE .STK-MED ONE Stop: 10/01/18 13:23 Fentanyl (Sublimaze) Confirm Administered Dose 250 mcg .ROUTE .STK-MED ONE Stop: 10/01/18 14:05 Glycopyrrolate (Robinul) Confirm Administered Dose 1 mg .ROUTE .STK-MED ONE Stop: 10/01/18 13:23 Haloperidol Lactate (Haldol) 2.5 mg IVPUSH Q2H PRN PRN Reason: Agitation Last Admin: 10/01/18 11:58 Dose: 2.5 mg Hydrochlorothiazide (Hydrochlorothiazide) 25 mg PO DAILY [facility] Last Admin: 10/04/18 08:46 Dose: 25 mg Hydromorphone HCl (Dilaudid [employer] 15 Mg In Ns 30 Ml) 0 mg IV ASDIRECTED PRN; Protocol PRN Reason: [employer]NA[employer] PAIN CONTROL Last Admin: 10/01/18 17:57 Dose: 15 mg Hydromorphone HCl (Dilaudid) 1 mg IVPUSH Q2H PRN PRN Reason: Pain Last Admin: 10/02/18 05:49 Dose: 1 mg Hydromorphone HCl (Dilaudid) 1 - 2 mg IVPUSH Q4H PRN PRN Reason: Pain Last Admin: 10/05/18 21:26 Dose: 1 mg Hydroxyzine HCl (Vistaril) 100 mg IM Q4H PRN PRN Reason: pain Last Admin: 10/04/18 12:45 Dose: 100 mg Lactated Ringer's (Ringers, Lactated) 1,000 mls @ 250 mls/hr IV ASDIRECTED [facility] Last Admin: 09/30/18 19:52 Dose: 250 mls/hr Sodium Chloride (Normal Saline) 80 mls @ 3 mls/sec IV ASDIRECTED [facility] Last Admin: 09/30/18 19:33 Dose: 3 mls/sec Lactated Ringer's (Ringers, Lactated) 1,000 mls @ 125 mls/hr IV ASDIRECTED [facility] Last Admin: 10/01/18 01:54 Dose: 125 mls/hr Lactated Ringer's (Ringers, Lactated) 1,000 mls @ 250 mls/hr IV ONETIME ONE Stop: 10/01/18 12:14 Last Admin: 10/01/18 08:54 Dose: 250 mls/hr Dextrose/Lactated Ringer's (Dextrose 5%-Lactated Ringers) 1,000 mls @ 125 mls/ hr IV ASDIRECTED [facility] Cefoxitin Sodium 2 gm/ Sodium (Chloride) 50 mls @ 100 mls/hr IV ONCALL ONE Stop: 10/01/18 13:59 Last Admin: 10/01/18 12:49 Dose: 100 mls/hr Potassium Acetate 20 meq/ (Sodium Chloride) 110 mls @ 55 mls/hr IV Q2H [facility] Stop: 10/01/18 15:29 Last Admin: 10/01/18 16:33 Dose: 55 mls/hr Lactated Ringer's (Ringers, Lactated) Confirm Administered Dose 1,000 mls @ as directed .ROUTE .STK-MED ONE Stop: 10/01/18 15:01 Dextrose/Lactated Ringer's (Dextrose 5%-Lactated Ringers) 1,000 mls @ 175 mls/ hr IV ASDIRECTED [facility] Last Admin: 10/01/18 21:10 Dose: 175 mls/hr Cefoxitin Sodium 2 gm/ Sodium (Chloride) 50 mls @ 100 mls/hr IV Q6H [facility] Stop: 10/02/18 18:29 Last Admin: 10/02/18 17:20 Dose: 100 mls/hr Dextrose/Lactated Ringer's (Dextrose 5%-Lactated Ringers) 1,000 mls @ 100 mls/ hr IV ASDIRECTED [facility] Last Admin: 10/06/18 02:51 Dose: 100 mls/hr Acetaminophen 1,000 mg/ Premix 100 mls @ 400 mls/hr IV Q6H [facility] Stop: 10/03/18 09:14 Last Admin: 10/03/18 05:41 Dose: 400 mls/hr Acetaminophen 1,000 mg/ Premix 100 mls @ 400 mls/hr IV Q6H [facility] Stop: 10/04/18 11:31 Last Admin: 10/04/18 05:27 Dose: 400 mls/hr Magnesium Sulfate 2 gm/ Premix 50 mls @ 25 mls/hr IV Q6H [facility] Stop: 10/07/18 03:59 Last Admin: 10/07/18 01:11 Dose: 25 mls/hr Potassium Chloride 20 meq/Lidocaine HCl 2 ml/ Sodium Chloride 112 mls @ 56 mls/ hr IV ONETIME ONE Stop: 10/04/18 11:59 Last Admin: 10/04/18 10:42 Dose: 56 mls/hr Potassium Phosphate 20 mmole/ (Sodium Chloride) 256.6667 mls @ 86 mls/hr IV Q3H [facility] Stop: 10/04/18 17:59 Last Admin: 10/04/18 16:04 Dose: 86 mls/hr Piperacillin/Tazobactam/ (Dextrose 3.375 gm/ Premix) 50 mls @ 100 mls/hr IV Q6H [facility] Last Admin: 10/07/18 15:30 Dose: 100 mls/hr Potassium Chloride 20 meq/Lidocaine HCl 2 ml/ Sodium Chloride 112 mls @ 56 mls/ hr IV Q2H [facility] Stop: 10/05/18 14:59 Last Admin: 10/05/18 13:23 Dose: 56 mls/hr Dextrose/Lactated Ringer's (Dextrose 5%-Lactated Ringers) 1,000 mls @ 80 mls/ hr IV ASDIRECTED [facility] Last Admin: 10/06/18 18:21 Dose: 80 mls/hr Potassium Phosphate 22.5 mmole (/ Sodium Chloride) 257.5 mls @ 65 mls/hr IV Q4H [facility] Stop: 10/06/18 17:58 Last Admin: 10/06/18 13:37 Dose: 65 mls/hr Dextrose/Lactated Ringer's (Dextrose 5%-Lactated Ringers) 1,000 mls @ 60 mls/ hr IV ASDIRECTED [facility] Potassium Phosphate 22.5 mmole (/ Sodium Chloride) 257.5 mls @ 64 mls/hr IV Q4H [facility] Stop: 10/07/18 17:29 Last Admin: 10/07/18 13:58 Dose: 64 mls/hr Iopamidol (Isovue-300 (61%)) 100 ml IV . DIRECTED [facility] Last Admin: 09/30/18 19:33 Dose: 100 ml Labetalol HCl (Normodyne) Confirm Administered Dose 20 mg .ROUTE .STK-MED ONE Stop: 10/01/18 15:16 Labetalol HCl (Normodyne) 5 mg IVPUSH ONETIME ONE; Protocol Stop: 10/01/18 15:40 Last Admin: 10/01/18 15:48 Dose: 5 mg Labetalol HCl (Normodyne) 5 mg IVPUSH ONETIME ONE; Protocol Stop: 10/01/18 15:57 Last Admin: 10/01/18 16:01 Dose: 5 mg Lidocaine HCl (Xylocaine 2% Jelly) 10 ml MUCMEM ONETIME ONE Stop: 10/06/18 02:19 Last Admin: 10/06/18 02:26 Dose: 10 ml Lidocaine/Epinephrine (Xylocaine 1% With Epinephrine 1:100,000) Confirm Administered Dose 50 ml .ROUTE .STK-MED ONE Stop: 10/01/18 12:16 Last Admin: 10/01/18 15:02 Dose: 25 ml Lorazepam (Ativan) 0.25 mg IVPUSH Q2H PRN PRN Reason: Anxiety Meropenem (Merrem) Confirm Administered Dose 500 mg .ROUTE .STK-MED ONE Stop: 10/01/18 12:15 Last Admin: 10/01/18 14:09 Dose: 500 mg Metoclopramide HCl (Reglan) 10 mg IVPUSH ONETIME ONE Stop: 09/30/18 18:19 Last Admin: 09/30/18 19:07 Dose: 10 mg Naloxone HCl (Narcan) 0.1 mg IV ASDIRECTED PRN PRN Reason: decreased respiratory rate Neostigmine Methylsulfate (Neostigmine) Confirm Administered Dose 5 mg .ROUTE .STK-MED ONE Stop: 10/01/18 13:23 Ondansetron HCl (Zofran) Confirm Administered Dose 4 mg .ROUTE .STK-MED ONE Stop: 10/01/18 13:23 Oxybutynin Chloride (Oxybutynin) 5 mg PO TID [facility] Last Admin: 10/04/18 21:23 Dose: 5 mg Pantoprazole Sodium (Protonix Iv) 40 mg IV Q24H [facility] Last Admin: 10/07/18 08:45 Dose: 40 mg Propofol (Diprivan 20 Ml) Confirm Administered Dose 200 mg .ROUTE .STK-MED ONE Stop: 10/01/18 13:23 Rivastigmine (Exelon) 4.5 mg PO BID [facility] Last Admin: 10/03/18 10:08 Dose: Not Given Rocuronium [place] (Zemuron) Confirm Administered Dose 50 mg .ROUTE .STK-MED ONE Stop: 10/01/18 13:23 Sodium Chloride (Saline Flush) 10 ml FLUSH ASDIRECTED PRN PRN Reason: Keep Vein Open Last Admin: 09/30/18 18:28 Dose: 10 ml Succinylcholine Chloride (Quelicin) Confirm Administered Dose 200 mg .ROUTE .STK -MED ONE Stop: 10/01/18 13:23 Trospium (Sanctura) 20 mg PO BID [facility] Last Admin: 10/04/18 21:23 Dose: 20 mg - Exam General: Alert, Oriented HEENT: Pupils Equal, Pupils Reactive, EOMI, Mucous Membr. Moist/Shubert Lungs: Clear to Auscultation, Normal Respiratory Effort Cardiovascular: Regular Rate, Regular Rhythm GI/Abdominal Exam: Normal Bowel Sounds, Soft Peripheral Pulses: 1+: Radial (L), Radial (R) - Problem List Review Problem List Initiated/Reviewed/Updated: Yes - My Orders Last 24 Hours: My Active Orders 10/08/18 09:00 Azithromycin [Zithromax] 250 mg PO DAILY - Plan Plan:: Assessment/Plan: #1. Small bowel obstruction. Afebrile this morning and normal WBC 9.7 Hb 12.3. Have changed the atiobitics to Zithromax. Improving mentally #2. Left Hydronephrosis. [place] in bladder retention last night.. #3. Parkinsonism: Much improved will continue with the ODT parkinsonism medicine. Change to oral meds for Parkinsonism. #4. Hypertension: Continue with meds as BP is good control. 132/69
[2018-10-07] MEDS: Tamsulosin 0.4 MG Cap.ER PO SCH ×2 (20:39→21:46)
[2018-10-07] MEDS: Doxazosin 4 MG Tab PO SCH ×2 (20:40→21:46)
[2018-10-08] MEDS: Haloperidol Lactate 5 MG/ML SDV IVPUSH PRN ×2 (01:05→14:57)
--- NOTE | 2018-10-08 05:21 | CRLCR ---
Indication: Postop ileus Technique: KUB 2 view Comparison: None Findings/Impression: : Multiple loops of dilated small bowel reach a maximum diameter of 5.8 cm. There is mild dilatation of the colon with air. No pneumatosis. Findings are most suggestive of a postoperative ileus. Lower midline laparotomy skin florence are noted. There are surgical clips in the right upper quadrant. The degree of ileus appears slightly worse when compared to the prior exam. Dictated by Rand Berger MD @ Oct 08 2018 5:18AM Signed by Dr. Rand Berger @ Oct 08 2018 5:20AM
[2018-10-08] MEDS: Acetaminophen 325 MG Tab PO SCH ×4 (05:23→21:49)
[2018-10-08] MEDS: Sodium Chloride 0.9% 1,000 ML IV SCH ×2 (06:09→22:50)
[2018-10-08] MEDS: Carbidopa/Levodopa 25-100 MG Tab.DIS PO SCH ×4 (06:18→18:19)
[2018-10-08] MEDS: Albuterol/Ipratropium 3.0-0.5 MG/3 ML Neb Soln NEB SCH ×4 (07:05→20:29)
[2018-10-08] MEDS: Pantoprazole 40 MG Tab.CR PO SCH (08:17)
[2018-10-08] MEDS: Bisacodyl 5 MG Tab PO SCH ×2 (08:18→20:14)
[2018-10-08] MEDS: Bisacodyl 10 MG Supp RECTAL SCH ×3 (08:18→20:14)
[2018-10-08] MEDS: amLODIPine 5 MG Tab PO SCH (08:19)
[2018-10-08] MEDS: QUEtiapine 25 MG Tab PO SCH ×2 (08:19→20:17)
[2018-10-08] MEDS: Spironolactone 25 MG Tab PO SCH (08:20)
[2018-10-08] MEDS: Azithromycin 250 MG Tab PO SCH (08:21)
[2018-10-08] MEDS: Potassium Phosphates 22.5 MMOLE in Sodium Chloride 0.9% 250 ML IV SCH ×2 (10:50→15:01)
[2018-10-08] MEDS: Rivastigmine 9.5 MG/24 HR Transdermal Patch TOP SCH (10:57)
[2018-10-08] MEDS: HYDROmorphone 2 MG Tab PO PRN (16:15)
--- NOTE | 2018-10-08 17:45 | PCM.PN ---
- General Info Date of Service: 10/08/18 Functional Status: Reports: Pain Controlled - Review of Systems General: Reports: Weakness HEENT: Reports: No Symptoms Pulmonary: Reports: No Symptoms Cardiovascular: Reports: No Symptoms Gastrointestinal: Reports: Diarrhea Genitourinary: Reports: Retention Musculoskeletal: Reports: No Symptoms Skin: Reports: No Symptoms Neurological: Reports: Confusion Psychiatric: Reports: Confusion - Patient Data Vitals - Most Recent: Last Vital Signs Temp 99.2 F 10/08/18 15:00 Pulse 87 10/08/18 15:00 Resp 18 10/08/18 15:00 BP 155/96 H 10/08/18 15:00 Pulse Ox 94 L 10/08/18 15:00 Weight - Most Recent: 186 lb 6.4 oz I&O - Last 24 Hours: Intake & Output 10/08/18 10/08/18 10/08/18 06:59 14:59 22:59 Intake Total 768 360 740 Output Total 550 Balance 218 360 740 [place] Results Last 24 Hours: Microbiology 10/04/18 15:05 Aerobic Blood Culture - Preliminary Blood - Arm, Left NO GROWTH AFTER 4 DAYS Anaerobic Blood Culture - Preliminary NO GROWTH AFTER 4 DAYS 10/06/18 02:40 Urine Culture - Final Urine, Voided NO GROWTH AFTER 2 DAYS Med Orders - Current: Current Medications Acetaminophen (Tylenol) 650 mg PO Q6H [facility] Last Admin: 10/08/18 16:09 Dose: 650 mg Albuterol/Ipratropium (Duoneb 3.0-0.5 Mg/3 Ml) 3 ml NEB QIDRT [facility] Last Admin: 10/08/18 14:38 Dose: 3 ml Amlodipine Besylate (Norvasc) 5 mg PO DAILY [facility] [place] Last Admin: 10/08/18 08:19 Dose: 5 mg Azithromycin (Zithromax) 250 mg PO DAILY [facility] [place] Stop: 10/11/18 09:01 Last Admin: 10/08/18 08:21 Dose: 250 mg Benazepril HCl (Lotensin) 20 mg PO BID [facility] [place] Last Admin: 10/08/18 08:20 Dose: 20 mg Bisacodyl (Dulcolax) 10 mg PO BID [facility] [place] Last Admin: 10/08/18 08:18 Dose: 10 mg Bisacodyl (Dulcolax) 10 mg RECTAL BID [facility] [place] Last Admin: 10/08/18 09:07 Dose: Not Given Carbidopa/Levodopa (Parcopa 25-100 Mg Odt) 1 tab PO 0600,1000,1400,1800 [facility] [place] Last Admin: 10/08/18 13:32 Dose: 1 tab Doxazosin Mesylate (Cardura) 4 mg PO BEDTIME [facility] [place] Last Admin: 10/07/18 21:46 Dose: Not Given Enoxaparin Sodium (Lovenox) 40 mg SUBCUT DAILY@1800 [facility] [place] Last Admin: 10/07/18 17:30 Dose: 40 mg Haloperidol Lactate (Haldol) 2.5 mg IVPUSH Q2H PRN PRN Reason: Agitation Last Admin: 10/08/18 14:57 Dose: 2.5 mg Hydromorphone HCl (Dilaudid) 2 mg PO Q4H PRN PRN Reason: PAIN Last Admin: 10/08/18 16:15 Dose: 2 mg Sodium Chloride (Normal Saline) 1,000 mls @ 60 mls/hr IV ASDIRECTED [facility] [place] Last Admin: 10/08/18 06:09 Dose: 60 mls/hr Potassium Phosphate 22.5 mmole (/ Sodium Chloride) 257.5 mls @ 64 mls/hr IV Q4H [facility] [place] Stop: 10/08/18 17:59 Last Admin: 10/08/18 15:01 Dose: 64 mls/hr Ondansetron HCl (Zofran) 4 mg IVPUSH Q4H PRN PRN Reason: Nausea/Vomiting Pantoprazole Sodium (Protonix) 40 mg PO ACBREAKFAST [facility] [place] Last Admin: 10/08/18 08:17 Dose: 40 mg Quetiapine Fumarate (Seroquel) 25 mg PO BEDTIME [facility] [place] Last Admin: 10/07/18 21:47 Dose: Not Given Quetiapine Fumarate (Seroquel) 6.25 mg PO DAILY [facility] [place] Last Admin: 10/08/18 08:19 Dose: 6.25 mg Rasagiline (Azilect) 1 mg PO DAILY [facility] [place] Last Admin: 10/08/18 08:18 Dose: 1 mg Rivastigmine (Exelon) 9.5 mg TOP Q24H [facility] [place] Last Admin: 10/08/18 10:57 Dose: 9.5 mg Spironolactone (Aldactone) 25 mg PO DAILY [facility] [place] Last Admin: 10/08/18 08:20 Dose: 25 mg Tamsulosin HCl (Flomax) 0.4 mg PO BEDTIME [facility] [place] Last Admin: 10/07/18 21:46 Dose: Not Given Tamsulosin HCl (Flomax) 0.4 mg PO BIDPC [facility] Discontinued Medications Acetaminophen (Tylenol) 650 mg PO Q6H [facility] [place] Last Admin: 10/05/18 05:41 Dose: 650 mg Azithromycin (Zithromax) 500 mg PO ONETIME ONE Stop: 10/07/18 17:31 Last Admin: 10/07/18 17:30 Dose: 500 mg Bisacodyl (Dulcolax) 10 mg PO BID [facility] [place] Last Admin: 10/04/18 21:22 Dose: 10 mg Bupivacaine HCl (Marcaine 0.5%) Confirm Administered Dose 50 ml .ROUTE .STK-MED ONE Stop: 10/01/18 12:15 Last Admin: 10/01/18 15:02 Dose: 25 ml Carbidopa/Levodopa (Sinemet Cr 50-200 Mg) 1 tab PO BEDTIME [facility] [place] Last Admin: 10/04/18 21:24 Dose: 1 tab Carbidopa/Levodopa (Sinemet 25-100 Mg) 1 tab PO 0600,1000,1400,1800 [facility] [place] Last Admin: 10/03/18 06:29 Dose: Not Given Ropivacaine 34 ml/Dexamethasone 8 mg/Epinephrine HCl 0.4 mg/ Sodium Chloride 43.6 ml 0 ml NERVRT ASDIRECTED [facility] Last Admin: 10/01/18 14:00 Dose: 80 syringe Dexamethasone (Dexamethasone) Confirm Administered Dose 4 mg .ROUTE .STK-MED ONE Stop: 10/01/18 13:23 Docusate Sodium (Colace) 100 mg PO BID [facility] [place] Last Admin: 10/04/18 21:21 Dose: 100 mg Enoxaparin Sodium (Lovenox) 40 mg SUBCUT DAILY [facility] [place] Last Admin: 10/02/18 13:29 Dose: Not Given Fentanyl (Sublimaze) Confirm Administered Dose 250 mcg .ROUTE .STK-MED ONE Stop: 10/01/18 13:23 Fentanyl (Sublimaze) Confirm Administered Dose 250 mcg .ROUTE .STK-MED ONE Stop: 10/01/18 14:05 Glycopyrrolate (Robinul) Confirm Administered Dose 1 mg .ROUTE .STK-MED ONE Stop: 10/01/18 13:23 Haloperidol Lactate (Haldol) 2.5 mg IVPUSH Q2H PRN PRN Reason: Agitation Last Admin: 10/01/18 11:58 Dose: 2.5 mg Hydrochlorothiazide (Hydrochlorothiazide) 25 mg PO DAILY [facility] Last Admin: 10/04/18 08:46 Dose: 25 mg Hydromorphone HCl (Dilaudid [employer] 15 Mg In Ns 30 Ml) 0 mg IV ASDIRECTED PRN; Protocol PRN 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 Last Admin: 10/01/18 17:57 Dose: 15 mg Hydromorphone HCl (Dilaudid) 1 mg IVPUSH Q2H PRN PRN Reason: Pain Last Admin: 10/02/18 05:49 Dose: 1 mg Hydromorphone HCl (Dilaudid) 1 - 2 mg IVPUSH Q4H PRN PRN Reason: Pain Last Admin: 10/05/18 21:26 Dose: 1 mg Hydroxyzine HCl (Vistaril) 100 mg IM Q4H PRN PRN Reason: pain Last Admin: 10/04/18 12:45 Dose: 100 mg Lactated Ringer's (Ringers, Lactated) 1,000 mls @ 250 mls/hr IV ASDIRECTED [facility] Last Admin: 09/30/18 19:52 Dose: 250 mls/hr Sodium Chloride (Normal Saline) 80 mls @ 3 mls/sec IV ASDIRECTED [facility] [place] Last Admin: 09/30/18 19:33 Dose: 3 mls/sec Lactated Ringer's (Ringers, Lactated) 1,000 mls @ 125 mls/hr IV ASDIRECTED [facility] [place] Last Admin: 10/01/18 01:54 Dose: 125 mls/hr Lactated Ringer's (Ringers, Lactated) 1,000 mls @ 250 mls/hr IV ONETIME ONE Stop: 10/01/18 12:14 Last Admin: 10/01/18 08:54 Dose: 250 mls/hr Dextrose/Lactated Ringer's (Dextrose 5%-Lactated Ringers) 1,000 mls @ 125 mls/ hr IV ASDIRECTED [facility] [place] Cefoxitin Sodium 2 gm/ Sodium (Chloride) 50 mls @ 100 mls/hr IV ONCALL ONE Stop: 10/01/18 13:59 Last Admin: 10/01/18 12:49 Dose: 100 mls/hr Potassium Acetate 20 meq/ (Sodium Chloride) 110 mls @ 55 mls/hr IV Q2H [facility] [place] Stop: 10/01/18 15:29 Last Admin: 10/01/18 16:33 Dose: 55 mls/hr Lactated Ringer's (Ringers, Lactated) Confirm Administered Dose 1,000 mls @ as directed .ROUTE .STK-MED ONE Stop: 10/01/18 15:01 Dextrose/Lactated Ringer's (Dextrose 5%-Lactated Ringers) 1,000 mls @ 175 mls/ hr IV ASDIRECTED [facility] [place] Last Admin: 10/01/18 21:10 Dose: 175 mls/hr Cefoxitin Sodium 2 gm/ Sodium (Chloride) 50 mls @ 100 mls/hr IV Q6H [facility] [place] Stop: 10/02/18 18:29 Last Admin: 10/02/18 17:20 Dose: 100 mls/hr Dextrose/Lactated Ringer's (Dextrose 5%-Lactated Ringers) 1,000 mls @ 100 mls/ hr IV ASDIRECTED [facility] [place] Last Admin: 10/06/18 02:51 Dose: 100 mls/hr Acetaminophen 1,000 mg/ Premix 100 mls @ 400 mls/hr IV Q6H [facility] [place] Stop: 10/03/18 09:14 Last Admin: 10/03/18 05:41 Dose: 400 mls/hr Acetaminophen 1,000 mg/ Premix 100 mls @ 400 mls/hr IV Q6H [facility] [place] Stop: 10/04/18 11:31 Last Admin: 10/04/18 05:27 Dose: 400 mls/hr Magnesium Sulfate 2 gm/ Premix 50 mls @ 25 mls/hr IV Q6H [facility] [place] Stop: 10/07/18 03:59 Last Admin: 10/07/18 01:11 Dose: 25 mls/hr Potassium Chloride 20 meq/Lidocaine HCl 2 ml/ Sodium Chloride 112 mls @ 56 mls/ hr IV ONETIME ONE Stop: 10/04/18 11:59 Last Admin: 10/04/18 10:42 Dose: 56 mls/hr Potassium Phosphate 20 mmole/ (Sodium Chloride) 256.6667 mls @ 86 mls/hr IV Q3H [facility] [place] Stop: 10/04/18 17:59 Last Admin: 10/04/18 16:04 Dose: 86 mls/hr Piperacillin/Tazobactam/ (Dextrose 3.375 gm/ Premix) 50 mls @ 100 mls/hr IV Q6H [facility] [place] Last Admin: 10/07/18 15:30 Dose: 100 mls/hr Potassium Chloride 20 meq/Lidocaine HCl 2 ml/ Sodium Chloride 112 mls @ 56 mls/ hr IV Q2H [facility] [place] Stop: 10/05/18 14:59 Last Admin: 10/05/18 13:23 Dose: 56 mls/hr Dextrose/Lactated Ringer's (Dextrose 5%-Lactated Ringers) 1,000 mls @ 80 mls/ hr IV ASDIRECTED [facility] [place] Last Admin: 10/06/18 18:21 Dose: 80 mls/hr Potassium Phosphate 22.5 mmole (/ Sodium Chloride) 257.5 mls @ 65 mls/hr IV Q4H [facility] [place] Stop: 10/06/18 17:58 Last Admin: 10/06/18 13:37 Dose: 65 mls/hr Dextrose/Lactated Ringer's (Dextrose 5%-Lactated Ringers) 1,000 mls @ 60 mls/ hr IV ASDIRECTED [facility] [place] Potassium Phosphate 22.5 mmole (/ Sodium Chloride) 257.5 mls @ 64 mls/hr IV Q4H [facility] [place] Stop: 10/07/18 17:29 Last Admin: 10/07/18 13:58 Dose: 64 mls/hr Iopamidol (Isovue-300 (61%)) 100 ml IV . DIRECTED [facility] [place] Last Admin: 09/30/18 19:33 Dose: 100 ml Labetalol HCl (Normodyne) Confirm Administered Dose 20 mg .ROUTE .STK-MED ONE Stop: 10/01/18 15:16 Labetalol HCl (Normodyne) 5 mg IVPUSH ONETIME ONE; Protocol Stop: 10/01/18 15:40 Last Admin: 10/01/18 15:48 Dose: 5 mg Labetalol HCl (Normodyne) 5 mg IVPUSH ONETIME ONE; Protocol Stop: 10/01/18 15:57 Last Admin: 10/01/18 16:01 Dose: 5 mg Lidocaine HCl (Xylocaine 2% Jelly) 10 ml MUCMEM ONETIME ONE Stop: 10/06/18 02:19 Last Admin: 10/06/18 02:26 Dose: 10 ml Lidocaine/Epinephrine (Xylocaine 1% With Epinephrine 1:100,000) Confirm Administered Dose 50 ml .ROUTE .STK-MED ONE Stop: 10/01/18 12:16 Last Admin: 10/01/18 15:02 Dose: 25 ml Lorazepam (Ativan) 0.25 mg IVPUSH Q2H PRN PRN Reason: Anxiety Meropenem (Merrem) Confirm Administered Dose 500 mg .ROUTE .STK-MED ONE Stop: 10/01/18 12:15 Last Admin: 10/01/18 14:09 Dose: 500 mg Metoclopramide HCl (Reglan) 10 mg IVPUSH ONETIME ONE Stop: 09/30/18 18:19 Last Admin: 09/30/18 19:07 Dose: 10 mg Naloxone HCl (Narcan) 0.1 mg IV ASDIRECTED PRN PRN Reason: decreased respiratory rate Neostigmine Methylsulfate (Neostigmine) Confirm Administered Dose 5 mg .ROUTE .STK-MED ONE Stop: 10/01/18 13:23 Ondansetron HCl (Zofran) Confirm Administered Dose 4 mg .ROUTE .STK-MED ONE Stop: 10/01/18 13:23 Oxybutynin Chloride (Oxybutynin) 5 mg PO TID [facility] [place] Last Admin: 10/04/18 21:23 Dose: 5 mg Pantoprazole Sodium (Protonix Iv) 40 mg IV Q24H [facility] [place] Last Admin: 10/07/18 08:45 Dose: 40 mg Propofol (Diprivan 20 Ml) Confirm Administered Dose 200 mg .ROUTE .STK-MED ONE Stop: 10/01/18 13:23 Rivastigmine (Exelon) 4.5 mg PO BID [facility] [place] Last Admin: 10/03/18 10:08 Dose: Not Given Rocuronium Model (Zemuron) Confirm Administered Dose 50 mg .ROUTE .STK-MED ONE Stop: 10/01/18 13:23 Sodium Chloride (Saline Flush) 10 ml FLUSH ASDIRECTED PRN PRN Reason: Keep Vein Open Last Admin: 09/30/18 18:28 Dose: 10 ml Succinylcholine Chloride (Quelicin) Confirm Administered Dose 200 mg .ROUTE .STK -MED ONE Stop: 10/01/18 13:23 Trospium (Sanctura) 20 mg PO BID [facility] [place] Last Admin: 10/04/18 21:23 Dose: 20 mg - Exam General: Mild Distress HEENT: Pupils Equal, Pupils Reactive, EOMI, Mucous Membr. Moist/[place] Neck: Supple Lungs: Clear to Auscultation, Normal Respiratory Effort Cardiovascular: Regular Rate, Regular Rhythm GI/Abdominal Exam: Soft Extremities: Non-Tender Peripheral Pulses: 1+: Radial (L), Radial (R) Skin: Warm, Dry, Intact Wound/Incisions: Healing Well Psy/Mental Status: Normal Mood - Problem List Review Problem List Initiated/Reviewed/Updated: Yes - My Orders Last 24 Hours: My Active Orders 10/08/18 09:00 Azithromycin [Zithromax] 250 mg PO DAILY 10/09/18 05:11 BASIC METABOLIC PANEL,BMP [CHEM] Routine CBC WITH AUTO DIFF [HEME] Routine 10/09/18 08:00 Tamsulosin [Flomax] 0.4 mg PO BIDPC - Plan Plan:: Assessment/Plan: #1. Small bowel obstruction. Temp. 99.2 Have changed the atiobitics to Zithromax. Improving mentally #2. Left Hydronephrosis. [place] in bladder retention last night.. Have increased Flomax to 0.4 twice daily. #3. Parkinsonism: Much improved will continue with the parkinsonism medicine. . #4. Hypertension: Continue with meds as BP is elevated. 155/92. Will start Losartan 50mg daily.
[2018-10-08] MEDS: Enoxaparin 40 MG/0.4 ML Syringe SUBCUT SCH (18:19)
[2018-10-08] MEDS: Losartan 50 MG Tab PO SCH (18:19)
[2018-10-08] MEDS: Doxazosin 4 MG Tab PO SCH (20:15)
--- NOTE | 2018-10-09 03:41 | CRLCR ---
Indication: Postop ileus Technique: KUB 2 view Comparison: October 08, 2018 Findings/Impression: : Small-bowel loops measure 4.8 cm in diameter. Air is seen within nondistended loops of colon. No pneumatosis. Findings likely represent postoperative ileus and appear relatively unchanged compared to the prior exam. Midline laparotomy skin florence are noted. Dictated by Rand Berger MD @ Oct 09 2018 3:39AM Signed by Dr. Rand Berger @ Oct 09 2018 3:40AM
[2018-10-09] MEDS: Acetaminophen 325 MG Tab PO SCH ×3 (05:00→09:51)
[2018-10-09] MEDS: Carbidopa/Levodopa 25-100 MG Tab.DIS PO SCH ×3 (05:05→09:54)
[2018-10-09] MEDS: Albuterol/Ipratropium 3.0-0.5 MG/3 ML Neb Soln NEB SCH (07:15)
[2018-10-09] MEDS ORDERED: Tamsulosin 0.4 MG Cap.ER PO SCH (08:00)
[2018-10-09] MEDS: Pantoprazole 40 MG Tab.CR PO SCH (08:04)
[2018-10-09] MEDS: Spironolactone 25 MG Tab PO SCH (08:04)
[2018-10-09] MEDS: Losartan 50 MG Tab PO SCH (08:06)
[2018-10-09] MEDS: Bisacodyl 5 MG Tab PO SCH (08:06)
[2018-10-09] MEDS: Bisacodyl 10 MG Supp RECTAL SCH (08:07)
[2018-10-09] MEDS: Azithromycin 250 MG Tab PO SCH (08:08)
[2018-10-09] MEDS: amLODIPine 5 MG Tab PO SCH (08:08)
[2018-10-09] MEDS: QUEtiapine 25 MG Tab PO SCH (08:08)
[2018-10-09] MEDS ORDERED: Furosemide 20 MG/2 ML VIAL IVPUSH ONE (09:30)
[2018-10-09] MEDS: Rivastigmine 9.5 MG/24 HR Transdermal Patch TOP SCH (10:02)
[2018-10-09 10:55] VITALS: BP 143/77; PULSE 82
--- NOTE | 2018-10-09 12:54 | PCM.PN ---
- General Info Date of Service: 10/09/18 Admission Dx/Problem (Free Text): He is sitting in a chair and able to mumble a few words. He is had breakfast. Functional Status: Reports: Pain Controlled - Review of Systems General: Reports: Weakness HEENT: Reports: No Symptoms Pulmonary: Reports: No Symptoms Cardiovascular: Reports: No Symptoms Gastrointestinal: Reports: Abdominal Pain Genitourinary: Reports: Incontinence Musculoskeletal: Reports: No Symptoms Skin: Reports: No Symptoms Neurological: Reports: Confusion Psychiatric: Reports: Confusion - Patient Data Vitals - Most Recent: Last Vital Signs Temp 98.6 F 10/09/18 10:53 Pulse 82 10/09/18 10:53 Resp 16 10/09/18 10:53 BP 143/77 H 10/09/18 10:53 Pulse Ox 97 10/09/18 10:53 Weight - Most Recent: 189 lb 7 oz I&O - Last 24 Hours: Intake & Output 10/08/18 10/09/18 10/09/18 22:59 06:59 14:59 Intake Total 780 687 480 Output Total 400 500 Balance 380 187 480 Lab Results Last 24 Hours: Laboratory Results - last 24 hr 10/09/18 10/09/18 Range/Units 03:31 03:31 WBC 12.0 H (4.5-11.0) K/uL RBC 3.46 L (4.30-5.90) M/uL Hgb 11.1 L (12.0-15.0) g/dL Hct 35.1 L (40.0-54.0) % MCV 101 H (80-98) fL MCH 32 H (27-31) pg MCHC 32 (32-36) % Plt Count 254 (150-400) K/uL Neut % (Auto) 81 H (36-66) % Lymph % (Auto) 11 L (24-44) % [place] % (Auto) 5 (2-6) % Eos % (Auto) 2 (2-4) % Baso % (Auto) 0 (0-1) % Sodium 149 H (140-148) mmol/L Potassium 3.5 L (3.6-5.2) mmol/L Chloride 114 H (100-108) mmol/L Carbon Dioxide 27 (21-32) mmol/L Anion Gap 11.5 (5.0-14.0) mmol/L BUN 31 H (7-18) mg/dL Creatinine 1.2 (0.8-1.3) mg/dL Est Cr Clr Drug Dosing 47.43 mL/min Estimated GFR (MDRD) 58 L (>60) Glucose 91 (74-106) mg/dL Calcium 8.1 L (8.5-10.1) mg/dL [place] Results Last 24 Hours: Microbiology 10/04/18 15:05 Aerobic Blood Culture - Preliminary Blood - Arm, Left NO GROWTH AFTER 4 DAYS Anaerobic Blood Culture - Preliminary NO GROWTH AFTER 4 DAYS Med Orders - Current: Current Medications Acetaminophen (Tylenol) 650 mg PO Q6H [facility] Last Admin: 10/09/18 09:51 Dose: 650 mg Amlodipine Besylate (Norvasc) 5 mg PO DAILY [facility] Last Admin: 10/09/18 08:08 Dose: 5 mg Benazepril HCl (Lotensin) 20 mg PO BID [facility] Last Admin: 10/09/18 08:07 Dose: 20 mg Bisacodyl (Dulcolax) 10 mg PO BID [facility] Last Admin: 10/09/18 08:06 Dose: 10 mg Bisacodyl (Dulcolax) 10 mg RECTAL BID [facility] Last Admin: 10/09/18 08:07 Dose: Not Given Doxazosin Mesylate (Cardura) 4 mg PO BEDTIME [facility] Last Admin: 10/08/18 20:15 Dose: 4 mg Losartan Potassium (Cozaar) 50 mg PO DAILY [facility] Last Admin: 10/09/18 08:06 Dose: 50 mg Pantoprazole Sodium (Protonix) 40 mg PO ACBREAKFAST [facility] Last Admin: 10/09/18 08:04 Dose: 40 mg Quetiapine Fumarate (Seroquel) 25 mg PO BEDTIME [facility] Last Admin: 10/08/18 20:17 Dose: 25 mg Quetiapine Fumarate (Seroquel) 6.25 mg PO DAILY [facility] Last Admin: 10/09/18 08:08 Dose: 6.25 mg Rasagiline (Azilect) 1 mg PO DAILY [facility] Last Admin: 10/09/18 08:05 Dose: 1 mg Rivastigmine (Exelon) 9.5 mg TOP Q24H [facility] Last Admin: 10/09/18 10:02 Dose: 9.5 mg Spironolactone (Aldactone) 25 mg PO DAILY [facility] Last Admin: 10/09/18 08:04 Dose: 25 mg Discontinued Medications Acetaminophen (Tylenol) 650 mg PO Q6H [facility] Last Admin: 10/05/18 05:41 Dose: 650 mg Albuterol/Ipratropium (Duoneb 3.0-0.5 Mg/3 Ml) 3 ml NEB QIDRT [facility] Last Admin: 10/09/18 07:15 Dose: 3 ml Azithromycin (Zithromax) 250 mg PO DAILY [facility] Stop: 10/11/18 09:01 Last Admin: 10/09/18 08:08 Dose: 250 mg Azithromycin (Zithromax) 500 mg PO ONETIME ONE Stop: 10/07/18 17:31 Last Admin: 10/07/18 17:30 Dose: 500 mg Bisacodyl (Dulcolax) 10 mg PO BID [facility] Last Admin: 10/04/18 21:22 Dose: 10 mg Bupivacaine HCl (Marcaine 0.5%) Confirm Administered Dose 50 ml .ROUTE .STK-MED ONE Stop: 10/01/18 12:15 Last Admin: 10/01/18 15:02 Dose: 25 ml Carbidopa/Levodopa (Sinemet Cr 50-200 Mg) 1 tab PO BEDTIME [facility] Last Admin: 10/04/18 21:24 Dose: 1 tab Carbidopa/Levodopa (Sinemet 25-100 Mg) 1 tab PO 0600,1000,1400,1800 [facility] Last Admin: 10/03/18 06:29 Dose: Not Given Carbidopa/Levodopa (Parcopa 25-100 Mg Odt) 1 tab PO 0600,1000,1400,1800 [facility] Last Admin: 10/09/18 09:54 Dose: 1 tab Ropivacaine 34 ml/Dexamethasone 8 mg/Epinephrine HCl 0.4 mg/ Sodium Chloride 43.6 ml 0 ml NERVRT ASDIRECTED [facility] Last Admin: 10/01/18 14:00 Dose: 80 syringe Dexamethasone (Dexamethasone) Confirm Administered Dose 4 mg .ROUTE .STK-MED ONE Stop: 10/01/18 13:23 Docusate Sodium (Colace) 100 mg PO BID [facility] Last Admin: 10/04/18 21:21 Dose: 100 mg Enoxaparin Sodium (Lovenox) 40 mg SUBCUT DAILY [facility] Last Admin: 10/02/18 13:29 Dose: Not Given Enoxaparin Sodium (Lovenox) 40 mg SUBCUT DAILY@1800 [facility] Last Admin: 10/08/18 18:19 Dose: 40 mg Fentanyl (Sublimaze) Confirm Administered Dose 250 mcg .ROUTE .STK-MED ONE Stop: 10/01/18 13:23 Fentanyl (Sublimaze) Confirm Administered Dose 250 mcg .ROUTE .STK-MED ONE Stop: 10/01/18 14:05 Furosemide (Lasix) 20 mg IVPUSH ONETIME ONE Stop: 10/09/18 09:31 Last Admin: 10/09/18 09:51 Dose: 20 mg Glycopyrrolate (Robinul) Confirm Administered Dose 1 mg .ROUTE .STK-MED ONE Stop: 10/01/18 13:23 Haloperidol Lactate (Haldol) 2.5 mg IVPUSH Q2H PRN PRN Reason: Agitation Last Admin: 10/01/18 11:58 Dose: 2.5 mg Haloperidol Lactate (Haldol) 2.5 mg IVPUSH Q2H PRN PRN Reason: Agitation Last Admin: 10/08/18 14:57 Dose: 2.5 mg Hydrochlorothiazide (Hydrochlorothiazide) 25 mg PO DAILY [facility] Last Admin: 10/04/18 08:46 Dose: 25 mg Hydromorphone HCl (Dilaudid [employer] 15 Mg In Ns 30 Ml) 0 mg IV ASDIRECTED PRN; Protocol PRN Reason: D[employer] HOST[employer] PAIN CONTROL Last Admin: 10/01/18 17:57 Dose: 15 mg Hydromorphone HCl (Dilaudid) 1 mg IVPUSH Q2H PRN PRN Reason: Pain Last Admin: 10/02/18 05:49 Dose: 1 mg Hydromorphone HCl (Dilaudid) 1 - 2 mg IVPUSH Q4H PRN PRN Reason: Pain Last Admin: 10/05/18 21:26 Dose: 1 mg Hydromorphone HCl (Dilaudid) 2 mg PO Q4H PRN PRN Reason: PAIN Last Admin: 10/08/18 16:15 Dose: 2 mg Hydroxyzine HCl (Vistaril) 100 mg IM Q4H PRN PRN Reason: pain Last Admin: 10/04/18 12:45 Dose: 100 mg Lactated Ringer's (Ringers, Lactated) 1,000 mls @ 250 mls/hr IV ASDIRECTED [facility] Last Admin: 09/30/18 19:52 Dose: 250 mls/hr Sodium Chloride (Normal Saline) 80 mls @ 3 mls/sec IV ASDIRECTED [facility] Last Admin: 09/30/18 19:33 Dose: 3 mls/sec Lactated Ringer's (Ringers, Lactated) 1,000 mls @ 125 mls/hr IV ASDIRECTED [facility] Last Admin: 10/01/18 01:54 Dose: 125 mls/hr Lactated Ringer's (Ringers, Lactated) 1,000 mls @ 250 mls/hr IV ONETIME ONE Stop: 10/01/18 12:14 Last Admin: 10/01/18 08:54 Dose: 250 mls/hr Dextrose/Lactated Ringer's (Dextrose 5%-Lactated Ringers) 1,000 mls @ 125 mls/ hr IV ASDIRECTED [facility] Cefoxitin Sodium 2 gm/ Sodium (Chloride) 50 mls @ 100 mls/hr IV ONCALL ONE Stop: 10/01/18 13:59 Last Admin: 10/01/18 12:49 Dose: 100 mls/hr Potassium Acetate 20 meq/ (Sodium Chloride) 110 mls @ 55 mls/hr IV Q2H [facility] Stop: 10/01/18 15:29 Last Admin: 10/01/18 16:33 Dose: 55 mls/hr Lactated Ringer's (Ringers, Lactated) Confirm Administered Dose 1,000 mls @ as directed .ROUTE .STK-MED ONE Stop: 10/01/18 15:01 Dextrose/Lactated Ringer's (Dextrose 5%-Lactated Ringers) 1,000 mls @ 175 mls/ hr IV ASDIRECTED [facility] Last Admin: 10/01/18 21:10 Dose: 175 mls/hr Cefoxitin Sodium 2 gm/ Sodium (Chloride) 50 mls @ 100 mls/hr IV Q6H [facility] Stop: 10/02/18 18:29 Last Admin: 10/02/18 17:20 Dose: 100 mls/hr Dextrose/Lactated Ringer's (Dextrose 5%-Lactated Ringers) 1,000 mls @ 100 mls/ hr IV ASDIRECTED [facility] Last Admin: 10/06/18 02:51 Dose: 100 mls/hr Acetaminophen 1,000 mg/ Premix 100 mls @ 400 mls/hr IV Q6H [facility] Stop: 10/03/18 09:14 Last Admin: 10/03/18 05:41 Dose: 400 mls/hr Acetaminophen 1,000 mg/ Premix 100 mls @ 400 mls/hr IV Q6H [facility] Stop: 10/04/18 11:31 Last Admin: 10/04/18 05:27 Dose: 400 mls/hr Magnesium Sulfate 2 gm/ Premix 50 mls @ 25 mls/hr IV Q6H [facility] Stop: 10/07/18 03:59 Last Admin: 10/07/18 01:11 Dose: 25 mls/hr Potassium Chloride 20 meq/Lidocaine HCl 2 ml/ Sodium Chloride 112 mls @ 56 mls/ hr IV ONETIME ONE Stop: 10/04/18 11:59 Last Admin: 10/04/18 10:42 Dose: 56 mls/hr Potassium Phosphate 20 mmole/ (Sodium Chloride) 256.6667 mls @ 86 mls/hr IV Q3H [facility] Stop: 10/04/18 17:59 Last Admin: 10/04/18 16:04 Dose: 86 mls/hr Piperacillin/Tazobactam/ (Dextrose 3.375 gm/ Premix) 50 mls @ 100 mls/hr IV Q6H [facility] Last Admin: 10/07/18 15:30 Dose: 100 mls/hr Potassium Chloride 20 meq/Lidocaine HCl 2 ml/ Sodium Chloride 112 mls @ 56 mls/ hr IV Q2H [facility] Stop: 10/05/18 14:59 Last Admin: 10/05/18 13:23 Dose: 56 mls/hr Dextrose/Lactated Ringer's (Dextrose 5%-Lactated Ringers) 1,000 mls @ 80 mls/ hr IV ASDIRECTED [facility] Last Admin: 10/06/18 18:21 Dose: 80 mls/hr Potassium Phosphate 22.5 mmole (/ Sodium Chloride) 257.5 mls @ 65 mls/hr IV Q4H [facility] Stop: 10/06/18 17:58 Last Admin: 10/06/18 13:37 Dose: 65 mls/hr Dextrose/Lactated Ringer's (Dextrose 5%-Lactated Ringers) 1,000 mls @ 60 mls/ hr IV ASDIRECTED [facility] Potassium Phosphate 22.5 mmole (/ Sodium Chloride) 257.5 mls @ 64 mls/hr IV Q4H [facility] Stop: 10/07/18 17:29 Last Admin: 10/07/18 13:58 Dose: 64 mls/hr Sodium Chloride (Normal Saline) 1,000 mls @ 60 mls/hr IV ASDIRECTED [facility] Last Admin: 10/08/18 22:50 Dose: 60 mls/hr Potassium Phosphate 22.5 mmole (/ Sodium Chloride) 257.5 mls @ 64 mls/hr IV Q4H [facility] Stop: 10/08/18 17:59 Last Admin: 10/08/18 15:01 Dose: 64 mls/hr Iopamidol (Isovue-300 (61%)) 100 ml IV . DIRECTED [facility] Last Admin: 09/30/18 19:33 Dose: 100 ml Labetalol HCl (Normodyne) Confirm Administered Dose 20 mg .ROUTE .STK-MED ONE Stop: 10/01/18 15:16 Labetalol HCl (Normodyne) 5 mg IVPUSH ONETIME ONE; Protocol Stop: 10/01/18 15:40 Last Admin: 10/01/18 15:48 Dose: 5 mg Labetalol HCl (Normodyne) 5 mg IVPUSH ONETIME ONE; Protocol Stop: 10/01/18 15:57 Last Admin: 10/01/18 16:01 Dose: 5 mg Lidocaine HCl (Xylocaine 2% Jelly) 10 ml MUCMEM ONETIME ONE Stop: 10/06/18 02:19 Last Admin: 10/06/18 02:26 Dose: 10 ml Lidocaine/Epinephrine (Xylocaine 1% With Epinephrine 1:100,000) Confirm Administered Dose 50 ml .ROUTE .STK-MED ONE Stop: 10/01/18 12:16 Last Admin: 10/01/18 15:02 Dose: 25 ml Lorazepam (Ativan) 0.25 mg IVPUSH Q2H PRN PRN Reason: Anxiety Meropenem (Merrem) Confirm Administered Dose 500 mg .ROUTE .STK-MED ONE Stop: 10/01/18 12:15 Last Admin: 10/01/18 14:09 Dose: 500 mg Metoclopramide HCl (Reglan) 10 mg IVPUSH ONETIME ONE Stop: 09/30/18 18:19 Last Admin: 09/30/18 19:07 Dose: 10 mg Naloxone HCl (Narcan) 0.1 mg IV ASDIRECTED PRN PRN Reason: decreased respiratory rate Neostigmine Methylsulfate (Neostigmine) Confirm Administered Dose 5 mg .ROUTE .STK-MED ONE Stop: 10/01/18 13:23 Ondansetron HCl (Zofran) 4 mg IVPUSH Q4H PRN PRN Reason: Nausea/Vomiting Ondansetron HCl (Zofran) Confirm Administered Dose 4 mg .ROUTE .STK-MED ONE Stop: 10/01/18 13:23 Oxybutynin Chloride (Oxybutynin) 5 mg PO TID [facility] Last Admin: 10/04/18 21:23 Dose: 5 mg Pantoprazole Sodium (Protonix Iv) 40 mg IV Q24H [facility] Last Admin: 10/07/18 08:45 Dose: 40 mg Propofol (Diprivan 20 Ml) Confirm Administered Dose 200 mg .ROUTE .STK-MED ONE Stop: 10/01/18 13:23 Rivastigmine (Exelon) 4.5 mg PO BID [facility] Last Admin: 10/03/18 10:08 Dose: Not Given Rocuronium [place] (Zemuron) Confirm Administered Dose 50 mg .ROUTE .STK-MED ONE Stop: 10/01/18 13:23 Sodium Chloride (Saline Flush) 10 ml FLUSH ASDIRECTED PRN PRN Reason: Keep Vein Open Last Admin: 09/30/18 18:28 Dose: 10 ml Succinylcholine Chloride (Quelicin) Confirm Administered Dose 200 mg .ROUTE .STK -MED ONE Stop: 10/01/18 13:23 Tamsulosin HCl (Flomax) 0.4 mg PO BEDTIME [facility] Last Admin: 10/07/18 21:46 Dose: Not Given Tamsulosin HCl (Flomax) 0.4 mg PO BIDPC [facility] Last Admin: 10/09/18 08:04 Dose: 0.4 mg Trospium (Sanctura) 20 mg PO BID [facility] Last Admin: 10/04/18 21:23 Dose: 20 mg - Exam General: Alert, Oriented HEENT: Pupils Equal, Pupils Reactive, EOMI, Mucous Membr. Moist/[place] Neck: Supple Lungs: Clear to Auscultation, Normal Respiratory Effort Cardiovascular: Regular Rate, Regular Rhythm GI/Abdominal Exam: Soft Extremities: Pedal Edema Peripheral Pulses: 1+: Radial (L), Radial (R) Skin: Warm, Dry, Intact Wound/Incisions: Healing Well Psy/Mental Status: Anxious - Problem List Review Problem List Initiated/Reviewed/Updated: Yes - My Orders Last 24 Hours: My Active Orders 10/08/18 17:45 Losartan [Cozaar] 50 mg PO DAILY - Plan Plan:: Assessment/Plan: #1. Small bowel obstruction. Temp. 98.6. Improving mentally #2. Left Hydronephrosis. Have increased Flomax to 0.4 twice daily. #3. Parkinsonism: Much improved will continue with the parkinsonism medicine. . #4. Hypertension: Continue with meds as BP is elevated. 143/77. Will continue Losartan 50mg daily.
--- NOTE | 2018-10-10 09:47 | PN ---
DATE OF SERVICE: 10/07/2018 The patient has been afebrile with stable vital signs. No major problems were noted overnight. Still has continued to be confused and somewhat combative at times, but that would be expected based on his baseline. The oral intake was fair yesterday around 600. We will try to work on that today. Will leave a little maintenance IV rate running at 60 an hour. His potassium remains markedly low. I will give him some additional K-Phos today as well, and he may be ready for discharge home tomorrow to the [facility]. He has moved his bowels somewhat more over the last 24 hours. He had his Walton catheter taken out this morning, did get his Flomax in last night, and we will make sure he is able to void satisfactorily today. Nixon Raphael MD /[id number]
--- NOTE | 2018-10-10 10:53 | DISCH ---
FINAL DIAGNOSES: 1. Small bowel volvulus via internal hernia at adhesion site. 2. Chronic intermittent sigmoid volvulus. 3. Marked distal small bowel and large bowel distention. SECONDARY DIAGNOSES: 1. Advanced Parkinson's disease. 2. Postoperative urinary retention. 3. Hypophosphatemia. 4. History of hypertension. 5. History of chronic constipation. 6. History of gastroesophageal reflux disease. 7. 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 OPERATIVE PROCEDURES: Done on 10/01/2018, exploratory laparotomy with: 1. Reduction of small bowel volvulus and closure of internal hernia. 2. Rectosigmoid resection with coloproctostomy. 3. Tube decompression of small and large bowel. 4. Placement of Interceed mesh. SUMMARY: This is an 83-year-old, presenting with a picture of small-bowel obstruction. After admission, the patient underwent exploratory laparotomy and was found to have a small bowel volvulus related to some adhesions associated with previous right upper quadrant surgery, specifically a cholecystectomy. This was reduced. The patient was also noted to have what appeared to be a chronic sigmoid volvulus and rectosigmoid resection was also undertaken and decompression of the distended small and large bowel. To limit recurrent adhesion formation, Interceed mesh was placed. Postoperatively, the patient as expected was not cooperative due to the underlying dementia. He did have some postoperative ileus, which now appears to be resolved. Oral intake is somewhat spotty, but it hopefully will improve as he gets back to his home environment, and will be continuing the usual care and continuing all of his previous long-term medications plus Tylenol 650 p.o. q.6 hours p.r.n. pain, Colace 100 mg p.o. b.i.d., Dulcolax oral tablets 2 p.o. p.r.n. or suppositories 1 per rectum p.r.n., and follow up with Dr. Raphael in [facility] for staple removal and general evaluation on 10/15/2018.
--- NOTE | 2018-10-10 12:59 | PN ---
DATE OF SERVICE: 10/08/2018 The patient has been afebrile with stable vital signs. Oral intake remains relatively poor. He did retain urine. Once again, Walton catheter is back in. He has not been taking his oral medications much, which is causing problems with both urinary retention and his bowel stimulation. Abdominal x-ray today shows some ileus pattern. Potassium and phosphate remain marginally low. We will begin some Dulcolax suppository today. We will add some K- Phos. We will try and get Walton catheter out tomorrow. Recheck some abdominal x-rays. Encourage increased oral intake. Nixon Raphael MD /[id number]
== END 2018-10-09 13:45 | DRG 330 ==
LOC: JP.ED 17:50 → JP.ICU 20:31 → JP.MS 10-01 16:30
PROVIDERS: ADMIT Surgery; ATTEND Internal Medicine
PROC: 0DSN0ZZ Reposition Sigmoid Colon, Open Approach (ICD-10-PCS; principal; 2018-10-01)
PROC: 0DBN0ZZ Excision of Sigmoid Colon, Open Approach (ICD-10-PCS; 2018-10-01)
PROC: 0D1N0Z4 Bypass Sigmoid Colon to Cutaneous, Open Approach (ICD-10-PCS; 2018-10-01)
PROC: 0D988ZZ Drainage of Small Intestine, Via Natural or Artificial Opening Endoscopic (ICD-10-PCS; 2018-10-01)
PROC: 0DBN0ZZ Excision of Sigmoid Colon, Open Approach (ICD-10-PCS; 2018-10-01)
PROC: 3E0M05Z Introduction of Adhesion Barrier into Peritoneal Cavity, Open Approach (ICD-10-PCS; 2018-10-01)
DX: K56.609 Unspecified intestinal obstruction, unspecified as to partial versus complete obstruction (principal); K56.50 Intestinal adhesions [bands], unspecified as to partial versus complete obstruction; N13.30 Unspecified hydronephrosis; I10 Essential (primary) hypertension; K59.00 Constipation, unspecified; G20 Parkinson's disease; F03.90 Unspecified dementia, unspecified severity, without behavioral disturbance, psychotic disturbance, mood disturbance, and anxiety; G31.83 Neurocognitive disorder with Lewy bodies; F02.80 Dementia in other diseases classified elsewhere, unspecified severity, without behavioral disturbance, psychotic disturbance, mood disturbance, and anxiety; E78.00 Pure hypercholesterolemia, unspecified; K21.9 Gastro-esophageal reflux disease without esophagitis; H91.90 Unspecified hearing loss, unspecified ear; R32 Unspecified urinary incontinence; E87.6 Hypokalemia; E55.9 Vitamin D deficiency, unspecified; Z85.820 Personal history of malignant melanoma of skin; Z79.82 Long term (current) use of aspirin; Z79.899 Other long term (current) drug therapy; E83.42 Hypomagnesemia; E83.39 Other disorders of phosphorus metabolism; Z90.49 Acquired absence of other specified parts of digestive tract; K56.7 Ileus, unspecified; R33.8 Other retention of urine
CPT/HCPCS: 36415; 74018; 74177; 80048; 84484; 85027; 96361; 96374; 99284; 99285; J2765; J7030; J7120; Q9967; 51702; 71045; 74019; 80053; 81001; 83735; 83880; 84100; 85025; 87040; 87077; 87086; 87186; 88304; 88307; 94640; 94762; A9270-GY; C9113; J0131; J0171; J0330; J0694; J1100; J1170; J1630; J1650; J1940; J2001; J2185; J2405; J2543; J2704; J2710; J2795; J3010; J3410; J3475; J3480; J3490; J7042; J7050; J7620-GY

== ENCOUNTER 2018-10-11 22:27 | Inpatient (IN) | payer MEDICARE, BC ==
--- NOTE | 2018-10-11 22:37 | EDM.PDOC ---
ED HPI GENERAL MEDICAL PROBLEM - General Chief Complaint: Abdominal Pain Stated Complaint: POST SURGICAL Time Seen by Provider: 10/11/18 22:30 Source of Information: Reports: EMS, Old Records, RN History Limitations: Reports: Other (patient very hard of hearing with dementia) - History of Present Illness INITIAL COMMENTS - FREE TEXT/NARRATIVE: 83 yo male who recently had abdominal surgery here was sent from his [facility] to the ER tonight for abdominal distention. No fever or vomiting reported. Onset: Today Onset Date: 10/11/18 Duration: Hour(s):, Constant Location: Reports: Abdomen Quality: Reports: Other (unknown) Severity: Moderate Improves with: Reports: None Worsens with: Reports: Other (? time) Context: Reports: Other (see HPI) Associated Symptoms: Reports: No Other Symptoms Treatments CLINICAL APPEALS REVIEWER: Reports: Other (see below) (none) - Related Data Allergies Allergy/AdvReac Type Severity Reaction Status Date / Time No Known Allergies Allergy Verified 10/11/18 23:37 Home Meds: Home Meds Carbidopa/Levodopa [Carbidopa-Levo ER 50-200] 1 tab PO BEDTIME 11/05/16 [History ] Doxazosin Mesylate [Cardura] 4 mg PO BEDTIME 11/05/16 [History] Potassium Chloride [Klor-Con M20] 40 meq PO BID 11/05/16 [History] Rasagiline [Azilect] 1 mg PO DAILY 11/05/16 [History] Spironolact/Hydrochlorothiazid [Aldactazide 25-25] 25 mg PO DAILY 11/05/16 [ History] amLODIPine [Norvasc] 5 mg PO DAILY 11/05/16 [History] Aspirin 81 mg PO DAILY 04/13/17 [History] Benazepril HCl [Lotensin] 20 mg PO BID 04/13/17 [History] Calcium Carbonate [Tums] 300 mg PO Q4H PRN 04/13/17 [History] Cholecalciferol (Vitamin D3) [Vitamin D3] 1,000 unit PO DAILY 04/13/17 [History] Ondansetron HCl [Zofran] 4 mg PO Q4H PRN 04/13/17 [History] Dextromethorphan/guaiFENesin [Robitussin DM] 10 ml PO Q4H PRN 04/18/17 [History] Magnesium Hydroxide [Milk of Magnesia] 30 ml PO ASDIRECTED PRN 04/18/17 [History ] QUEtiapine Fumarate [Quetiapine Fumarate] 25 mg PO BEDTIME 04/18/17 [History] Rivastigmine Tartrate [Rivastigmine] 4.5 mg PO BID 04/18/17 [History] Carbidopa/Levodopa [Carbidopa-Levodopa 25-100 Tab] 2 each PO QID 09/30/18 [ History] Potassium Chloride 20 meq PO DAILY 09/30/18 [History] QUEtiapine [SEROquel] 6.25 mg PO DAILY 09/30/18 [History] Trospium Chloride 20 mg PO BID 09/30/18 [History] Bisacodyl [Dulcolax] 10 mg PO BID PRN #30 tablet 10/09/18 [Rx] Bisacodyl [Dulcolax] 10 mg RECTAL BID PRN #10 supp 10/09/18 [Rx] Acetaminophen [Tylenol] 650 mg PO Q6H PRN 10/11/18 [History] Past Medical History HEENT History: Reports: Other (See Below) Other HEENT History: [place] Cardiovascular History: Reports: High Cholesterol, Hypertension, Other (See Below) Other Cardiovascular History: edema Gastrointestinal History: Reports: Chronic Constipation, GERD, Other (See Below) Other Gastrointestinal History: reflux Genitourinary History: Reports: Urinary Incontinence Neurological History: Reports: Parkinson's, Other (See Below) Other Neuro History: dementia Psychiatric History: Reports: Dementia, Other (See Below) Other Psychiatric History: delusional disorder Hematologic History: Reports: Other (See Below) Other Hematologic History: hypokalemia vit d deficiency Oncologic (Cancer) History: Reports: Malignant Melanoma Other Oncologic History: 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 - Infectious Disease History Infectious Disease History: Reports: Chicken Pox, Measles - Past Surgical History HEENT Surgical History: Reports: Tonsillectomy GI Surgical History: Reports: Hernia Repair/Other Social & Family History - Family History Family Medical History: Noncontributory - Caffeine Use Caffeine Use: Reports: Coffee, Soda ED ROS GENERAL - Review of Systems Review Of Systems: See Below Constitutional: Reports: No Symptoms HEENT: Reports: Hearing Loss (chronic) Respiratory: Reports: No Symptoms Cardiovascular: Reports: No Symptoms GI/Abdominal: Reports: Distension. Denies: Black Stool, Bloody Stool, Constipation, Diarrhea, Hematemesis, Hematochezia, Nausea, Vomiting : Reports: No Symptoms Musculoskeletal: Reports: No Symptoms Skin: Reports: Wound (surgical wound on abdomen) Neurological: Reports: No Symptoms Psychiatric: Reports: Other (dementia) ED EXAM, GI/ABD - Physical Exam Exam: See Below Exam Limited By: No Limitations General Appearance: Alert, WD/WN, No Apparent Distress Eyes: Bilateral: Normal Appearance Ears: Normal External Exam, Hearing Grossly Normal Nose: Normal Inspection, No Blood Throat/Mouth: Normal Inspection, Normal Lips, Normal Oropharynx, Normal Voice, No Airway Compromise Head: Atraumatic, Normocephalic Neck: Normal Inspection Respiratory/Chest: No Respiratory Distress, Lungs Clear, Normal Breath Sounds, No Accessory Muscle Use Cardiovascular: Regular Rate, Rhythm. No: No Edema GI/Abdominal Exam: Distended, Tender (diffusely, mild), Abnormal Bowel Sounds ( increased pitch). No: Normal Bowel Sounds, Soft, Non-Tender, No Distention, No Abnormal Bruit, Guarding, Rigid, Rebound Extremities: Pedal Edema. No: No Pedal Edema Neurological: Alert, CN II-XII Intact, No Motor/Sensory Deficits Psychiatric: Normal Affect, Normal Mood Skin Exam: Warm, Dry, Intact, Normal Color, No Rash Course - Vital Signs Text/Narrative:: Dr. Raphael called @ 2312h Last Recorded V/S: Last Vital Signs Temp 35.7 C 10/11/18 22:46 Pulse 66 10/12/18 00:58 Resp 18 10/12/18 00:58 BP 168/78 H 10/12/18 00:58 Pulse Ox 94 L 10/12/18 00:58 - Orders/Labs/Meds Orders: Active Orders 24 hr Category Date Time Status Iopamidol [Isovue-300 (61%)] Med 10/11/18 23:34 Active 128 ml IV . DIRECTED PRN Lactated Ringers [Ringers, Lactated] 1,000 ml Med 10/11/18 23:15 Active IV ASDIRECTED Sodium Chloride 0.9% [Normal Saline] 79 ml Med 10/11/18 23:45 Active IV ASDIRECTED Sodium Chloride 0.9% [Saline Flush] Med 10/11/18 23:34 Active 10 ml FLUSH ONETIME PRN Nasogastric Orogastric Tube Insertion [OM.PC] Routine Oth 10/11/18 23:07 Ordered Medication Orders Lactated Ringer's (Ringers, Lactated) 1,000 mls @ 150 mls/hr IV ASDIRECTED DANY Last Admin: 10/12/18 00:31 Dose: 150 mls/hr Sodium Chloride (Normal Saline) 79 mls @ 3.5 mls/sec IV ASDIRECTED DANY Last Admin: 10/12/18 00:16 Dose: 3.5 mls/sec Iopamidol (Isovue-300 (61%)) 128 ml IV . DIRECTED PRN PRN Reason: RADIOLOGY EXAM Stop: 10/12/18 23:35 Last Admin: 10/12/18 00:16 Dose: 128 ml Sodium Chloride (Saline Flush) 10 ml FLUSH ONETIME PRN PRN Reason: per radiology protocol Last Admin: 10/12/18 00:14 Dose: 10 ml Labs: Laboratory Tests 10/11/18 10/11/18 10/11/18 Range/Units 22:43 22:43 23:17 WBC 11.9 H (4.5-11.0) K/uL RBC 3.60 L (4.30-5.90) M/uL Hgb 11.4 L (12.0-15.0) g/dL Hct 35.9 L (40.0-54.0) % MCV 100 H (80-98) fL MCH 32 H (27-31) pg MCHC 32 (32-36) % Plt Count 298 (150-400) K/uL Sodium 141 (140-148) mmol/L Potassium 4.0 (3.6-5.2) mmol/L Chloride 108 (100-108) mmol/L Carbon Dioxide 23 (21-32) mmol/L Anion Gap 10.5 (5.0-14.0) mmol/L BUN 23 H (7-18) mg/dL Creatinine 1.2 (0.8-1.3) mg/dL Est Cr Clr Drug Dosing TNP Estimated GFR (MDRD) 58 L (>60) Glucose 91 (74-106) mg/dL Calcium 8.9 (8.5-10.1) mg/dL Urine Color Yellow (YELLOW) Urine Appearance Clear (CLEAR) Urine pH 6.0 (5.0-8.0) Ur Specific [place] 1.025 (1.008-1.030) Urine Protein Negative (NEGATIVE) mg/dL Urine Glucose (UA) Normal (NEGATIVE) mg/dL Urine Ketones Negative (NEGATIVE) mg/dL Urine Occult Blood Negative (NEGATIVE) Urine Nitrite Negative (NEGATIVE) Urine Bilirubin Negative (NEGATIVE) Urine Urobilinogen Normal (0.2-1.0) EU/dL Ur Leukocyte Esterase Negative (NEGATIVE) Urine RBC 0-5 (0-5) Urine WBC 0-5 (0-5) Ur Epithelial Cells Few Amorphous Sediment Not seen Urine Bacteria Rare Urine Mucus Not seen Meds: Medications Generic Name Dose Route Start Last Admin Trade Name Freq PRN Reason Stop Dose Admin Lactated Ringer's 1,000 mls @ 150 mls/hr 10/11/18 23:15 10/12/18 00:31 Ringers, Lactated IV 150 mls/hr ASDIRECTED DANY Administration Sodium Chloride 79 mls @ 3.5 mls/sec 10/11/18 23:45 10/12/18 00:16 Normal Saline IV 3.5 mls/sec ASDIRECTED DANY Administration Iopamidol 128 ml 10/11/18 23:34 10/12/18 00:16 Isovue-300 (61%) IV 10/12/18 23:35 128 ml . DIRECTED PRN Administration RADIOLOGY EXAM Sodium Chloride 10 ml 10/11/18 23:34 10/12/18 00:14 Saline Flush FLUSH 10 ml ONETIME PRN Administration per radiology protocol - Radiology Interpretation Free Text/Narrative:: Flat and lateral decubitus abdominal X-rays- Departure - Departure Time of Disposition: 01:34 Disposition: Admitted As Inpatient 65 Condition: Fair Clinical Impression: SBO (small bowel obstruction) - Discharge Information *PRESCRIPTION DRUG MONITORING PROGRAM REVIEWED*: No *COPY OF PRESCRIPTION DRUG MONITORING REPORT IN PATIENT TONG: No Referrals: Hesham Ann Sr, MD [Primary Care Provider] - Forms: ED Department Discharge - My Orders Last 24 Hours: My Active Orders 10/11/18 23:07 Nasogastric Orogastric Tube Insertion [OM.PC] Routine 10/11/18 23:15 Lactated Ringers [Ringers, Lactated] 1,000 ml IV ASDIRECTED 10/11/18 23:34 Iopamidol [Isovue-300 (61%)] 128 ml IV . DIRECTED PRN Sodium Chloride 0.9% [Saline Flush] 10 ml FLUSH ONETIME PRN 10/11/18 23:45 Sodium Chloride 0.9% [Normal Saline] 79 ml IV ASDIRECTED - Assessment/Plan Last 24 Hours: My Active Orders 10/11/18 23:07 Nasogastric Orogastric Tube Insertion [OM.PC] Routine 10/11/18 23:15 Lactated Ringers [Ringers, Lactated] 1,000 ml IV ASDIRECTED 10/11/18 23:34 Iopamidol [Isovue-300 (61%)] 128 ml IV . DIRECTED PRN Sodium Chloride 0.9% [Saline Flush] 10 ml FLUSH ONETIME PRN 10/11/18 23:45 Sodium Chloride 0.9% [Normal Saline] 79 ml IV ASDIRECTED
[2018-10-11] MEDS ORDERED: Lactated Ringers 1,000 ML IV SCH (23:15)
[2018-10-11] MEDS ORDERED: Sodium Chloride 0.9% 10 ML Syringe FLUSH PRN (23:34)
[2018-10-11] MEDS ORDERED: Iopamidol 612 MG/ML 150 ML Bottle IV PRN (23:34)
--- NOTE | 2018-10-11 23:45 | CRLCR ---
INDICATION: Abdominal distension postop COMPARISON: 10/09/2018 FINDINGS: Supine and left lateral decubitus films of the abdomen were obtained. There has been resolution of the previously seen moderate small bowel dilatation during the interval, consistent with resolution of a postoperative ileus. The colon is nondistended as well. There is no sign of any free air. Again seen is a long line of surgical skin florence extending from the upper abdomen into the upper pelvis. The osseous structures are normal in appearance for the patient`s age. The right lung base is clear. IMPRESSION: Resolution of previously seen small bowel dilatation. Findings consistent with resolution of the previous postoperative ileus. No signs of any free air. Dictated by Tima Thompson MD @ Oct 11 2018 11:40PM Signed by Dr. Tima Thompson @ Oct 11 2018 11:42PM
--- NOTE | 2018-10-12 01:26 | CRLCT ---
INDICATION: Postoperative abdominal distension TECHNIQUE: CT abdomen and pelvis acquired with 128 cc Isovue-300 IV contrast. COMPARISON: September 30, 2018 FINDINGS: Lower chest: Cardiomegaly. Coronary artery calcifications. Small bilateral pleural effusions. Liver: Simple cyst in the right hepatic lobe. Spleen: Unremarkable. Pancreas: Unremarkable. Gallbladder and bile ducts: S/p cholecystectomy. Adrenal glands: Unremarkable. Kidneys: Severe left hydronephrosis versus multiple parapelvic cysts. Simple cyst on the right kidney. GI tract: Anastomotic suture in the midsigmoid colon. No intra-abdominal abscess. Small amount of free fluid. There are some fluid-filled loops of small bowel in the lower abdomen measuring up to 3.2 cm in diameter. No pneumatosis. No definite transition point. The colon is decompressed. Appendix is surgically absent. Vascular structures: Moderate atherosclerotic disease. Lymph nodes: Unremarkable. Miscellaneous: Midline laparotomy skin florence. Status post right inguinal herniorrhaphy. No free air or significant free fluid. Pelvic Organs: Mild thickening of the urbano of the urinary bladder. The bladder is incompletely distended. Bones: Unremarkable for age. IMPRESSION: Mildly dilated loops of small bowel in the lower abdomen may represent early small bowel obstruction. Colon is decompressed. New focal suture line in the mid sigmoid colon. No intra-abdominal abscess. Mild wall thickening of the urinary bladder. Could represent cystitis. Correlate with urinalysis Small bilateral pleural effusions. Cardiomegaly with coronary artery disease. Severe left hydronephrosis versus multiple parapelvic cysts. Consider renal ultrasound for further characterization. Status post right inguinal herniorrhaphy, appendectomy, and cholecystectomy. Please note that all CT scans at this facility use dose modulation, iterative reconstruction, and/or weight-based dosing when appropriate to reduce radiation dose to as low as reasonably achievable. Dictated by Rand Berger MD @ Oct 12 2018 1:14AM Signed by Dr. Rand Berger @ Oct 12 2018 1:24AM
[2018-10-12] MEDS ORDERED: Ondansetron 4 MG/2 ML SDV IV PRN (01:42)
[2018-10-12] MEDS: Dimethicone 20%/Zinc Oxide 25% 56 GM Spray Bottle TOP PRN ×3 (05:32→14:18)
[2018-10-12] MEDS ORDERED: Bisacodyl 10 MG Supp RECTAL PRN (08:17)
[2018-10-12] MEDS ORDERED: Calcium Carbonate 500 MG Tab.Chew PO PRN (08:19)
[2018-10-12] MEDS: D5 1/2 NS w/ 20 mEq/L KCl 1,000 ML IV SCH ×2 (08:57→20:26)
--- NOTE | 2018-10-12 09:27 | PN ---
DATE OF SERVICE: 10/12/2018 The patient was admitted overnight with some abdominal distention and increased pain. Previously, he is status post treatment of a small bowel volvulus along with a sigmoid volvulus surgically. He had some protracted course in the hospital due to ileus issues that has seemed to resolve. He was sent back to the emergency room with some increasing abdominal pain and some degree of distention. He had no fever and no vomiting has been reported. The CT scan is suggestive of possible early small-bowel obstruction or ileus. Clinically, this is probably going to be the latter. Anyway, the patient will be admitted with IV hydration. To augment GI tract motility, we will give him some IV Zithromax. Otherwise, restart his usual medications. Recheck abdominal x-ray in the morning. We will also check a post void bladder scan as he has had some problems with urinary retention in the past Tylenol orally for pain. If we get his bowels going, we will restart some oral intake and otherwise check abdominal x-rays in the morning. Nixon Raphael MD /[id number]
[2018-10-12] MEDS: Azithromycin 500 MG in Sodium Chloride 0.9% 250 ML IV SCH (09:33)
[2018-10-12] MEDS: Bisacodyl 5 MG Tab PO SCH ×3 (09:36→22:41)
[2018-10-12] MEDS: Docusate Sodium 100 MG Cap PO SCH ×3 (09:37→22:41)
[2018-10-12] MEDS: Spironolactone 25 MG Tab PO SCH (09:37)
[2018-10-12] MEDS: Trospium 20 MG Tab PO SCH ×2 (09:38→20:13)
[2018-10-12] MEDS: Carbidopa/Levodopa 25-100 MG Tab PO SCH ×3 (09:38→22:40)
[2018-10-12] MEDS: Hydrochlorothiazide 25 MG Tab PO SCH (09:38)
[2018-10-12] MEDS: Potassium Chloride 20 MEQ Tab.ER PO SCH (09:38)
[2018-10-12] MEDS: QUEtiapine 25 MG Tab PO SCH (09:48)
[2018-10-12] MEDS: Haloperidol Lactate 5 MG/ML SDV IVPUSH PRN (20:32)
[2018-10-12] MEDS ORDERED: Carbidopa/Levodopa 50-200 MG Tab.ER PO SCH (21:00)
[2018-10-12] MEDS ORDERED: QUEtiapine 25 MG Tab PO SCH (21:00)
[2018-10-12] MEDS ORDERED: Doxazosin 4 MG Tab PO SCH (21:00)
[2018-10-12] MEDS ORDERED: Lidocaine 2% Jelly 10 ML Urojet MUCMEM ONE (22:37)
[2018-10-13] MEDS: Dimethicone 20%/Zinc Oxide 25% 56 GM Spray Bottle TOP PRN (02:32)
[2018-10-13] MEDS: Carbidopa/Levodopa 25-100 MG Tab PO SCH ×5 (05:17→17:05)
[2018-10-13] MEDS: D5 1/2 NS w/ 20 mEq/L KCl 1,000 ML IV SCH (05:36)
--- NOTE | 2018-10-13 06:48 | CRLCR ---
Indication: Ileus. Technique: Abdomen 3 view. Comparison: CT abdomen/pelvis 10/12/2018. Findings: Nonobstructive bowel gas pattern. Moderate amount of stool in the sigmoid colon. No pneumatosis. No free air. Surgical clips right upper quadrant. Midline surgical florence. Degenerative changes of spine and hips. Left basilar atelectasis. Impression: 1. No evidence of obstruction. 2. Moderate amount of stool in the sigmoid colon. Dictated by Meri Panchal MD @ Oct 13 2018 6:42AM Signed by Dr. Meri Panchal @ Oct 13 2018 6:47AM
[2018-10-13] MEDS: Bisacodyl 5 MG Tab PO SCH (08:00)
[2018-10-13] MEDS: Docusate Sodium 100 MG Cap PO SCH ×2 (08:00→20:59)
[2018-10-13] MEDS: Potassium Chloride 20 MEQ Tab.ER PO SCH (08:00)
[2018-10-13] MEDS: QUEtiapine 25 MG Tab PO SCH ×2 (08:00→20:58)
[2018-10-13] MEDS: Spironolactone 25 MG Tab PO SCH (08:01)
[2018-10-13] MEDS: Hydrochlorothiazide 25 MG Tab PO SCH (08:01)
[2018-10-13] MEDS: Trospium 20 MG Tab PO SCH ×2 (08:03→20:55)
[2018-10-13] MEDS: Azithromycin 500 MG in Sodium Chloride 0.9% 250 ML IV SCH (08:28)
--- NOTE | 2018-10-13 08:39 | PN ---
DATE OF SERVICE: 10/13/2018 SUBJECTIVE: Angelo has been restless, refusing medications for the evening, otherwise during the day, he has been cooperative and ambulating frequently. He has been incontinent, so Walton catheter was replaced. He has had a total of 2050 out of his catheter. Abdomen is less distended and x-ray this morning showed no evidence of obstruction. Moderate amount of stool in the sigmoid colon. REVIEW OF SYSTEMS: Remainder of review of systems negative for any pertinent positives or negatives. LABORATORY DATA: Magnesium is 1.6. BNP is 1075. OBJECTIVE: GENERAL: Angelo Greenfield is an 83-year-old male. He is very sleepy this morning. VITAL SIGNS: TPR 95.6, 68, 16 and blood pressure 129/56. HEART: Regular rate and rhythm. LUNGS: Clear. ABDOMEN: Soft and nontender. EXTREMITIES: Without peripheral edema. ASSESSMENT: 1. Partial small bowel obstruction, resolving. 2. Low magnesium. PLAN: 1. Resume normal chcf diet. 2. Magnesium 2 g IV q.6 hours x72 hours. 3. Discontinue Walton catheter on 10/14/2018 at 0500 hours. 4. We will evaluate p.r.n. or in a.m. Meri Long PA-C /[id number]
[2018-10-13] MEDS: Magnesium Sulfate/Water 2 GM in Premix Bag 1 BAG IV SCH ×3 (09:44→21:21)
[2018-10-13] MEDS: Haloperidol Lactate 5 MG/ML SDV IVPUSH PRN (19:35)
[2018-10-13] MEDS: Tamsulosin 0.4 MG Cap.ER PO SCH (20:56)
[2018-10-13] MEDS: Carbidopa/Levodopa 50-200 MG Tab.ER PO SCH (20:57)
[2018-10-13] MEDS: Doxazosin 4 MG Tab PO SCH (20:58)
[2018-10-13] MEDS ORDERED: Tamsulosin 0.4 MG Cap.ER PO SCH (21:00)
[2018-10-14] MEDS: QUEtiapine 25 MG Tab PO SCH ×3 (02:34→20:26)
[2018-10-14] MEDS: Tamsulosin 0.4 MG Cap.ER PO SCH ×2 (02:34→20:24)
[2018-10-14] MEDS: Carbidopa/Levodopa 50-200 MG Tab.ER PO SCH ×2 (02:34→20:27)
[2018-10-14] MEDS: Doxazosin 4 MG Tab PO SCH ×2 (02:34→20:24)
[2018-10-14] MEDS: Trospium 20 MG Tab PO SCH ×3 (02:34→20:25)
[2018-10-14] MEDS: Magnesium Sulfate/Water 2 GM in Premix Bag 1 BAG IV SCH ×2 (04:48→10:40)
[2018-10-14] MEDS: Carbidopa/Levodopa 25-100 MG Tab PO SCH ×5 (08:34→17:34)
[2018-10-14] MEDS: Docusate Sodium 100 MG Cap PO SCH ×2 (08:34→20:24)
[2018-10-14] MEDS: Spironolactone 25 MG Tab PO SCH (08:34)
[2018-10-14] MEDS: Potassium Chloride 20 MEQ Tab.ER PO SCH (08:35)
[2018-10-14] MEDS: Hydrochlorothiazide 25 MG Tab PO SCH (08:35)
[2018-10-14] MEDS: Azithromycin 500 MG in Sodium Chloride 0.9% 250 ML IV SCH ×2 (10:17→10:36)
[2018-10-14] MEDS: Azithromycin 250 MG Tab PO SCH (10:49)
[2018-10-15] MEDS: Acetaminophen 325 MG Tab PO PRN ×2 (01:54→06:03)
[2018-10-15] MEDS: Dimethicone 20%/Zinc Oxide 25% 56 GM Spray Bottle TOP PRN (01:56)
[2018-10-15] MEDS: Carbidopa/Levodopa 25-100 MG Tab PO SCH (05:41)
[2018-10-15] MEDS: Azithromycin 250 MG Tab PO SCH (08:22)
[2018-10-15] MEDS: Trospium 20 MG Tab PO SCH (08:22)
[2018-10-15] MEDS: Spironolactone 25 MG Tab PO SCH (08:22)
[2018-10-15] MEDS: Potassium Chloride 20 MEQ Tab.ER PO SCH (08:22)
[2018-10-15 08:23] VITALS: BP 141/62
[2018-10-15] MEDS: Docusate Sodium 100 MG Cap PO SCH (08:23)
[2018-10-15] MEDS: QUEtiapine 25 MG Tab PO SCH (08:23)
[2018-10-15] MEDS: Hydrochlorothiazide 25 MG Tab PO SCH (08:24)
--- NOTE | 2018-10-15 09:09 | DISCH ---
ADMISSION DIAGNOSES: 1. Postop ileus. 2. Dementia. 3. Hard of hearing. 4. Essential hypertension. 5. Parkinson disease. 6. Gastroesophageal reflux disease. 7. Vitamin D deficiency. 8. Hyperlipidemia. 9. Urinary incontinence. 10.Delusion disorder. DISCHARGE DIAGNOSIS: Resolution of postoperative ileus. HISTORY: Angelo Greenfield is an 83-year-old male from [facility], who presented to the emergency room with abdominal distention. Angelo Greenfield had an exploratory laparotomy with reduction of small bowel volvulus, closure of internal hernia, rectosigmoid resection with coloproctostomy, tube decompression of small and large bowel and placement of Interceed mesh on 10/01/2018. He was discharged on 10/09/2018 and presented to the emergency room on 10/11/2018. He was admitted to the hospital and started on IV fluids, n.p.o. He had an NG tube in on 10/12/2018. He had no fever or vomiting. The CT scan was suggestive of possible early small-bowel obstruction or ileus. He was doing better, started on IV Zithromax and his oral medications. His bladder was also scanned. After each urination, the Walton catheter was replaced and discontinued on 10/14/2018. He had postvoid residuals around 100 mL, incontinent of urine. 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 REVIEW OF SYSTEMS: GENERAL: No fever, chills, night sweats, or fatigue. HEENT: Hard of hearing, otherwise negative. NECK: Negative. HEART: No chest pain, shortness of breath, fast or irregular heartbeat. LUNGS: No cough. ABDOMEN: As above. EXTREMITIES: Negative. NEUROLOGIC: Confused, dementia. SKIN: Has Parkinson's skin without rash. Remainder of review of systems negative for any pertinent positives and negatives. OBJECTIVE: GENERAL: Angelo is an 83-year-old male. VITAL SIGNS: Height is 5 feet 10 inches, weight is 188 pounds. TPR is 96.8, 72, 16, blood pressure 127/69. HEENT: Negative. NECK: Supple. HEART: Regular rate and rhythm. LUNGS: Clear. ABDOMEN: Meghann intact. Abdominal binder is on. Soft, nontender, and nondistended. EXTREMITIES: Without peripheral edema. DISPOSITION: Discharged to [facility]. CONDITION: Stable. FOLLOWUP APPOINTMENT: With Nixon Raphael MD, on 10/22/2018 at 10 a.m. HOME MEDICATIONS: Zithromax 125 mg p.o. daily #90, 4 refills. To resume home medications; Tylenol 650 mg q.6 hours p.r.n. pain, aspirin 81 mg daily, benazepril HCl (Lotensin 20 mg twice daily), Dulcolax 10 mg rectal suppository twice daily p.r.n. constipation, Dulcolax 10 mg tablets oral twice daily p.r.n. constipation, Tums 300 mg every 4 hours p.r.n., carbidopa levodopa ER 50/200 one tablet oral at bedtime, carbidopa levodopa 25/100 two oral 4 times daily, vitamin D 1000 International Units daily, Robitussin DM 10 mL every 4 hours p.r.n. cough, Cardura 4 mg oral at bedtime, milk of magnesia 30 mL p.r.n. constipation, Zofran 4 mg every 4 hours p.r.n. nausea, potassium chloride 20 mEq oral daily, Seroquel 6.25 mg oral daily, quetiapine fumarate 25 mg oral at bedtime, rasagiline/Azilect mg oral daily, rivastigmine 4.5 mg oral twice daily, Aldactazide 25 mg oral daily, Norvasc 5 mg oral daily. DIET: Usual diet as tolerated. Drink 8 to 10 glasses of water a day. ACTIVITY: As tolerated. No lifting over 10 pounds for 4 weeks. Shower/bathing: May shower. DISCHARGE INSTRUCTIONS: Notify provider if any fever, increased pain, nausea, or vomiting. Wound incision care; keep site clean and dry. Wear abdominal binder for 2 weeks and then as tolerated.
--- NOTE | 2018-10-15 10:24 | PN ---
DATE OF SERVICE: 10/14/2018 The patient is now moving bowels fairly well. I think the Zithromax will be helpful in that regard. We will likely send him back to [facility] on that. He did have and we will need to make sure he is emptying satisfactorily prior to discharge which would likely be tomorrow. It is hard to tell how much he is voiding at a given time. We will get bladder scans t.i.d. in the postvoid period based on when his diaper becomes wet. Nixon Raphael MD /[id number]
== END 2018-10-15 09:55 | DRG 390 ==
LOC: JP.ED 22:27 → JP.MS 10-12 01:42
PROVIDERS: ADMIT Surgery; ATTEND Surgery
DX: K56.609 Unspecified intestinal obstruction, unspecified as to partial versus complete obstruction (principal); K56.7 Ileus, unspecified; E78.00 Pure hypercholesterolemia, unspecified; K59.00 Constipation, unspecified; R32 Unspecified urinary incontinence; E83.42 Hypomagnesemia; F03.90 Unspecified dementia, unspecified severity, without behavioral disturbance, psychotic disturbance, mood disturbance, and anxiety; E87.6 Hypokalemia; H91.90 Unspecified hearing loss, unspecified ear; I10 Essential (primary) hypertension; G20 Parkinson's disease; K21.9 Gastro-esophageal reflux disease without esophagitis; E55.9 Vitamin D deficiency, unspecified; E78.5 Hyperlipidemia, unspecified; F22 Delusional disorders; Z85.820 Personal history of malignant melanoma of skin; Z79.82 Long term (current) use of aspirin; Z79.899 Other long term (current) drug therapy
CPT/HCPCS: 36415; 51702; 51798; 74019; 74177; 80048; 80053; 81001; 83735; 83880; 84100; 85027; 96360; 99284-25; A9270-GY; J0456; J1630; J3475; J3480; J7030; J7050; J7120